=== PATIENT | male | born 1940 | race Caucasian/White ===

== ENCOUNTER 2018-03-25 12:50 | Emergency (ER) | payer MEDICARE, SELFPAY ==
[2018-03-25 12:59] VITALS: BP 106/63; PULSE 64; RESP 16; TEMP 36.6; O2SAT 96
--- NOTE | 2018-03-25 13:19 | ED.GENADUL_ITS ---
Discharge Plan Discharge Details Chief Complaint: HeadInjury Primary Care Provider: Josh Thakkar ED Provider: Marty Bishop Home Meds and New Rx's Prescriptions: No Action aspirin [Ecotrin Low Strength] 81 MG tablet,delayed release (DR/EC) 81 mg PO DAILY RF: 0 cholecalciferol (vitamin D3) 1,000 UNIT capsule 1,000 unit PO QAM RF: 0 omega-3 fatty acids-fish oil 1 EACH capsule 2 cap PO DAILY RF: 0 CPAP RF: 0 cyanocobalamin (vitamin B-12) [Vitamin B-12] 1,000 MCG tablet 1,000 mcg PO DAILY RF: 0 acetaminophen [Arthritis Pain Reliever] 650 MG tablet extended release 650 mg PO Q8H PRN RF: 0 nitroglycerin [Nitrostat] 0.4 MG tablet, sublingual 0.4 mg Sublingual PRN Qty: 25 RF: 0 hydrochlorothiazide 12.5 MG capsule 12.5 mg PO DAILY Qty: 90 RF: 3 omeprazole 20 MG capsule,delayed release(DR/EC) 20 mg PO DAILY Qty: 90 RF: 3 atenolol 50 MG tablet 75 mg PO DAILY Qty: 135 RF: 4 Medical Decision Making MDM Narrative Medical decision making narrative: This is a delightful 77-year-old male who had a mechanical ground-level fall, striking his left face on the ground. There is no loss of consciousness, no neck injury, no complaints of chest or abdominal discomfort. He has abrasion and swelling to the left periorbital region. Differential diagnosis includes underlying bony or intracranial injury. Patient was referred for CT scan of head. This did not reveal acute intracranial or bony findings, there is scalp hematoma present. Patient appropriate for outpatient management. Discussed increased dissipated course of resolution with him. He stable and appropriate for discharge to home HPI - General Adult General Mode of arrival: ambulatory . Date/Time Provider Initiated Documentation: 03/25/18 13:03 . Limitations to Documentation: no limitations . Information obtained by: patient . History of Present Illness 77 year old M presents to the emergency department with the chief complaint of Head injury, described as moderate, Quality is described as aching, and is localized to the head and left. Patient reports no radiation. Patient started experiencing this minute(s) and it has been constant. No relieving factors improve symptom(s), No exacerbating factors reported . Patient notes no other symptoms.. Patient did receive the following treatments prior to arrival, other (Ice) HPI Narrative: Head injury: 77-year-old male states he tripped and fell on a piece of pavement, falling forward and striking his left head on the ground. He did not have a loss of consciousness. He has aching the left head discomfort and swelling with abrasion. He does not have neck pain. He had no antecedent illness. He states that his tetanus status is up-to-date Related Data Home Medications Medication Instructions Recorded Confirmed aspirin [Ecotrin Low Strength] 81 mg PO DAILY tab-cap 12/01/12 03/25/18 cholecalciferol (vitamin D3) 1,000 unit PO QAM 12/01/12 03/25/18 omega-3 fatty acids-fish oil 2 cap PO DAILY 12/01/12 03/25/18 Cpap 12/06/12 01/23/14 cyanocobalamin (vitamin B-12) 1,000 mcg PO DAILY 07/14/16 03/25/18 [Vitamin B-12] acetaminophen [Arthritis Pain 650 mg PO Q8H PRN tab-cap 06/08/17 03/25/18 Reliever] Previous Rx's Medication Instructions Recorded nitroglycerin [Nitrostat] 0.4 mg SUBLINGUAL PRN #25 tab-cap 07/15/17 atenolol 75 mg PO DAILY #135 tab-cap 11/24/17 hydrochlorothiazide 12.5 mg PO DAILY #90 tab-cap 11/24/17 omeprazole 20 mg PO DAILY #90 tab-cap 11/24/17 Allergies Allergy/AdvReac Type Severity Reaction Status Date / Time azithromycin Allergy Severe LIP Unverified 03/25/18 13:04 SWELLING ibuprofen Allergy Intermediate angioedema Unverified 03/25/18 13:04 Penicillins Allergy Intermediate LIP Unverified 03/25/18 13:04 SWELLING Calcium Channel Blocking Allergy Unknown HIVES Unverified 03/25/18 13:04 Agent Dilt diltiazem Allergy Unknown HIVES Unverified 03/25/18 13:04 Sulfa (Sulfonamide Allergy Unknown SKIN RASH Unverified 03/25/18 13:04 Antibiotics) SODIUM NITRITE Allergy Severe Anaphylaxsi Uncoded 03/25/18 13:04 s General Stated Complaint: HeadInjury CAMERON: 3 Review of Systems Review of Systems 8 systems reviewed and otherwise neg PFSH Family History Mother Essential hypertension Hyperlipidemia Father Alzheimer disease Brother Hyperlipidemia Grandfather Heart disease Grandfather Heart disease Grandmother No problems noted. Grandmother Essential hypertension Brother Essential hypertension Son No problems noted. Son No problems noted. Son No problems noted. Daughter No problems noted. Social History Smoking/Tobacco Use Status: Former Tobacco Use Surgical History Arthroscopy, Shoulder (~2009) Extraction of cataract (~2010) Rotator Cuff Repair (~2005) Total replacement of hip (~2004) Transurethral prostatectomy (~2006) ankle repair (~1980) Exam Narrative Exam Narrative: GEN: awake, alert, oriented 3. Pleasant, well groomed, interactive. HEAD: Normocephalic, left periorbital swelling and abrasion superior and lateral to the orbit. ENT: Mucous membranes moist, oropharynx unremarkable, External ear exam unremarkable, no midface instability or bony tenderness EYES: PERRL, EOMI NECK: Full ROM, no DEBBIE, no menigismus CHEST/RESP: Nontender, clear to auscultation bilateral, no wheeze/rhonchi/rales CARDIOVASCULAR: RRR, no murmur, rub chani. 2+ Rad pulse bilateral ABDOMEN: Soft, nontender, no mass. +Bowel sounds EXT: Full ROM, no edema, no rash Neuro: Grossly normal neurologic exam, conversant, interactive. Psych: Speech fluent, thoughts congruent, affect normal Course Vital Signs Temperature 36.6 C 03/25/18 12:59 Pulse 64 03/25/18 12:59 Respiratory Rate 16 03/25/18 12:59 Blood Pressure 106/63 03/25/18 12:59 Pulse Oximetry 96 03/25/18 12:59 Temperature 36.6 C 03/25/18 12:59 Pulse 64 03/25/18 12:59 Respiratory Rate 16 03/25/18 12:59 Blood Pressure 106/63 03/25/18 12:59 Pulse Oximetry 96 03/25/18 12:59
--- NOTE | 2018-03-25 13:54 | DI.CT_ITS ---
SYMPTOMS/DIAGNOSIS: FALL, LT FRONTAL TRAUMA, PAIN NONCONTRAST HEAD CT: There are no prior comparison exams. There is a scalp hematoma seen above the left orbit. There is no evidence of fracture or intracranial hemorrhage. No orbital fracture is seen. The ventricles are normal in size. The sinuses and mastoid air cells appear clear. There is mild atrophy consistent with the patient's age. IMPRESSION: Left frontal scalp hematoma. No acute intracranial abnormality or skull fracture.
== END 2018-03-25 14:44 | disposition home or self-care (01) ==
LOC: ER 14:48
PROVIDERS: Emergency Provider Emergency Medicine; PCP Family Medicine
DX: S00.03XA Contusion of scalp, initial encounter (principal); W01.198A Fall on same level from slipping, tripping and stumbling with subsequent striking against other object, initial encounter
CPT/HCPCS: 99284; 70450

== ENCOUNTER 2018-07-13 10:12 | Outpatient (CLI) | payer MEDICARE, SELFPAY ==
[2018-07-13 11:42] LABS: CREATININE 1.37 mg/dL (0.70-1.30); Estimated GFR 50.25 (mL/min/1.73m2); Potassium 4.3 mmol/L (3.5-5.1)
== END 2018-07-13 10:32 ==
PROVIDERS: PCP Family Medicine; Visit Provider Family Medicine
DX: I10 Essential (primary) hypertension (principal)
CPT/HCPCS: 36415; 82565; 84132

== ENCOUNTER 2019-08-23 11:39 | Outpatient (CLI) | payer MEDICARE, SELFPAY ==
[2019-08-23 13:04] LABS: CREATININE 1.33 mg/dL (0.70-1.30); Estimated GFR 51.87 (mL/min/1.73m2); Potassium 4.2 mmol/L (3.5-5.1)
[2019-08-23 13:18] LABS: COMMENT (LAB VIEW ONLY) 131.79 mg/dL; Microalb ug/mg Crea 20.4 ug/mg Cr
== END 2019-08-23 11:59 ==
PROVIDERS: PCP Family Medicine; Visit Provider Family Medicine
DX: I10 Essential (primary) hypertension (principal)
CPT/HCPCS: 36415; 82043; 82565; 82570; 84132

== ENCOUNTER 2020-03-05 11:12 | Outpatient (REF) | payer MEDICARE, SELFPAY ==
--- NOTE | 2020-03-05 10:40 | SKI_PTH ---
PATIENT: Quentin Shay LOC: [facility] U#:[id number] AGE/SX: 79/M ROOM: RE03/05/[address]: Josh Thakkar MD : [id number] BED: DIS: 03/05/2020 SPEC #: [id number] RECD: 03/05/20 12:46 STATUS: MAYELIN REQ #: [id number] NIRU: 03/05/20 10:[address]: Josh Thakkar DEPT: Surgical Specimen RECD BY: Monique Balbuena Tissues: 1 - SKIN BIOPSY(SHAVE/PUNCH) Procedures: SKIN LEVEL 4 Comments: [id number]
== END 2020-03-05 11:32 ==
LOC: LBN 11:12
PROVIDERS: PCP Family Medicine; Visit Provider Family Medicine
DX: L30.8 Other specified dermatitis (principal)
CPT/HCPCS: 88305

== ENCOUNTER 2020-05-29 13:48 | Emergency (ER) | payer MEDICARE, SELFPAY ==
[2020-05-29 13:51] VITALS: BP 152/72; PULSE 97; RESP 18; TEMP 36.2; O2SAT 97
--- NOTE | 2020-05-29 14:00 | DI.US_ITS ---
EXAM: US LOWER EXTREMITY VENOUS LT CLINICAL HISTORY: Popliteal swelling, pain, r/o DVT TECHNIQUE: Left lower extremity venous ultrasound performed using grayscale, color-flow, and spectra l Doppler analysis. COMPARISON: No exams were available for comparison FINDINGS: The left common femoral and femoral l veins demonstrate normal compressibility, augmentation, and col or Doppler. There is hypoechoic thrombus seen in the posterior tibialis and popliteal veins. The sap henofemoral junction is unremarkable. There is no evidence of a West cyst. The soft tissues are un remarkable. 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 IMPRESSION: 1. DVT in the posterior tibialis and popliteal veins. 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 3. Findings were discussed with the emergency department on the date of the examination. DATA REPOSITORY:
--- NOTE | 2020-05-29 14:01 | W.ED.GENAD ---
Discharge Plan Disposition Patient Disposition: HOME Condition: Stable Discharge Details Clinical Impression: DVT (deep venous thrombosis) Primary Care Provider: Josh Thakkar ED Provider: Rachel Bonilla Home Meds and New Rx's Prescriptions: New apixaban 5 mg (74 tabs) tablets,dose pack See Rx Instructions .ROUTE .COMPLEX Qty: 1 RF: 0 No Action nitroglycerin [Nitrostat] 0.4 mg tablet, sublingual 0.4 mg Sublingual PRN Qty: 25 RF: 0 omeprazole 20 mg capsule,delayed release(DR/EC) 20 mg PO DAILY Qty: 90 RF: 3 aspirin [Ecotrin Low Strength] 81 MG tablet,delayed release (DR/EC) 81 mg PO DAILY RF: 0 cholecalciferol (vitamin D3) 1,000 UNIT capsule 1,000 unit PO QAM RF: 0 omega-3 fatty acids-fish oil 1 EACH capsule 2 cap PO DAILY RF: 0 CPAP RF: 0 cyanocobalamin (vitamin B-12) [Vitamin B-12] 1,000 MCG tablet 1,000 mcg PO DAILY RF: 0 acetaminophen [Arthritis Pain Reliever] 650 MG tablet extended release 650 mg PO Q8H PRN RF: 0 atenolol 50 mg tablet 75 mg PO DAILY Qty: 135 RF: 4 hydrochlorothiazide 12.5 mg capsule 12.5 mg PO DAILY Qty: 90 RF: 3 Discharge Instructions Instructions: Deep Vein Thrombosis (ED) Additional Instructions: Take your apixaban as directed: 10 mg twice daily for 7 days followed by 5 mg twice daily. 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 He reports this been ongoing for last week. Denies any trauma, no fever, denies any long trips in a car or plane. She does have swelling noted to his popliteal fossa, tenderness he is able to extend fully. Pain extends down into his left calf. Denies any chest pain or shortness of breath. He does have a past medical history of hypertension, anemia, Johnson's esophagus, renal insufficiency, left hip pain, osteoarthritis. He denies having any past surgical history with the knee, no blood thinners. EXAM: US LOWER EXTREMITY VENOUS LT CLINICAL HISTORY: Popliteal swelling, pain, r/o DVT TECHNIQUE: Left lower extremity venous ultrasound performed using grayscale, color-flow, and spectral Doppler analysis. COMPARISON: No exams were available for comparison FINDINGS: The left common femoral and femoral l veins demonstrate normal compressibility, augmentation, and color Doppler. There is hypoechoic thrombus seen in the posterior tibialis and popliteal veins. The saphenofemoral junction is unremarkable. There is no evidence of a West cyst. The soft tissues are unremarkable. 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 IMPRESSION: 1. DVT in the posterior tibialis and popliteal veins. 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 3. Findings were discussed with the emergency department on the date of the examination. 1605: Discussed results of ultrasound with Dr. Chavez radiologist. He reports the the popliteal artery which has a 6.7 cm long aneurysm is approximately 80% thrombosed and there is flow noted to the popliteal artery. Discussed results with patient who verbalized understanding. Labs added on and will consult vascular at [facility]. Care is to be handed off to oncoming provider Rachel Bonilla NP pending labs and consult with [facility] vascular surgery team. 1637: [facility] states they are at capacity and would not be able to accept patient for transfer however consult still requested with vascular surgery at this time. They will call back. <Rachel Bonilla NP - Last Filed: 05/29/20 17:12> case is discussed with Dr Salmon from vascular surgery who recommends anticoagulation for DVT and outpatient follow up for aneurysm in setting of no significant vascular compromise. patient reports his symptoms have slowly developed over some time and that the lump that his noticed is what prompted his visit. he has no pain in his foot, has full sensation to light touch and has palpable pulses. discharge plan was discussed with patient who is in agreement with this plan. he will be started on apixaban and discharged for outpatient vascular follow up. Medical Records Medical records reviewed: Yes I reviewed the patient's medical records. HPI <Renate Suh - Last Filed: 05/30/20 08:07> General Mode of arrival: ambulatory. Date/Time Provider Initiated Documentation: 05/29/20 13:52. Limitations to Documentation: no limitations. Information obtained by: patient. HPI Narrative: 79-year-old male presents to the ER with chief complaint of left leg pain and swelling. He reports this been ongoing for last week. Denies any trauma, no fever, denies any long trips in a car or plane. She does have swelling noted to his popliteal fossa, tenderness he is able to extend fully. Pain extends down into his left calf. Denies any chest pain or shortness of breath. He does have a past medical history of hypertension, anemia, Johnson's esophagus, renal insufficiency, left hip pain, osteoarthritis. He denies having any past surgical history with the knee, no blood thinners. Related Data Home Medications Medication Instructions Recorded Confirmed aspirin [Ecotrin Low Strength] 81 mg PO DAILY tab-cap 12/01/12 05/29/20 cholecalciferol (vitamin D3) 1,000 unit PO QAM 12/01/12 05/29/20 omega-3 fatty acids-fish oil 2 cap PO DAILY 12/01/12 05/29/20 Cpap 12/06/12 03/05/20 cyanocobalamin (vitamin B-12) 1,000 mcg PO DAILY 07/14/16 05/29/20 [Vitamin B-12] acetaminophen [Arthritis Pain 650 mg PO Q8H PRN tab-cap 06/08/17 05/29/20 Reliever] nitroglycerin 0.4 mg sublingual 0.4 mg SUBLINGUAL PRN #25 tab-cap 07/13/18 05/29/20 tablet atenolol 50 mg tablet 75 mg PO DAILY #135 tab-cap 06/02/19 05/29/20 hydrochlorothiazide 12.5 mg capsule 12.5 mg PO DAILY #90 tab-cap 06/02/19 05/29/20 omeprazole 20 mg capsule,delayed 20 mg PO DAILY #90 tab-cap 03/05/20 05/29/20 release apixaban See Rx Instructions .ROUTE 05/29/20 .COMPLEX #1 dose pk Previous Rx's Medication Instructions Recorded nitroglycerin 0.4 mg sublingual 0.4 mg SUBLINGUAL PRN #25 tab-cap 07/13/18 tablet atenolol 50 mg tablet 75 mg PO DAILY #135 tab-cap 06/02/19 hydrochlorothiazide 12.5 mg capsule 12.5 mg PO DAILY #90 tab-cap 06/02/19 omeprazole 20 mg capsule,delayed 20 mg PO DAILY #90 tab-cap 03/05/20 release apixaban See Rx Instructions .ROUTE 05/29/20 .COMPLEX #1 dose pk Allergies Allergy/AdvReac Type Severity Reaction Status Date / Time azithromycin Allergy Severe LIP Unverified 05/29/20 13:57 SWELLING ibuprofen Allergy Intermediate angioedema Unverified 05/29/20 13:57 Penicillins Allergy Intermediate LIP Unverified 05/29/20 13:57 SWELLING Calcium Channel Blocking Allergy Unknown HIVES Unverified 05/29/20 13:57 Agent Dilt diltiazem Allergy Unknown HIVES Unverified 05/29/20 13:57 Sulfa (Sulfonamide Allergy Unknown SKIN RASH Unverified 05/29/20 13:57 Antibiotics) SODIUM NITRITE Allergy Severe Anaphylaxsi Uncoded 05/29/20 13:57 s General Stated Complaint: Orthopedic CAMERON: 3 Review of Systems <Renate Suh - Last Filed: 05/30/20 08:07> Narrative: Constitutional: Negative for weight loss, alert and oriented, well groomed, normal body habitus, appears comfortable. HEENT: Denies trauma, headaches, blurry vision, nasal discharge, sore throat, trouble swallowing. Chest: Denies chest pain, palpitations, irregular rhythm, hypertension. Respiratory: Denies Shortness of breath, cough, hemoptysis. GI: Denies abdominal pain, nausea, vomiting, diarrhea, constipation. : Denies dysuria, hematuria, flank pain, rectal bleeding. Neuro: Denies dizziness, blurry vision, weakness, syncope, headache or facial numbness. Hematologic: Denies easy bruising, intolerance to heat or cold, hair loss. PFSH <Renate Suh - Last Filed: 05/30/20 08:07> Medical History (Updated 05/29/20 @ 17:06 by Rachel Bonilla NP) Skin lesion of right lower extremity Surgical History ankle repair (~1980) Arthroscopy, Shoulder (~2009) Extraction of cataract (~2010) Rotator Cuff Repair (~2005) Total replacement of hip (~2004) Transurethral prostatectomy (~2006) Family History Mother Essential hypertension Hyperlipidemia Father Alzheimer disease Brother Hyperlipidemia Grandfather Heart disease Grandfather Heart disease Grandmother No problems noted. Grandmother Essential hypertension Brother Essential hypertension Son No problems noted. Son No problems noted. Son No problems noted. Daughter No problems noted. Social History Smoking/Tobacco Use Status: Former Tobacco Use Smoking risk assessment performed?: Yes Alcohol Intake: current Alcohol Intake frequency: 0-2 drinks per day Drug use: Never Substance use type: does not use Do you feel safe at home: Yes Do you feel safe in your relationship?: Yes Exam <Ernate Angeli - Last Filed: 05/30/20 08:07> Narrative Exam Narrative: Constitutional: Alert and oriented x3. Appears stated age. Normal body habitus. Head: Normocephalic, no trauma. Eyes: Pupils PERRLA, Red reflex noted, EOM's intact. Eyelids symmetrical without lesions, discharge, or swelling. ENT: Bilateral TM's WNL, External ear normal to inspection, no mastoid TTP, swelling, or erythema, Nasal turbinates WNL, no nasal discharge. Normal dentition, Posterior pharynx WNL, no exudate. Chest: RRR, Normal S1, S2, distal pulses intact. Resp: Lungs clear to auscultation bilaterally, no wheezes, rales, or rhonchi. Musculoskeletal: Left popliteal tenderness, swelling, left calf pain. Increased tenderness with weightbearing. Skin: No suspicious rashes or lesions. Capillary refill less than 2 sec. Neurologic: Cranial nerves II-XII intact. Alert and oriented x 3. DTR's intact. Hematologic/Lymphatic: No ecchymosis, no lymphadenopathy. Course <Renate Angeli - Last Filed: 05/30/20 08:07> Vital Signs Vital signs: Vital Signs Temperature 36.2 C L 05/29/20 13:51 Pulse 97 H 05/29/20 13:51 Respiratory Rate 18 05/29/20 13:51 Blood Pressure 152/72 H 05/29/20 13:51 Pulse Oximetry 97 05/29/20 13:51 Temperature 36.2 C L 05/29/20 13:51 Temperature Source Temporal Artery Scan 05/29/20 13:51 Pulse 97 H 05/29/20 13:51 Respiratory Rate 18 05/29/20 13:51 Respiratory Effort Non-Labored 05/29/20 13:56 Blood Pressure 152/72 H 05/29/20 13:51 Blood Pressure Position Sitting 05/29/20 13:51 Pulse Oximetry 97 05/29/20 13:51 Oxygen Delivery Method Room Air 05/29/20 13:51 Oxygen Flow Rate 0 05/29/20 13:51 Pain Level 5 05/29/20 13:58 Sign Out <Renate Suh - Last Filed: 05/30/20 08:07> Sign Out Data: Sign Out Comment: Pending labs, Consult with [facility] and possible transfer to vascular surgery for left DVT and popliteal artery aneurysm. Last updated by Renate Suh at 05/29/20 16:31
[2020-05-29 14:08] VITALS: RESP 16
[2020-05-29 16:35] LABS: Abs Immature Grans 0.01 10^3/uL (0.0-0.06); Absolute Basophil Count 0.04 10^3/uL (0.0-0.2); Absolute Eosinophil Count 0.33 10^3/uL (0.0-0.7); Absolute Lymphocyte Count 1.14 10^3/uL (1.2-3.4); Absolute Monocyte Count 0.59 10^3/uL (0.1-0.8); Absolute Neutrophil Count 4.84 10^3/uL (1.2-6.7); Basophils % 0.6; Eosinophils % 4.7; HCT 45.8 % (40.0-50.0); HGB 15.1 g/dL (13.5-17.5); Immature Grans % 0.1; Lymphocytes % 16.4; MCH 31.9 pg (27.0-33.0); MCV 96.8 fL (80-95); MPV 9.4 fL (8.0-11.0); Monocytes % 8.5; Neutrophils % 69.7; Nucleated RBC 0 %; Platelet Count 131 10^3/uL (130-400); RBC 4.73 10^6/uL (4.36-5.78); RDW 13.1 % (11.8-14.1); RDW-SD 46.9 fL; WBC 6.95 10^3/uL (4.4-10.8)
[2020-05-29 16:44] LABS: Prothrombin Time 10.3 sec (9.3-11.0)
[2020-05-29 16:47] LABS: ALT 20 U/L (16-63); AST 15 U/L (15-37); Albumin 3.5 g/dL (3.4-5.0); Alkaline Phosphatase 86 U/L (46-116); Anion Gap 4.3 mmol/L (3-11); BUN 23 mg/dL (7-18); Bilirubin, Total 0.6 mg/dL (0.2-1.0); CO2 31.7 mmol/L (21.0-32.0); CREATININE 1.33 mg/dL (0.70-1.30); Calcium 10.4 mg/dL (8.5-10.1); Chloride 105 mmol/L (98-107); Estimated GFR 51.73 (mL/min/1.73m2); Glucose 110 mg/dL (74-106); Potassium 4.1 mmol/L (3.5-5.1); Sodium 141 mmol/L (136-145); Total Protein 6.8 g/dL (6.4-8.2)
[2020-05-29] MEDS: Apixaban 5 MG TAB 10 MG PO (17:20)
[2020-05-29 17:30] VITALS: BP 148/96; PULSE 71; RESP 18; TEMP 36.7; O2SAT 97
== END 2020-05-29 17:31 | disposition home or self-care (01) ==
PROVIDERS: Registered Nurse Emergency; Emergency Provider Nurse Practitioner Acute Care; PCP Family Medicine
DX: I72.4 Aneurysm of artery of lower extremity (principal); I82.442 Acute embolism and thrombosis of left tibial vein; I82.432 Acute embolism and thrombosis of left popliteal vein; I12.9 Hypertensive chronic kidney disease with stage 1 through stage 4 chronic kidney disease, or unspecified chronic kidney disease; N18.9 Chronic kidney disease, unspecified
CPT/HCPCS: 36415; 80053; 99284; 85025; 85610; 93971

== ENCOUNTER 2020-06-14 15:02 | Outpatient (CLI) | payer MEDICARE, SELFPAY ==
--- NOTE | 2020-06-14 15:15 | RT.EKG_ITS ---
APPROVED REPORT Exam: Resting ECG Patient Location: O HR:65 bpm ECG Measurements Heart Rate 65 AXIS HI 176 P 55 QRSd 107 QRS 4 QT 395 T 39 QTc 411 Conclusion Sinus rhythm...normal P axis, V-rate 60- 99
== END 2020-06-14 15:22 ==
PROVIDERS: PCP Family Medicine; Visit Provider Surgery
DX: I72.4 Aneurysm of artery of lower extremity (principal); Z01.810 Encounter for preprocedural cardiovascular examination
CPT/HCPCS: 93005; 93010

== ENCOUNTER 2020-06-19 03:42 | Outpatient (CLI) | payer MEDICARE, SELFPAY ==
[2020-06-19 12:40] LABS: HGB 15.2 g/dL (13.5-17.5); MCV 96.8 fL (80-95); MPV 9.1 fL (8.0-11.0); Platelet Count 148 10^3/uL (130-400); RBC 4.75 10^6/uL (4.36-5.78); RDW-SD 46.2 fL; WBC 5.54 10^3/uL (4.4-10.8)
[2020-06-19 13:08] LABS: Anion Gap 7.9 mmol/L (3-11); BUN 24 mg/dL (7-18); CO2 31.1 mmol/L (21.0-32.0); CREATININE 1.43 mg/dL (0.70-1.30); Calcium 10.6 mg/dL (8.5-10.1); Chloride 102 mmol/L (98-107); Estimated GFR 47.58 (mL/min/1.73m2); Glucose 107 mg/dL (74-106); Potassium 4.2 mmol/L (3.5-5.1); Sodium 141 mmol/L (136-145)
[2020-06-20 10:43] LABS: Prealbumin 21 mg/dL (20-40)
== END 2020-06-19 04:02 ==
PROVIDERS: PCP Family Medicine; Visit Provider Surgery
DX: I72.4 Aneurysm of artery of lower extremity (principal)
CPT/HCPCS: 36415; 80048; 85027; 84134

== ENCOUNTER 2020-09-25 11:39 | Observation (INO) | payer MEDICARE, SELFPAY ==
[2020-09-25] VITALS (20 sets, daily range): BP systolic 115–165; BP diastolic 84–113; PULSE 75–113; RESP 16–23; TEMP 36.1–37; O2SAT 94–97
--- NOTE | 2020-09-25 12:02 | W.ED.GENAD ---
Discharge Plan Disposition Patient Disposition: [facility] INPATIENT Condition: Stable Discharge Details Clinical Impression: Amnesia memory loss, Hypercalcemia Admit Date/Time: 09/25/20 14:53 Admit Provider: Abhilash Burgos Attending Provider: Abhilash Burgos Primary Care Provider: Josh Thakkar ED Provider: Tita Bashir Discharge Data Discharge Date/Time-TO BE ENTERED AT DEPARTURE: 09/25/20 16:45 Medical Decision Making 79-year-old male with a history of GERD, hypertension, hyperlipidemia, sleep apnea presents from home for memory loss since yesterday. He is able to state his name, the month, the year and that he is in the hospital but does not recall the date or the name of the hospital which he states he feels he would normally know. He states he did not recall what he did yesterday. Blood pressure hypertensive at 151/102. Heart rate elevated at 112. He is afebrile and appears comfortable and nontoxic. He has no focal deficits. Differential diagnosis includes acute CVA, dehydration, electrolyte abnormality, arrhythmia, transient global amnesia,, etc. Will place an IV, bolus IV fluids, screening labs, urinalysis, CT head and neck. Will attempt to obtain an MRI brain. Will likely plan for admission for continued monitoring and neurology consult. Labs reviewed. Normal white blood cell count. Calcium mildly elevated to 11. Troponin negative. CTA head and neck and chest x-ray negative for acute findings. Case discussed with hospitalist who accepts patient for admission. MRI brain ordered. Blood pressure improved to 115/94. Unable to obtain a urine sample at this time. Patient given additional IV fluids and will attempt to cath if unable to urinate. Nurse performed bladder scan at bedside with 125 mL in bladder. Medical Records Medical records reviewed: Yes I reviewed the patient's medical records. Imaging Data Radiologic Study: Radiologist's impression: CT BRAIN NECK CTA CLINICAL HISTORY: memory issues, r/o acute cva. TECHNIQUE: Imaging Protocol: Axial CT angiography was performed with multi-slice acquisition and multi-planar and/or 3D reconstructions. CONTRAST MATERIAL: Intravenous: Omnipaque 350 Contrast volume:100 mL COMPARISON: CT CT HEAD WO from 03/25/2018 FINDINGS: CTA Neck W: Aortic arch anatomy: Conventional. There is no significant stenosis at the origin of the great vessels off of the aortic arch. Anterior circulation: Both common carotid arteries are patent without significant stenosis. Also no evidence of significant stenosis of the carotid bifurcations or proximal internal carotid arteries. Posterior circulation: Both vertebral arteries originated conventional fashion off the subclavian arteries. No significant stenosis evident in subclavian arteries proximal to the vertebral artery takeoff points. Also no significant stenosis at the origin of the vertebral arteries. Both vertebral arteries ascend with approximately equal and normal luminal diameters within the foramen transversarium. Distally both vertebral arteries contribute to the formation of the basilar artery at the skull base. Left vertebral artery is dominant at this level. Mild calcified plaque seen on the lateral wall of the left vertebral artery at the skull base but without prominent stenosis at this level in this vessel evident. CTA Brain W: Anterior circulation: Both internal carotid arteries patent in the skull base as well as within the cavernous sinuses. Supraclinoid aspect of these vessels are calcified but otherwise patent. Both middle cerebral arteries are patent out to the sylvian fissure branches. No aneurysms. Both A1 segments are thin patent. Both anterior cerebral arteries are thin but patent. There is no evidence of aneurysm at the level of the anterior communicating artery.. Posterior circulation: Basilar artery is formed by contribution from both vertebral arteries. Left vertebral artery is dominant. Basilar artery is sends with mild dolichoectasia but no intraluminal thrombus nor dissection. Distally gives off superior cerebellar arteries and the right posterior cerebral artery. The left posterior cerebral artery is supplied by posterior communicating artery on the left side of the [id number]. CT BRAIN: There is no evidence of intracranial hemorrhage, mass effect, or shift of midline structures. No extra-axial fluid collections. Ventricles are not enlarged or shifted. There is no blood within the ventricular system nor within the basal cisterns. There are no ring enhancing lesions in the brain. No abnormal meningeal enhancement, focal or diffuse. IMPRESSION: 1. No acute intracranial findings. No ring enhancing lesions in the brain. 2. Patent arteries in the neck. 3. Intracranially the A1 segments are somewhat thin bilaterally but otherwise patent. No evidence of intraluminal thrombus. No dissection. 4. The left posterior cerebral artery is supplied by a posterior communicating artery on the left side of the [id number]. XR CHEST 2V PA LATERAL CLINICAL HISTORY: possible cva, r/o acute disease. TECHNIQUE: 2D digital imaging was performed. COMPARISON: CR CHEST 2 VIEWS PA,LAT from 09/02/2011 FINDINGS: Heart size upper normal. Large retrocardiac hiatal hernia is again noted. Superior mediastinum is not included in the field of view No infiltrates or pleural effusions. No pulmonary edema. No pneumothorax. Left shoulder prosthesis noted. Right shoulder surgery probably rotator cuff none. IMPRESSION: No acute pulmonary findings.However, the lung apices are not included in the field of view here. Large retrocardiac hiatal hernia, as was also evident in 2011. Lab Data Lab results reviewed: Yes I reviewed the patient's lab results. Labs: Laboratory Tests Range/Units 09/25/20 09/25/20 09/25/20 12:10 12:10 12:10 WBC (4.4-10.8) 10^3/uL 5.68 RBC (4.36-5.78) 10^6/uL 5.01 Hgb (13.5-17.5) g/dL 14.5 Hct (40.0-50.0) % 45.2 MCV (80-95) fL 90.2 MCH (27.0-33.0) pg 28.9 MCHC (32.0-36.0) % 32.1 RDW (11.8-14.1) % 14.0 Plt Count (130-400) 10^3/uL 155 MPV (8.0-11.0) fL 9.0 Immature Gran % 0.4 Neutrophils % 66.9 Lymphocytes % 18.0 Monocytes % 9.7 Eosinophils % 3.9 Basophils % 1.1 Nucleated RBC % % 0 Absolute Neutrophils (1.2-6.7) 10^3/uL 3.81 Absolute Lymphocytes (1.2-3.4) 10^3/uL 1.02 L Absolute Monocytes (0.1-0.8) 10^3/uL 0.55 Absolute Eosinophils (0.0-0.7) 10^3/uL 0.22 Absolute Basophils (0.0-0.2) 10^3/uL 0.06 PT (9.3-11.0) sec 10.4 INR (0.9-1.1) 1.0 APTT (21.0-27.5) sec 25.7 Sodium (136-145) mmol/L 137 Potassium (3.5-5.1) mmol/L 4.3 Chloride (98-107) mmol/L 102 Carbon Dioxide (21.0-32.0) mmol/L 28.5 Anion Gap (3-11) mmol/L 6.5 BUN (7-18) mg/dL 17 Creatinine (0.70-1.30) mg/dL 1.3 Estimated GFR/1.73 m2 (mL/min/1.73m2) 53.12 Glucose (74-106) mg/dL 123 H Calcium (8.5-10.1) mg/dL 11.0 H Magnesium (1.8-2.4) mg/dL 2.4 Total Bilirubin (0.2-1.0) mg/dL 0.8 AST (15-37) U/L 22 ALT (16-63) U/L 27 Alkaline Phosphatase (46-116) U/L 83 Troponin I (<0.06) ng/mL < 0.05 Total Protein (6.4-8.2) g/dL 7.4 Albumin (3.4-5.0) g/dL 3.5 ECG Data Attestation: I personally reviewed and interpreted this ECG (s) as follows: Interpretation: rate of 88, sinus, no acute ST elevation or depression. NH 181. QRS 97. QTc 421. HPI General Mode of arrival: ambulatory. Date/Time Provider Initiated Documentation: 09/25/20 11:52. Limitations to Documentation: no limitations. Information obtained by: patient. HPI Narrative: Patient is an 79-year-old male with a history of hypertension, GERD, hyperlipidemia, obstructive sleep apnea, popliteal artery aneurysm with repair presents to the ED with memory issues since yesterday. Patient states a home health nurse who checks on his regularly checked on him today and he told her that he felt that he has had difficulty with his memory and she brought him to the ED for evaluation. Patient is able to state that her name is Octavia but does not recall her last name. This nurse spoke to our nursing staff stating that she last saw patient on Wednesday and he seemed vague at that time. She did not remember me did not have any additional information for her. Patient states he does not recall what he did yesterday. He earlier stated to the nurse that he did not know the day or where he was or the year. Patient is able to state to me that it is Wednesday in September 2020 but he is unable to state the date. Patient denies any recent illnesses or new medications. He states he has been eating and drinking less than usual because his is currently in the hospital and has not been feeling like he wanted to cook. He denies any recent fever, chest pain, shortness of breath, abdominal pain, urinary symptoms, vomiting, diarrhea. Related Data Home Medications Medication Instructions Recorded Confirmed aspirin [Ecotrin Low Strength] 81 mg PO DAILY tab-cap 12/01/12 09/25/20 cholecalciferol (vitamin D3) 1,000 unit PO QAM 12/01/12 09/25/20 omega-3 fatty acids-fish oil 2 cap PO DAILY 12/01/12 09/25/20 Cpap 12/06/12 03/05/20 cyanocobalamin (vitamin B-12) 1,000 mcg PO DAILY 07/14/16 09/25/20 [Vitamin B-12] acetaminophen [Arthritis Pain 650 mg PO Q8H PRN tab-cap 06/08/17 09/25/20 Reliever] nitroglycerin 0.4 mg sublingual 0.4 mg SUBLINGUAL PRN #25 tab-cap 07/13/18 09/25/20 tablet atenolol 50 mg tablet 75 mg PO DAILY #135 tab-cap 06/02/19 09/25/20 hydrochlorothiazide 12.5 mg capsule 12.5 mg PO DAILY #90 tab-cap 06/02/19 09/25/20 omeprazole 20 mg capsule,delayed 20 mg PO DAILY #90 tab-cap 03/05/20 09/25/20 release Previous Rx's Medication Instructions Recorded nitroglycerin 0.4 mg sublingual 0.4 mg SUBLINGUAL PRN #25 tab-cap 07/13/18 tablet atenolol 50 mg tablet 75 mg PO DAILY #135 tab-cap 06/02/19 hydrochlorothiazide 12.5 mg capsule 12.5 mg PO DAILY #90 tab-cap 06/02/19 omeprazole 20 mg capsule,delayed 20 mg PO DAILY #90 tab-cap 03/05/20 release Allergies Allergy/AdvReac Type Severity Reaction Status Date / Time azithromycin Allergy Severe LIP Unverified 05/29/20 13:57 SWELLING ibuprofen Allergy Intermediate angioedema Unverified 05/29/20 13:57 Penicillins Allergy Intermediate LIP Unverified 05/29/20 13:57 SWELLING Calcium Channel Blocking Allergy Unknown HIVES Unverified 05/29/20 13:57 Agent Dilt diltiazem Allergy Unknown HIVES Unverified 05/29/20 13:57 Sulfa (Sulfonamide Allergy Unknown SKIN RASH Unverified 05/29/20 13:57 Antibiotics) SODIUM NITRITE Allergy Severe Anaphylaxsi Uncoded 05/29/20 13:57 s General Stated Complaint: GenMedical CAMERON: 2 Review of Systems All systems reviewed & are unremarkable except as noted in HPI and below Constitutional Constitutional: Reports as per HPI, Denies chills and Denies fever(s) Eyes Eyes: Denies blurry vision ENT Ears, Nose, Mouth, and Throat: Denies dizziness, Denies sore throat and Denies throat swelling Cardiovascular Cardiovascular: Denies chest pain and Denies dyspnea Respiratory Respiratory: Denies cough and Denies dyspnea Gastrointestinal Gastrointestinal: Denies abdominal pain, Denies diarrhea and Denies vomiting Genitourinary Genitourinary: Denies hematuria and Denies dysuria Musculoskeletal Musculoskeletal: Denies back pain and Denies numbness Integumentary/Breasts Skin/Breast: Denies lesions and Denies rash Neurologic Neurologic: Denies dizziness, Denies localized weakness, Reports memory loss and Denies numbness Psychiatric Psychiatric: Reports memory loss Allergic/Immunologic Allergic/Immunologic: Denies throat swelling [facility] Medical History Barretts esophagus 01/23/14 DR. 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 Grandmother Essential hypertension Brother Essential hypertension Son No problems noted. Son No problems noted. Son No problems noted. Daughter No problems noted. Social History Smoking/Tobacco Use Status: Former Tobacco Use Smoking risk assessment performed?: Yes Alcohol Intake: current Alcohol Intake frequency: 0-2 drinks per day Alcohol type: hard liquor Drug use: Never Substance use type: does not use Do you feel safe at home: Yes Do you feel safe in your relationship?: Yes Exam Const General: cooperative and no acute distress Orientation: alert, awake, oriented x3, oriented to person, oriented to place (knows at the hospital, not the specific name) and oriented to time (know Wednesday in September 2020, not date ) [facility] Head: normal to inspection Ears: hearing grossly normal bilaterally, external ears normal and TM's normal bilaterally General nose exam: external nose normal Face and sinus: normal facial exam Mouth: oral mucosae normal Teeth and gingiva: dentition normal Throat: posterior oropharynx normal Eyes General: appearance normal, both eyes and all related structures Eyelids: eyelids normal Pupils: PERRL EOM: EOM intact bilaterally Neck Neck: normal visual inspection Lymphatic: no lymphadenopathy noted Chest Chest: normal inspection of the chest Resp Effort & Inspection: normal respiratory effort and able to speak in complete sentences Auscultation: clear to auscultation bilaterally Cardio Rate: regular rate Rhythm: regular rhythm GI Inspection: normal to inspection Palpation: soft, not firm, no guarding, no hepatosplenomegaly, no masses and nontender Auscultation: normal bowel sounds Back/Spine/Pelvis Back: no CVA tenderness Skin General skin exam: no rashes or lesions noted Neuro General: patient alert, patient awake and moves all extremities Cranial Nerves: CN's II-XI intact bilaterally Cognition: normal cognition Speech: speech normal Gait: normal gait Motor: muscle tone normal throughout and strength 5/5 throughout Sensory Exam: no sensory deficits noted Extrem General: normal to inspection, full ROM and capillary refill normal Psych Appearance: grossly normal Mental Status: mental status grossly normal Speech and Movement: speech and movement normal Affect: normal affect Thought Process: normal Course Vital Signs Vital signs: Vital Signs Temperature 98.6 F 09/25/20 11:45 Pulse 112 H 09/25/20 11:45 Respiratory Rate 16 09/25/20 11:45 Blood Pressure 161/102 H 09/25/20 11:45 Pulse Oximetry 97 09/25/20 11:45 Temperature 98.6 F 09/25/20 11:45 Temperature Source Skin 09/25/20 11:45 Pulse 112 H 09/25/20 11:45 Respiratory Rate 16 09/25/20 11:45 Blood Pressure 161/102 H 09/25/20 11:45 Blood Pressure Position Sitting 09/25/20 11:45 Pulse Oximetry 97 09/25/20 11:45 Oxygen Delivery Method Room Air 09/25/20 11:45 Oxygen Flow Rate 0 09/25/20 11:45 Pain Level 0 09/25/20 11:45
--- NOTE | 2020-09-25 12:15 | DI.CT_ITS ---
EXAM: CT BRAIN NECK CTA CLINICAL HISTORY: memory issues, r/o acute cva. TECHNIQUE: Imaging Protocol: Axial CT angiography was performed with multi-slice acquisition and mu lti-planar and/or 3D reconstructions. CONTRAST MATERIAL: Intravenous: Omnipaque 350 Contrast volume:100 mL COMPARISON: CT CT HEAD WO from 03/25/2018 FINDINGS: CTA Neck W: Aortic arch anatomy: Conventional. There is no significant stenosis at the origin of the great vessel s off of the aortic arch. Anterior circulation: Both common carotid arteries are patent without significant stenosis. Also no evidence of significant stenosis of the carotid bifurcations or proximal internal carotid arteries. Posterior circulation: Both vertebral arteries originated conventional fashion off the subclavian arteries. No significant s tenosis evident in subclavian arteries proximal to the vertebral artery takeoff points. Also no signi ficant stenosis at the origin of the vertebral arteries. Both vertebral arteries ascend with approxim ately equal and normal luminal diameters within the foramen transversarium. Distally both vertebral a rteries contribute to the formation of the basilar artery at the skull base. Left vertebral artery is dominant at this level. Mild calcified plaque seen on the lateral wall of the left vertebral artery at the skull base but without prominent stenosis at this level in this vessel evident. CTA Brain W: Anterior circulation: Both internal carotid arteries patent in the skull base as well as within the cavernous sinuses. Supr aclinoid aspect of these vessels are calcified but otherwise patent. Both middle cerebral arteries ar e patent out to the sylvian fissure branches. No aneurysms. Both A1 segments are thin patent. Both an terior cerebral arteries are thin but patent. There is no evidence of aneurysm at the level of the an terior communicating artery.. Posterior circulation: Basilar artery is formed by contribution from both vertebral arteries. Left vertebral artery is domin ant. Basilar artery is sends with mild dolichoectasia but no intraluminal thrombus nor dissection. Di leeanne gives off superior cerebellar arteries and the right posterior cerebral artery. The left poste rior cerebral artery is supplied by posterior communicating artery on the left side of the [place]. CT BRAIN: There is no evidence of intracranial hemorrhage, mass effect, or shift of midline structures. No extr a-axial fluid collections. Ventricles are not enlarged or shifted. There is no blood within the ventr icular system nor within the basal cisterns. There are no ring enhancing lesions in the brain. No abn ormal meningeal enhancement, focal or diffuse. IMPRESSION: 1. No acute intracranial findings. No ring enhancing lesions in the brain. 2. Patent arteries in the neck. 3. Intracranially the A1 segments are somewhat thin bilaterally but otherwise patent. No evidence of intraluminal thrombus. No dissection. 4. The left posterior cerebral artery is supplied by a posterior communicating artery on the left s genny of the [id number]. RADIATION DOSE DELIVERED: 2,023.05mGy.cm Total DLP DATA REPOSITORY: All CT scans at this facility are submitted to the National Radiology Data Registry (NRDR) Dose Index Registry (DIR) with the [employer] (A[employer]). RADIATION OPTIMIZATION: All CT scans at this facility use at least one of these dose optimization te chniques: automated exposure control; mA and/or kV adjustment per patient size (includes targeted exa ms where dose is matched to clinical indication); or iterative reconstruction.
[2020-09-25 12:26] LABS: Abs Immature Grans 0.02 10^3/uL (0.0-0.06); Absolute Basophil Count 0.06 10^3/uL (0.0-0.2); Absolute Eosinophil Count 0.22 10^3/uL (0.0-0.7); Absolute Lymphocyte Count 1.02 10^3/uL (1.2-3.4); Absolute Monocyte Count 0.55 10^3/uL (0.1-0.8); Absolute Neutrophil Count 3.81 10^3/uL (1.2-6.7); Basophils % 1.1; Eosinophils % 3.9; HCT 45.2 % (40.0-50.0); HGB 14.5 g/dL (13.5-17.5); Immature Grans % 0.4; MCH 28.9 pg (27.0-33.0); MCHC 32.1 % (32.0-36.0); MCV 90.2 fL (80-95); Monocytes % 9.7; Neutrophils % 66.9; Nucleated RBC 0 %; Platelet Count 155 10^3/uL (130-400); RBC 5.01 10^6/uL (4.36-5.78); RDW-SD 46.4 fL; WBC 5.68 10^3/uL (4.4-10.8)
[2020-09-25] MEDS: Normal Saline 500 ML IV ×2 (12:30→14:06)
--- NOTE | 2020-09-25 12:39 | NUR.NOTE ---
pt irasema admitted to room 218, [id number]. Per pt ok to speak to his . Called room, no answer.
[2020-09-25 12:44] LABS: PTT Activated 25.7 sec (21.0-27.5); Prothrombin Time 10.4 sec (9.3-11.0)
[2020-09-25 12:49] LABS: ALT 27 U/L (16-63); AST 22 U/L (15-37); Albumin 3.5 g/dL (3.4-5.0); Alkaline Phosphatase 83 U/L (46-116); Anion Gap 6.5 mmol/L (3-11); BUN 17 mg/dL (7-18); Bilirubin, Total 0.8 mg/dL (0.2-1.0); CO2 28.5 mmol/L (21.0-32.0); CREATININE 1.3 mg/dL (0.70-1.30); Chloride 102 mmol/L (98-107); Estimated GFR 53.12 (mL/min/1.73m2); Glucose 123 mg/dL (74-106); Magnesium 2.4 mg/dL (1.8-2.4); Potassium 4.3 mmol/L (3.5-5.1); Sodium 137 mmol/L (136-145); Total Protein 7.4 g/dL (6.4-8.2)
--- NOTE | 2020-09-25 12:52 | NUR.NOTE ---
pt arrives with [facility] nurse. States she went to check on him today and brought him in because he is confused. States she has not seen him for several weeks. Last seen by a nurse on wednesday 09/20, Pt was noted to be vague. Pt arrives speaking in full, clear sentences. Alert to person. Confused to date and place initially. Able to state he is in hospital and that it is 2020 later. Pt admitted to hospital last night, pt unsure why. States he called his daughter Yina this am when he realized he felt confused. [facility] nurse drove him. States he felt well yesterday and it happened just like that, i couldn't remember anything. Denies CAMPA, visual disturbances, CP, SOB. States he ate half a peanut butter sandwich this am. BGL 110.
[2020-09-25 12:57] LABS: Troponin I < 0.05 ng/mL (<0.06)
--- NOTE | 2020-09-25 14:11 | DI.RAD_ITS ---
EXAM: XR CHEST 2V PA LATERAL CLINICAL HISTORY: possible cva, r/o acute disease. TECHNIQUE: 2D digital imaging was performed. COMPARISON: CR CHEST 2 VIEWS PA,LAT from 09/02/2011 FINDINGS: Heart size upper normal. Large retrocardiac hiatal hernia is again noted. Superior mediastinum is not included in the field of view No infiltrates or pleural effusions. No pulmonary edema. No pneumothorax. Left shoulder prosthesis noted. Right shoulder surgery probably rotator cuff none. IMPRESSION: No acute pulmonary findings.However, the lung apices are not included in the field of view here. Large retrocardiac hiatal hernia, as was also evident in 2012. DATA REPOSITORY: RADIATION DOSE DELIVERED:
[2020-09-25] MEDS: Omnipaque 350 MG/ML 100 ML BTL IJ (14:19)
[2020-09-25] MEDS: Normal Saline - Diluent 50 ML VIAL IV (14:22)
--- NOTE | 2020-09-25 14:45 | RT.EKG_ITS ---
APPROVED REPORT Exam: Resting ECG Patient Location: E HR:88 bpm ECG Measurements Heart Rate 88 AXIS MI 181 P 64 QRSd 97 QRS 5 QT 347 T 43 QTc 421 Conclusion Sinus rhythm...normal P axis, V-rate 60- 99 Atrial premature complex...SV complex w/ short R-R interval. No STEMI. I have reviewed and interpreted ECG and agree with software generated interpretation.
--- NOTE | 2020-09-25 14:45 | DI.MRI_ITS ---
EXAM: MR BRAIN WO CLINICAL HISTORY: memory issues, r/o acute cva TECHNIQUE: Multiplanar multisequence MRI of the brain was performed. COMPARISON: No exams were available for comparison FINDINGS: CEREBRAL PARENCHYMA: No evidence of intracranial hemorrhage, mass effect nor shift of midline structu re. No extraaxial fluid collections. Ventricles are not enlarged nor shifted. There is no significant focal signal abnormality in the cerebellar hemispheres nor within the tahmina, m idbrain, and thalami. There is no abnormal signal abnormality in the periventricular white matter. There is involutional change consistent with this patient's age. PITUITARY GLAND: No mass nor parasellar abnormality. No obvious abnormality in the cavernous sinuses. FLOW VOIDS: The expected flow void are noted. No evidence of obvious aneurysm nor obvious vascular ma lformation. PARANASAL SINUSES: The visualized paranasal sinuses appear unremarkable. ORBITS: No obvious abnormal findings. IMPRESSION: 1. No significant acute intracranial findings on this noninfused MRI scan of the brain. 2. There is symmetrical involutional change consistent with this patient's advanced age. DATA REPOSITORY:
[2020-09-25 15:29] LABS: TSH 0.39 uIU/mL (0.36-3.74)
[2020-09-25 16:03] LABS: Bilirubin Negative (Negative); Blood Negative (Negative); Clarity Clear (Clear); Glucose Negative (Negative); Ketones Negative (Negative); Leukocyte Esterase Negative (Negative); Nitrite Negative (Negative); Specific Gravity 1.015 (1.005-1.025); Urobilinogen 0.2 EU/dL (Up TO 0.2); pH 6.5 (5-8)
--- NOTE | 2020-09-25 16:51 | DI.VRAD_ITS ---
PROCEDURE INFORMATION: Exam: MR Head Without Contrast Exam date and time: 09/25/2020 4:27 PM Age: 79 years old Clinical indication: Altered mental status/memory loss TECHNIQUE: Imaging protocol: MR of the head without contrast. 3D rendering (Not supervised by radiologist): MIP and/or 3D reconstructed images were created by the technologist. COMPARISON: CT BRAIN NECK CTA 09/25/2020 1:17 PM FINDINGS: Brain: Mild nonspecific T2/FLAIR hyperintensities of the periventricular and deep subcortical white matter, most likely secondary to chronic small vessel ischemic change. No intracranial hemorrhage or extra-axial fluid collection. No evidence of mass effect or midline shift. No restricted diffusion to suggest acute infarct. Cerebral ventricles: Mild prominence of the ventricles and sulci, likely attributed to parenchymal volume loss. Bones/joints: Unremarkable. Paranasal sinuses: Normal as visualized. No acute sinusitis. Mastoid air cells: No mastoid effusion. Orbital cavity: Unremarkable. Soft tissues: Unremarkable. Oropharynx: Asymmetric right pharyngeal soft tissue thickening at the base of the tongue seen on thin axial space sequence. IMPRESSION: 1. No acute intracranial pathology. 2. Asymmetric right pharyngeal soft tissue thickening at the base of the tongue seen on thin axial space sequence. Recommend further evaluation with CT soft tissue neck with IV contrast. 3. Chronic intracranial findings, as above. Dictated and Authenticated by: Florentin Brooks MD. Ordering:ABHAY Rivers MD
[2020-09-25 18:35] LABS: COVID-19 PCR Negative (Negative)
--- NOTE | 2020-09-25 20:34 | HPE_ITS ---
Date of service: 09/25/20 Time of Service: 17:26 Assessment and Plan Assessment and plan (1) Amnesia memory loss: Status: Acute Assessment and plan: Appears to have underlying dementia that hasn't been recognized when in his usual home environment. The disruption of his being hospitalized the night before his admission may have disrupted his ability to cover for his memory issues. Neurology consult appreciated. MRI head w/o acute findings. (2) Hypercalcemia: Status: Acute Assessment and plan: Mild. Will have f/u lab with PCP as outpt. (3) Hypertension: Status: Chronic Assessment and plan: Currently poorly controlled. SBPs in the 140's - 150's. On Atenolol, HCTZ Will suggest close outpt following. History of Present Illness History of Present Illness Chief Complaint: amnesia Narrative: Patient is an 79-year-old male with a history of hypertension, GERD, hyperlipidemia, obstructive sleep apnea, popliteal artery aneurysm with repair presents to the ED with memory issues since yesterday. Patient states a home health nurse who checks on his regularly checked on him today and he told her that he felt that he has had difficulty with his memory and she brought him to the ED for evaluation. Patient is able to state that her name is Octavia but does not recall her last name. This nurse spoke to our nursing staff stating that she last saw patient on Wednesday and he seemed vague at that time. She did not remember me did not have any additional information for her. Patient states he does not recall what he did yesterday. He earlier stated to the nurse that he did not know the day or where he was or the year. Patient is able to state to me that it is Wednesday in September 2020 but he is unable to state the date. Patient denies any recent illnesses or new medications. He states he has been eating and drinking less than usual because his is currently in the hospital and has not been feeling like he wanted to cook. He denies any recent fever, chest pain, shortness of breath, abdominal pain, urinary symptoms, vo miting, diarrhea Review of Systems All systems reviewed & are unremarkable except as noted in HPI and below PFSH Medical History Barretts esophagus 01/23/14 DR. CRISTI XIONG; EGD Essential hypertension (10/19/13) get your pcv GERD (gastroesophageal reflux disease) Hyperlipidemia (12/06/12) Obstructive sleep apnea syndrome [facility]; C-PAP Popliteal artery aneurysm repaired 06/2020 [facility] [place] Skin lesion of right lower extremity Surgical History ankle repair (~1980) Arthroscopy, Shoulder (~2009) Extraction of cataract (~2010) Rotator Cuff Repair (~2005) Total replacement of hip (~2004) Transurethral prostatectomy (~2006) Family History Mother Essential hypertension Hyperlipidemia Father Alzheimer disease Brother Hyperlipidemia Grandfather Heart disease Grandfather Heart disease Grandmother No problems noted. Grandmother Essential hypertension Brother Essential hypertension Son No problems noted. Son No problems noted. Son No problems noted. Daughter No problems noted. Social History Smoking/Tobacco Use Status: Former Tobacco Use Smoking risk assessment performed?: Yes Alcohol Intake: current Alcohol Intake frequency: 0-2 drinks per day Alcohol type: hard liquor Drug use: Never Substance use type: does not use Do you feel safe at home: Yes Do you feel safe in your relationship?: Yes Meds Home Medications and Allergies Allergies Allergy/AdvReac Type Severity Reaction Status Date / Time azithromycin Allergy Severe LIP Unverified 05/29/20 13:57 SWELLING ibuprofen Allergy Intermediate angioedema Unverified 05/29/20 13:57 Penicillins Allergy Intermediate LIP Unverified 05/29/20 13:57 SWELLING Calcium Channel Blocking Allergy Unknown HIVES Unverified 05/29/20 13:57 Agent Dilt diltiazem Allergy Unknown HIVES Unverified 05/29/20 13:57 Sulfa (Sulfonamide Allergy Unknown SKIN RASH Unverified 05/29/20 13:57 Antibiotics) SODIUM NITRITE Allergy Severe Anaphylaxsi Uncoded 05/29/20 13:57 s Home Medications Medication Instructions Recorded Confirmed Type aspirin [Ecotrin Low Strength] 81 mg PO DAILY tab-cap 12/01/12 09/25/20 History cholecalciferol (vitamin D3) 1,000 unit PO QAM 12/01/12 09/25/20 History omega-3 fatty acids-fish oil 2 cap PO DAILY 12/01/12 09/25/20 History Cpap 12/06/12 03/05/20 History cyanocobalamin (vitamin B-12) 1,000 mcg PO DAILY 07/14/16 09/25/20 History [Vitamin B-12] acetaminophen [Arthritis Pain 650 mg PO Q8H PRN tab-cap 06/08/17 09/25/20 History Reliever] nitroglycerin 0.4 mg sublingual 0.4 mg SUBLINGUAL PRN #25 tab-cap 07/13/18 09/25/20 Rx tablet atenolol 50 mg tablet 75 mg PO DAILY #135 tab-cap 06/02/19 09/25/20 Rx hydrochlorothiazide 12.5 mg capsule 12.5 mg PO DAILY #90 tab-cap 06/02/19 09/25/20 Rx omeprazole 20 mg capsule,delayed 20 mg PO DAILY #90 tab-cap 03/05/20 09/25/20 Rx release Exam Const General: cooperative and no acute distress Nutritional Appearance: obese Orientation: alert, oriented to person, oriented to place and other [facility] Head: normocephalic and atraumatic Eyes Sclera: sclerae normal Pupils: PERRL Resp Effort & Inspection: normal respiratory effort Auscultation: clear to auscultation bilaterally Cardio Rate: regular rate Rhythm: regular rhythm Heart Sounds: S1 normal and S2 normal GI Palpation: soft and nontender Auscultation: normal bowel sounds Neuro General: oriented (Did not correctly name day of week. Delayed answer but knew month) and no focal motor deficits Cranial Nerves: facial strength normal Speech: speech normal Extrem General: no pedal edema and no calf tenderness Psych Appearance: grossly normal Affect: normal affect Results Labs Result diagrams: 09/25/20 12:10 09/25/20 12:10 Labs: Laboratory Results - last 24 hr 09/25/20 09/25/20 09/25/20 12:10 12:10 12:10 WBC 5.68 RBC 5.01 Hgb 14.5 Hct 45.2 MCV 90.2 MCH 28.9 MCHC 32.1 RDW 14.0 Plt Count 155 MPV 9.0 Immature Gran % 0.4 Neutrophils % 66.9 Lymphocytes % 18.0 Monocytes % 9.7 Eosinophils % 3.9 Basophils % 1.1 Nucleated RBC % 0 Absolute Neutrophils 3.81 Absolute Lymphocytes 1.02 L Absolute Monocytes 0.55 Absolute Eosinophils 0.22 Absolute Basophils 0.06 PT 10.4 INR 1.0 APTT 25.7 Sodium 137 Potassium 4.3 Chloride 102 Carbon Dioxide 28.5 Anion Gap 6.5 BUN 17 Creatinine 1.3 Estimated GFR/1.73 m2 53.12 Glucose 123 H Calcium 11.0 H Magnesium 2.4 Total Bilirubin 0.8 AST 22 ALT 27 Alkaline Phosphatase 83 Troponin I < 0.05 Total Protein 7.4 Albumin 3.5 TSH 0.39 Urine Color Urine Clarity Urine pH Ur Specific [place] Urine Protein Urine Ketones Urine Blood Urine Nitrite Urine Bilirubin Urine Urobilinogen Ur Leukocyte Esterase Urine Glucose COVID-19 Source SARS-CoV-2 (PCR) 09/25/20 09/25/20 09/25/20 15:47 15:49 17:15 WBC RBC Hgb Hct MCV MCH MCHC RDW Plt Count MPV Immature Gran % Neutrophils % Lymphocytes % Monocytes % Eosinophils % Basophils % Nucleated RBC % Absolute Neutrophils Absolute Lymphocytes Absolute Monocytes Absolute Eosinophils Absolute Basophils PT INR APTT Sodium Potassium Chloride Carbon Dioxide Anion Gap BUN Creatinine Estimated GFR/1.73 m2 Glucose Calcium Magnesium Total Bilirubin AST ALT Alkaline Phosphatase Troponin I Total Protein Albumin TSH Urine Color Yellow Urine Clarity Clear Urine pH 6.5 Ur Specific [place] 1.015 Urine Protein Negative Urine Ketones Negative Urine Blood Negative Urine Nitrite Negative Urine Bilirubin Negative Urine Urobilinogen 0.2 Ur Leukocyte Esterase Negative Urine Glucose Negative COVID-19 Source Cancelled Nasopharyx SARS-CoV-2 (PCR) Cancelled Negative Last Vital Signs Temp 36.1 C L 09/25/20 17:26 Pulse 98 H 09/25/20 17:26 Resp 18 09/25/20 17:26 BP 165/100 H 09/25/20 17:26 Pulse Ox 94 09/25/20 17:26 COVID-19 Screening Have you, or household traveled for leisure in last 14 days?: No Had IN PERSON contact w/suspected or confirmed C-19 person: No
[2020-09-26 07:26] VITALS: BP 163/105; PULSE 80; RESP 17; TEMP 36.5; O2SAT 95
[2020-09-26 07:50] VITALS: O2SAT 95
[2020-09-26] MEDS: Aspirin E.C. 81 MG TABEC PO (07:54)
[2020-09-26] MEDS: Cholecalciferol (Vitamin D3) 1,000 UNIT TAB 1000 UNITS PO (07:54)
[2020-09-26] MEDS: Atenolol 50 MG TAB 75 MG PO (07:54)
[2020-09-26] MEDS: Omeprazole 20 MG CAPCR PO (07:54)
[2020-09-26] MEDS: Cyanocobalamin 500 MCG TAB 1000 MCG PO (07:54)
--- NOTE | 2020-09-26 08:27 | NCONE_ITS ---
Date of service: 09/26/20 Time of Service: 08:27 Assessment and Plan Assessment and plan (1) Amnesia memory loss: Status: Acute Assessment and plan: Mr. Shay is an 79-year-old, right-handed man who was admitted with several weeks decline in cognitive status, however, I was unable to speak to any family members to get specifics on this cognitive decline. I wass able to perform cognitive testing today. It was quite interesting. Please see the exam portion for my comments on the testing. He scored a 17 out of 30 on Mini-Mental exam. He was very preoccupied by his perceived memory losses during the evaluation which is somewhat unusual for a neurodegenerative disorder. He seemed somewhat anxious but denied any feelings of depression or anxiety. He displayed a lack of effort at times. It is certainly possible that he may have an underlying neurodegenerative/dementing process, however, there may be a psychiatric component as well. I recommend an MRI brain without contrast as well as a vitamin B12 level as further work-up. He should follow-up in the neurology clinic for further work-up. Please call with any further questions or concerns. History of Present Illness History of Present Illness Chief Complaint: memory issues Narrative: Handedness: right. HPI: Mr. Shay is an 79-year-old man with hypertension, hyperlipidemia, peripheral arterial disease, congenital right eye blindness, obstructive sleep apnea and GERD. He was brought to the [facility] emergency room yesterday 09/25/2020, when his 's home health nurse visited him and felt that he was having cognitive issues. His had been admitted to the hospital the day previous (?09/24/20) and thus he was living alone. When I asked him why he was here, he told me that he was here to get a procedure performed. He expanded that his had recently been brought to the hospital for procedure as well and he felt like it was time for him to get his as well. When asked him more details about this procedure, he then change the story to say that it was not really a procedure but a series of injections. When asked what the injections were or what they were for, he changed the story to focus on his declining memory. He frequently during our conversation would not answer questions and instead note that his brain is failing him and has been over the last several weeks. He is quite distraught over the fact that he feels his brain is failing. When asked him what was failing, he notes that he just does not have any memory any longer. Per nursing, he has had waxing and waning orientation to place and time. Last evening, he seemed to be cognitively worse consistent with sundowning. I did not have an opportunity to talk to his who is also in the hospital prior to her discharge, or to any of his other family. However, per nursing and primary team, the daughter may have noticed some cognitive changes over the last several weeks as well. However, I do not have the details of this. Mr. Shay is a high school graduate. 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 He could not tell me the name of the company that he works for. He has been to his Audrey for over 50 years. They have 4 children. He notes no difficulty driving. He states that he manages the checkbook and bills at home and has not had any difficulty doing so. On admission, his blood pressure was 151/102 and he had a pulse of 112. He has had further work-up as below. Work-up: -CTH: Moderate generalized atrophy. I reviewed these images personally and this is my personal interpretation. -CTA head/neck: Large carotid bulb plaques bilaterally without any significant stenosis. Of origin left [employer]. I reviewed these images personally and this is my personal interpretation. -Labs: Normal CBC, CMP remarkable for elevated calcium, normal TSH (0.39), normal troponin Consults Requesting physician: Abhilash Burgos Review of Systems All systems reviewed & are unremarkable except as noted in HPI and below [facility] Medical History Barretts esophagus 01/23/14 DR. CRISTI XIONG; EGD Essential hypertension (10/19/13) get your pcv GERD (gastroesophageal reflux disease) Hyperlipidemia (12/06/12) Obstructive sleep apnea syndrome [facility]; C-PAP Popliteal artery aneurysm repaired 06/2020 [facility] [place] Skin lesion of right lower extremity Surgical History ankle repair (~1980) Arthroscopy, Shoulder (~2009) Extraction of cataract (~2010) Rotator Cuff Repair (~2005) Total replacement of hip (~2004) Transurethral prostatectomy (~2006) Family History Mother Essential hypertension Hyperlipidemia Father Alzheimer disease Brother Hyperlipidemia Grandfather Heart disease Grandfather Heart disease Grandmother No problems noted. Grandmother Essential hypertension Brother Essential hypertension Son No problems noted. Son No problems noted. Son No problems noted. Daughter No problems noted. Social History Smoking/Tobacco Use Status: Former Tobacco Use Smoking risk assessment performed?: Yes Alcohol Intake: current Alcohol Intake frequency: 0-2 drinks per day Alcohol type: hard liquor Drug use: Never Substance use type: does not use Do you feel safe at home: Yes Do you feel safe in your relationship?: Yes Visit Medication and Allergies Active Medications Generic Name Dose Route Start Last Admin Trade Name Freq PRN Reason Stop Dose Admin Acetaminophen 650 mg 09/25/20 14:53 Acetaminophen 325 Mg Tab PO Q4H PRN PRN Aspirin 81 mg 09/26/20 08:30 09/26/20 07:54 Aspirin E.C. 81 Mg Tabec PO 81 mg DAILY MAYA Administration Atenolol 75 mg 09/26/20 08:30 09/26/20 07:54 Atenolol 50 Mg Tab PO 75 mg DAILY MAYA Administration Cholecalciferol 1,000 units 09/26/20 08:30 09/26/20 07:54 Cholecalciferol (Vitamin D3) 1,000 Unit Tab PO 1,000 units QAM MAYA Administration Cyanocobalamin 1,000 mcg 09/26/20 08:30 09/26/20 07:54 Cyanocobalamin 500 Mcg Tab PO 1,000 mcg DAILY MAYA Administration Dimethicone/Zinc Oxide 0 gm 09/25/20 14:53 Dixie Protect Cream 142 Gm Tube TP PRN PRN IV Miscellaneous Supplies 1 each 09/25/20 12:00 Iv Access IV DIRECTED MAYA Magnesium Hydroxide 30 ml 09/25/20 14:53 Milk Of Magnesia 30 Ml Cup PO DAILY PRN PRN Omeprazole 20 mg 09/26/20 07:30 09/26/20 07:54 Omeprazole 20 Mg Capcr PO 20 mg DAILY@0730 MAYA Administration Polyethylene Glycol 17 gm 09/25/20 14:53 Polyethylene Glycol 3350 17 Gm Packet PO DAILY PRN PRN Constipation Sodium Chloride 10 ml 09/25/20 18:20 Normal Saline Flush 10 Ml Syr IVP PRN PRN Allergies azithromycin Allergy (Severe, Unverified 05/29/20 13:57) LIP SWELLING ibuprofen Allergy (Intermediate, Unverified 05/29/20 13:57) angioedema Penicillins Allergy (Intermediate, Unverified 05/29/20 13:57) LIP SWELLING Calcium Channel Blocking Agent Dilt Allergy (Unknown, Unverified 05/29/20 13:57) HIVES diltiazem Allergy (Unknown, Unverified 05/29/20 13:57) HIVES Sulfa (Sulfonamide Antibiotics) Allergy (Unknown, Unverified 05/29/20 13:57) SKIN RASH SODIUM NITRITE Allergy (Severe, Uncoded 05/29/20 13:57) Anaphylaxsis Exam Narrative Exam Narrative: Physical Exam: Gen: Patient of apparent stated age, NAD Head and face: no facial or cranial abnormalities Neck: Supple, no meningismus, no occipital tenderness CV: + S1, S2, RRR, no murmur Resp: CTA B/L Abd: soft, nontender, nondistended Ext: No edema. No clubbing or cyanosis. No bony deformity. Neuro Exam: Language: fluency, naming, repetition, and comprehension intact; Mental Status: AAOx2, current events and fund of knowledge generally intact though had difficulty with remote events as well; see MMSE below Speech: no dysarthria Cranial nerves: Funduscopy: not performed CN II: visual greer intact in L eye; congenital blindness R eye CN III, IV, : extraocular movements intact, no nystagmus, pupils symmetric and reactive to light CN V: face sensation intact to LT and PP CN VII: no facial asymmetry noted CN VIII: hearing intact bilaterally CN IX, X: palate rises symmetrically CN XI: trapezius/SCM 5/5 bilaterally CN XII: protrudes tongue symmetrically Sensory: intact to LT, PP, and joint position in all extremities; reduced vibration in the toes bilaterally Motor: bulk and tone intact. Fine motor movements intact bilaterally. No pronator drift. Strength 5/5 throughout including the deltoids, biceps, triceps, wrist extensors, hip flexors, knee flexors, knee extensors, ankle flexors, and ankle extensors. Noted reduced ROM left shoulder. Mild bilateral UE fine, fast postural tremor. Worse with activity, L>R. Reflexes: 2+/brisk at the biceps, triceps, brachioradialis, and patella; reduced at the achilles tendons bilaterally; toes down going bilaterally; Coordination: HTS intact bilaterally; mild L>R UE dysmetria Gait: not performed MMSE 1.Orientation a.Place (Country, State, City, Building, Floor) 10/14 b.Time (Year, Season, Month, Date, day of the week) 09/13 2.Immediate Recall (3 objects) 09/11 3.Attention (Serial 7s or spell world backwards) 0 ([id number]) 4.Delayed Recall (3 objects) 0 (07/14 with category clues) 5.Language a.Naming (watch and pencil) 08/13 b.Repetition 07/12 c.Comprehension (3-step command) 08/14 d.Reading (Close your eyes) 07/12 e.Writing (sentence) 07/12 6.Visuospatial/Executive (copy drawing) 0 TOTAL: Cognitive testing was quite interesting. He initially could not tell me what city we were in even though he lives in [place] and was able to give me the full name of the [facility] (not just the abbreviation of [facility]). In regards to time, he initially told me he could not tell me the date or the day of the week because he had been in the hospital for so long that he could no longer keep track of it. He then admitted that he had only been in the hospital for 1 night. I asked him if he could remember what day yesterday was and he could not. He would not give me an answer and kept repeating that he did not know the date or the day. Of interest, he notes that he manages the bills at home but was unable to perform serial sevens as above. He was able to spell world backwards fairly well and would have scored 4 out of 5 points if I had scored that. On delayed recall, he could not recall any of the 3 words given. I gave him first category clues which were not helpful for him. Even with multiple choice clues, he was only able to recall 1 out of 3 objects. Finally, his writing sentence was very interesting. He wrote my mind is folling apart (typo is how he wrote it). Results Last Vital Signs Temp 36.5 C 09/26/20 07:26 Pulse 80 09/26/20 07:26 Resp 17 09/26/20 07:26 BP 163/105 H 09/26/20 07:26 Pulse Ox 95 09/26/20 07:50 Labs Result diagrams: 09/25/20 12:10 09/25/20 12:10 Labs: Laboratory Results - last 24 hr 09/25/20 09/25/20 09/25/20 12:10 12:10 12:10 WBC 5.68 RBC 5.01 Hgb 14.5 Hct 45.2 MCV 90.2 MCH 28.9 MCHC 32.1 RDW 14.0 Plt Count 155 MPV 9.0 Immature Gran % 0.4 Neutrophils % 66.9 Lymphocytes % 18.0 Monocytes % 9.7 Eosinophils % 3.9 Basophils % 1.1 Nucleated RBC % 0 Absolute Neutrophils 3.81 Absolute Lymphocytes 1.02 L Absolute Monocytes 0.55 Absolute Eosinophils 0.22 Absolute Basophils 0.06 PT 10.4 INR 1.0 APTT 25.7 Sodium 137 Potassium 4.3 Chloride 102 Carbon Dioxide 28.5 Anion Gap 6.5 BUN 17 Creatinine 1.3 Estimated GFR/1.73 m2 53.12 Glucose 123 H Calcium 11.0 H Magnesium 2.4 Total Bilirubin 0.8 AST 22 ALT 27 Alkaline Phosphatase 83 Troponin I < 0.05 Total Protein 7.4 Albumin 3.5 Vitamin B12 TSH 0.39 Urine Color Urine Clarity Urine pH Ur Specific [place] Urine Protein Urine Ketones Urine Blood Urine Nitrite Urine Bilirubin Urine Urobilinogen Ur Leukocyte Esterase Urine Glucose COVID-19 Source SARS-CoV-2 (PCR) 09/25/20 09/25/20 09/25/20 15:47 15:49 17:15 WBC RBC Hgb Hct MCV MCH MCHC RDW Plt Count MPV Immature Gran % Neutrophils % Lymphocytes % Monocytes % Eosinophils % Basophils % Nucleated RBC % Absolute Neutrophils Absolute Lymphocytes Absolute Monocytes Absolute Eosinophils Absolute Basophils PT INR APTT Sodium Potassium Chloride Carbon Dioxide Anion Gap BUN Creatinine Estimated GFR/1.73 m2 Glucose Calcium Magnesium Total Bilirubin AST ALT Alkaline Phosphatase Troponin I Total Protein Albumin Vitamin B12 TSH Urine Color Yellow Urine Clarity Clear Urine pH 6.5 Ur Specific [place] 1.015 Urine Protein Negative Urine Ketones Negative Urine Blood Negative Urine Nitrite Negative Urine Bilirubin Negative Urine Urobilinogen 0.2 Ur Leukocyte Esterase Negative Urine Glucose Negative COVID-19 Source Cancelled Nasopharyx SARS-CoV-2 (PCR) Cancelled Negative 09/26/20 08:24 WBC RBC Hgb Hct MCV MCH MCHC RDW Plt Count MPV Immature Gran % Neutrophils % Lymphocytes % Monocytes % Eosinophils % Basophils % Nucleated RBC % Absolute Neutrophils Absolute Lymphocytes Absolute Monocytes Absolute Eosinophils Absolute Basophils PT INR APTT Sodium Potassium Chloride Carbon Dioxide Anion Gap BUN Creatinine Estimated GFR/1.73 m2 Glucose Calcium Magnesium Total Bilirubin AST ALT Alkaline Phosphatase Troponin I Total Protein Albumin Vitamin B12 Cancelled TSH Urine Color Urine Clarity Urine pH Ur Specific [place] Urine Protein Urine Ketones Urine Blood Urine Nitrite Urine Bilirubin Urine Urobilinogen Ur Leukocyte Esterase Urine Glucose COVID-19 Source SARS-CoV-2 (PCR)
[2020-09-26 10:14] LABS: Vitamin B12 380 pg/mL (193-986)
--- NOTE | 2020-09-26 10:15 | RESPIRATORY ---
RT spoke with patient' concerning her husbands history of LONNIE and the use of a machine. His stated he does use a machine sometimes at home but has a tendency to forget at night. stated that if someone encouraged him to do so while in the hospital, he might wear it. RT spoke to Dr. Burgos who stated the patient might be D/C home today. Pt has a machine at home but there's no one to bring it in currently. RT will wait to see if patient is going to D/C or not today. RT called [facility] to find out patients home CPAP settings. Currently, as of 2013, settings are as follow: CPAP 12cm H2O, Ramp of 4.0 for 20mins with a Nasal Mask size Medium.
--- NOTE | 2020-09-26 10:24 | W.PM.DS.N ---
Date of service: 09/26/20 Time of Service: 10:25 DS: Diagnosis Discharge Diagnosis (1) Amnesia memory loss: Status: Acute (2) Hypercalcemia: Status: Acute (3) Hypertension: Status: Chronic Discharge Plan Disposition Patient Disposition: HOME Condition: Stable Discharge Details Reason For Visit: AMNESIA Admit Date/Time: 09/25/20 14:53 Admit Provider: Abhilash Burgos Attending Provider: Abhilash Burgos Primary Care Provider: Josh Thakkar Hospital Course Hospital Course: Patient is an 79-year-old male with a history of hypertension, GERD, hyperlipidemia, obstructive sleep apnea, popliteal artery aneurysm with repair presents to the ED with memory issues since yesterday. Patient states a home health nurse who checks on his regularly checked on him today and he told her that he felt that he has had difficulty with his memory and she brought him to the ED for evaluation. Patient is able to state that her name is Octavia but does not recall her last name. This nurse spoke to our nursing staff stating that she last saw patient on Wednesday and he seemed vague at that time. She did not remember me did not have any additional information for her. Patient states he does not recall what he did yesterday. He earlier stated to the nurse that he did not know the day or where he was or the year. Patient is able to state to me that it is Wednesday in September 2020 but he is unable to state the date. Patient denies any recent illnesses or new medications. He states he has been eating and drinking less than usual because his is currently in the hospital and has not been feeling like he wanted to cook. He denies any recent fever, chest pain, shortness of breath, abdominal pain, urinary symptoms, vomiting, diarrhea. After admission and further evaluation and consultation with neurology, his condition was thought to be likely secondary to dementia. His MMSE score was 17/30. See neurology findings in their note. MRI of the head was negative for any acute findings. He had a disruption in his routine ( admitted to the hospital in the night and he wasn't woken and told this had occurred) that has likely made it difficult for him to not exhibit dementia signs. Lab was unremarkable. His blood pressure readings were elevated in the 140's to 160's fairly consistently. Atenolol, beta blockers in general, show some evidence of increased mortality in the elderly and since he doesn't have a h/o CAD or heart failure (at least not documented in [facility] chart) another class of antihypertensives could be considered. F/U with PCP in 1-2 weeks. Home Meds and New Rx's Prescriptions: Continued nitroglycerin [Nitrostat] 0.4 mg tablet, sublingual 0.4 mg Sublingual PRN Qty: 25 RF: 0 omeprazole 20 mg capsule,delayed release(DR/EC) 20 mg PO DAILY Qty: 90 RF: 3 aspirin [Ecotrin Low Strength] 81 MG tablet,delayed release (DR/EC) 81 mg PO DAILY RF: 0 cholecalciferol (vitamin D3) 1,000 UNIT capsule 1,000 unit PO QAM RF: 0 omega-3 fatty acids-fish oil 1 EACH capsule 2 cap PO DAILY RF: 0 CPAP RF: 0 cyanocobalamin (vitamin B-12) [Vitamin B-12] 1,000 MCG tablet 1,000 mcg PO DAILY RF: 0 acetaminophen [Arthritis Pain Reliever] 650 MG tablet extended release 650 mg PO Q8H PRN RF: 0 atenolol 50 mg tablet 75 mg PO DAILY Qty: 135 RF: 4 hydrochlorothiazide 12.5 mg capsule 12.5 mg PO DAILY Qty: 90 RF: 3 Discharge Instructions Instructions: Chronic Hypertension (DC) Stand Alone Forms: Nursing Discharge Form Referrals: Josh Thakkar [Primary Care Provider] - 10/01/20 2:40 pm Activity:: Activity as Tolerated Equipment/Supplies:: No Equipment Needed Diet:: Low Sodium Discharge Orders Discharge Orders: Discharge Order (Routine); Ordered 09/26/20 Ordered By: Abhilash Burgos DS: Summary Time Spent with Patient providing and/or coordinating discharge services: Greater than 30 minutes Status at Discharge Functional status at discharge: independent ambulation Overall status at discharge: patient is progressing back to baseline Mental Status: other Speech and Movement: speech and movement normal Mood: congruent mood and other Affect: normal affect Exam Psych Mental Status: other Speech and Movement: speech and movement normal Mood: congruent mood and other Affect: normal affect DS: Data Vitals/I&O Vitals and I&O: Vital Signs Temperature 36.5 C 09/26/20 07:26 Temperature Source Temporal Artery Scan 09/26/20 07:26 Pulse 80 09/26/20 07:26 Pulse Rhythm Regular 09/26/20 07:50 Pulse 89 09/25/20 15:50 Respiratory Rate 17 09/26/20 07:26 Respiratory Effort Non-Labored 09/26/20 07:50 Respiratory Depth Normal 09/26/20 07:50 Respiratory Pattern Normal 09/26/20 07:50 Blood Pressure 163/105 H 09/26/20 07:26 Blood Pressure Mean 108 09/25/20 15:30 Blood Pressure Position Sitting 09/25/20 11:45 Pulse Oximetry 95 09/26/20 07:50 Oxygen Delivery Method Room Air 09/26/20 07:50 Oxygen Flow Rate 0 09/26/20 07:50 Pain Level 0 09/26/20 07:26 Intake & Output 09/25/20 09/25/20 09/26/20 11:59 23:59 11:59 Intake Total 1250 / 1250 180 / 180 Output Total 325 / 325 Balance 1250 / 1250 -145 / -145 Weight 79.7 kg 79.7 kg Intake: IV 1010 / 1010 Oral 240 / 240 180 / 180 Output: Urine 325 / 325 Other: Urine Color Yellow Yellow Urine Appearance Clear Clear Urine Odor Normal Voiding Methods Toilet Urinal Data Completed and Pending Labs on day of discharge: Labs from last 24 hours 09/26/20 09/25/20 09/25/20 08:24 17:15 15:49 WBC RBC Hgb Hct MCV MCH MCHC RDW Plt Count MPV Immature Gran % Neutrophils % Lymphocytes % Monocytes % Eosinophils % Basophils % Nucleated RBC % Absolute Neutrophils Absolute Lymphocytes Absolute Monocytes Absolute Eosinophils Absolute Basophils PT INR APTT Sodium Potassium Chloride Carbon Dioxide Anion Gap BUN Creatinine Estimated GFR/1.73 m2 Glucose Calcium Magnesium Total Bilirubin AST ALT Alkaline Phosphatase Troponin I Total Protein Albumin Vitamin B12 Cancelled TSH Urine Color Urine Clarity Urine pH Ur Specific [place] Urine Protein Urine Ketones Urine Blood Urine Nitrite Urine Bilirubin Urine Urobilinogen Ur Leukocyte Esterase Urine Glucose COVID-19 Source Nasopharyx Cancelled SARS-CoV-2 (PCR) Negative Cancelled 09/25/20 09/25/20 09/25/20 15:47 12:10 12:10 WBC 5.68 RBC 5.01 Hgb 14.5 Hct 45.2 MCV 90.2 MCH 28.9 MCHC 32.1 RDW 14.0 Plt Count 155 MPV 9.0 Immature Gran % 0.4 Neutrophils % 66.9 Lymphocytes % 18.0 Monocytes % 9.7 Eosinophils % 3.9 Basophils % 1.1 Nucleated RBC % 0 Absolute Neutrophils 3.81 Absolute Lymphocytes 1.02 L Absolute Monocytes 0.55 Absolute Eosinophils 0.22 Absolute Basophils 0.06 PT INR APTT Sodium 137 Potassium 4.3 Chloride 102 Carbon Dioxide 28.5 Anion Gap 6.5 BUN 17 Creatinine 1.3 Estimated GFR/1.73 m2 53.12 Glucose 123 H Calcium 11.0 H Magnesium 2.4 Total Bilirubin 0.8 AST 22 ALT 27 Alkaline Phosphatase 83 Troponin I < 0.05 Total Protein 7.4 Albumin 3.5 Vitamin B12 380 TSH 0.39 Urine Color Yellow Urine Clarity Clear Urine pH 6.5 Ur Specific [place] 1.015 Urine Protein Negative Urine Ketones Negative Urine Blood Negative Urine Nitrite Negative Urine Bilirubin Negative Urine Urobilinogen 0.2 Ur Leukocyte Esterase Negative Urine Glucose Negative COVID-19 Source SARS-CoV-2 (PCR) 09/25/20 12:10 WBC RBC Hgb Hct MCV MCH MCHC RDW Plt Count MPV Immature Gran % Neutrophils % Lymphocytes % Monocytes % Eosinophils % Basophils % Nucleated RBC % Absolute Neutrophils Absolute Lymphocytes Absolute Monocytes Absolute Eosinophils Absolute Basophils PT 10.4 INR 1.0 APTT 25.7 Sodium Potassium Chloride Carbon Dioxide Anion Gap BUN Creatinine Estimated GFR/1.73 m2 Glucose Calcium Magnesium Total Bilirubin AST ALT Alkaline Phosphatase Troponin I Total Protein Albumin Vitamin B12 TSH Urine Color Urine Clarity Urine pH Ur Specific [place] Urine Protein Urine Ketones Urine Blood Urine Nitrite Urine Bilirubin Urine Urobilinogen Ur Leukocyte Esterase Urine Glucose COVID-19 Source SARS-CoV-2 (PCR) [facility] Medical History Barretts esophagus 01/23/14 DR. CRISTI XIONG; EGD Essential hypertension (10/19/13) get your pcv GERD (gastroesophageal reflux disease) Hyperlipidemia (12/06/12) Obstructive sleep apnea syndrome [facility]; C-PAP Popliteal artery aneurysm repaired 06/2020 [facility] [place] Skin lesion of right lower extremity Surgical History ankle repair (~1980) Arthroscopy, Shoulder (~2009) Extraction of cataract (~2010) Rotator Cuff Repair (~2005) Total replacement of hip (~2004) Transurethral prostatectomy (~2006) Family History Mother Essential hypertension Hyperlipidemia Father Alzheimer disease Brother Hyperlipidemia Grandfather Heart disease Grandfather Heart disease Grandmother No problems noted. Grandmother Essential hypertension Brother Essential hypertension Son No problems noted. Son No problems noted. Son No problems noted. Daughter No problems noted. Social History Smoking/Tobacco Use Status: Former Tobacco Use Smoking risk assessment performed?: Yes Alcohol Intake: current Alcohol Intake frequency: 0-2 drinks per day Alcohol type: hard liquor Drug use: Never Substance use type: does not use Do you feel safe at home: Yes Do you feel safe in your relationship?: Yes
--- NOTE | 2020-09-26 11:16 | PDOC.CMIN ---
- If Service Date Differs Date of service: 09/26/20 Time of Service: 11:17 Care Management Initial Assess REASON FOR HOSPITALIZATION:: Amnesia PAST MEDICAL HISTORY/PAST SURGICAL HISTORY:: Barretts esophagus. 01/23/14 DR. CRISTI XIONG; EGD. Essential hypertension (10/19/13). get your pcv. GERD (gastroesophageal reflux disease). Hyperlipidemia (12/06/12). Obstructive sleep apnea syndrome. [facility]; C-PAP. Popliteal artery aneurysm. repaired 06[place] [facility] [place] Skin lesion of right lower extremity. ankle repair (~1980). Arthroscopy, Shoulder (~2009). Extraction of cataract (~2010). Rotator Cuff Repair (~2005). Total replacement of hip (~2004). Transurethral prostatectomy (~2006) PREVIOUS FUNCTIONAL STATUS/SOCIAL/FAMILY SUPPORTS:: Quentin resides in [place], [place] with his of 61 years, Audrey. He is independent at baseline, but does struggle with memory issues. The couple has four children; three sons and a daughter; Yina as well as grandchildren. They struggle financially to make ends meet and experience food insecurity. The couple previously attended sp[facility] services [facility]. Karina requires some support with ambulation, but otherwise, the couple is independent at baseline in the community. CURRENT FUNCTIONAL STATUS:: Quentin is preparing for discharge; shares no concerns at this time. ADVANCE DIRECTIVES:: None on file at [facility]. Has patient been provided with info about the portal/API?: Yes Did the patient sign up for the portal?: No CODE STATUS:: Full Code INSURANCE COVERAGE / FINANCIAL ISSUES:: Medicare CURRENT HOME/COMMUNITY SERVICES/EQUIPMENT:: [employer], [facility], [facility] PH[facility]IAN:: oJsh Thakkar POTENTIAL DISCHARGE NEEDS:: Follow up appointments. PATIENT/FAMILY EDUCATION NEEDS:: Review discharge instructions, discuss Ask Me [employer]. ANTICIPATED BARRIERS TO DISCHARGE:: None identified at this time. TRANSPORTATION:: Via private vehicle with family. PLAN:: Quentin will follow up with his PCP and plan of care as prescribed. He will transport via private vehicle with family.
== END 2020-09-26 14:02 | disposition home or self-care (01) ==
LOC: ER 14:58 → MS 16:49
PROVIDERS: Admitting Provider Family Medicine; Emergency Provider Physician Assistant; PCP Family Medicine; Visit Provider Family Medicine
DX: R41.3 Other amnesia (principal); E83.52 Hypercalcemia; I10 Essential (primary) hypertension; K21.9 Gastro-esophageal reflux disease without esophagitis; G47.33 Obstructive sleep apnea (adult) (pediatric); E78.5 Hyperlipidemia, unspecified
CPT/HCPCS: 36415; 36416; 70496; 70498; 80053; 82962; 87635; 93005; 96360; 96361; 99214; 99217; 99222; 99223; 99285; 70551; 71046; 81003; 82607; 83735; 84443; 84484; 85025; 85610; 85730; 93010; G0378; J3490

== ENCOUNTER 2020-11-29 17:44 | Emergency (ER) | payer MEDICARE, SELFPAY ==
[2020-11-29 17:51] VITALS: BP 124/76; PULSE 69; RESP 16; TEMP 36.6; O2SAT 95
--- NOTE | 2020-11-29 19:04 | W.ED.GENAD ---
Discharge Plan Disposition Patient Disposition: HOME Condition: Stable Discharge Details Clinical Impression: Penile rash Primary Care Provider: Josh Thakkar ED Provider: Efrain Norris Home Meds and New Rx's Prescriptions: Continued nitroglycerin [Nitrostat] 0.4 mg tablet, sublingual 0.4 mg Sublingual PRN Qty: 25 RF: 0 omeprazole 20 mg capsule,delayed release(DR/EC) 20 mg PO DAILY Qty: 90 RF: 3 cholecalciferol (vitamin D3) 1,000 UNIT capsule 1,000 unit PO QAM RF: 0 omega-3 fatty acids-fish oil 1 EACH capsule 2 cap PO DAILY RF: 0 CPAP RF: 0 cyanocobalamin (vitamin B-12) [Vitamin B-12] 1,000 MCG tablet 1,000 mcg PO DAILY RF: 0 acetaminophen [Arthritis Pain Reliever] 650 MG tablet extended release 650 mg PO Q8H PRN RF: 0 atenolol 50 mg tablet 75 mg PO DAILY Qty: 135 RF: 4 hydrochlorothiazide 12.5 mg capsule 12.5 mg PO DAILY Qty: 90 RF: 3 No Action donepezil 10 mg tablet 10 mg PO QHS Qty: 30 RF: 6 Discharge Instructions Instructions: Acute Rash (ED) Additional Instructions: Please monitor your rash closely. Check it twice a day. f rash persists more than a few more days, please follow-up with deramtology. Call for an appointment. Return the ER immediately for worsening or new concerning symptoms. Referrals: Arie Rubin MD [ CONSULTING PHYSICIAN] - Josh Thakkar [Primary Care Provider] - Discharge Data Discharge Date/Time-TO BE ENTERED AT DEPARTURE: 11/29/20 19:26 Medical Decision Making 80yo m here with small skin leasion glans penis. No bleeding. No signs infection. Lesion appears to be healing abrasion - no known trauma. Consider neoplasia - will refer to dermatology. Usual and customary discharge instructions were reviewed with the patient. HPI General Mode of arrival: ambulatory. Date/Time Provider Initiated Documentation: 11/29/20 18:39. Limitations to Documentation: no limitations. Information obtained by: patient. HPI Narrative: 80yo m here with cheif complaint of rash. Rash is located on penis. Rash has been present for a few days. No modifiers. Was oozing blood, now stopped. No other rash. Not painful. No associated dysuria. Related Data Home Medications Medication Instructions Recorded Confirmed cholecalciferol (vitamin D3) 1,000 unit PO QAM 12/01/12 11/29/20 omega-3 fatty acids-fish oil 2 cap PO DAILY 12/01/12 11/29/20 Cpap 12/06/12 03/05/20 cyanocobalamin (vitamin B-12) 1,000 mcg PO DAILY 07/14/16 11/29/20 [Vitamin B-12] acetaminophen [Arthritis Pain 650 mg PO Q8H PRN tab-cap 06/08/17 11/29/20 Reliever] nitroglycerin 0.4 mg sublingual 0.4 mg SUBLINGUAL PRN #25 tab-cap 07/13/18 11/29/20 tablet atenolol 50 mg tablet 75 mg PO DAILY #135 tab-cap 06/02/19 11/29/20 hydrochlorothiazide 12.5 mg capsule 12.5 mg PO DAILY #90 tab-cap 06/02/19 11/29/20 omeprazole 20 mg capsule,delayed 20 mg PO DAILY #90 tab-cap 03/05/20 11/29/20 release donepezil 10 mg tablet 10 mg PO QHS #30 tab 12/02/20 12/02/20 Previous Rx's Medication Instructions Recorded nitroglycerin 0.4 mg sublingual 0.4 mg SUBLINGUAL PRN #25 tab-cap 07/13/18 tablet atenolol 50 mg tablet 75 mg PO DAILY #135 tab-cap 06/02/19 hydrochlorothiazide 12.5 mg capsule 12.5 mg PO DAILY #90 tab-cap 06/02/19 omeprazole 20 mg capsule,delayed 20 mg PO DAILY #90 tab-cap 03/05/20 release donepezil 10 mg tablet 10 mg PO QHS #30 tab 12/02/20 Allergies Allergy/AdvReac Type Severity Reaction Status Date / Time azithromycin Allergy Severe LIP Verified 12/02/20 09:35 SWELLING ibuprofen Allergy Intermediate angioedema Verified 12/02/20 09:35 Penicillins Allergy Intermediate LIP Verified 12/02/20 09:35 SWELLING Calcium Channel Blocking Allergy Unknown HIVES Verified 12/02/20 09:35 Agent Dilt diltiazem Allergy Unknown HIVES Verified 12/02/20 09:35 Sulfa (Sulfonamide Allergy Unknown SKIN RASH Verified 12/02/20 09:35 Antibiotics) SODIUM NITRITE Allergy Severe Anaphylaxsi Uncoded 12/02/20 09:35 s General Stated Complaint: [employer]Medical [place]ERON: 3 Review of Systems Genitourinary Genitourinary: Reports as per HPI Integumentary/Breasts Skin/Breast: Reports as per HPI [facility], [facility] Medical History Barretts esophagus 01/23/14 DR. CRISTI XIONG; EGD Essential hypertension (10/19/13) get your pcv GERD (gastroesophageal reflux disease) Hyperlipidemia (12/06/12) Obstructive sleep apnea syndrome [place]; C-PAP [place]opliteal [place] [facility] [place] lesion of right lower extremity Surgical History ankle repair (~1980) Arthroscopy, Shoulder (~2009) Extraction of cataract (~2010) Rotator Cuff Repair (~2005) Total replacement of hip (~2004) Transurethral prostatectomy (~2006) Family History Mother Essential hypertension Hyperlipidemia Father Alzheimer disease Brother Hyperlipidemia Grandfather Heart disease Grandfather Heart disease Grandmother No problems noted. Grandmother Essential hypertension Brother Essential hypertension Son No problems noted. Son No problems noted. Son No problems noted. Daughter No problems noted. Social History Smoking/Tobacco Use Status: Current-Occasional Tobacco Type: pipe Smoking risk assessment performed?: Yes Alcohol Intake: current Alcohol Intake frequency: a few times a month Alcohol type: hard liquor Drug use: Never Substance use type: does not use Household members: spouse Housing: apartment Number of Children: 4 number of grandchildren: 7 Pets and animals: Yes Pets and animals: cat(s) What is your relationship status?: Panel score (0-1 are the most socially isolated patients): 1 What type of physical activity do you participate in: walking Seatbelt use: always Do you feel safe at home: Yes Do you feel safe in your relationship?: Yes Exam Const General: cooperative and healthy appearing Orientation: alert and awake GI Palpation: soft and nontender Penis: normal penis Meatus: meatus normal Scrotum: scrotum normal Testes: normal Skin General skin exam: no erythema and no induration Lesions: lesion noted (0.5cm superficial abrasion healing with no bleeding glans penis) Course Vital Signs Vital signs: Vital Signs Temperature 36.6 C 11/29/20 17:51 Pulse 69 11/29/20 17:51 Respiratory Rate 16 11/29/20 17:51 Blood Pressure 124/76 11/29/20 17:51 Pulse Oximetry 95 11/29/20 17:51 Temperature 36.6 C 11/29/20 17:51 Temperature Source Temporal Artery Scan 11/29/20 17:51 Pulse 69 11/29/20 17:51 Respiratory Rate 16 11/29/20 17:51 Respiratory Effort 11/29/20 18:41 Respiratory Pattern Normal 11/29/20 18:41 Blood Pressure 124/76 11/29/20 17:51 Pulse Oximetry 95 11/29/20 17:51 Oxygen Delivery Method Room Air 11/29/20 17:51 Oxygen Flow Rate 0 11/29/20 17:51 Pain Level 0 11/29/20 18:43
== END 2020-11-29 19:26 | disposition home or self-care (01) ==
PROVIDERS: Emergency Provider Student in an Organized Health Care Education/Training Program; PCP Family Medicine
DX: L98.8 Other specified disorders of the skin and subcutaneous tissue (principal)
CPT/HCPCS: 99281; 99282

== ENCOUNTER → 2020-12-02 09:30 | Outpatient (BNVA) | payer MEDICARE, SELFPAY | PROVIDERS: PCP Family Medicine; Referring Provider Family Medicine; Visit Provider Nurse Practitioner Adult Health | DX: F03.90 Unspecified dementia, unspecified severity, without behavioral disturbance, psychotic disturbance, mood disturbance, and anxiety (principal); I10 Essential (primary) hypertension; K21.9 Gastro-esophageal reflux disease without esophagitis; R41.3 Other amnesia; G47.33 Obstructive sleep apnea (adult) (pediatric); Z99.89 Dependence on other enabling machines and devices | CPT/HCPCS: 99215 ==

== ENCOUNTER → 2021-04-15 10:32 | Outpatient (BNVA) | payer MEDICARE, SELFPAY | PROVIDERS: PCP Family Medicine; Referring Provider Family Medicine; Visit Provider Nurse Practitioner Adult Health | DX: H35.30 Unspecified macular degeneration (principal); G30.9 Alzheimer's disease, unspecified; F02.80 Dementia in other diseases classified elsewhere, unspecified severity, without behavioral disturbance, psychotic disturbance, mood disturbance, and anxiety | CPT/HCPCS: 99213 ==

== ENCOUNTER 2021-05-14 14:10 | Outpatient (CLI) | payer MEDICARE, SELFPAY ==
--- NOTE | 2021-05-14 14:00 | RT.EKG_ITS ---
APPROVED REPORT Exam: Resting ECG Reason for Exam: chest pain Patient Location: O HR:53 bpm ECG Measurements Heart Rate 53 AXIS MA 185 P 49 QRSd 110 QRS 22 QT 425 T 37 QTc 389 Conclusion Sinus bradycardia...rate< 60 Atrial premature complex...SV complex w/ short R-R interval
== END 2021-05-14 14:11 | disposition home or self-care (01) ==
LOC: DI.CM 14:10
PROVIDERS: PCP Family Medicine; Visit Provider Family Medicine
DX: R07.9 Chest pain, unspecified (principal)
CPT/HCPCS: 93010

== ENCOUNTER 2021-06-02 00:05 | Outpatient (CLI) | payer MEDICARE, SELFPAY ==
--- NOTE | 2021-06-02 09:15 | DI.NM_ITS ---
APPROVED REPORT Exam: Exercise Treadmill Patient Location: Out-Patient Room/Bed: Stress Nurse: Rosalind Flores RN Ordering Provider:ROSY CHACON, Contact Number: [phone] BMI: 26.62 Baseline Rhythm: Sinus Rhythm, frequent PACs Indications: Chest pain Medical History Medical History: Barretts esophagus, HTN, GERD, HLD, Macular degeneration, LONNIE, Popliteal artery aneu rysm. Cardiac Medications: Omeprazole, Nitroglycerin SL, Hydrochlorothiazide, Atenolol Allergies: Calcium Channel Blocking Agents, Diltiazem, Sulfa antibiotics, Sodium nitrate, Azithromyci n, Ibuprofen, Penicillins Cardiac Risk Factors: HTN, Hyperlipidemia, FHX of CAD Previous Cardiac Procedures: None Pretest Chest Pain Characteristics: None Exercise History: Physically active Physical Disabilities: None Lung Sounds: Clear to auscultation Heart Sounds: Regular Stress Test Details Test: Exercise stress testing was performed using a Ferny protocol. Nuclear Acquisition: Rest Tc-99m/Stress Tc-99m 1 day Rest Isotope: Tc-99m Sestamibi. Dose: 10.5 Date: 06/02/2021 Injection Time: 0900 Stress Isotope: Tc-99m Sestamibi. Dose: 35.6 Date: 06/02/2021 Injection Time: 1022 HR Resting HR Supine: 54 bpm Max Heart Rate (APMHR): 139.106072 bpm Resting HR Standin bpm Target HR (85% APMHR): 118.640854 bpm Max HR Achieved: 148 bpm % of APMHR: 106.47 Recovery HR: 84 bpm HR response to stress: Accelerated HR response to stress Comment: Atenolol held for 48 hrs prior to test. BP Resting BP Supine: 134/90 mmHg Resting BP Standin/80 mmHg Max BP: 158/84 mmHg Recovery BP: 136/86 mmHg BP response to stress: Normal blood pressure response to stress. ECG Resting ECG: Sinus Bradycardia Ectopy: frequent PACs Stress ECG: Sinus Tachycardia ST Change: No significant ST segment changes noted Arrhythmia: frequent PACs Recovery ECG: Sinus Rhythm Recovery ST Change: No significant ST segment changes noted Recovery Arrhythmia: frequent PACs, 3 beat runs Clinical Reason for Termination: determined by RN d/t concern for safety Stress Symptoms: None Exercise duration: 2 min59 sec Highest Stage Reached: Stage 1: 1.7 mph at 10% grade. Exercise capacity: 4.65 METs Rate Pressure Product: [id number] Stress ECG Conclusion 1. Resting electrocardiogram was within normal limits 2. Patient exercised on the Ferny protocol and completed stage I, of a workload of 4.65 METS 3. Rapid increase in heart rate with activity suggests deconditioning. It was noted that the patient 's beta-amy was held for 48 hours prior to the test. Normal blood pressure response to exercise. The patient achieved greater than 100% of predicted heart rate for age 4. Electrocardiographically there was no evidence of myocardial ischemia 5. Frequent atrial premature beats were noted Stress Test Summary STAGE Time (mins) Speed (mph) Grade (%) HR BP SYMPTOMS METS Supine 54 134/90 Standing 87 142/82 1 3 1.7 10 143 146/86 4.6 1 min recovery 125 152/84 3 min recovery 97 158/84 6 min recovery 84 136/86 MPI Conclusion Normal myocardial perfusion. No evidence of ischemia or prior infarction. EF 84%. Radiologist Interpretation Radiologist agrees with Loss Prevention Coordinator's Interpretation. Radiologist Interpretation by: Leticia Adam MD Interpretation Date/Time: 06/02/2021 16:31:02
== END 2021-06-02 00:25 ==
LOC: DI 00:06
PROVIDERS: PCP Family Medicine; Visit Provider Family Medicine
DX: R07.9 Chest pain, unspecified (principal); I10 Essential (primary) hypertension; E78.5 Hyperlipidemia, unspecified; Z82.49 Family history of ischemic heart disease and other diseases of the circulatory system; I49.1 Atrial premature depolarization
CPT/HCPCS: 78452; 93016; 93018; 93017

== ENCOUNTER → 2021-07-24 14:19 | Outpatient (BNVA) | payer MEDICARE, SELFPAY | PROVIDERS: PCP Family Medicine; Visit Provider Nurse Practitioner Adult Health | DX: G30.1 Alzheimer's disease with late onset (principal); F02.80 Dementia in other diseases classified elsewhere, unspecified severity, without behavioral disturbance, psychotic disturbance, mood disturbance, and anxiety; Z73.3 Stress, not elsewhere classified | CPT/HCPCS: 99213; 99214 ==

== ENCOUNTER 2021-10-01 02:46 | Outpatient (CLI) | payer MEDICARE, SELFPAY ==
[2021-10-01 10:30] LABS: HCT 47.3 % (40.0-50.0); HGB 15.3 g/dL (13.5-17.5); MCH 30.8 pg (27.0-33.0); MCHC 32.3 % (32.0-36.0); MCV 95.2 fL (80-95); MPV 9.2 fL (8.0-11.0); Platelet Count 147 10^3/uL (130-400); RBC 4.97 10^6/uL (4.36-5.78); RDW 13.7 % (11.8-14.1); RDW-SD 47.8 fL; WBC 5.55 10^3/uL (4.4-10.8)
[2021-10-01 11:32] LABS: Anion Gap 7.6 mmol/L (3-11); BUN 22 mg/dL (7-18); CO2 29.4 mmol/L (21.0-32.0); CREATININE 1.3 mg/dL (0.70-1.30); Calcium 10.3 mg/dL (8.5-10.1); Chloride 102 mmol/L (98-107); Estimated GFR 52.98 (mL/min/1.73m2); Glucose 104 mg/dL (74-106); Potassium 4.7 mmol/L (3.5-5.1); Sodium 139 mmol/L (136-145)
== END 2021-10-01 02:47 | disposition home or self-care (01) ==
LOC: LBO 02:46
PROVIDERS: PCP Family Medicine; Visit Provider Family Medicine
DX: R53.83 Other fatigue (principal); E87.1 Hypo-osmolality and hyponatremia
CPT/HCPCS: 36415; 80048; 85027

== ENCOUNTER → 2021-10-23 13:45 | Outpatient (BNVA) | payer MEDICARE, MEDICAID, SELFPAY | PROVIDERS: PCP Family Medicine; Referring Provider Family Medicine; Visit Provider Nurse Practitioner Adult Health | DX: G30.1 Alzheimer's disease with late onset (principal); F02.81 Dementia in other diseases classified elsewhere, unspecified severity, with behavioral disturbance | CPT/HCPCS: 99213; 99214 ==

== ENCOUNTER → 2022-04-23 13:59 | Outpatient (BNVA) | payer MEDICARE, MEDICAID, SELFPAY | PROVIDERS: PCP Family Medicine; Referring Provider Family Medicine; Visit Provider Nurse Practitioner Adult Health | DX: G30.9 Alzheimer's disease, unspecified (principal); F02.80 Dementia in other diseases classified elsewhere, unspecified severity, without behavioral disturbance, psychotic disturbance, mood disturbance, and anxiety | CPT/HCPCS: 99213; 99214 ==

== ENCOUNTER 2022-05-01 16:16 | Emergency (ER) | payer MEDICARE, MEDICAID, SELFPAY ==
[2022-05-01 16:28] VITALS: BP 134/78; PULSE 68; RESP 18; O2SAT 98
--- NOTE | 2022-05-01 17:45 | DI.CT_ITS ---
Exam(s) CT ABD AORTA CTA W RUNOFF EXAM: CT ABD AORTA CTA W RUNOFF CLINICAL HISTORY: right foot cyanosis. TECHNIQUE: Imaging Protocol: Axial computed tomography images with coronal and sagittal reformatted images were created and reviewed CONTRAST MATERIAL: Intravenous: Omnipaque 350 Contrast volume:140 Oral: None COMPARISON: CT,NM,TMT NM MPI REST STRESS GRP from 06/02/2021 FINDINGS: AORTA: There is a fusiform infrarenal abdominal aortic aneurysm which exhibits maximum diameter 2.7 c m. there is some mural thrombus above the aortic bifurcation level but no significant stenosis at th e aortic bifurcation. 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 The diameter of this vessel proximal to the aneur ysm is 1.4 cm. There is mild fusiform aneurysmal dilatation of the distal half of the left common il iac artery which exhibits a diameter of 1.8 cm. There is no significant stenosis at the junction of the common and external iliac arteries. The external iliac arteries exhibit upper normal diameters. Internal iliac arteries are patent. Both common femoral arteries are patent and exhibit upper luis l luminal diameters. No significant stenosis. Both SFA arteries are patent with no significant stenosis nor aneurysms. 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 The tibioperoneal trunk is patent. There tutu ears to be compromise three-vessel runoff in the right calf which may be related to thromboembolic di sease from the large popliteal artery aneurysm. On the LEFT side there is also a popliteal artery aneurysm but with smaller diameter of approximately 2.8 cm. The left tibioperoneal trunk is patent. There is good three-vessel runoff in the left calf . The anterior tibial artery continues into the foot as the dorsalis pedis vessel. The left posteri or tibial artery continues into the foot around the medial malleolus as the plantar vessels. The lef t peroneal artery reaches the lower aspect of the left calf. ABDOMEN: With respect of the abdominal aorta, is somewhat atherosclerotic and with mild fusiform aneurysm as d escribed above. There is some plaque at the origin of the celiac and superior mesenteric and renal a rteries but without critical stenosis. The inferior mesenteric artery is patent. There no ischemic appearing bowel loops. No ascites. There is a large hiatal hernia. Large part of the stomach is in the chest. LIVER: No obvious focal hepatic findings on this arterial phase study. GALLBLADDER/BILIARY: No obvious gallbladder pathology. CBD is not dilated. PANCREAS: No evidence of pancreatic mass nor dilatation of the pancreatic duct. SPLEEN: Spleen is not enlarged. There are no intrasplenic lesions. ADRENALS: There are no significant adrenal masses. KIDNEYS: Small 1 cm cyst in the lateral cortex of the right kidney noted. No solid renal masses. No calculi nor hydronephrosis.. ABDOMINAL AORTA: As above. LYMPH NODES: There is no retroperitoneal nor para-aortic adenopathy. No obvious mesenteric masses. ABDOMINAL WALL: No evidence of significant anterior abdominal wall hernia. GI: No ischemic appearing bowel. No bowel obstruction. No free air. No abscess. PELVIS: LYMPH NODES: There is no intrapelvic nor inguinal adenopathy. GI: No evidence of appendicitis.No evidence of sigmoid diverticulitis. URINARY BLADDER: Partially obscured from view by beam hardening artifact from the bilateral hip prost heses. REPRODUCTIVE: Pancreas not able to be adequately visualized due to beam hardening artifact from bilat eral hip prostheses. OSSEOUS: No significant osseous lesions. No acute fractures evident. IMPRESSION: 1. 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 No evidence of ruptur e at this time. There does appear to be compromise of flow in the ipsilateral right calf vessels and this may be related to thromboembolic sequelae from the popliteal artery aneurysm. 2. 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 No flow limiting stenosis at this level. 3. There is also left popliteal artery aneurysm which is smaller than the right and exhibits maximum diameter of approximately 2.8 cm, without evidence of rupture and there is patent 3 vessel runoff in the left calf. 4. There is a mild fusiform aneurysm of the distal half of the left common iliac artery which exhibit s diameter 1.8 cm. No significant stenosis at this level nor in either common iliac artery, the exte rnal iliac arteries, nor at the level the carotid bifurcation. 5. Moderate atherosclerotic changes in the infrarenal abdominal aortic with mild aneurysmal dilatati on and maximum external diameter 2.7 cm.. No tight stenosis at the origin of the celiac, SMA, arteri es and the inferior mesenteric artery is patent. There are no ischemic appearing bowel loops. No ti ght ostial stenosis in the renal arteries although there is mild fibromuscular dysplasia noted in the mid right renal artery. Kidneys exhibit normal size. 6. Large hiatal hernia noted. A large part of the stomach is in the chest. RADIATION DOSE DELIVERED: 1,150.07mGy.cm Total DLP DATA REPOSITORY: All CT scans at this facility are submitted to the National Radiology Data Registry (NRDR) Dose Index Registry (DIR) with the [employer] (A[employer]). RADIATION OPTIMIZATION: All CT scans at this facility use at least one of these dose optimization te chniques: automated exposure control; mA and/or kV adjustment per patient size (includes targeted exa ms where dose is matched to clinical indication); or iterative reconstruction.
[2022-05-01 18:16] LABS: Abs Immature Grans 0.02 10^3/uL (0.0-0.06); Absolute Basophil Count 0.05 10^3/uL (0.0-0.2); Absolute Eosinophil Count 0.26 10^3/uL (0.0-0.7); Absolute Lymphocyte Count 1.76 10^3/uL (1.2-3.4); Absolute Monocyte Count 0.48 10^3/uL (0.1-0.8); Absolute Neutrophil Count 4.33 10^3/uL (1.2-6.7); Basophils % 0.7; Eosinophils % 3.8; HCT 46.3 % (40.0-50.0); HGB 15.6 g/dL (13.5-17.5); Immature Grans % 0.3; Lymphocytes % 25.5; MCH 31.1 pg (27.0-33.0); MCHC 33.7 % (32.0-36.0); MCV 92 fL (80-95); Neutrophils % 62.7; Platelet Count 143 10^3/uL (130-400); RBC 5.02 10^6/uL (4.36-5.78); RDW 13.4 % (11.8-14.1); RDW-SD 45.4 fL
[2022-05-01 18:26] LABS: Anion Gap 5.5 mmol/L (3-11); BUN 23 mg/dL (7-18); CO2 31.5 mmol/L (21.0-32.0); CREATININE 1.3 mg/dL (0.70-1.30); Calcium 10.4 mg/dL (8.5-10.1); Chloride 103 mmol/L (98-107); Estimated GFR 54.85 (mL/min/1.73m2); Glucose 95 mg/dL (74-106); Potassium 4.1 mmol/L (3.5-5.1); Sodium 140 mmol/L (136-145)
[2022-05-01] MEDS: Omnipaque 350 MG/ML 100 ML BTL IJ (19:29)
--- NOTE | 2022-05-01 20:20 | DI.VRAD_ITS ---
PROCEDURE INFORMATION: Exam: CTA Abdominal Aorta and Bilateral Lower Extremities (Run-off) With Contrast Exam date and time: 05/01/2022 6:29 PM Age: 81 years old Clinical indication: Other: Right foot cyanosis TECHNIQUE: Imaging protocol: Computed tomographic angiography of the of the abdominal aorta, pelvis and bilateral lower extremities with contrast. 3D rendering (Not supervised by radiologist): MIP and/or 3D reconstructed images were created by the technologist. Radiation optimization: All CT scans at this facility use at least one of these dose optimization techniques: automated exposure control; mA and/or kV adjustment per patient size (includes targeted exams where dose is matched to clinical indication); or iterative reconstruction. Contrast material: 3501; Contrast volume: 140 ml; Contrast route: INTRAVENOUS (IV); COMPARISON: CR XR CHEST 2V PA LATERAL 09/25/2020 2:04 PM FINDINGS: Aorta: Mild atherosclerosis of the infrarenal abdominal aorta. Small amount of mural thrombus present consistent with a small amount of soft plaque in the aorta. The abdominal aorta is otherwise widely patent without evidence of significant occlusive or aneurysmal disease. Celiac trunk and mesenteric arteries: The celiac artery is widely patent without evidence of occlusive or aneurysmal disease. Superior mesenteric artery is widely patent without evidence of occlusive or aneurysmal disease.The inferior mesenteric artery is widely patent without evidence of occlusive or aneurysmal disease. Renal arteries: Single renal artery supplies the right kidney, is widely patent, without evidence of significant occlusive or aneurysmal disease. Single renal artery supplies the left kidney, is widely patent, without evidence of significant occlusive or aneurysmal disease. Single renal artery supplies left kidney appears normal. 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 Right iliac arteries: There is aneurysmal dilatation of the right common iliac artery measuring 2.4 cm with a moderate amount of mural thrombus and small amount of atherosclerotic calcific plaquing. No evidence of flow-limiting stenosis. The right external iliac and internal iliac arteries are widely patent. Right femoral/popliteal arteries: . The right common femoral artery is widely patent. The proximal right deep and superficial femoral arteries are widely patent without evidence of significant occlusive or aneurysmal disease. There is a large right popliteal artery aneurysm measuring 5.5 cm in diameter no evidence of leakage or rupture. There does appear to be compromise of the runoff vasculature with marked attenuation contrast within the runoff vessels. Right infrapopliteal arteries: The right proximal anterior tibial, common tibioperoneal, peroneal, posterior tibial artery are widely patent. Left iliac arteries: Mild aneurysmal dilatation of the left common iliac artery measuring 2 cm. The left external iliac and internal iliac arteries are widely patent. The Left femoral/popliteal arteries: Left common femoral artery is widely patent. The proximal left deep and superficial femoral arteries are widely patent without evidence of significant occlusive or aneurysmal disease. There is a left popliteal aneurysm measuring approximately 2 cm. There is no evidence leakage / extravasation of contrast. There is a moderate amount of mural thrombus. Left infrapopliteal arteries: The left anterior tibial, common tibioperoneal, peroneal, posterior tibial artery are widely patent. The left anterior tibial, common tibioperoneal, peroneal, posterior tibial artery is widely patent. Liver: There are no focal liver lesions present. There is no evidence of intrahepatic or extrahepatic biliary ductal dilation. Gallbladder and bile ducts: The gallbladder is normal. There is no cholelitiasis, wall thickening or pericholecystic fluid to suggest cholecystitis. Pancreas: The pancreas is normal. Spleen: The spleen is normal. Adrenal glands: The adrenal glands are normal. Kidneys and ureters: Mild bilateral renal cortical atrophy. No evidence of hydronephrosis renal calculi or perinephric fluid collections. Stomach and bowel: There is a large hiatal hernia containing fundus of the stomach. There is moderate increased colonic fecal content. The colon is mildly distended. These findings suggest a moderate degree of constipation. Clinical correlation recommended. There is fecalization of the small bowel. Consider chronic constipation.There is no free intraperitoneal air. Appendix: No evidence of appendicitis. Urinary bladder: The bladder is normal. Reproductive: The prostate gland demonstrates calcification and moderate nonspecific enlargement. The seminal vesicles are normal. Intraperitoneal space: There is no free intraperitoneal air. There is no evidence of free intraperitoneal or pelvic fluid. There is no evidence of free intraperitoneal or pelvic fluid. Lymph nodes: There is no evidence of lymphadenopathy. There is no evidence of lymphadenopathy. Bones/joints: There is a levoconvex scoliosis of the lumbar spine with moderate to severe degenerative changes. The skeletal structures and soft tissues show no evidence of fracture or other acute processes. Soft tissues: Total hip replacement seen bilaterally resulting and a large amount artifact obscuring the pelvic vasculature and soft tissues. The extra-abdominal soft tissues are normal. IMPRESSION: 1. There is a large right popliteal artery aneurysm measuring 5.5 cm in diameter no evidence of leakage or rupture. There does appear to be compromise of the runoff vasculature with marked attenuation contrast within the runoff vessels. There is attenuation of contrast and the peroneal artery appears occluded and no distal flow is seen within the right posterior tibial or dorsalis pedis or anterior tibial arteries. This likely represents the thromboembolism to the right runoff vessels. 2. There is aneurysmal dilatation of the right common iliac artery measuring 2.4 cm with a moderate amount of mural thrombus and small amount of atherosclerotic calcific plaquing. No evidence of flow-limiting stenosis. 3. There is a left popliteal aneurysm measuring approximately 2 cm. There is no evidence leakage extravasation of contrast. There is a moderate amount of mural thrombus. 4. There does appear to be compromise of the right lower extremity runoff vasculature with marked attenuation contrast within the runoff vessels. 5. There is attenuation of contrast and the right peroneal artery appears occluded and no distal flow is seen within the posterior tibial or dorsalis pedis or anterior tibial arteries. This likely represents the thromboembolism to the right runoff vessels. 6. Total hip replacement seen bilaterally resulting and a large amount artifact obscuring the pelvic vasculature and soft tissues. Dictated and Authenticated by: Juan Alberto Suh MD. Ordering:LUIS Amaya MD
[2022-05-01 20:32] VITALS: BP 132/72; PULSE 61; RESP 16; TEMP 36.6; O2SAT 98
--- NOTE | 2022-05-01 20:57 | ED.GENADUL_ITS ---
Discharge Plan Disposition Patient Disposition: [facility] Condition: Serious Discharge Details Clinical Impression: Ischemic leg, Aneurysm artery, popliteal Primary Care Provider: Josh Thakkar ED Provider: Monique Thacker Home Meds and New Rx's Prescriptions: No Action nitroglycerin [Nitrostat] 0.4 mg tablet, sublingual 0.4 mg Sublingual PRN Qty: 25 0RF Rx Instructions: 1 TAB PRN cholecalciferol (vitamin D3) 1,000 UNIT capsule 1,000 unit PO QAM omega-3 fatty acids-fish oil 1 EACH capsule 2 cap PO DAILY Label Comments: 11/24/17 on hold. si CPAP Label Comments: I haven't used that for 3 or 4 months. I really don't need it cyanocobalamin (vitamin B-12) [Vitamin B-12] 1,000 MCG tablet 1,000 mcg PO DAILY acetaminophen [Arthritis Pain Reliever] 650 MG tablet extended release 650 mg PO Q8H PRN memantine 10 mg tablet 10 mg PO BID Qty: 180 3RF omeprazole 20 mg capsule,delayed release(DR/EC) 20 mg PO DAILY Qty: 90 3RF hydrochlorothiazide 12.5 mg capsule 12.5 mg PO DAILY Qty: 90 3RF Rx Instructions: 1 CAP DAILY atenolol 50 mg tablet 50 mg PO DAILY Qty: 90 4RF melatonin 5 mg capsule 5 mg PO QPM Qty: 90 3RF quetiapine 25 mg tablet 12.5 mg PO .COMPLEX Qty: 90 3RF Rx Instructions: 12.5 mg orally 4pm daily; Medical Decision Making Patient has evidence of occlusion. Her runoff from popliteal artery on CTA with initial presentation for triage of pulseless and pale foot On reassessment, patient has a dorsalis pedis pulse and does have return of coloration at rest with the leg elevated Case discussed with Dr. Lowry at [facility] and recommendation to transfer to [facility] for vascular surgery consultation, however secondary to diversion status, they are unable to accept the patient to their ER Therefore [facility] was consulted and Dr. Nagy, emergency room physician recommended [facility] consultation with vascular surgery, spoke with , vascular surgeon at [facility] and she agreed to evaluate the patient in the emergency department after reviewing the CTA films, patient agreeable to transfer at this time His alignment remains warm with pulses intact, recommendation to initiate heparin bolus and infusion PTCA and PCI urine cleaned prior to transport No recent bleeding or history of hemorrhagic stroke, there are allergies to heparin, this was confirmed with patient In stable condition at time of transport HPI General Date/Time Provider Initiated Documentation: 05/01/22 16:43 . HPI Narrative: This 81-year-old gentleman with history of hypertension, Alzheimer's dementia, coronary artery disease presents with report of slight pain in the right popliteal region with mild swelling and intermittent reported blue discoloration to his right lower extremity. He states it was more pronounced this morning which is why he presents to the emergency department. He does have a prior history of a left popliteal artery aneurysm many years ago per patient. He denies any sensation changes left lower extremity or pain to the affected foot on the right. Denies chest pain, shortness of breath, dizziness, weakness, recent flights, surgeries, long drives, or known history of Related Data Home Medications Medication Instructions Recorded Confirmed cholecalciferol (vitamin D3) 25 1,000 unit PO QAM 12/01/12 05/01/22 mcg (1,000 unit) capsule omega-3 fatty acids-fish oil 300 2 cap PO DAILY 12/01/12 05/01/22 mg-1,000 mg capsule Cpap 12/06/12 10/23/21 cyanocobalamin (vitamin B-12) 1,000 mcg PO DAILY 07/14/16 05/01/22 1,000 mcg tablet (Vitamin B-12) acetaminophen 650 mg 650 mg PO Q8H PRN 06/08/17 05/01/22 tablet,extended release (Arthritis Pain Reliever) nitroglycerin 0.4 mg sublingual 0.4 mg sublingual PRN #25 tab-caps 05/14/21 05/01/22 tablet (Nitrostat) memantine 10 mg tablet 10 mg PO BID #180 tabs 09/24/21 05/01/22 omeprazole 20 mg capsule,delayed 20 mg PO DAILY #90 tab-caps 11/18/21 05/01/22 release hydrochlorothiazide 12.5 mg capsule 12.5 mg PO DAILY #90 tab-caps 12/12/21 05/01/22 atenolol 50 mg tablet 50 mg PO DAILY #90 tab-caps 07/09/22 10/21/22 melatonin 5 mg capsule 5 mg PO QPM #90 caps 03/30/22 05/01/22 quetiapine 25 mg tablet 12.5 mg PO .COMPLEX #90 tabs 04/30/22 05/01/22 Previous Rx's Medication Instructions Recorded nitroglycerin 0.4 mg sublingual 0.4 mg sublingual PRN #25 tab-caps 05/14/21 tablet (Nitrostat) memantine 10 mg tablet 10 mg PO BID #180 tabs 09/24/21 omeprazole 20 mg capsule,delayed 20 mg PO DAILY #90 tab-caps 11/18/21 release hydrochlorothiazide 12.5 mg capsule 12.5 mg PO DAILY #90 tab-caps 12/12/21 atenolol 50 mg tablet 50 mg PO DAILY #90 tab-caps 01/17/22 melatonin 5 mg capsule 5 mg PO QPM #90 caps 03/30/22 quetiapine 25 mg tablet 12.5 mg PO .COMPLEX #90 tabs 04/30/22 Allergies Allergy/AdvReac Type Severity Reaction Status Date / Time azithromycin Allergy Severe LIP Verified 05/01/22 15:49 SWELLING ibuprofen Allergy Intermediate angioedema Verified 05/01/22 15:49 Penicillins Allergy Intermediate LIP Verified 05/01/22 15:49 SWELLING Calcium Channel Blocking Allergy Unknown HIVES Verified 05/01/22 15:49 Agent Dilt diltiazem Allergy Unknown HIVES Verified 05/01/22 15:49 Sulfa (Sulfonamide Allergy Unknown SKIN RASH Verified 05/01/22 15:49 Antibiotics) SODIUM NITRITE Allergy Severe Anaphylaxsi Uncoded 05/01/22 15:49 s General Stated Complaint: Orthopedic CAMERON: 4 Review of Systems All systems reviewed & are unremarkable except as noted in HPI and below PFSH All Active Problems (Updated 05/01/22 @ 23:03 by KULDIP Jama) Ischemic leg (Acute) Aneurysm artery, popliteal (Acute) Chest pain (Acute) Alzheimer's dementia without behavioral disturbance (Acute) Macular degeneration (Acute) Penile rash (Acute) Dementia (Chronic) Amnesia memory loss (Acute) Hypercalcemia (Acute) Domestic problems (Acute) Falls (Acute) Skin lesion of right lower extremity (Acute) Encounter for annual physical exam (Acute) Hypertension (Chronic) same meds Anemia (Acute 10/09/08) History of cataract removal with insertion of prosthetic lens (Acute) Idiopathic scoliosis (Acute) Impaired fasting glucose (Acute) Status post arthroscopy of shoulder (Acute) Status post hip replacement (Acute) Status post rotator cuff repair (Acute) Status post transurethral resection of prostate (Acute) Angioedema (Acute) idiopathic Benign prostatic hyperplasia (Acute) prostate nodule; 2006- elevated PSA; 2006 renal insuff. secondary to [id number] () Chest pain (Acute) 1997-angina; neg. stress test; 12/17 neg. 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 [place] Surgical History ankle repair (~1980) Arthroscopy, Shoulder (~2009) Extraction of cataract (~2010) Rotator Cuff Repair (~2005) Total replacement of hip (~2004) Transurethral prostatectomy (~2006) Family History Mother Essential hypertension Hyperlipidemia Father Alzheimer disease Brother Hyperlipidemia Grandfather Heart disease Grandfather Heart disease Grandmother No problems noted. Grandmother Essential hypertension Brother Essential hypertension Son No problems noted. Son No problems noted. Son No problems noted. Daughter No problems noted. Social History Smoking/Tobacco Use Status: Current-Occasional Tobacco Type: pipe Smoking risk assessment performed?: Yes Alcohol Intake: current Alcohol Intake frequency: a few times a month Alcohol type: hard liquor Drug use: Never Substance use type: does not use Household members: spouse Housing: apartment Number of Children: 4 number of grandchildren: 7 Pets and animals: Yes Pets and animals: cat(s) What is your relationship status?: Panel score (0-1 are the most socially isolated patients): 1 What type of physical activity do you participate in: walking Seatbelt use: always Do you feel safe at home: Yes Do you feel safe in your relationship?: Yes Exam Const General: cooperative, comfortable and no acute distress Resp Effort & Inspection: normal respiratory effort Auscultation: clear to auscultation bilaterally Cardio Rate: regular rate Rhythm: regular rhythm Neuro General: patient alert and patient oriented x3 Sensory Exam: no sensory deficits noted Extrem Other: Right lower extremity with palpable dorsalis pedis and posterior tibial pulse, faint PT pulse on right Cap refill slightly delayed bilateral lower extremities Sensation intact bilateral lower extremities, mild right calf swelling, mild right popliteal tenderness Sensation intact distally, flexion and extension intact of right lower extremity Course Vital Signs Vital signs: Vital Signs Pulse 68 05/01/22 16:28 Respiratory Rate 18 05/01/22 16:28 Blood Pressure 134/78 05/01/22 16:28 Pulse Oximetry 98 05/01/22 16:28 Temperature 36.6 C 05/01/22 20:32 Temperature Source Temporal Artery Scan 05/01/22 20:32 Pulse 61 05/01/22 20:32 Respiratory Rate 16 05/01/22 20:32 Respiratory Effort 05/01/22 17:38 Blood Pressure 132/72 05/01/22 20:32 Blood Pressure Position Sitting 05/01/22 16:28 Pulse Oximetry 98 05/01/22 20:32 Oxygen Delivery Method Room Air 05/01/22 20:32 Oxygen Flow Rate 0 05/01/22 20:32 Pain Level 0 05/01/22 17:36 Lab/Test Results Lab/Test Results: Laboratory Tests Range/Units 05/01/22 05/01/22 18:09 18:09 WBC (4.4-10.8) 10^3/uL 6.90 RBC (4.36-5.78) 10^6/uL 5.02 Hgb (13.5-17.5) g/dL 15.6 Hct (40.0-50.0) % 46.3 MCV (80-95) fL 92 MCH (27.0-33.0) pg 31.1 MCHC (32.0-36.0) % 33.7 RDW (11.8-14.1) % 13.4 Plt Count (130-400) 10^3/uL 143 MPV (8.0-11.0) fL 9.0 Immature Gran % 0.3 Neutrophils % 62.7 Lymphocytes % 25.5 Monocytes % 7.0 Eosinophils % 3.8 Basophils % 0.7 Nucleated RBC % (0.0-0.3) % 0.0 Absolute Neutrophils (1.2-6.7) 10^3/uL 4.33 Absolute Lymphocytes (1.2-3.4) 10^3/uL 1.76 Absolute Monocytes (0.1-0.8) 10^3/uL 0.48 Absolute Eosinophils (0.0-0.7) 10^3/uL 0.26 Absolute Basophils (0.0-0.2) 10^3/uL 0.05 Sodium (136-145) mmol/L 140 Potassium (3.5-5.1) mmol/L 4.1 Chloride (98-107) mmol/L 103 Carbon Dioxide (21.0-32.0) mmol/L 31.5 Anion Gap (3-11) mmol/L 5.5 BUN (7-18) mg/dL 23 H Creatinine (0.70-1.30) mg/dL 1.3 Est GFR (CKD-EPI 2020) (mL/min/1.73m2) 54.85 Glucose (74-106) mg/dL 95 Calcium (8.5-10.1) mg/dL 10.4 H Critical Care Time Critical Care Time Critical Care Time: Yes Total Critical Care Time: 45 Attestation: Presented after critical care time performed secondary to popliteal artery aneurysm with occlusion ischemic limb, vascular surgery consult x2, ER consult with transfer, CTA diagnostic imaging and interpretation, heparin drip and bolus, telemetry monitoring
[2022-05-01 23:18] LABS: INR 1.1 (0.9-1.1); PTT Activated 25.7 sec (21.0-27.5); Prothrombin Time 10.7 sec (9.3-11.0)
== END 2022-05-01 23:10 ==
PROVIDERS: Emergency Provider Physician Assistant; PCP Family Medicine
DX: I72.4 Aneurysm of artery of lower extremity (principal); I99.8 Other disorder of circulatory system; I10 Essential (primary) hypertension; F17.290 Nicotine dependence, other tobacco product, uncomplicated
CPT/HCPCS: 36415; 75635; 80048; 96374; 99291; 85025; 85610; 85730; J3490

== ENCOUNTER 2022-05-09 12:10 | Emergency (ER) | payer MEDICARE, MEDICAID, SELFPAY ==
[2022-05-09] VITALS (20 sets, daily range): BP systolic 128–148; BP diastolic 68–105; PULSE 46–57; RESP 17; TEMP 36.5; O2SAT 92–100
--- NOTE | 2022-05-09 13:30 | DI.CT_ITS ---
Exam(s) CT LOWER EXTREMITY RT CTA EXAM: CT LOWER EXTREMITY RT CTA CLINICAL HISTORY: iliac and pop aneursyms, cold purple foot. TECHNIQUE: Imaging Protocol: Axial CT angiography was performed with multi-slice acquisition and mu lti-planar and/or 3D reconstructions. CONTRAST MATERIAL: Intravenous: Omnipaque 350 Contrast volume:structured data in ml mL Oral: yes / no COMPARISON: CT,NM,TMT NM MPI REST STRESS GRP from 06/02/[address] ABD AORTA CTA W RUNOFF from 05/01/2022 FINDINGS: Vascular Structures: Abdomen and pelvis: Celiac [place]/SMA: No evidence of occlusion or significant stenosis. Atherosclerosis at the origin of the SMA. Renal Arteries: No evidence of occlusion or significant stenosis. There is a single renal artery perf using each kidney. Aorta: No aneurysm, occlusion or significant stenosis. No dissection. Atherosclerosis. Iliac Arteries: No evidence of occlusion or significant stenosis. There is aneurysmal dilatation of the right common iliac artery measuring 2.5 cm. There is a mild aneurysmal dilatation of the left c ommon iliac artery measuring 2 cm. Atherosclerosis. Lower extremities: The infrapopliteal arteries cannot be adequately assessed due to bolus timing. An insufficient amount of contrast has reached the infrapopliteal arteries at the time of the examinati on. Right: Common Femoral: No evidence of occlusion or significant stenosis. Atherosclerosis. Femoral: No evidence of occlusion or significant stenosis. Deep Femoral Artery: No evidence of occlusion or significant stenosis. 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 Left: Common Femoral: No evidence of occlusion or significant stenosis. Femoral: No evidence of occlusion or significant stenosis. Deep femoral artery: No evidence of occlusion or significant stenosis. Popliteal: No evidence ofocclusion or significant stenosis. There is a 2 cm left popliteal artery a neurysm. Soft Tissues: There is limited visualization of the abdominal pelvic organs. Lung bases: There is a large hiatal hernia. Liver: Visualized liver is unremarkable. No measurable mass. Gallbladder and biliary tract: No radiodense calculus or dilation. Pancreas: Normal density, no abnormal calcifications or inflammatory process. Spleen: Visualized spleen unremarkable. Kidneys: The right kidney in the visualized portions of the left kidney are unremarkable. There is a tiny hypodensity in the cortex of the lower pole of the left kidney. It is too small for further ch aracterization but likely reflects a small cyst. No radiodense stones or obstructive uropathy. Adrenal glands: No masses seen. Aorta: Abdominal portion non-dilated. There is atherosclerosis. No evidence of dissection. Bladder: Grossly unremarkable. Portions of the urinary bladder obscured by artifact from the patient 's bilateral total hip replacements. Bowel: Visualized bowel is unremarkable. No evidence of appendicitis. Peritoneal cavity: No ascites, collection or mesenteric inflammatory response. No free air. Bones: Within normal limits for the patient's age. Bilateral total hip replacements. IMPRESSION: 1. 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 2. 2 cm left popliteal artery aneurysm. 3. The infrapopliteal arteries cannot be evaluated due to the fact that the contrast bolus is not jann quately opacified these vessels at the time of the examination. 4. 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 5. No evidence of dissection. RADIATION DOSE DELIVERED: 979.28mGy.cm Total DLP DATA REPOSITORY: All CT scans at this facility are submitted to the National Radiology Data Registry (NRDR) Dose Index Registry (DIR) with the [employer] (ACR). RADIATION OPTIMIZATION: All CT scans at this facility use at least one of these dose optimization te chniques: automated exposure control; mA and/or kV adjustment per patient size (includes targeted exa ms where dose is matched to clinical indication); or iterative reconstruction.
--- NOTE | 2022-05-09 13:43 | ED.GENADUL_ITS ---
Discharge Plan Disposition Patient Disposition: [facility] Condition: Serious Discharge Details Chief Complaint: Vascular Clinical Impression: Popliteal artery aneurysm, Claudication Primary Care Provider: Josh Thakkar ED Provider: Abhilash Velázquez Home Meds and New Rx's Prescriptions: No Action nitroglycerin [Nitrostat] 0.4 mg tablet, sublingual 0.4 mg Sublingual PRN Qty: 25 0RF Rx Instructions: 1 TAB PRN cholecalciferol (vitamin D3) 1,000 UNIT capsule 1,000 unit PO QAM omega-3 fatty acids-fish oil 1 EACH capsule 2 cap PO DAILY Label Comments: 11/24/17 on hold. si CPAP Label Comments: I haven't used that for 3 or 4 months. I really don't need it cyanocobalamin (vitamin B-12) [Vitamin B-12] 1,000 MCG tablet 1,000 mcg PO DAILY acetaminophen [Arthritis Pain Reliever] 650 MG tablet extended release 650 mg PO Q8H PRN memantine 10 mg tablet 10 mg PO BID Qty: 180 3RF omeprazole 20 mg capsule,delayed release(DR/EC) 20 mg PO DAILY Qty: 90 3RF hydrochlorothiazide 12.5 mg capsule 12.5 mg PO DAILY Qty: 90 3RF Rx Instructions: 1 CAP DAILY atenolol 50 mg tablet 50 mg PO DAILY Qty: 90 4RF melatonin 5 mg capsule 5 mg PO QPM Qty: 90 3RF quetiapine 25 mg tablet 12.5 mg PO .COMPLEX Qty: 90 3RF Rx Instructions: 12.5 mg orally 4pm daily; Medical Decision Making 81-year-old male known popliteal aneurysm recently evaluated at [facility] vascular surgery and scheduled for follow-up/intervention on 05/14, presents with worsening pain over the last 2 days involving right lower extremity into foot, purple discoloration from distal mid foot into toes, cool cold skin and foot, DP pulse intact, range of motion intact however uncomfortable at rest and with movement. Concerning for worsening claudication likely related to expanding aneurysm versus arterial occlusion. Repeat CTA of lower extremity limited by poor vascular runoff due to timing however compared to 05/02 aneurysm has grown from 5.5 cm to 6.2 cm. No evidence of extravasation or rupture. Was able to speak with Dr. Fletcher of vascular surgery at [facility] who would like patient transferred ED to ED for stat evaluation by vascular team. Patient family amenable to transfer. Hemodynamically stable resting comfortably now after pain medications. Will start on heparin drip. Currently trying to arrange stat transfer. Tisha transfer team unavailable at this time have called other EMS services awaiting callback. HPI General Date/Time Provider Initiated Documentation: 05/09/22 12:19 . 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 Worsening pain and discoloration of the leg over the course of today and yesterday. Related Data Home Medications Medication Instructions Recorded Confirmed cholecalciferol (vitamin D3) 25 1,000 unit PO QAM 12/01/12 05/09/22 mcg (1,000 unit) capsule omega-3 fatty acids-fish oil 300 2 cap PO DAILY 12/01/12 05/09/22 mg-1,000 mg capsule Cpap 12/06/12 10/23/21 cyanocobalamin (vitamin B-12) 1,000 mcg PO DAILY 07/14/16 05/09/22 1,000 mcg tablet (Vitamin B-12) acetaminophen 650 mg 650 mg PO Q8H PRN 06/08/17 05/09/22 tablet,extended release (Arthritis Pain Reliever) nitroglycerin 0.4 mg sublingual 0.4 mg sublingual PRN #25 tab-caps 05/14/21 05/09/22 tablet (Nitrostat) memantine 10 mg tablet 10 mg PO BID #180 tabs 09/24/21 05/09/22 omeprazole 20 mg capsule,delayed 20 mg PO DAILY #90 tab-caps 11/18/21 05/09/22 release hydrochlorothiazide 12.5 mg capsule 12.5 mg PO DAILY #90 tab-caps 12/12/21 05/09/22 atenolol 50 mg tablet 50 mg PO DAILY #90 tab-caps 01/17/22 05/09/22 melatonin 5 mg capsule 5 mg PO QPM #90 caps 03/30/22 05/09/22 quetiapine 25 mg tablet 12.5 mg PO .COMPLEX #90 tabs 04/30/22 05/09/22 Previous Rx's Medication Instructions Recorded nitroglycerin 0.4 mg sublingual 0.4 mg sublingual PRN #25 tab-caps 05/14/21 tablet (Nitrostat) memantine 10 mg tablet 10 mg PO BID #180 tabs 09/24/21 omeprazole 20 mg capsule,delayed 20 mg PO DAILY #90 tab-caps 11/18/21 release hydrochlorothiazide 12.5 mg capsule 12.5 mg PO DAILY #90 tab-caps 12/12/21 atenolol 50 mg tablet 50 mg PO DAILY #90 tab-caps 01/17/22 melatonin 5 mg capsule 5 mg PO QPM #90 caps 03/30/22 quetiapine 25 mg tablet 12.5 mg PO .COMPLEX #90 tabs 04/30/22 Allergies Allergy/AdvReac Type Severity Reaction Status Date / Time azithromycin Allergy Severe LIP Verified 05/09/22 12:19 SWELLING ibuprofen Allergy Intermediate angioedema Verified 05/09/22 12:19 Penicillins Allergy Intermediate LIP Verified 05/09/22 12:19 SWELLING Calcium Channel Blocking Allergy Unknown HIVES Verified 05/09/22 12:19 Agent Dilt diltiazem Allergy Unknown HIVES Verified 05/09/22 12:19 Sulfa (Sulfonamide Allergy Unknown SKIN RASH Verified 05/09/22 12:19 Antibiotics) SODIUM NITRITE Allergy Severe Anaphylaxsi Uncoded 05/09/22 12:19 s General Stated Complaint: Vascular CAMERON: 3 Review of Systems Narrative: Review of Systems Constitutional: negative Eyes: negative ENT: negative Cardiovascular: negative Respiratory: negative Gastrointestinal: negative : negative Musculoskeletal: Leg pain, foot discoloration Skin: Foot discoloration Neurologic: negative Psych: negative PFSH All Active Problems (Updated 05/09/22 @ 16:57 by Abhilash Velázquez MD) Ischemic leg (Acute) Aneurysm artery, popliteal (Acute) Popliteal artery aneurysm (Acute) Claudication (Acute) Chest pain (Acute) Alzheimer's dementia without behavioral disturbance (Acute) Macular degeneration (Acute) Penile rash (Acute) Dementia (Chronic) Amnesia memory loss (Acute) Hypercalcemia (Acute) Domestic problems (Acute) Falls (Acute) Skin lesion of right lower extremity (Acute) Encounter for annual physical exam (Acute) Hypertension (Chronic) same meds Anemia (Acute 10/09/08) History of cataract removal with insertion of prosthetic lens (Acute) Idiopathic scoliosis (Acute) Impaired fasting glucose (Acute) Status post arthroscopy of shoulder (Acute) Status post hip replacement (Acute) Status post rotator cuff repair (Acute) Status post transurethral resection of prostate (Acute) Angioedema (Acute) idiopathic Benign prostatic hyperplasia (Acute) prostate nodule; 2006- elevated PSA; 2006 renal insuff. secondary to [id number] () Chest pain (Acute) 1997-angina; neg. stress test; 12/17 neg. 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 CRISTI XIONG; EGD Essential hypertension (10/19/13) get your pcv GERD (gastroesophageal reflux disease) Hyperlipidemia (12/06/12) Obstructive sleep apnea syndrome [facility]; C-PAP Popliteal artery aneurysm [place] [facility] [place] History ankle repair (~1980) Arthroscopy, Shoulder (~2009) Extraction of cataract (~2010) Rotator Cuff Repair (~2005) Total replacement of hip (~2004) Transurethral prostatectomy (~2006) Family History Mother Essential hypertension Hyperlipidemia Father Alzheimer disease Brother Hyperlipidemia Grandfather Heart disease Grandfather Heart disease Grandmother No problems noted. Grandmother Essential hypertension Brother Essential hypertension Son No problems noted. Son No problems noted. Son No problems noted. Daughter No problems noted. Social History Smoking/Tobacco Use Status: Former Tobacco Use Smoking risk assessment performed?: Yes Alcohol Intake: current Alcohol Intake frequency: a few times a month Alcohol type: hard liquor Drug use: Never Substance use type: does not use Household members: spouse Housing: apartment Number of Children: 4 number of grandchildren: 7 Pets and animals: Yes Pets and animals: cat(s) What is your relationship status?: Panel score (0-1 are the most socially isolated patients): 1 What type of physical activity do you participate in: walking Seatbelt use: always Do you feel safe at home: Yes Do you feel safe in your relationship?: Yes Exam Narrative Exam Narrative: Physical Examination General: alert, awake, cooperative, acute pain HEENT: normocephalic, atraumatic; PERRL, EOM intact, conjunctiva normal; no nasal discharge; moist mucous membranes, oral and pharyngeal mucosa normal, tolerating secretions Neck: supple, trachea midline; full ROM Chest: normal to inspection Respiratory: normal respiratory effort, speaking in full sentences, clear to auscultation, no wheezing, rales or rhonchi Cardiac: regular rate, regular rhythm, S1S2 intact, no murmurs rubs or gallops GI: abdomen soft, non-tender, non-distended; no palpable mass or hepatosplenomegaly Skin: Cold purple discolored toes on the right foot Neuro: AAOx3, normal speech, moving all extremities Extremities: Palpable DP pulse right foot however cold purple discoloration starting distal mid foot into toes, ambulatory, range of motion intact tender to touch from calf region down into the foot Psych: Appropriate mood and affect Course Vital Signs Vital signs: Vital Signs Temperature 36.5 C 05/09/22 12:14 Pulse 53 L 05/09/22 12:14 Respiratory Rate 17 05/09/22 12:14 Blood Pressure 136/78 05/09/22 12:14 Pulse Oximetry 99 05/09/22 12:14 Temperature 36.5 C 05/09/22 12:14 Pulse 53 L 05/09/22 12:14 Respiratory Rate 17 05/09/22 12:14 Respiratory Effort Non-Labored 05/09/22 12:18 Blood Pressure 136/78 05/09/22 12:14 Blood Pressure Position Sitting 05/09/22 12:14 Pulse Oximetry 99 05/09/22 12:14 Oxygen Delivery Method Room Air 05/09/22 12:14 Oxygen Flow Rate 0 05/09/22 12:14 Pain Level 10 05/09/22 12:14
[2022-05-09 14:09] LABS: Abs Immature Grans 0.02 10^3/uL (0.0-0.06); Absolute Basophil Count 0.04 10^3/uL (0.0-0.2); Absolute Eosinophil Count 0.16 10^3/uL (0.0-0.7); Absolute Lymphocyte Count 0.74 10^3/uL (1.2-3.4); Absolute Monocyte Count 0.38 10^3/uL (0.1-0.8); Absolute Neutrophil Count 8.16 10^3/uL (1.2-6.7); Basophils % 0.4; Eosinophils % 1.7; HCT 48.8 % (40.0-50.0); HGB 16.1 g/dL (13.5-17.5); Immature Grans % 0.2; Lymphocytes % 7.8; MCH 30.8 pg (27.0-33.0); MCV 93 fL (80-95); MPV 8.9 fL (8.0-11.0); Neutrophils % 85.9; Platelet Count 168 10^3/uL (130-400); RBC 5.23 10^6/uL (4.36-5.78); RDW 13.3 % (11.8-14.1); RDW-SD 45.4 fL
[2022-05-09 14:23] LABS: INR 1.2 (0.9-1.1); Prothrombin Time 11.6 sec (9.3-11.0)
[2022-05-09 14:24] LABS: ALT 13 U/L (16-63); AST 15 U/L (15-37); Alkaline Phosphatase 85 U/L (46-116); Anion Gap 3.1 mmol/L (3-11); BUN 19 mg/dL (7-18); Bilirubin, Total 0.9 mg/dL (0.2-1.0); CO2 31.9 mmol/L (21.0-32.0); CREATININE 1.6 mg/dL (0.70-1.30); Calcium 10.2 mg/dL (8.5-10.1); Chloride 102 mmol/L (98-107); Estimated GFR 42.75 (mL/min/1.73m2); Glucose 107 mg/dL (74-106); Potassium 4.1 mmol/L (3.5-5.1); Sodium 137 mmol/L (136-145); Total Protein 7.7 g/dL (6.4-8.2)
[2022-05-09] MEDS: Normal Saline Flush 10 ML SYR IVP (15:16)
[2022-05-09] MEDS: Normal Saline 500 ML 1000 ML IV (15:24)
--- NOTE | 2022-05-09 16:18 | DI.VRAD_ITS ---
PROCEDURE INFORMATION: Exam: CTA Right Lower Extremity With Contrast Exam date and time: 05/09/2022 3:04 PM Age: 81 years old Clinical indication: Other: Iliac and pop aneursyms, cold purple foot TECHNIQUE: Imaging protocol: Computed tomographic angiography of the Right lower extremity with contrast. 3D rendering (Not supervised by radiologist): MIP and/or 3D reconstructed images were created by the technologist. Contrast material: OMNIPAQUE 350; Contrast volume: 150 ml; Contrast route: INTRAVENOUS (IV); COMPARISON: CT ABD AORTA CTA W RUNOFF 05/01/2022 6:29 PM FINDINGS: Aorta: Mild atherosclerosis of the infrarenal abdominal aorta. Small amount of mural thrombus present consistent with a small amount of soft plaque in the aorta. The abdominal aorta is otherwise widely patent without evidence of significant occlusive or aneurysmal disease. Celiac trunk and mesenteric arteries: The celiac artery is widely patent without evidence of occlusive or aneurysmal disease. Superior mesenteric artery is widely patent without evidence of occlusive or aneurysmal disease.The inferior mesenteric artery is widely patent without evidence of occlusive or aneurysmal disease. Renal arteries: Single renal artery supplies the right kidney, is widely patent, without evidence of significant occlusive or aneurysmal disease. Single renal artery supplies the left kidney, is widely patent, without evidence of significant occlusive or aneurysmal disease. Single renal artery supplies left kidney appears normal. 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 Right iliac arteries: There is aneurysmal dilatation of the right common iliac artery measuring 2.5 cm with a moderate amount of mural thrombus and small amount of atherosclerotic calcific plaquing. No evidence of flow-limiting stenosis or significant change from the prior exam. The right external iliac and internal iliac arteries are widely patent. Right femoral/popliteal arteries: . The right common femoral artery is widely patent. The proximal right deep and superficial femoral arteries are widely patent without evidence of significant occlusive or aneurysmal disease. There is a large right popliteal artery aneurysm measuring 6.2 cm in maximum transverse diameter which is unchanged from the prior exam. No evidence of leakage or rupture. There does appear to be compromise of the runoff vasculature with marked attenuation contrast within the runoff vessels. Right infrapopliteal arteries: These arteries cannot be assessed due to the bolus timing. A sufficient concentration of contrast has not reached the infrapopliteal arteries at the time of the scan. Left iliac arteries: Mild aneurysmal dilatation of the left common iliac artery measuring 2 cm. The left external iliac and internal iliac arteries are widely patent. The Left femoral/popliteal arteries: Left common femoral artery is widely patent. The proximal left deep and superficial femoral arteries are widely patent without evidence of significant occlusive or aneurysmal disease. There is a left popliteal aneurysm measuring approximately 2 cm. There is intraluminal filling defect within the popliteal artery with the contrast dissipating within the mid to distal popliteal artery. Left infrapopliteal arteries: These arteries cannot be assessed due to the bolus timing. A sufficient concentration of contrast has not reached the infrapopliteal arteries at the time of the scan. Liver: There are no focal liver lesions present. There is no evidence of intrahepatic or extrahepatic biliary ductal dilation. Gallbladder and bile ducts: The gallbladder is normal. There is no cholelitiasis, wall thickening or pericholecystic fluid to suggest cholecystitis. Pancreas: The pancreas is normal. Spleen: The spleen is normal. Adrenal glands: The adrenal glands are normal. Kidneys and ureters: Mild bilateral renal cortical atrophy. No evidence of hydronephrosis renal calculi or perinephric fluid collections. Stomach and bowel: There is a large hiatal hernia containing fundus of the stomach. No evidence of obstruction. Appendix: No evidence of appendicitis. Bladder: The bladder is normal. Reproductive: The prostate gland demonstrates calcification and moderate nonspecific enlargement. The seminal vesicles are normal. Intraperitoneal space: There is no free intraperitoneal air. There is no evidence of free intraperitoneal or pelvic fluid. There is no evidence of free intraperitoneal or pelvic fluid. Bones/joints: Chronic degenerative changes of the spine are present. The skeletal structures and soft tissues show no evidence of fracture or other acute processes. Lymph nodes: There is no evidence of lymphadenopathy. Soft tissues: Total hip replacement seen bilaterally resulting and a large amount artifact obscuring the pelvic vasculature and soft tissues. The extra-abdominal soft tissues are normal. IMPRESSION: 1. There is a large right popliteal artery aneurysm measuring 6.2 cm in diameter no evidence of leakage or rupture. Unfortunately, the contrast bolus has not reached the infrapopliteal arteries the time of the scan. Therefore the runoff vasculature cannot be assessed. 2. There is aneurysmal dilatation of the right common iliac artery measuring 2.4 cm with a moderate amount of mural thrombus and small amount of atherosclerotic calcific plaquing. No evidence of flow-limiting stenosis. 3. There is a left popliteal aneurysm measuring approximately 2 cm, with findings suspicious for nonocclusive thrombus within the popliteal artery. Unfortunately, the contrast bolus has not reached the infrapopliteal arteries the time of the scan. Therefore the runoff vasculature cannot be assessed. 4. Total hip replacement seen bilaterally resulting and a large amount artifact obscuring the pelvic vasculature and soft tissues. Dictated and Authenticated by: Osvaldo Lam MD. Ordering:CHADWICK Hung MD
[2022-05-09] MEDS: Ondansetron 4 MG/2 ML VIAL IVP (16:37)
[2022-05-09] MEDS: MORPHine 10 MG/ML VIAL 2 MG IVP ×2 (16:37→18:27)
[2022-05-09 16:54] LABS: Source Nasal/Nares
[2022-05-09 17:25] LABS: COVID-19 PCR Negative (Negative)
--- NOTE | 2022-05-09 17:32 | NUR.NOTE ---
Nursing Note: Nurse to nurse given to Michael at [facility].
[2022-05-09] MEDS: MORPHine 4 MG/ML SYR 2 MG IVP (19:16)
== END 2022-05-09 19:16 ==
PROVIDERS: Emergency Provider Emergency Medicine; PCP Family Medicine
DX: I74.2 Embolism and thrombosis of arteries of the upper extremities (principal); I73.89 Other specified peripheral vascular diseases
CPT/HCPCS: 36415; 73706; 80053; 87635; 96361; 96365; 96366; 96375; 96376; 99285; 85025; 85610; 85730; J2270; J2405

== ENCOUNTER 2022-05-18 20:29 | Emergency (ER) | payer MEDICARE, MEDICAID, SELFPAY ==
[2022-05-18 20:30] VITALS: BP 159/83; PULSE 69; RESP 18; TEMP 36.5; O2SAT 99
--- NOTE | 2022-05-18 20:30 | DI.CT_ITS ---
Exam(s) CT ABD AORTA CTA W RUNOFF EXAM: CT ABD AORTA CTA W RUNOFF CLINICAL HISTORY: known anyurism, right leg shows no pedal pulse. TECHNIQUE: Imaging Protocol: Axial CT angiography was performed with multi-slice acquisition and mu lti-planar and/or 3D reconstructions. CONTRAST MATERIAL: Intravenous: Omnipaque 350 Contrast volume:150 mL Oral: No COMPARISON: CT CT LOWER EXTREMITY RT CTA from 05/09/2022 FINDINGS: Vascular Structures: Abdomen and pelvis: Celiac [place]/SMA: No evidence of occlusion or significant stenosis. Mild atherosclerosis at the origi n of the SMA. Renal Arteries: No evidence of occlusion or significant stenosis. There is a single renal artery perf using each kidney. 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 Aorta: No aneurysm, occlusion or significant stenosis. No dissection. Atherosclerosis. Iliac Arteries: No evidence of occlusion or significant stenosis. Interval dilatation of the common right iliac artery measuring 2.5 cm. Mild aneurysmal dilatation of the left common iliac artery justo uring 2 cm. Atherosclerosis is present. Lower extremities: Right: Common Femoral: No evidence of occlusion or significant stenosis. Atherosclerosis is present. Superficial femoral: There is no visualized flow seen from the distal superficial femoral artery dist ally. There is no visualized flow seen within the popliteal artery, the right trifurcation or the ru noff to the right foot. There is a popliteal artery aneurysm sac measuring 6 cm. This is unchanged. There is a stent noted in the distal superficial femoral artery into the popliteal artery. Atheros clerosis is present. Left: Common Femoral: No evidence of occlusion or significant stenosis. Femoral: No evidence of occlusion or significant stenosis. Deep femoral artery: No evidence of occlusion or significant stenosis. Popliteal: No evidence of occlusion or significant stenosis. There is a 2 cm left popliteal artery aneurysm. Atherosclerosis is present. Knee Trifurcation: No evidence of occlusion or significant stenosis. Runoff: No evidence of occlusion or significant stenosis. Soft Tissues: Lung bases: There is a large hiatal hernia. Liver: Normal density. No measurable mass. Gallbladder and biliary tract: No radiodense calculus or dilation. Pancreas: Normal density, no abnormal calcifications or inflammatory process. Spleen: Normal. Kidneys: Normal size, contour and axis. No radiodense stones or obstructive uropathy. There is a stab le small right renal cyst. Adrenal glands: No masses seen. Aorta: Abdominal portion non-dilated. No aneurysm or dissection. Bladder: Symmetric distention, no gross wall thickening. Bowel: No obstruction or bowel wall thickening. No evidence of appendicitis. There is diverticulosis seen in the sigmoid colon but no evidence of acute diverticulitis. Peritoneal cavity: No ascites, collection or mesenteric inflammatory response. No free air. Bones: Within normal limits for the patient's age. Bilateral total hip replacements. Soft tissues: Fat containing umbilical hernia. IMPRESSION: 1. No identifiable flow seen in the right distal superficial femoral artery, popliteal artery or runo ff to the foot. 2. 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 RADIATION DOSE DELIVERED: 1,181.16mGy.cm Total DLP 1,181.16mGy.cm Total DLP DATA REPOSITORY: All CT scans at this facility are submitted to the National Radiology Data Registry (NRDR) Dose Index Registry (DIR) with the [employer] (ACR). RADIATION OPTIMIZATION: All CT scans at this facility use at least one of these dose optimization te chniques: automated exposure control; mA and/or kV adjustment per patient size (includes targeted exa ms where dose is matched to clinical indication); or iterative reconstruction.
[2022-05-18 20:38] LABS: Abs Immature Grans 0.02 10^3/uL (0.0-0.06); Absolute Basophil Count 0.04 10^3/uL (0.0-0.2); Absolute Eosinophil Count 0.22 10^3/uL (0.0-0.7); Absolute Lymphocyte Count 1.44 10^3/uL (1.2-3.4); Absolute Monocyte Count 0.74 10^3/uL (0.1-0.8); Basophils % 0.5; HCT 38.7 % (40.0-50.0); Immature Grans % 0.3; Lymphocytes % 19.6; MCH 31.5 pg (27.0-33.0); MCHC 33.6 % (32.0-36.0); MCV 94 fL (80-95); MPV 9.2 fL (8.0-11.0); Monocytes % 10.1; Neutrophils % 66.5; Platelet Count 152 10^3/uL (130-400); RBC 4.13 10^6/uL (4.36-5.78); RDW 13.5 % (11.8-14.1); RDW-SD 46.2 fL; WBC 7.36 10^3/uL (4.4-10.8)
[2022-05-18 20:40] LABS: Lactate 1.6 mmol/L (0.6-1.4)
[2022-05-18 20:53] LABS: INR 1.1 (0.9-1.1); PTT Activated 24.5 sec (21.0-27.5); Prothrombin Time 10.7 sec (9.3-11.0)
[2022-05-18] MEDS: MORPHine 4 MG/ML SYR IVP ×2 (20:57→22:15)
[2022-05-18 20:58] LABS: ALT 19 U/L (16-63); AST 13 U/L (15-37); Albumin 3.6 g/dL (3.4-5.0); Alkaline Phosphatase 83 U/L (46-116); Anion Gap 6.8 mmol/L (3-11); BUN 21 mg/dL (7-18); Bilirubin, Total 0.8 mg/dL (0.2-1.0); CO2 29.2 mmol/L (21.0-32.0); CREATININE 1.5 mg/dL (0.70-1.30); Chloride 105 mmol/L (98-107); Estimated GFR 46.19 (mL/min/1.73m2); Glucose 119 mg/dL (74-106); Potassium 3.9 mmol/L (3.5-5.1); Sodium 141 mmol/L (136-145)
[2022-05-18] MEDS: Omnipaque 350 MG/ML 100 ML BTL IJ (20:59)
--- NOTE | 2022-05-18 21:11 | W.ED.GENAD ---
Discharge Plan Disposition Patient Disposition: [facility] Condition: Critical Discharge Details Clinical Impression: Critical limb ischemia of right lower extremity Primary Care Provider: Josh Thakkar ED Provider: Mark Wahl Home Meds and New Rx's Prescriptions: No Action nitroglycerin [Nitrostat] 0.4 mg tablet, sublingual 0.4 mg Sublingual PRN Qty: 25 0RF Rx Instructions: 1 TAB PRN cholecalciferol (vitamin D3) 1,000 UNIT capsule 1,000 unit PO QAM omega-3 fatty acids-fish oil 1 EACH capsule 2 cap PO DAILY Label Comments: 11/24/17 on hold. si CPAP Label Comments: I haven't used that for 3 or 4 months. I really don't need it cyanocobalamin (vitamin B-12) [Vitamin B-12] 1,000 MCG tablet 1,000 mcg PO DAILY acetaminophen [Arthritis Pain Reliever] 650 MG tablet extended release 650 mg PO Q8H PRN memantine 10 mg tablet 10 mg PO BID Qty: 180 3RF omeprazole 20 mg capsule,delayed release(DR/EC) 20 mg PO DAILY Qty: 90 3RF hydrochlorothiazide 12.5 mg capsule 12.5 mg PO DAILY Qty: 90 3RF Rx Instructions: 1 CAP DAILY atenolol 50 mg tablet 50 mg PO DAILY Qty: 90 4RF melatonin 5 mg capsule 5 mg PO QPM Qty: 90 3RF quetiapine 25 mg tablet 12.5 mg PO .COMPLEX Qty: 90 3RF Rx Instructions: 12.5 mg orally 4pm daily; Discharge Instructions Additional Instructions: Your PCR test is returned negative for COVID/flu/RSV. The laboratory work-up is stable. Your potassium is slightly low, it would be reasonable to eat foods high in potassium like bananas, legumes prunes. Please continue to monitor your symptoms closely. If you do develop any symptoms do not hesitate to return to be reassessed. If you notice any worsening of your symptoms, or any new symptoms such as vomiting, diarrhea, fever, chills, shortness of breath, chest pain, numbness, weakness, or fainting , please return immediately to the emergency department for reevaluation. Please follow up with your primary care provider as soon as possible for reassessment and reevaluation. As always, it was a pleasure participating in your medical care today. 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 Patient has been taking his Eliquis as directed. He is doing very well at home, and went for a walk today with no complications or difficulties. However about 30 minutes prior to arrival he had sudden pain in his right foot and noticed that it became cold, and painful. He immediately called EMS and came to the ER. Currently he continues to have pain in the foot, and notable difficulty moving it. He denies any pain in his legs or his hip. No trauma. No other complaints at this time. Exam demonstrates a cold pale dusky right foot, no pulses are noted under ultrasound for dorsalis pedis or posterior tibial. Cap refill is 10 seconds. There is minimal peripheral flow noted in the posterior popliteal space. No evidence of large clot noted in the femoral vein. Differential is highest for repeat claudication, potential clot or alteration of the aneurysm causing problem with flow. We did contact [facility] vascular surgery and spoke with Dr. Encarnacion, she does recommend heparinization and CT scan. We are still pending the results and images for the CT scan/CTA. We will treat the patient's pain monitor closely and reassess. 10:[address] scan results have returned, and confirms that there is no definable flow within the stent of the right superficial femoral artery distribution, popliteal artery, or runoff in the infrapopliteal region. We did contact [facility], and they state that they have no beds currently. We are still waiting to hear back from the vascular surgeon. We did contact [facility] and they have no beds or capacity for the patient right now. We will continue to contact various hospitals for potential vascular intervention. 10:42 [facility] [place] [facility]. We contacted vascular surgery at [place] and discussed the case with and he is very concerned that the patient was not being managed by the [facility] vascular surgery team. He stated he was going to call the hospital and make sure they managed this patient has a postoperative patient. Shortly thereafter I did get a call back from the [facility] requesting the images to be transferred. We already transferred the images at 10:06 PM. I did state that I was willing to read the report to the vascular surgeon as well in the meantime to help expedite care for this patient with his ischemic foot. 11:08 PM We have gotten a call back from [facility] vascular surgery,Dr Encarnacion agrees with the plan, and the transfer center states that they will be able to accept this patient at this time. Patient will be transferred ER to ER. I have extensively reviewed the treatment plan with the patient. I have addressed all patient concerns at this time. I have also discussed the plan with the admitting physician and they agree with the current assessment and plan and have agreed to assume responsibility for the patient. All parties demonstrate verbal understanding and agreement with our assessment and plan at this time. The documentation in this chart was dictated using [employer] dictation software. Please excuse any dictation errors. At time of transfer the patient was reassessed and continued to demonstrate No signs of acute respiratory distress requiring intubation, hemodynamic instability requiring pressor support, or rapidly declining mental status. The patient is stable for transport. FINDINGS: Aorta: Infrarenal abdominal aortic ectasia. Abdominal aortic atherosclerotic plaque. Celiac trunk and mesenteric arteries: No occlusion or significant stenosis. 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 Renal arteries are otherwise patent. 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 Right femoral/popliteal arteries: A stent is noted within the superficial femoral artery on the right, which is occluded. There is an aneurysm sac of the popliteal artery on the right measuring 6.0 x 5.8 cm. There is no visualized flow within the popliteal artery. There is no flow within the right trifurcation. No definable flow within the runoff to the foot. Right infrapopliteal arteries: No visualized flow. 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 Left femoral/popliteal arteries: There is an aneurysm of the left popliteal artery measuring 2.2 x 2.1 cm. Left infrapopliteal arteries: No occlusion or significant stenosis. Liver: No mass. Diaphragm: There is a large hiatal hernia. Gallbladder and bile ducts: Unremarkable. No calcified stones. No ductal dilation. Pancreas: Unremarkable. No mass. No ductal dilation. Spleen: Normal. No splenomegaly. Adrenal glands: Normal. No mass. Kidneys and ureters: Normal. No mass. Stomach and bowel: Colonic diverticulosis. No evidence of acute diverticulitis. Appendix: No evidence of appendicitis. Urinary bladder: Unremarkable. No mass. Reproductive: Unremarkable as visualized. Intraperitoneal space: Unremarkable. No free air. No significant fluid collection. Lymph nodes: No lymphadenopathy. Bones/joints: Changes of bilateral hip arthroplasty. Soft tissues: Fat containing umbilical hernia. IMPRESSION: 1. There is no definable flow within the stent in the right SFA distribution, popliteal artery, or runoff in the infrapopliteal region. 2. 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 3. Additional abdominal and pelvic findings as above. THIS REPORT CONTAINS FINDINGS THAT MAY BE CRITICAL TO PATIENT CARE. The findings were verbally communicated via telephone conference with MARK WAHL at 9:39 PM EST on 05/18/2022. The findings were acknowledged and understood. Thank you for allowing us to participate in the care of your patient. Dictated and Authenticated by: Jeevan Kay MD 05/18/2022 9:41 PM Eastern Time ([place] & [place]) HPI General Date/Time Provider Initiated Documentation: 05/18/22 20:33. 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 Patient has been taking his Eliquis as directed. He is doing very well at home, and went for a walk today with no complications or difficulties. However about 30 minutes prior to arrival he had sudden pain in his right foot and noticed that it became cold, and painful. He immediately called EMS and came to the ER. Currently he continues to have pain in the foot, and notable difficulty moving it. He denies any pain in his legs or his hip. No trauma. No other complaints at this time. Related Data Home Medications Medication Instructions Recorded Confirmed cholecalciferol (vitamin D3) 25 1,000 unit PO QAM 12/01/12 05/18/22 mcg (1,000 unit) capsule omega-3 fatty acids-fish oil 300 2 cap PO DAILY 12/01/12 05/18/22 mg-1,000 mg capsule Cpap 12/06/12 10/23/21 cyanocobalamin (vitamin B-12) 1,000 mcg PO DAILY 07/14/16 05/18/22 1,000 mcg tablet (Vitamin B-12) acetaminophen 650 mg 650 mg PO Q8H PRN 06/08/17 05/18/22 tablet,extended release (Arthritis Pain Reliever) nitroglycerin 0.4 mg sublingual 0.4 mg sublingual PRN #25 tab-caps 05/14/21 05/18/22 tablet (Nitrostat) memantine 10 mg tablet 10 mg PO BID #180 tabs 09/24/21 05/18/22 omeprazole 20 mg capsule,delayed 20 mg PO DAILY #90 tab-caps 11/18/21 05/18/22 release hydrochlorothiazide 12.5 mg capsule 12.5 mg PO DAILY #90 tab-caps 12/12/21 05/18/22 atenolol 50 mg tablet 50 mg PO DAILY #90 tab-caps 01/17/22 05/18/22 melatonin 5 mg capsule 5 mg PO QPM #90 caps 03/30/22 05/18/22 quetiapine 25 mg tablet 12.5 mg PO .COMPLEX #90 tabs 04/30/22 05/18/22 Previous Rx's Medication Instructions Recorded nitroglycerin 0.4 mg sublingual 0.4 mg sublingual PRN #25 tab-caps 05/14/21 tablet (Nitrostat) memantine 10 mg tablet 10 mg PO BID #180 tabs 09/24/21 omeprazole 20 mg capsule,delayed 20 mg PO DAILY #90 tab-caps 11/18/21 release hydrochlorothiazide 12.5 mg capsule 12.5 mg PO DAILY #90 tab-caps 12/12/21 atenolol 50 mg tablet 50 mg PO DAILY #90 tab-caps 01/17/22 melatonin 5 mg capsule 5 mg PO QPM #90 caps 03/30/22 quetiapine 25 mg tablet 12.5 mg PO .COMPLEX #90 tabs 04/30/22 Allergies Allergy/AdvReac Type Severity Reaction Status Date / Time azithromycin Allergy Severe LIP Verified 05/09/22 12:19 SWELLING ibuprofen Allergy Intermediate angioedema Verified 05/09/22 12:19 Penicillins Allergy Intermediate LIP Verified 05/09/22 12:19 SWELLING Calcium Channel Blocking Allergy Unknown HIVES Verified 05/09/22 12:19 Agent Dilt diltiazem Allergy Unknown HIVES Verified 05/09/22 12:19 Sulfa (Sulfonamide Allergy Unknown SKIN RASH Verified 05/09/22 12:19 Antibiotics) SODIUM NITRITE Allergy Severe Anaphylaxsi Uncoded 05/09/22 12:19 s General Stated Complaint: Vascular CAMERON: 2 Review of Systems All systems reviewed & are unremarkable except as noted in HPI and below PFSH All Active Problems (Updated 05/18/22 @ 23:12 by Mark Wahl DO) Ischemic leg (Acute) Aneurysm artery, popliteal (Acute) Popliteal artery aneurysm (Acute) Claudication (Acute) Critical limb ischemia of right lower extremity (Acute) Chest pain (Acute) Alzheimer's dementia without behavioral disturbance (Acute) Macular degeneration (Acute) Penile rash (Acute) Dementia (Chronic) Amnesia memory loss (Acute) Hypercalcemia (Acute) Domestic problems (Acute) Falls (Acute) Skin lesion of right lower extremity (Acute) Encounter for annual physical exam (Acute) Hypertension (Chronic) same meds Anemia (Acute 10/09/08) History of cataract removal with insertion of prosthetic lens (Acute) Idiopathic scoliosis (Acute) Impaired fasting glucose (Acute) Status post arthroscopy of shoulder (Acute) Status post hip replacement (Acute) Status post rotator cuff repair (Acute) Status post transurethral resection of prostate (Acute) Angioedema (Acute) idiopathic Benign prostatic hyperplasia (Acute) prostate nodule; 2006- elevated PSA; 2006 renal insuff. secondary to [id number] ([place]ana) Chest pain (Acute) 1997-angina; neg. stress test; 12/17 neg. 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 CRISTI XIONG; EGD Essential hypertension (10/19/13) get your pcv GERD (gastroesophageal reflux disease) Hyperlipidemia (12/06/12) Obstructive sleep apnea syndrome [facility]; C-PAP Popliteal artery aneurysm repaired 06/2020 [facility] [place] Surgical History ankle repair (~1980) Arthroscopy, Shoulder (~2009) Extraction of cataract (~2010) Rotator Cuff Repair (~2005) Total replacement of hip (~2004) Transurethral prostatectomy (~2006) Family History Mother Essential hypertension Hyperlipidemia Father Alzheimer disease Brother Hyperlipidemia Grandfather Heart disease Grandfather Heart disease Grandmother No problems noted. Grandmother Essential hypertension Brother Essential hypertension Son No problems noted. Son No problems noted. Son No problems noted. Daughter No problems noted. Social History Smoking/Tobacco Use Status: Former Tobacco Use Smoking risk assessment performed?: Yes Alcohol Intake: current Alcohol Intake frequency: a few times a month Alcohol type: hard liquor Drug use: Never Substance use type: does not use Household members: spouse Housing: apartment Number of Children: 4 number of grandchildren: 7 Pets and animals: Yes Pets and animals: cat(s) What is your relationship status?: Panel score (0-1 are the most socially isolated patients): 1 What type of physical activity do you participate in: walking Seatbelt use: always Do you feel safe at home: Yes Do you feel safe in your relationship?: Yes Exam Narrative Exam Narrative: 1.Const: Well-nourished, Well-developed, appearing stated age 2.Eyes: PERRL, no conjunctival injection, and symmetrical lids. 3.ENT: Atraumatic external nose and ears. Moist MM. Neck: Symmetric, trachea midline, No thyromegaly. 4.CVS: +S1/S2, No murmurs or gallops. Peripheral pulses 2+ and equal in all extremities. Brisk capillary refill in all extremities. 5.RESP: Unlabored respiratory effort. Clear to auscultation bilaterally. No wheezes rales or rhonchi 6.GI: Soft, Nontender/Nondistended, No hepatosplenomegaly. No guarding or rebound. 7.MSK: Patient's right lower extremity demonstrates a cool dusky pale right foot. Capillary refill is about 10 seconds. Pain with any movement, and notable difficulty with movement secondary to pain. He can slightly wiggle his toes though. Bedside ultrasound shows no flow at the dorsalis pedis and posterior tibial pulse. Left foot is notably unremarkable and demonstrates excellent flow. Evaluation of the patient's right posterior popliteal space demonstrates superficial minimal flow, and the proximal femoral artery demonstrates good flow as well. No evidence of significant clot at the femoral vein. 8.Skin: Warm, Dry. No rashes or lesions. 9.Neuro: abseiling instructor II-XII grossly intact. Sensation grossly intact, no focal neurologic deficits. 10.Psych: (AAO) x3. Appropriate mood and affect Course Vital Signs Vital signs: Vital Signs Temperature 36.5 C 05/18/22 20:30 Pulse 69 05/18/22 20:30 Respiratory Rate 18 05/18/22 20:30 Blood Pressure 159/83 H 05/18/22 20:30 Pulse Oximetry 99 05/18/22 20:30 Temperature 36.5 C 05/18/22 20:30 Temperature Source Oral 05/18/22 20:30 Pulse 69 05/18/22 20:30 Respiratory Rate 18 05/18/22 20:30 Blood Pressure 159/83 H 05/18/22 20:30 Blood Pressure Position Supine 05/18/22 20:30 Pulse Oximetry 99 05/18/22 20:30 Oxygen Delivery Method Room Air 05/18/22 20:30 Oxygen Flow Rate 0 05/18/22 20:30 Pain Level 10 05/18/22 20:57 Lab/Test Results Lab/Test Results: Laboratory Tests Range/Units 05/18/22 05/18/22 05/18/22 20:30 20:30 20:30 WBC (4.4-10.8) 10^3/uL 7.36 RBC (4.36-5.78) 10^6/uL 4.13 L Hgb (13.5-17.5) g/dL 13.0 L Hct (40.0-50.0) % 38.7 L MCV (80-95) fL 94 MCH (27.0-33.0) pg 31.5 MCHC (32.0-36.0) % 33.6 RDW (11.8-14.1) % 13.5 Plt Count (130-400) 10^3/uL 152 MPV (8.0-11.0) fL 9.2 Immature Gran % 0.3 Neutrophils % 66.5 Lymphocytes % 19.6 Monocytes % 10.1 Eosinophils % 3.0 Basophils % 0.5 Nucleated RBC % (0.0-0.3) % 0.0 Absolute Neutrophils (1.2-6.7) 10^3/uL 4.90 Absolute Lymphocytes (1.2-3.4) 10^3/uL 1.44 Absolute Monocytes (0.1-0.8) 10^3/uL 0.74 Absolute Eosinophils (0.0-0.7) 10^3/uL 0.22 Absolute Basophils (0.0-0.2) 10^3/uL 0.04 PT (9.3-11.0) sec INR (0.9-1.1) APTT (21.0-27.5) sec VBG Lactate (0.6-1.4) mmol/L 1.6 H Sodium (136-145) mmol/L 141 Potassium (3.5-5.1) mmol/L 3.9 Chloride (98-107) mmol/L 105 Carbon Dioxide (21.0-32.0) mmol/L 29.2 Anion Gap (3-11) mmol/L 6.8 BUN (7-18) mg/dL 21 H Creatinine (0.70-1.30) mg/dL 1.5 H Est GFR (CKD-EPI 2020) (mL/min/1.73m2) 46.19 Glucose (74-106) mg/dL 119 H Calcium (8.5-10.1) mg/dL 10.0 Total Bilirubin (0.2-1.0) mg/dL 0.8 AST (15-37) U/L 13 L ALT (16-63) U/L 19 Alkaline Phosphatase (46-116) U/L 83 Total Protein (6.4-8.2) g/dL 7.0 Albumin (3.4-5.0) g/dL 3.6 Range/Units 05/18/22 20:30 WBC (4.4-10.8) 10^3/uL RBC (4.36-5.78) 10^6/uL Hgb (13.5-17.5) g/dL Hct (40.0-50.0) % MCV (80-95) fL MCH (27.0-33.0) pg MCHC (32.0-36.0) % RDW (11.8-14.1) % Plt Count (130-400) 10^3/uL MPV (8.0-11.0) fL Immature Gran % Neutrophils % Lymphocytes % Monocytes % Eosinophils % Basophils % Nucleated RBC % (0.0-0.3) % Absolute Neutrophils (1.2-6.7) 10^3/uL Absolute Lymphocytes (1.2-3.4) 10^3/uL Absolute Monocytes (0.1-0.8) 10^3/uL Absolute Eosinophils (0.0-0.7) 10^3/uL Absolute Basophils (0.0-0.2) 10^3/uL PT (9.3-11.0) sec 10.7 INR (0.9-1.1) 1.1 APTT (21.0-27.5) sec 24.5 VBG Lactate (0.6-1.4) mmol/L Sodium (136-145) mmol/L Potassium (3.5-5.1) mmol/L Chloride (98-107) mmol/L Carbon Dioxide (21.0-32.0) mmol/L Anion Gap (3-11) mmol/L BUN (7-18) mg/dL Creatinine (0.70-1.30) mg/dL Est GFR (CKD-EPI 2020) (mL/min/1.73m2) Glucose (74-106) mg/dL Calcium (8.5-10.1) mg/dL Total Bilirubin (0.2-1.0) mg/dL AST (15-37) U/L ALT (16-63) U/L Alkaline Phosphatase (46-116) U/L Total Protein (6.4-8.2) g/dL Albumin (3.4-5.0) g/dL Critical Care Time Critical Care Time Critical Care Time: Yes Total Critical Care Time: 45 Attestation: Upon my evaluation, this patient had a high probability of imminent or life-threatening deterioration, which required my direct attention, intervention, and personal management. I have personally provided 45 minutes of critical care time exclusive of time spent on separately billable procedures. Time includes review of laboratory data, radiology results, discussion with consultants, and monitoring for potential decompensation. Interventions were performed as documented.
[2022-05-18] MEDS: Normal Saline Flush 10 ML SYR IJ (21:18)
[2022-05-18] MEDS: Heparin 5,000 UNITS/ML VIAL 5000 UNITS (21:26)
--- NOTE | 2022-05-18 21:42 | DI.VRAD_ITS ---
PROCEDURE INFORMATION: Exam: CTA Abdominal Aorta and Bilateral Lower Extremities (Run-off) With Contrast Exam date and time: 05/18/2022 9:05 PM Age: 81 years old Clinical indication: Other: Right leg shows no pedal pulse; Prior surgery; Surgery date: Post-operative (0-2 days); Surgery type: Stent placed for aneurism today; Patient HX: Known aneurism, no pedal pulse R TECHNIQUE: Imaging protocol: Computed tomographic angiography of the of the abdominal aorta, pelvis and bilateral lower extremities with contrast. 3D rendering (Not supervised by radiologist): MIP and/or 3D reconstructed images were created by the technologist. Radiation optimization: All CT scans at this facility use at least one of these dose optimization techniques: automated exposure control; mA and/or kV adjustment per patient size (includes targeted exams where dose is matched to clinical indication); or iterative reconstruction. Contrast material: OMNIPAQUE 350; Contrast volume: 150 ml; Contrast route: INTRAVENOUS (IV); COMPARISON: CT LOWER EXTREMITY RT CTA 05/09/2022 3:04 PM FINDINGS: Aorta: Infrarenal abdominal aortic ectasia. Abdominal aortic atherosclerotic plaque. Celiac trunk and mesenteric arteries: No occlusion or significant stenosis. 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 Renal arteries are otherwise patent. 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 Right femoral/popliteal arteries: A stent is noted within the superficial femoral artery on the right, which is occluded. There is an aneurysm sac of the popliteal artery on the right measuring 6.0 x 5.8 cm. There is no visualized flow within the popliteal artery. There is no flow within the right trifurcation. No definable flow within the runoff to the foot. Right infrapopliteal arteries: No visualized flow. 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 Left femoral/popliteal arteries: There is an aneurysm of the left popliteal artery measuring 2.2 x 2.1 cm. Left infrapopliteal arteries: No occlusion or significant stenosis. Liver: No mass. Diaphragm: There is a large hiatal hernia. Gallbladder and bile ducts: Unremarkable. No calcified stones. No ductal dilation. Pancreas: Unremarkable. No mass. No ductal dilation. Spleen: Normal. No splenomegaly. Adrenal glands: Normal. No mass. Kidneys and ureters: Normal. No mass. Stomach and bowel: Colonic diverticulosis. No evidence of acute diverticulitis. Appendix: No evidence of appendicitis. Urinary bladder: Unremarkable. No mass. Reproductive: Unremarkable as visualized. Intraperitoneal space: Unremarkable. No free air. No significant fluid collection. Lymph nodes: No lymphadenopathy. Bones/joints: Changes of bilateral hip arthroplasty. Soft tissues: Fat containing umbilical hernia. IMPRESSION: 1. There is no definable flow within the stent in the right SFA distribution, popliteal artery, or runoff in the infrapopliteal region. 2. 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 3. Additional abdominal and pelvic findings as above. THIS REPORT CONTAINS FINDINGS THAT MAY BE CRITICAL TO PATIENT CARE. The findings were verbally communicated via telephone conference with REGINA WAHL at 9:39 PM EST on 05/18/2022. The findings were acknowledged and understood. Dictated and Authenticated by: Jeevan Kay MD. Ordering:CHRISTIANA Flores MD
[2022-05-18 22:03] VITALS: RESP 18
[2022-05-18 23:35] LABS: Source Nasal/Nares
[2022-05-18 23:43] VITALS: BP 167/78; PULSE 76; RESP 18; TEMP 36.7; O2SAT 97
[2022-05-19 00:10] LABS: COVID-19 PCR Negative (Negative)
== END 2022-05-18 23:40 ==
PROVIDERS: Emergency Provider Student in an Organized Health Care Education/Training Program; PCP Family Medicine
DX: I70.221 Atherosclerosis of native arteries of extremities with rest pain, right leg (principal); I10 Essential (primary) hypertension; Z20.822 Contact with and (suspected) exposure to COVID-19; E83.52 Hypercalcemia
CPT/HCPCS: 75635; 80053; 87635; 96374; 96375; 96376; 99291; 83605; 85025; 85610; 85730; J1644; J2270; J3490

== ENCOUNTER 2022-08-10 18:54 | Outpatient (REF) | payer MEDICARE, MEDICAID, SELFPAY ==
[2022-08-10 20:16] LABS: Abs Immature Grans 0.01 10^3/uL (0.0-0.06); Absolute Basophil Count 0.03 10^3/uL (0.0-0.2); Absolute Eosinophil Count 0.25 10^3/uL (0.0-0.7); Absolute Lymphocyte Count 1.32 10^3/uL (1.2-3.4); Absolute Monocyte Count 0.57 10^3/uL (0.1-0.8); Absolute Neutrophil Count 3.25 10^3/uL (1.2-6.7); Basophils % 0.6; Eosinophils % 4.6; HCT 40.9 % (40.0-50.0); HGB 12.7 g/dL (13.5-17.5); Immature Grans % 0.2; Lymphocytes % 24.3; MCH 27.9 pg (27.0-33.0); MCHC 31.1 % (32.0-36.0); MCV 90 fL (80-95); MPV 10.1 fL (8.0-11.0); Monocytes % 10.5; Neutrophils % 59.8; Platelet Count 166 10^3/uL (130-400); RBC 4.56 10^6/uL (4.36-5.78); RDW 14.3 % (11.8-14.1); WBC 5.43 10^3/uL (4.4-10.8)
[2022-08-10 20:25] LABS: Iron 37 ug/dL (65-175); Total Iron Binding Capacity 351 ug/dL (250-450); Transferrin Sat 11 % (20-55)
[2022-08-10 20:49] LABS: Vitamin D 25 Total 46.7 ng/mL (30-100)
[2022-08-10 20:55] LABS: ALT 16 U/L (16-63); AST 16 U/L (15-37); Albumin 3.8 g/dL (3.4-5.0); Alkaline Phosphatase 95 U/L (46-116); Anion Gap 4.3 mmol/L (3-11); BUN 26 mg/dL (7-18); Bilirubin, Total 0.3 mg/dL (0.2-1.0); CO2 30.7 mmol/L (21.0-32.0); CREATININE 1.2 mg/dL (0.70-1.30); Calcium 9.8 mg/dL (8.5-10.1); Chloride 103 mmol/L (98-107); Estimated GFR 60.38 (mL/min/1.73m2); Ferritin 31 ng/mL (26-388); Folate 5.9 ng/mL (8.6-20.0); Glucose 91 mg/dL (74-106); Magnesium 2.3 mg/dL (1.8-2.4); Potassium 4.6 mmol/L (3.5-5.1); Sodium 138 mmol/L (136-145); Total Protein 6.9 g/dL (6.4-8.2); Vitamin B12 396 pg/mL (193-986)
[2022-08-10 21:09] LABS: Hemoglobin A1C 5.3 % (<5.7)
[2022-08-10 21:23] LABS: NT-proBNP 161 pg/mL (<300)
== END 2022-08-10 18:55 | disposition home or self-care (01) ==
LOC: LBN 18:54
PROVIDERS: PCP Family Medicine; Visit Provider Nurse Practitioner Gerontology
DX: D64.9 Anemia, unspecified (principal); N18.2 Chronic kidney disease, stage 2 (mild); I11.9 Hypertensive heart disease without heart failure; E56.8 Deficiency of other vitamins; R68.89 Other general symptoms and signs; I10 Essential (primary) hypertension; R73.01 Impaired fasting glucose; R53.83 Other fatigue; R41.3 Other amnesia; R06.89 Other abnormalities of breathing; Z79.899 Other long term (current) drug therapy
CPT/HCPCS: 80053; 82306; 82607; 82728; 82746; 83036; 83540; 83550; 83735; 83880; 84443; 85025

== ENCOUNTER 2022-08-30 10:44 | Emergency (ER) | payer MEDICARE, MEDICAID, SELFPAY ==
[2022-08-30] VITALS (27 sets, daily range): BP systolic 110–133; BP diastolic 54–92; PULSE 48–73; RESP 20; TEMP 37.1; O2SAT 83–100
--- NOTE | 2022-08-30 10:39 | ED.GENADUL_ITS ---
Discharge Plan Discharge Details Chief Complaint: Urinary Primary Care Provider: Josh Thakkar ED Provider: Michael Porter [place] Meds and New Rx's Prescriptions: No Action nitroglycerin [Nitrostat] 0.4 mg tablet, sublingual 0.4 mg Sublingual PRN Qty: 25 0RF Rx Instructions: 1 TAB PRN cholecalciferol (vitamin D3) 1,000 UNIT capsule 1,000 unit PO QAM omega-3 fatty acids-fish oil 1 EACH capsule 2 cap PO DAILY Patient Comments: 11/24/17 on hold. si cyanocobalamin (vitamin B-12) [Vitamin B-12] 1,000 MCG tablet 1,000 mcg PO DAILY acetaminophen [Arthritis Pain Reliever] 650 MG tablet extended release 650 mg PO Q8H PRN memantine 10 mg tablet 10 mg PO BID Qty: 180 3RF omeprazole 20 mg capsule,delayed release(DR/EC) 20 mg PO DAILY Qty: 90 3RF hydrochlorothiazide 12.5 mg capsule 12.5 mg PO DAILY Qty: 90 3RF Rx Instructions: 1 CAP DAILY atenolol 50 mg tablet 50 mg PO DAILY Qty: 90 4RF melatonin 5 mg capsule 5 mg PO QPM Qty: 90 3RF quetiapine 25 mg tablet 12.5 mg PO .COMPLEX Qty: 90 3RF Rx Instructions: 12.5 mg orally 4pm daily; clopidogrel 75 mg tablet 75 mg PO 1XD warfarin 3 mg tablet 3 mg PO 1XD Medical Decision Making This is a quite well-appearing normothermic and not tachycardic 81-year-old male with Alzheimer's dementia and BPH with Holland catheter removal. Plan for INR check and repeat catheter insertion. Patient has no testicular tenderness to suggest Milagros's gangrene. No reported recent fevers to suggest infection. Vital signs are not consistent with SIRS criteria so we will defer broad- spectrum antibiotics and blood cultures at this point time. Will reassess following catheter insertion. 1:15 PM Unfortunately a catheter was not able to be placed by nursing. Nursing also tried a coud? tip which unfortunately failed. Patient had 405 cc bladder scan. Will complete CT urogram given hematuria to assess for any urethral and nephrological abnormalities. Anticipate attempt at spontaneous void and otherwise plan [place] [facility] [place] paged [place]rology and unfortunately they are not available locally. 1:41 PM Patient failed a spontaneous voiding trial. I spoke with Dr. Little from [place] [facility] [place] She said that she would be willing to evaluate the patient in the emergency department. Dr. Alfaro from the emergency department will be the accepting. CODE STATUS listed from [facility]p was full code. We will send patient via BLS crew. We will keep him n.p.o. pending transfer in the event that he requires urological intervention beyond bedside catheter placement. Updated the patient on his plan of care. His INR was therapeutic. His CBC was significant for a mild normocytic anemia. No thrombocytopenia. No leukocytosis. No ALFRED nor any acute electrolyte abnormalities. CT scan was read by virtual radiology with the following impressions: 1. Irregular thickened posterior bladder wall mass. 2. Bilateral iliac artery aneurysms. 3. Large retrocardiac gastric hernia. 4. Bibasilar reticular markings consistent with atelectasis or scar. We will push images [place] [facility] [place] rad complete report: Patient Name: SHARI PERALES Institution Name: [place] [address] Study Type: CT ABDOMEN/PELVIS WO &/OR W ONE OR BOTH RGNS Ordered As: CT ABD W /PELVIS WO/W Date of Dictation: 30 Aug 2022 EST Date of Exam: 30 Aug 2022 EST Account Number: Patient : 1940 Patient Location: er [employer] Dispatcher: Referring Physician: Michael PORTER This interpretation is based upon the receipt of [id number] images. Page 1 of 2 PROCEDURE INFORMATION: Exam: CT Abdomen And Pelvis Without And With Contrast Exam date and time: 08/30/2022 1:31 PM Age: 81 years old Clinical indication: Other: Bph with hematuria please complete urogram; Patient HX: Patient poor historian TECHNIQUE: Imaging protocol: Computed tomography of the abdomen and pelvis without and with contrast. Contrast material: OMNIPAQUE 350; Contrast volume: 100 ml; Contrast route: INT RAVENOUS (IV); COMPARISON: CT ABD AORTA CTA W RUNOFF 01/19/2022 21:05 FINDINGS: Limitations: Degraded image quality through the pelvis secondary to metallic artifact. Lungs: Bibasilar reticular markings consistent with scar versus atelectasis. Heart: Large retrocardiac gastric hernia. Prominent cardiac silhouette. Liver: Normal. No mass. Gallbladder and bile ducts: Normal. No calcified stones. No ductal dilation. Pancreas: Normal. No ductal dilation. Spleen: Normal. No splenomegaly. Adrenal glands: Normal. No mass. Kidneys and ureters: Subcentimeter renal cysts. Bilateral perirenal fat infiltration. No hydronephrosis or hydroureter. No renal calculi. Stomach and bowel: Unremarkable. No obstruction. No mucosal thickening. Appendix: No evidence of appendicitis. Intraperitoneal space: Unremarkable. No free air. No significant fluid collection. Vasculature: Atherosclerotic disease. Aneurysmal dilatation of the right iliac artery measuring 3.1 cm. The left iliac artery measures 2.0 cm. Tortuous thoracic aorta. Lymph nodes: Scattered inguinal lymph nodes. Urinary bladder: Distended urinary bladder. Irregular lobulated posterior bladder wall mass seen on the delayed images. Reproductive: Unremarkable as visualized. Bones/joints: Total bilateral hip arthroplasty. Multilevel degenerative changes of the spine. Decreased bone mineralization. Distended urinary bladder with the dome near L5- S1. Soft tissues: Umbilical hernia with omental fat. Dependent edema in the soft tissues of the back. IMPRESSION: 1. Irregular thickened posterior bladder wall mass. Limitations as discussed above. 2. Bilateral iliac artery aneurysms. 3. Large retrocardiac gastric hernia. 4. Bibasilar reticular markings consistent with atelectasis or scar. 5. Additional findings as discussed above. Thank you for allowing us to participate in the care of your patient. Dictated and Authenticated by: Catrina Munoz MD [facility] General Date/Time Provider Initiated Documentation: 08/30/22 12:29 . HPI Narrative: This is an 81-year-old male with a history of dementia and BPH and Holland catheter arriving via EMS after he reportedly removed his Holland catheter. He is on warfarin as he has a history of atherosclerosis carotic disease with bilateral iliac artery aneurysms. His INR last week was 1.7. Yesterday he was reportedly noted to have some bleeding into his catheter bag. Today he removed his Holland catheter. He has not any pain. He is reportedly at his mental baseline. He denies nausea vomiting chest pain shortness of breath. Related Data Home Medications Medication Instructions Recorded Confirmed cholecalciferol (vitamin D3) 25 1,000 unit PO QAM 12/01/12 08/30/22 mcg (1,000 unit) capsule omega-3 fatty acids-fish oil 300 2 cap PO DAILY 12/01/12 08/30/22 mg-1,000 mg capsule cyanocobalamin (vitamin B-12) 1,000 mcg PO DAILY 07/14/16 08/30/22 1,000 mcg tablet (Vitamin B-12) acetaminophen 650 mg 650 mg PO Q8H PRN 06/08/17 08/30/22 tablet,extended release (Arthritis Pain Reliever) nitroglycerin 0.4 mg sublingual 0.4 mg sublingual PRN #25 tab-caps 05/14/21 08/30/22 tablet (Nitrostat) memantine 10 mg tablet 10 mg PO BID #180 tabs 09/24/21 08/30/22 omeprazole 20 mg capsule,delayed 20 mg PO DAILY #90 tab-caps 11/18/21 08/30/22 release hydrochlorothiazide 12.5 mg capsule 12.5 mg PO DAILY #90 tab-caps 12/12/21 08/30/22 atenolol 50 mg tablet 50 mg PO DAILY #90 tab-caps 01/17/22 08/30/22 melatonin 5 mg capsule 5 mg PO QPM #90 caps 03/30/22 08/30/22 quetiapine 25 mg tablet 12.5 mg PO .COMPLEX #90 tabs 04/30/22 08/30/22 clopidogrel 75 mg tablet 75 mg PO 1XD 08/30/22 08/30/22 warfarin 3 mg tablet 3 mg PO 1XD 08/30/22 08/30/22 Previous Rx's Medication Instructions Recorded nitroglycerin 0.4 mg sublingual 0.4 mg sublingual PRN #25 tab-caps 05/14/21 tablet (Nitrostat) memantine 10 mg tablet 10 mg PO BID #180 tabs 09/24/21 omeprazole 20 mg capsule,delayed 20 mg PO DAILY #90 tab-caps 11/18/21 release hydrochlorothiazide 12.5 mg capsule 12.5 mg PO DAILY #90 tab-caps 12/12/21 atenolol 50 mg tablet 50 mg PO DAILY #90 tab-caps 01/17/22 melatonin 5 mg capsule 5 mg PO QPM #90 caps 03/30/22 quetiapine 25 mg tablet 12.5 mg PO .COMPLEX #90 tabs 04/30/22 Allergies Allergy/AdvReac Type Severity Reaction Status Date / Time azithromycin Allergy Severe LIP Verified 08/30/22 13:32 SWELLING ibuprofen Allergy Intermediate angioedema Verified 08/30/22 13:32 Penicillins Allergy Intermediate LIP Verified 08/30/22 13:32 SWELLING Calcium Channel Blocking Allergy Unknown HIVES Verified 08/30/22 13:32 Agent Dilt diltiazem Allergy Unknown HIVES Verified 08/30/22 13:32 Sulfa (Sulfonamide Allergy Unknown SKIN RASH Verified 08/30/22 13:32 Antibiotics) SODIUM NITRITE Allergy Severe Anaphylaxsi Uncoded 08/30/22 13:32 s General CAMERON: 2 PFSH All Active Problems (Updated 06/18/22 @ 00:05 by QUINTON REILLY) Chest pain (Acute) Alzheimer's dementia without behavioral disturbance (Acute) Macular degeneration (Acute) Penile rash (Acute) Dementia (Chronic) Amnesia memory loss (Acute) Hypercalcemia (Acute) Domestic problems (Acute) Falls (Acute) Skin lesion of right lower extremity (Acute) Encounter for annual physical exam (Acute) Hypertension (Chronic) same meds Anemia (Acute 10/09/08) History of cataract removal with insertion of prosthetic lens (Acute) Idiopathic scoliosis (Acute) Impaired fasting glucose (Acute) Status post arthroscopy of shoulder (Acute) Status post hip replacement (Acute) Status post rotator cuff repair (Acute) Status post transurethral resection of prostate (Acute) Angioedema (Acute) idiopathic Benign prostatic hyperplasia (Acute) prostate nodule; 2006- elevated PSA; 2006 renal insuff. secondary to [id number] ([place]) Chest pain (Acute) 1997-angina; neg. stress test; 12/17 neg. 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 CRISTI XIONG; EGD Essential hypertension (10/19/13) get your pcv GERD (gastroesophageal reflux disease) Hyperlipidemia (12/06/12) Obstructive sleep apnea syndrome [facility], 1928–1983; C-PAP Popliteal artery aneurysm repaired [place] [facility] [place] History ankle repair (~1980) Arthroscopy, Shoulder (~2009) Extraction of cataract (~2010) Rotator Cuff Repair (~2005) Total replacement of hip (~2004) Transurethral prostatectomy (~2006) Family History Mother Essential hypertension Hyperlipidemia Father Alzheimer disease Brother Hyperlipidemia Grandfather Heart disease Grandfather Heart disease Grandmother No problems noted. Grandmother Essential hypertension Brother Essential hypertension Son No problems noted. Son No problems noted. Son No problems noted. Daughter No problems noted. Social History Smoking/Tobacco Use Status: Former Tobacco Use Smoking risk assessment performed?: Yes Alcohol Intake: current Alcohol Intake frequency: a few times a month Alcohol type: hard liquor Drug use: Never Substance use type: does not use Household members: spouse Housing: apartment Number of Children: 4 number of grandchildren: 7 Pets and animals: Yes Pets and animals: cat(s) What is your relationship status?: Panel score (0-1 are the most socially isolated patients): 1 What type of physical activity do you participate in: walking Seatbelt use: always Do you feel safe at home: Yes Do you feel safe in your relationship?: Yes Exam Narrative Exam Narrative: General: Chronically ill-appearing in no acute distress speaking in complete sentences. Head: Normocephalic, atraumatic Ear, nose, mouth, throat: Grossly normal inspection. Normal voice, handling secretions normally. Neck: Trachea midline. Cardiovascular: Well-perfused distal extremities. Respiratory: Nonlabored respiration. Gastrointestinal: Nondistended abdomen. : Uncircumcised penis with blood at meatus. No crepitance. No erythema nor tenderness throughout testicles and perineum. Musculoskeletal: No edema. Moving all 4 extremities spontaneously. Skin: Normal for age and race, grossly normal temperature and turgor. No acute rash. Neurologic: Alert to person but not place or events, no apparent acute deficits. Psychiatric: Mood and manner are appropriate. Grooming and personal hygiene are appropriate.
[2022-08-30 11:30] LABS: HCT 35.7 % (40.0-50.0); HGB 11.2 g/dL (13.5-17.5); MCH 27.3 pg (27.0-33.0); MCHC 31.4 % (32.0-36.0); MCV 87 fL (80-95); Platelet Count 137 10^3/uL (130-400); RDW 14.8 % (11.8-14.1); RDW-SD 47.4 fL; WBC 5.36 10^3/uL (4.4-10.8)
[2022-08-30 11:41] LABS: INR 2.5 (0.9-1.1); Prothrombin Time 25.1 sec (9.3-11.0)
[2022-08-30 11:44] LABS: BUN 24 mg/dL (7-18); CREATININE 1.3 mg/dL (0.70-1.30); Calcium 9.8 mg/dL (8.5-10.1); Chloride 103 mmol/L (98-107); Estimated GFR 54.85 (mL/min/1.73m2); Glucose 90 mg/dL (74-106); Potassium 4.5 mmol/L (3.5-5.1); Sodium 138 mmol/L (136-145)
[2022-08-30] MEDS: Lidocaine 2% Jelly 6 ML SYR (11:45)
--- NOTE | 2022-08-30 12:30 | DI.CT_ITS ---
Exam(s) CT ABDOMEN PELVIS WO/W EXAM: CT ABDOMEN PELVIS WO/W TECHNIQUE: Imaging Protocol: Axial computed tomography images with coronal and sagittal reformatted images were created and reviewed. Images were performed from the lung bases through the ischial tuberosities before IV contrast and fol lowing IV contrast using a 70 second delay, followed by 7 minutes delayed images. CONTRAST MATERIAL: Intravenous: Omnipaque 350 Contrast volume:100 cc Oral: no COMPARISON: CT CT ABD AORTA CTA W RUNOFF from 05/18/2022 FINDINGS: ABDOMEN: Lung Bases: Large hiatal hernia containing stomach and fat.. Dependent changes at lung bases. Liver: Normal density. No measurable mass. Gallbladder and biliary tract: No radiodense calculus or dilation. Pancreas: Normal density, no abnormal calcifications or inflammatory process. Spleen: Normal. Kidneys: Normal size, contour and axis. No radiodense stones or obstructive uropathy. No suspicious m asses seen. No collecting system filling defects on delayed images. Adrenal glands: No masses seen. Lymph nodes: Within normal limits. Abdominal Aorta: Abdominal portion non-dilated. Atherosclerotic changes. No dissection. 3.[address] aneurysm the distal right common iliac artery. Dilatation of the left common iliac artery 2 cm. Soft tissues: Fatty containing umbilical hernia. PELVIS: Bladder: Visualization of inferior bladder obscured by metallic artifact from hip prostheses. The bl adder appears distended. There is an air bubble within the bladder. Clinical correlation recommende d. No gross wall thickening. Delayed images, there is irregular lobulated material seen at the poste rior inferior portion of the bladderno visible calculi. Bowel: Diverticulosis. No evidence of diverticulitis. No obstruction or bowel wall thickening. Appe ndix normal. Peritoneal cavity: No ascites, collection or mesenteric inflammatory response. Soft tissues: Bones: Bilateral hip prostheses create artifact in the pelvis, obscuring the region of the prostate, rectum and inferior portion of the bladder. Degenerative changes noted in the lumbar spine. Reproductive organs: Unremarkable for age.. IMPRESSION: Evaluation of the bladder limited due to metallic artifact from hip prostheses. Soft tissue density seen in posterior bladder visible on delayed images this is suspicious for bladder mass. This could also represent clot.. No evidence of hydronephrosis. No stones seen. RADIATION DOSE DELIVERED: 2,649.26mGy.cm Total DLP DATA REPOSITORY: All CT scans at this facility are submitted to the National Radiology Data Registry (NRDR) Dose Index Registry (DIR) with the [employer] (ACR). RADIATION OPTIMIZATION: All CT scans at this facility use at least one of these dose optimization te chniques: automated exposure control; mA and/or kV adjustment per patient size (includes targeted exa ms where dose is matched to clinical indication); or iterative reconstruction.
[2022-08-30] MEDS: Normal Saline Flush 10 ML SYR IVP (13:34)
[2022-08-30] MEDS: Normal Saline - Diluent 50 ML VIAL IJ (13:37)
[2022-08-30] MEDS: Omnipaque 350 MG/ML 100 ML BTL IJ (13:37)
--- NOTE | 2022-08-30 14:31 | DI.VRAD_ITS ---
PROCEDURE INFORMATION: Exam: CT Abdomen And Pelvis Without And With Contrast Exam date and time: 08/30/2022 1:31 PM Age: 81 years old Clinical indication: Other: Bph with hematuria please complete urogram; Patient HX: Patient poor historian TECHNIQUE: Imaging protocol: Computed tomography of the abdomen and pelvis without and with contrast. Contrast material: OMNIPAQUE 350; Contrast volume: 100 ml; Contrast route: INTRAVENOUS (IV); COMPARISON: CT ABD AORTA CTA W RUNOFF 01/19/2022 21:05 FINDINGS: Limitations: Degraded image quality through the pelvis secondary to metallic artifact. Lungs: Bibasilar reticular markings consistent with scar versus atelectasis. Heart: Large retrocardiac gastric hernia. Prominent cardiac silhouette. Liver: Normal. No mass. Gallbladder and bile ducts: Normal. No calcified stones. No ductal dilation. Pancreas: Normal. No ductal dilation. Spleen: Normal. No splenomegaly. Adrenal glands: Normal. No mass. Kidneys and ureters: Subcentimeter renal cysts. Bilateral perirenal fat infiltration. No hydronephrosis or hydroureter. No renal calculi. Stomach and bowel: Unremarkable. No obstruction. No mucosal thickening. Appendix: No evidence of appendicitis. Intraperitoneal space: Unremarkable. No free air. No significant fluid collection. Vasculature: Atherosclerotic disease. Aneurysmal dilatation of the right iliac artery measuring 3.1 cm. The left iliac artery measures 2.0 cm. Tortuous thoracic aorta. Lymph nodes: Scattered inguinal lymph nodes. Urinary bladder: Distended urinary bladder. Irregular lobulated posterior bladder wall mass seen on the delayed images. Reproductive: Unremarkable as visualized. Bones/joints: Total bilateral hip arthroplasty. Multilevel degenerative changes of the spine. Decreased bone mineralization. Distended urinary bladder with the dome near L5-S1. Soft tissues: Umbilical hernia with omental fat. Dependent edema in the soft tissues of the back. IMPRESSION: 1. Irregular thickened posterior bladder wall mass. Limitations as discussed above. 2. Bilateral iliac artery aneurysms. 3. Large retrocardiac gastric hernia. 4. Bibasilar reticular markings consistent with atelectasis or scar. 5. Additional findings as discussed above. Dictated and Authenticated by: Catrina Munoz MD. Ordering:SARAH Rodriguez MD
== END 2022-08-30 14:49 ==
LOC: ER 11:27
PROVIDERS: Emergency Provider Emergency Medicine; PCP Family Medicine
DX: R33.9 Retention of urine, unspecified (principal); G30.9 Alzheimer's disease, unspecified; F02.80 Dementia in other diseases classified elsewhere, unspecified severity, without behavioral disturbance, psychotic disturbance, mood disturbance, and anxiety; I10 Essential (primary) hypertension; Z87.438 Personal history of other diseases of male genital organs; Z86.79 Personal history of other diseases of the circulatory system; Z79.01 Long term (current) use of anticoagulants
CPT/HCPCS: 36415; 80048; 85027; 99285; 74178; 85610; 99283; J3490

== ENCOUNTER 2022-09-03 16:27 | Outpatient (REF) | payer MEDICARE, MEDICAID, SELFPAY ==
[2022-09-03 14:25] LABS: Abs Immature Grans 0.02 10^3/uL (0.0-0.06); Absolute Basophil Count 0.03 10^3/uL (0.0-0.2); Absolute Lymphocyte Count 0.93 10^3/uL (1.2-3.4); Absolute Monocyte Count 0.42 10^3/uL (0.1-0.8); Absolute Neutrophil Count 4.78 10^3/uL (1.2-6.7); Basophils % 0.5; Eosinophils % 3.1; HCT 32.5 % (40.0-50.0); HGB 10.4 g/dL (13.5-17.5); Immature Grans % 0.3; Lymphocytes % 14.6; MCH 27.4 pg (27.0-33.0); MCV 86 fL (80-95); MPV 10.3 fL (8.0-11.0); Monocytes % 6.6; Neutrophils % 74.9; Platelet Count 145 10^3/uL (130-400); RBC 3.79 10^6/uL (4.36-5.78); RDW-SD 47.8 fL; WBC 6.38 10^3/uL (4.4-10.8)
[2022-09-03 15:00] LABS: ALT 16 U/L (16-63); AST 10 U/L (15-37); Albumin 3.5 g/dL (3.4-5.0); Alkaline Phosphatase 78 U/L (46-116); Anion Gap 6.4 mmol/L (3-11); BUN 21 mg/dL (7-18); Bilirubin, Total 0.4 mg/dL (0.2-1.0); CO2 27.6 mmol/L (21.0-32.0); CREATININE 1.3 mg/dL (0.70-1.30); Calcium 9.6 mg/dL (8.5-10.1); Chloride 105 mmol/L (98-107); Estimated GFR 54.85 (mL/min/1.73m2); Glucose 105 mg/dL (74-106); Potassium 4.6 mmol/L (3.5-5.1); Sodium 139 mmol/L (136-145); Total Protein 6.1 g/dL (6.4-8.2)
== END 2022-09-03 16:28 | disposition home or self-care (01) ==
LOC: LBN 16:27
PROVIDERS: PCP Family Medicine; Visit Provider Nurse Practitioner Gerontology
DX: I13.10 Hypertensive heart and chronic kidney disease without heart failure, with stage 1 through stage 4 chronic kidney disease, or unspecified chronic kidney disease (principal); R31.9 Hematuria, unspecified
CPT/HCPCS: 80053; 85025

== ENCOUNTER 2022-09-07 17:05 | Outpatient (REF) | payer MEDICARE, MEDICAID, SELFPAY ==
[2022-09-07 17:39] LABS: Abs Immature Grans 0.03 10^3/uL (0.0-0.06); Absolute Basophil Count 0.02 10^3/uL (0.0-0.2); Absolute Eosinophil Count 0.18 10^3/uL (0.0-0.7); Absolute Lymphocyte Count 1.25 10^3/uL (1.2-3.4); Absolute Monocyte Count 0.43 10^3/uL (0.1-0.8); Absolute Neutrophil Count 4.05 10^3/uL (1.2-6.7); Basophils % 0.3; Immature Grans % 0.5; MCH 27.4 pg (27.0-33.0); MCHC 31.5 % (32.0-36.0); MCV 87 fL (80-95); MPV 9.8 fL (8.0-11.0); Monocytes % 7.2; Platelet Count 155 10^3/uL (130-400); RBC 3.17 10^6/uL (4.36-5.78); RDW-SD 49.4 fL; WBC 5.96 10^3/uL (4.4-10.8)
[2022-09-07 17:48] LABS: HCT 27.6 % (40.0-50.0); HGB 8.7 g/dL (13.5-17.5)
[2022-09-07 18:22] LABS: Diff Comment RBC Morph Reviewed; Polychromasia Present
== END 2022-09-07 17:06 | disposition home or self-care (01) ==
LOC: LBN 17:05
PROVIDERS: PCP Family Medicine; Visit Provider Nurse Practitioner Gerontology
DX: N18.2 Chronic kidney disease, stage 2 (mild) (principal); R68.89 Other general symptoms and signs; N40.0 Benign prostatic hyperplasia without lower urinary tract symptoms
CPT/HCPCS: 85025

== ENCOUNTER 2022-09-09 16:47 | Outpatient (REF) | payer MEDICARE, MEDICAID, SELFPAY ==
[2022-09-09 17:10] LABS: Abs Immature Grans 0.03 10^3/uL (0.0-0.06); Absolute Basophil Count 0.03 10^3/uL (0.0-0.2); Absolute Eosinophil Count 0.17 10^3/uL (0.0-0.7); Absolute Lymphocyte Count 1.24 10^3/uL (1.2-3.4); Absolute Monocyte Count 0.47 10^3/uL (0.1-0.8); Absolute Neutrophil Count 3.49 10^3/uL (1.2-6.7); Basophils % 0.6; Eosinophils % 3.1; HCT 27.5 % (40.0-50.0); HGB 8.6 g/dL (13.5-17.5); Immature Grans % 0.6; Lymphocytes % 22.8; MCH 27.3 pg (27.0-33.0); MCHC 31.3 % (32.0-36.0); MCV 87 fL (80-95); Monocytes % 8.7; Neutrophils % 64.2; Platelet Count 156 10^3/uL (130-400); RBC 3.15 10^6/uL (4.36-5.78); RDW 17.2 % (11.8-14.1); RDW-SD 51.5 fL; WBC 5.43 10^3/uL (4.4-10.8)
[2022-09-09 17:29] LABS: ALT 16 U/L (16-63); AST 11 U/L (15-37); Albumin 3.2 g/dL (3.4-5.0); Alkaline Phosphatase 73 U/L (46-116); Anion Gap 5.3 mmol/L (3-11); BUN 14 mg/dL (7-18); Bilirubin, Total 0.2 mg/dL (0.2-1.0); CO2 29.7 mmol/L (21.0-32.0); CREATININE 1.4 mg/dL (0.70-1.30); Calcium 9.4 mg/dL (8.5-10.1); Chloride 106 mmol/L (98-107); Estimated GFR 50.18 (mL/min/1.73m2); Glucose 110 mg/dL (74-106); NT-proBNP 420 pg/mL (<300); Potassium 4.3 mmol/L (3.5-5.1); Sodium 141 mmol/L (136-145); Total Protein 5.7 g/dL (6.4-8.2)
== END 2022-09-09 16:48 | disposition home or self-care (01) ==
LOC: LBN 16:47
PROVIDERS: PCP Family Medicine; Visit Provider Nurse Practitioner Gerontology
DX: N40.0 Benign prostatic hyperplasia without lower urinary tract symptoms (principal); R68.89 Other general symptoms and signs; N18.2 Chronic kidney disease, stage 2 (mild); I13.0 Hypertensive heart and chronic kidney disease with heart failure and stage 1 through stage 4 chronic kidney disease, or unspecified chronic kidney disease
CPT/HCPCS: 80053; 83880; 85025

== ENCOUNTER → 2022-09-10 13:51 | Outpatient (BNVA) | payer MEDICARE, MEDICAID, SELFPAY | PROVIDERS: PCP Family Medicine; Referring Provider Family Medicine; Visit Provider Urology | DX: R33.9 Retention of urine, unspecified (principal); N32.89 Other specified disorders of bladder; S37.30XA Unspecified injury of urethra, initial encounter; X58.XXXA Exposure to other specified factors, initial encounter | CPT/HCPCS: 99215 ==

== ENCOUNTER 2022-09-15 19:03 | Outpatient (REF) | payer MEDICARE, MEDICAID, SELFPAY ==
[2022-09-15 20:03] LABS: Abs Immature Grans 0.02 10^3/uL (0.0-0.06); Absolute Basophil Count 0.03 10^3/uL (0.0-0.2); Absolute Eosinophil Count 0.23 10^3/uL (0.0-0.7); Absolute Lymphocyte Count 1.15 10^3/uL (1.2-3.4); Absolute Monocyte Count 0.44 10^3/uL (0.1-0.8); Absolute Neutrophil Count 3.96 10^3/uL (1.2-6.7); Basophils % 0.5; Eosinophils % 3.9; HCT 32.4 % (40.0-50.0); HGB 10.2 g/dL (13.5-17.5); Immature Grans % 0.3; Lymphocytes % 19.7; MCH 29.6 pg (27.0-33.0); MCHC 31.5 % (32.0-36.0); MCV 94 fL (80-95); MPV 9.4 fL (8.0-11.0); Monocytes % 7.5; Neutrophils % 68.1; Platelet Count 130 10^3/uL (130-400); RBC 3.45 10^6/uL (4.36-5.78); RDW 21.7 % (11.8-14.1); RDW-SD 70.1 fL; WBC 5.83 10^3/uL (4.4-10.8)
[2022-09-15 22:02] LABS: Diff Comment RBC Morph Reviewed
[2022-09-15 22:03] LABS: Anisocytosis 3+
== END 2022-09-15 19:04 | disposition home or self-care (01) ==
LOC: LBN 19:03
PROVIDERS: PCP Family Medicine; Visit Provider Nurse Practitioner Gerontology
DX: D64.9 Anemia, unspecified (principal); R68.89 Other general symptoms and signs
CPT/HCPCS: 85025

== ENCOUNTER → 2022-09-28 13:43 | Outpatient (BNVA) | payer MEDICARE, MEDICAID, SELFPAY | PROVIDERS: PCP Family Medicine; Referring Provider Family Medicine; Visit Provider Urology | DX: R33.9 Retention of urine, unspecified (principal) | CPT/HCPCS: 52000 ==

== ENCOUNTER 2022-10-12 21:30 | Outpatient (REF) | payer MEDICARE, MEDICAID, SELFPAY ==
[2022-10-12 21:53] LABS: Abs Immature Grans 0.02 10^3/uL (0.0-0.06); Absolute Basophil Count 0.02 10^3/uL (0.0-0.2); Absolute Eosinophil Count 0.16 10^3/uL (0.0-0.7); Absolute Lymphocyte Count 0.82 10^3/uL (1.2-3.4); Absolute Monocyte Count 0.33 10^3/uL (0.1-0.8); Basophils % 0.3; Eosinophils % 2.5; HCT 43.5 % (40.0-50.0); HGB 13.6 g/dL (13.5-17.5); Immature Grans % 0.3; Lymphocytes % 12.7; MCH 29.4 pg (27.0-33.0); MCHC 31.3 % (32.0-36.0); MCV 94 fL (80-95); MPV 9.8 fL (8.0-11.0); Monocytes % 5.1; Neutrophils % 79.1; Platelet Count 154 10^3/uL (130-400); RBC 4.63 10^6/uL (4.36-5.78); RDW 18.1 % (11.8-14.1); RDW-SD 63.4 fL; WBC 6.45 10^3/uL (4.4-10.8)
[2022-10-12 22:28] LABS: ALT 25 U/L (16-63); AST 15 U/L (15-37); Albumin 3.9 g/dL (3.4-5.0); Alkaline Phosphatase 88 U/L (46-116); Anion Gap 6.4 mmol/L (3-11); BUN 20 mg/dL (7-18); Bilirubin, Total 0.5 mg/dL (0.2-1.0); CO2 30.6 mmol/L (21.0-32.0); CREATININE 1.2 mg/dL (0.70-1.30); Calcium 10.1 mg/dL (8.5-10.1); Chloride 105 mmol/L (98-107); Estimated GFR 60.38 (mL/min/1.73m2); Folate 14.8 ng/mL (8.6-20.0); Glucose 114 mg/dL (74-106); Potassium 4.2 mmol/L (3.5-5.1); Sodium 142 mmol/L (136-145); Vitamin B12 462 pg/mL (193-986)
[2022-10-12 22:49] LABS: NT-proBNP 351 pg/mL (<300)
== END 2022-10-12 21:31 | disposition home or self-care (01) ==
LOC: LBN 21:30
PROVIDERS: PCP Family Medicine; Visit Provider Nurse Practitioner Gerontology
DX: D64.9 Anemia, unspecified (principal); R06.89 Other abnormalities of breathing; R68.89 Other general symptoms and signs; Z79.899 Other long term (current) drug therapy
CPT/HCPCS: 80053; 82607; 82746; 83880; 85025

== ENCOUNTER → 2022-10-26 13:46 | Outpatient (BNVA) | payer MEDICARE, MEDICAID, SELFPAY | PROVIDERS: PCP Family Medicine; Referring Provider Family Medicine; Visit Provider Nurse Practitioner Gerontology | DX: Z46.6 Encounter for fitting and adjustment of urinary device (principal); R33.9 Retention of urine, unspecified | CPT/HCPCS: 99213 ==

== ENCOUNTER → 2022-11-26 13:40 | Outpatient (BNVA) | payer MEDICARE, MEDICAID, SELFPAY | PROVIDERS: PCP Nurse Practitioner Gerontology; Referring Provider Nurse Practitioner Gerontology; Visit Provider Nurse Practitioner Gerontology | DX: Z46.6 Encounter for fitting and adjustment of urinary device (principal); R33.9 Retention of urine, unspecified | CPT/HCPCS: 99211 ==

== ENCOUNTER 2023-01-07 07:52 | Emergency (ER) | payer MEDICARE, MEDICAID, SELFPAY ==
[2023-01-07 07:45] VITALS: BP 136/77; PULSE 65; RESP 20; TEMP 36.6; O2SAT 94
--- NOTE | 2023-01-07 08:00 | DI.CT_ITS ---
Exam(s) CT ABDOMEN PELVIS W EXAM: CT ABDOMEN PELVIS W CLINICAL HISTORY: LUQ pain rad to groin, blood in urine. TECHNIQUE: Imaging Protocol: Axial computed tomography images with coronal and sagittal reformatted images were created and reviewed CONTRAST MATERIAL: Intravenous: Omnipaque 350 Contrast volume:100 ml Oral: no COMPARISON: CT CT ABDOMEN PELVIS WO/W from 08/30/2022 FINDINGS: ABDOMEN: Lung Bases: Large hiatal hernia, nonobstructed.. Lung bases clear. Liver: Normal density. No measurable mass. Gallbladder and biliary tract: No radiodense calculus or dilation. Pancreas: Normal density, no abnormal calcifications or inflammatory process. Spleen: Normal. Kidneys: Normal size, contour and axis. No radiodense stones or obstructive uropathy. Tiny bilateral cysts. No follow-up recommended. No suspicious masses seen. Adrenal glands: No masses seen. Abdominal Aorta: Abdominal portion non-dilated. Atherosclerotic changes.Stable appearance a right brandyn ac artery aneurysm. Soft tissues: Small fatty containing umbilical hernia. PELVIS: Bladder: Holland catheter is present. Bladder wall is markedly thickened. No stone or focal mass is v isible but cannot be excluded due to artifact. Bowel: Diverticulosis lower descending colon. No div erticulitis. No obstruction. No bowel wall thickening. Appendix normal. Peritoneal cavity: No ascites, collection or mesenteric inflammatory response. Bones: Bilateral hip prostheses create significant artifact, partially obscuring the bladder. Scolio sis and degenerative changes noted in the spine. Reproductive organs: Prostate obscured by artifact Lymph nodes: Unremarkable. Impression: Markedly thick-walled bladder may represent cystitis. No urinary tract calculi are visible. No hydr onephrosis. Findings called to Dr. Velázquez of the emergency department. RADIATION DOSE DELIVERED: 886.56mGy.cm Total DLP DATA REPOSITORY: All CT scans at this facility are submitted to the National Radiology Data Registry (NRDR) Dose Index Registry (DIR) with the [employer] (ACR). RADIATION OPTIMIZATION: All CT scans at this facility use at least one of these dose optimization te chniques: automated exposure control; mA and/or kV adjustment per patient size (includes targeted exa ms where dose is matched to clinical indication); or iterative reconstruction.
--- NOTE | 2023-01-07 08:04 | ED.GENADUL_ITS ---
Discharge Plan Disposition Patient Disposition: Home Condition: Stable Discharge Details Clinical Impression: Acute UTI Primary Care Provider: Debra Shah ED Provider: Abhilash Velázquez Home Meds and New Rx's Prescriptions: New levofloxacin 750 mg tablet 750 mg PO DAILY 7 Days Qty: 7 0RF No Action nitroglycerin [Nitrostat] 0.4 mg tablet, sublingual 0.4 mg Sublingual PRN Qty: 25 0RF Rx Instructions: 1 TAB PRN atorvastatin 40 mg tablet 40 mg PO DAILY tamsulosin [Flomax] 0.4 mg capsule 0.4 mg PO DAILY cholecalciferol (vitamin D3) 1,000 UNIT capsule 1,000 unit PO QAM omega-3 fatty acids-fish oil 1 EACH capsule 2 cap PO DAILY Patient Comments: 11/24/17 on hold. si cyanocobalamin (vitamin B-12) [Vitamin B-12] 1,000 MCG tablet 1,000 mcg PO DAILY acetaminophen [Arthritis Pain Reliever] 650 MG tablet extended release 650 mg PO Q8H PRN memantine 10 mg tablet 10 mg PO BID Qty: 180 3RF omeprazole 20 mg capsule,delayed release(DR/EC) 20 mg PO DAILY Qty: 90 3RF hydrochlorothiazide 12.5 mg capsule 12.5 mg PO DAILY Qty: 90 3RF Rx Instructions: 1 CAP DAILY atenolol 50 mg tablet 50 mg PO DAILY Qty: 90 4RF melatonin 5 mg capsule 5 mg PO QPM Qty: 90 3RF quetiapine 25 mg tablet 12.5 mg PO .COMPLEX Qty: 90 3RF Rx Instructions: 12.5 mg orally 4pm daily; Xarelto 10 mg tablet 10 mg PO DAILY ferrous gluconate 324 mg (37.5 mg iron) Tablet 324 mg PO BID clopidogrel 75 mg tablet 75 mg PO 1XD warfarin 3 mg tablet 3 mg PO 1XD Discharge Instructions Instructions: Urinary Tract Infection in Men (ED) Additional Instructions: Please follow-up with your primary care physician. Please return to the emergency department for any worsening symptoms Medical Decision Making 82-year-old male history of dementia, chronic indwelling Holland presents with several days of left upper quadrant discomfort now radiating to left groin, Holland catheter in place, staff at care facility noted red urine this morning however urine in bag is dione and clear. Patient is hemodynamically stable afebrile nontoxic. Denies chest pain shortness of breath nausea vomiting or diarrhea. No current abdominal pain however slight discomfort in left groin. Consider kidney stone versus UTI low suspicion for pyelonephritis or splenic pathology versus less likely gastritis enteritis or colitis. Must also consider left lower lobe pneumonia given left upper quadrant discomfort. Screening labs CT abdomen pelvis, chest x-ray. Urinalysis. Close reassessment 10: 08 patient resting comfortably no acute distress. Evidence of UTI. Will change out Holland catheter. Will start on Levaquin. HPI General Date/Time Provider Initiated Documentation: 01/07/23 07:59 . HPI Narrative: 81-year-old male history of dementia referred in from care facility for evaluation of several days of left upper quadrant pain now radiating to groin, staff noted that patient's urine in Holland bag was red. Patient denies fevers chills nausea vomiting Related Data Home Medications Medication Instructions Recorded Confirmed cholecalciferol (vitamin D3) 25 1,000 unit PO QAM 12/01/12 01/07/23 mcg (1,000 unit) capsule omega-3 fatty acids-fish oil 300 2 cap PO DAILY 12/01/12 09/10/22 mg-1,000 mg capsule cyanocobalamin (vitamin B-12) 1,000 mcg PO DAILY 07/14/16 01/07/23 1,000 mcg tablet (Vitamin B-12) acetaminophen 650 mg 650 mg PO Q8H PRN 06/08/17 01/07/23 tablet,extended release (Arthritis Pain Reliever) nitroglycerin 0.4 mg sublingual 0.4 mg sublingual PRN #25 tab-caps 05/14/21 01/07/23 tablet (Nitrostat) memantine 10 mg tablet 10 mg PO BID #180 tabs 09/24/21 01/07/23 omeprazole 20 mg capsule,delayed 20 mg PO DAILY #90 tab-caps 11/18/21 01/07/23 release hydrochlorothiazide 12.5 mg capsule 12.5 mg PO DAILY #90 tab-caps 12/12/21 09/10/22 atenolol 50 mg tablet 50 mg PO DAILY #90 tab-caps 01/17/22 01/07/23 melatonin 5 mg capsule 5 mg PO QPM #90 caps 03/30/22 09/10/22 quetiapine 25 mg tablet 12.5 mg PO .COMPLEX #90 tabs 04/30/22 01/07/23 clopidogrel 75 mg tablet 75 mg PO 1XD 08/30/22 09/10/22 warfarin 3 mg tablet 3 mg PO 1XD 08/30/22 09/10/22 atorvastatin 40 mg tablet 40 mg PO DAILY 09/10/22 01/07/23 tamsulosin 0.4 mg capsule (Flomax) 0.4 mg PO DAILY 09/10/22 01/07/23 ferrous gluconate 324 mg (37.5 mg 324 mg PO BID 01/07/23 01/07/23 iron) tablet levofloxacin 750 mg tablet 750 mg PO DAILY 7 days #7 tabs 01/07/23 rivaroxaban 10 mg tablet (Xarelto) 10 mg PO DAILY 01/07/23 01/07/23 Previous Rx's Medication Instructions Recorded nitroglycerin 0.4 mg sublingual 0.4 mg sublingual PRN #25 tab-caps 05/14/21 tablet (Nitrostat) memantine 10 mg tablet 10 mg PO BID #180 tabs 09/24/21 omeprazole 20 mg capsule,delayed 20 mg PO DAILY #90 tab-caps 11/18/21 release hydrochlorothiazide 12.5 mg capsule 12.5 mg PO DAILY #90 tab-caps 12/12/21 atenolol 50 mg tablet 50 mg PO DAILY #90 tab-caps 01/17/22 melatonin 5 mg capsule 5 mg PO QPM #90 caps 03/30/22 quetiapine 25 mg tablet 12.5 mg PO .COMPLEX #90 tabs 04/30/22 levofloxacin 750 mg tablet 750 mg PO DAILY 7 days #7 tabs 01/07/23 Allergies Allergy/AdvReac Type Severity Reaction Status Date / Time azithromycin Allergy Severe LIP Verified 01/07/23 07:51 SWELLING ibuprofen Allergy Intermediate angioedema Verified 01/07/23 07:51 Penicillins Allergy Intermediate LIP Verified 01/07/23 07:51 SWELLING Calcium Channel Blocking Allergy Unknown HIVES Verified 01/07/23 07:51 Agent Dilt diltiazem Allergy Unknown HIVES Verified 01/07/23 07:51 Sulfa (Sulfonamide Allergy Unknown SKIN RASH Verified 01/07/23 07:51 Antibiotics) SODIUM NITRITE Allergy Severe Anaphylaxsi Uncoded 01/07/23 07:51 s General Stated Complaint: Abd Prob CAMERON: 3 Review of Systems Narrative: Review of Systems Constitutional: negative Eyes: negative ENT: negative Cardiovascular: negative Respiratory: negative Gastrointestinal: Left upper quadrant, groin discomfort : Red urine Musculoskeletal: negative Skin: negative Neurologic: negative Psych: negative PFSH All Active Problems (Updated 01/07/23 @ 10:08 by Abhilash Velázquez MD) Acute UTI (Acute) Retention of urine (Acute) Chest pain (Acute) Alzheimer's dementia without behavioral disturbance (Acute) Macular degeneration (Acute) Penile rash (Acute) Dementia (Chronic) Amnesia memory loss (Acute) Hypercalcemia (Acute) Domestic problems (Acute) Falls (Acute) Skin lesion of right lower extremity (Acute) Encounter for annual physical exam (Acute) Hypertension (Chronic) same meds Anemia (Acute 10/09/08) History of cataract removal with insertion of prosthetic lens (Acute) Idiopathic scoliosis (Acute) Impaired fasting glucose (Acute) Status post arthroscopy of shoulder (Acute) Status post hip replacement (Acute) Status post rotator cuff repair (Acute) Status post transurethral resection of prostate (Acute) Angioedema (Acute) idiopathic Benign prostatic hyperplasia (Acute) prostate nodule; 2006- elevated PSA; 2006 renal insuff. secondary to [id number] ([place]) Chest pain (Acute) 1997-angina; neg. stress test; 12/17 neg. 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 Grandmother Essential hypertension Brother Essential hypertension Son No problems noted. Son No problems noted. Son No problems noted. Daughter No problems noted. Social History Smoking/Tobacco Use Status: Former Tobacco Use Smoking risk assessment performed?: Yes Alcohol Intake: current Alcohol Intake frequency: a few times a month Alcohol type: hard liquor Drug use: Never Substance use type: does not use Household members: spouse Housing: apartment Number of Children: 4 number of grandchildren: 7 Pets and animals: Yes Pets and animals: cat(s) What is your relationship status?: Panel score (0-1 are the most socially isolated patients): 1 What type of physical activity do you participate in: walking Seatbelt use: always Do you feel safe at home: Yes Do you feel safe in your relationship?: Yes Exam Narrative Exam Narrative: Physical Examination General: alert, awake, cooperative, resting comfortably, no acute distress HEENT: normocephalic, atraumatic; PERRL, EOM intact, conjunctiva normal; no nasal discharge; moist mucous membranes, oral and pharyngeal mucosa normal, tolerating secretions Neck: supple, trachea midline; full ROM Chest: normal to inspection Respiratory: normal respiratory effort, speaking in full sentences, clear to auscultation, no wheezing, rales or rhonchi Cardiac: regular rate, regular rhythm, S1S2 intact, no murmurs rubs or gallops GI: abdomen soft, non-tender, non-distended; no palpable mass or hepatosplenomegaly : Holland catheter in place, clear dione urine in bag Skin: no lesions, rashes or trauma appreciated Neuro: Normal speech, interactive following commands Psych: Appropriate mood and affect Course Vital Signs Vital signs: Vital Signs Temperature 36.6 C 01/07/23 07:45 Pulse 65 01/07/23 07:45 Respiratory Rate 20 01/07/23 07:45 Blood Pressure 136/77 01/07/23 07:45 Pulse Oximetry 94 01/07/23 07:45 Temperature 36.6 C 01/07/23 07:45 Pulse 65 01/07/23 07:45 Respiratory Rate 20 01/07/23 07:45 Respiratory Effort Normal, Non-Labored 01/07/23 07:52 Blood Pressure 136/77 01/07/23 07:45 Blood Pressure Position Sitting 01/07/23 07:45 Pulse Oximetry 94 01/07/23 07:45 Oxygen Delivery Method Room Air 01/07/23 07:45 Oxygen Flow Rate 0 01/07/23 07:45 Pain Level 0 01/07/23 07:45
[2023-01-07 08:28] LABS: Abs Immature Grans 0.02 10^3/uL (0.0-0.06); Absolute Basophil Count 0.04 10^3/uL (0.0-0.2); Absolute Eosinophil Count 0.23 10^3/uL (0.0-0.7); Absolute Monocyte Count 0.57 10^3/uL (0.1-0.8); Absolute Neutrophil Count 5.32 10^3/uL (1.2-6.7); Basophils % 0.6; Eosinophils % 3.2; HCT 41.4 % (40.0-50.0); HGB 13.7 g/dL (13.5-17.5); Immature Grans % 0.3; Lymphocytes % 12.7; MCH 30.2 pg (27.0-33.0); MCHC 33.1 % (32.0-36.0); MCV 91 fL (80-95); MPV 8.8 fL (8.0-11.0); Monocytes % 8.1; Neutrophils % 75.1; Platelet Count 138 10^3/uL (130-400); RBC 4.53 10^6/uL (4.36-5.78); RDW 14.4 % (11.8-14.1); RDW-SD 48.1 fL; WBC 7.08 10^3/uL (4.4-10.8)
[2023-01-07 08:34] LABS: Bilirubin Negative (Negative); Blood Large (Negative); Clarity Sl Cloudy (Clear); Glucose Negative (Negative); Ketones Negative (Negative); Leukocyte Esterase Moderate (Negative); Nitrite Positive (Negative); Specific Gravity 1.025 (1.005-1.025); Urobilinogen 0.2 mg/dL (Up to 0.2)
[2023-01-07 08:43] LABS: ALT 19 U/L (16-63); AST 16 U/L (15-37); Albumin 3.3 g/dL (3.4-5.0); Alkaline Phosphatase 98 U/L (46-116); Anion Gap 6.5 mmol/L (3-11); BUN 17 mg/dL (7-18); Bilirubin, Total 0.8 mg/dL (0.2-1.0); CO2 30.5 mmol/L (21.0-32.0); CREATININE 1.3 mg/dL (0.70-1.30); Calcium 9.7 mg/dL (8.5-10.1); Chloride 101 mmol/L (98-107); Estimated GFR 54.51 (mL/min/1.73m2); Glucose 94 mg/dL (74-106); Potassium 4.4 mmol/L (3.5-5.1); Sodium 138 mmol/L (136-145); Total Protein 6.9 g/dL (6.4-8.2)
[2023-01-07 09:02] LABS: Bacteria Moderate HPF (Negative); C & S Indicated? Yes; Crystals Negative HPF (Negative); Epithelial Cells Negative HPF (Negative); Mucus Negative (Negative); Other Cells Negative (Negative); RBC >50 HPF (0-2); WBC >50 HPF (0-5)
[2023-01-07] MEDS: Omnipaque 350 MG/ML 100 ML BTL IJ (09:16)
[2023-01-07] MEDS: Normal Saline - Diluent 50 ML VIAL IJ (09:17)
--- NOTE | 2023-01-07 09:41 | DI.RAD_ITS ---
Exam(s) XR CHEST 2V PA LATERAL EXAM: XR CHEST 2V PA LATERAL CLINICAL HISTORY: LUQ pain, cough TECHNIQUE: 2D digital imaging was performed. COMPARISON: CR XR CHEST 2V PA LATERAL from 09/25/2020 FINDINGS: There is a large hiatal hernia. HEART: Normal size. Aorta: Not dilated. PULMONARY VASCULATURE: Normal. LUNGS: Clear. PLEURAL SPACE: No pleural effusion or pneumothorax. BONE:Left shoulder prosthesis. IMPRESSION: No acute abnormality. Large hiatal hernia. DATA REPOSITORY: RADIATION DOSE DELIVERED:
[2023-01-07] MEDS: Tamsulosin 0.4 MG CAPCR PO (10:34)
[2023-01-07] MEDS: levoFLOXacin 500 MG, levoFLOXacin 250 MG 750 MG PO (10:34)
[2023-01-07] MEDS: Lidocaine 2% Jelly 6 ML SYR ×2 (10:35→11:59)
[2023-01-07] MEDS: Lidocaine 2% Jelly 11 ML SYR (11:41)
[2023-01-07 12:02] VITALS: BP 144/80; PULSE 66; RESP 14; TEMP 36.6; O2SAT 93
--- NOTE | 2023-01-07 13:00 | W.UROLOGYCON ---
Date of service: 01/07/23 Time of Service: 11:30 Assessment and Plan Assessment and plan (1) Retention of urine: Status: Acute Assessment and plan: Quentin is an 82-year-old male with a history of acute urinary retention also with false passages. ER provider notes multiple times where none she replaced this individual's catheter. Thus, per the request of the emergency room provider they consulted urology for catheter replacement. 14 [place] coud? was placed without difficulty. Final disposition of this individual per recommendations of ER provider. Dictation was done by Dragon voice recognition. Errors may be present within the note. History of Present Illness Narrative: Mr. Shay is a 82-year-old male with chronic indwelling Holland. He is known to urology for having false passages. ER provider remove Holland and requested our assistance with replacing his catheter. He was brought to the emergency room from the [facility] due to having hematuria in the collecting bag as well as discomfort to the pelvic region. He is not reporting any fevers, chills, nausea or vomiting. Consults Consult date: 01/07/23 Requesting physician: Abhilash Velázquez Review of Systems Narrative: As noted in HPI PFSH All Active Problems (Updated 01/07/23 @ 10:08 by Abhilash Velázquez MD) Acute UTI (Acute) Retention of urine (Acute) Chest pain (Acute) Alzheimer's dementia without behavioral disturbance (Acute) Macular degeneration (Acute) Penile rash (Acute) Dementia (Chronic) Amnesia memory loss (Acute) Hypercalcemia (Acute) Domestic problems (Acute) Falls (Acute) Skin lesion of right lower extremity (Acute) Encounter for annual physical exam (Acute) Hypertension (Chronic) same meds Anemia (Acute 10/09/08) History of cataract removal with insertion of prosthetic lens (Acute) Idiopathic scoliosis (Acute) Impaired fasting glucose (Acute) Status post arthroscopy of shoulder (Acute) Status post hip replacement (Acute) Status post rotator cuff repair (Acute) Status post transurethral resection of prostate (Acute) Angioedema (Acute) idiopathic Benign prostatic hyperplasia (Acute) prostate nodule; 2006- elevated PSA; 2006 renal insuff. secondary to [id number]-[id number]-TURP ([place]) Chest pain (Acute) 1997-angina; neg. stress test; 12/17 neg. 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 CRISTI XIONG; EGD Essential hypertension (10/19/13) get your pcv GERD (gastroesophageal reflux disease) Hyperlipidemia (12/06/12) Obstructive sleep apnea syndrome [facility]; C-PAP Popliteal artery aneurysm [place] [facility] [facility] [place] History ankle repair (~1980) Arthroscopy, Shoulder (~2009) Extraction of cataract (~2010) Rotator Cuff Repair (~2005) Total replacement of hip (~2004) Transurethral prostatectomy (~2006) Family History Mother Essential hypertension Hyperlipidemia Father Alzheimer disease Brother Hyperlipidemia Grandfather Heart disease Grandfather Heart disease Grandmother No problems noted. Grandmother Essential hypertension Brother Essential hypertension Son No problems noted. Son No problems noted. Son No problems noted. Daughter No problems noted. Social History Smoking/Tobacco Use Status: Former Tobacco Use Smoking risk assessment performed?: Yes Alcohol Intake: current Alcohol Intake frequency: a few times a month Alcohol type: hard liquor Drug use: Never Substance use type: does not use Household members: spouse Housing: apartment Number of Children: 4 number of grandchildren: 7 Pets and animals: Yes Pets and animals: cat(s) What is your relationship status?: Panel score (0-1 are the most socially isolated patients): 1 What type of physical activity do you participate in: walking Seatbelt use: always Do you feel safe at home: Yes Do you feel safe in your relationship?: Yes Exam Narrative Exam Narrative: Alert and oriented 82-year-old white male No respiratory distress No suprapubic discomfort Circumcised Resting comfortably in bed. Results Last Vital Signs Temp 97.9 F 01/07/23 12:02 Pulse 66 01/07/23 12:02 Resp 14 01/07/23 12:02 BP 144/80 H 01/07/23 12:02 Pulse Ox 93 01/07/23 12:02 Labs 01/07/23 08:15 01/07/23 08:15 Labs: Laboratory Results - last 24 hr 01/07/23 01/07/23 01/07/23 08:15 08:15 08:20 WBC 7.08 RBC 4.53 Hgb 13.7 Hct 41.4 MCV 91 MCH 30.2 MCHC 33.1 RDW 14.4 H Plt Count 138 MPV 8.8 Immature Gran % 0.3 Neutrophils % 75.1 Lymphocytes % 12.7 Monocytes % 8.1 Eosinophils % 3.2 Basophils % 0.6 Nucleated RBC % 0.0 Absolute Neutrophils 5.32 Absolute Lymphocytes 0.90 L Absolute Monocytes 0.57 Absolute Eosinophils 0.23 Absolute Basophils 0.04 Sodium 138 Potassium 4.4 Chloride 101 Carbon Dioxide 30.5 Anion Gap 6.5 BUN 17 Creatinine 1.3 Est GFR (CKD-EPI 2020) 54.51 Glucose 94 Calcium 9.7 Total Bilirubin 0.8 AST 16 ALT 19 Alkaline Phosphatase 98 Total Protein 6.9 Albumin 3.3 L Urine Color Yellow Urine Clarity Sl Cloudy Urine pH 7.0 Ur Specific Brush 1.025 Urine Protein 100 H Urine Ketones Negative Urine Blood Large H Urine Nitrite Positive H Urine Bilirubin Negative Urine Urobilinogen 0.2 Ur Leukocyte Esterase Moderate H Urine RBC >50 H Urine WBC >50 H Ur Epithelial Cells Negative Urine Crystals Negative Urine Bacteria Moderate Urine Mucus Negative Urine Other Negative Ur Culture Indicated? Yes Urine Glucose Negative Insert Bladder Catheter Procedure performed by: Qi العلي Indication for procedure: Yes Informed consent given: Yes Position of patient: supine Sterilizing agent: Yes Type of anesthesia: topical gel Catheter size (Fr): 14 Catheter type: coude tip Lubrication: Yes Catheter inserted: without difficulty Volume instilled into catheter balloon: 10cc Urine color: yellow Urine clarity: clear Clots present: No Irrigation: No Catheter attached to: bedside drainage bag Patient tolerated procedures: well Complications: No
== END 2023-01-07 12:39 | disposition home or self-care (01) ==
PROVIDERS: Emergency Provider Emergency Medicine; PCP Nurse Practitioner Gerontology
DX: N39.0 Urinary tract infection, site not specified (principal); R33.9 Retention of urine, unspecified; N36.5 Urethral false passage; Z46.6 Encounter for fitting and adjustment of urinary device
CPT/HCPCS: 36415; 51702; 80053; 87077; 99283; 99285; 71046; 74177; 81003; 81015; 85025; 87086; 87186; 99284; J3490

== ENCOUNTER 2023-04-02 16:05 | Emergency (ER) | payer MEDICARE, MEDICAID, SELFPAY ==
[2023-04-02 16:12] VITALS: BP 114/78; PULSE 70; RESP 22; TEMP 36.8; O2SAT 98
--- NOTE | 2023-04-02 17:45 | DI.CT_ITS ---
Exam(s) CT ABDOMEN PELVIS W EXAM: CT ABDOMEN PELVIS W CLINICAL HISTORY: left groin pain, scrotal swelling TECHNIQUE: Imaging Protocol: Axial computed tomography images with coronal and sagittal reformatted images were created and reviewed CONTRAST MATERIAL: Intravenous: Omnipaque 350 Contrast volume:100 mL Oral: No COMPARISON: CT CT ABDOMEN PELVIS W from 01/07/2023 FINDINGS: ABDOMEN: Lung Bases: There is a large hiatal hernia. Atelectasis and/or scarring in the lung bases. Liver: Normal density. No measurable mass. Portal, Superior Mesenteric, and Splenic Veins: Unremarkable. Gallbladder and Biliary Tract: No radiodense calculus or dilation. Pancreas: Normal density, no abnormal calcifications or inflammatory process. Spleen: Normal. Adrenals: No masses seen. Kidneys: Normal size, contour and axis. No radiodense stones or obstructive uropathy. There is a 1 cm simple cyst in the right kidney. No follow-up is recommended. Abdominal Aorta: Abdominal portion non-dilated. Atherosclerosis. 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 Bowel: There are few scattered colonic diverticula but no evidence of acute diverticulitis. There is no evidence of bowel obstruction. No bowel wall thickening. No evidence of appendicitis. Peritoneal Cavity: No ascites, collection or mesenteric inflammatory response. No free air. Lymph Nodes: Within normal limits. Bones: Within normal limits for the patient's age. There are bilateral total hip replacements which cause artifact in the pelvis limiting evaluation of the urinary bladder and reproductive organs. Soft Tissues: There is a fat containing umbilical hernia. There is a 1.5 x 2.3 cm enhancing walled f luid collection in the soft tissues on the inferior surface of the scrotum which may represent an abs cess. PELVIS: Bladder: There does appear to be diffuse the walled urinary bladder similar to prior examination. A Holland catheter in place. Reproductive Organs: 4.4 transverse by 5.4 AP by 6.4 craniocaudad left hydrocele. Lymph Nodes: Within normal limits. Bones: Within normal limits for the patient's age. IMPRESSION: 1. Thick-walled urinary bladder which is decompressed by Holland catheter. This may represent chronic bladder outlet obstructive changes and/or cystitis. Please correlate clinically. 2. 1.5 x 2.3 cm fluid collection in the soft tissues of the inferior scrotal sac which may represent an abscess. 3. Left hydrocele. Ultrasound may be of value for further evaluation. RADIATION DOSE DELIVERED: 1,061.93mGy.cm Total DLP DATA REPOSITORY: All CT scans at this facility are submitted to the National Radiology Data Registry (NRDR) Dose Index Registry (DIR) with the [employer] (ACR). RADIATION OPTIMIZATION: All CT scans at this facility use at least one of these dose optimization te chniques: automated exposure control; mA and/or kV adjustment per patient size (includes targeted exa ms where dose is matched to clinical indication); or iterative reconstruction.
[2023-04-02] MEDS: Normal Saline 1,000 ML 1000 ML IV (18:12)
[2023-04-02 18:13] LABS: Abs Immature Grans 0.03 10^3/uL (0.0-0.06); Absolute Basophil Count 0.04 10^3/uL (0.0-0.2); Absolute Eosinophil Count 0.23 10^3/uL (0.0-0.7); Absolute Lymphocyte Count 1.29 10^3/uL (1.2-3.4); Absolute Monocyte Count 0.67 10^3/uL (0.1-0.8); Absolute Neutrophil Count 3.83 10^3/uL (1.2-6.7); Basophils % 0.7; Eosinophils % 3.8; HCT 45.2 % (40.0-50.0); HGB 14.8 g/dL (13.5-17.5); Immature Grans % 0.5; Lymphocytes % 21.2; MCH 30.6 pg (27.0-33.0); MCHC 32.7 % (32.0-36.0); MCV 93 fL (80-95); MPV 8.8 fL (8.0-11.0); Neutrophils % 62.8; Platelet Count 164 10^3/uL (130-400); RBC 4.84 10^6/uL (4.36-5.78); RDW 13.4 % (11.8-14.1); RDW-SD 45.8 fL; WBC 6.09 10^3/uL (4.4-10.8)
[2023-04-02 18:17] LABS: ESR 10 mm/hr (0-20)
[2023-04-02 18:34] LABS: ALT 15 U/L (16-63); AST 10 U/L (15-37); Albumin 3.3 g/dL (3.4-5.0); Alkaline Phosphatase 114 U/L (46-116); Anion Gap 5.3 mmol/L (3-11); BUN 17 mg/dL (7-18); Bilirubin, Total 0.3 mg/dL (0.2-1.0); CO2 30.7 mmol/L (21.0-32.0); CREATININE 1.2 mg/dL (0.70-1.30); Calcium 10.4 mg/dL (8.5-10.1); Chloride 102 mmol/L (98-107); Glucose 110 mg/dL (74-106); Potassium 4.4 mmol/L (3.5-5.1); Sodium 138 mmol/L (136-145); Total Protein 7.5 g/dL (6.4-8.2)
[2023-04-02] MEDS: Omnipaque 350 MG/ML 100 ML BTL IJ (19:05)
[2023-04-02] MEDS: Normal Saline - Diluent 50 ML VIAL IJ (19:05)
[2023-04-02] MEDS: Normal Saline Flush 10 ML SYR IVP (19:06)
--- NOTE | 2023-04-02 19:23 | DI.VRAD_ITS ---
PROCEDURE INFORMATION: Exam: CT Abdomen And Pelvis With Contrast Exam date and time: 04/02/2023 18:45 Age: 82 years old Clinical indication: Pain; Other: Lt groin; Patient HX: Scrotal swelling TECHNIQUE: Imaging protocol: Computed tomography of the abdomen and pelvis with contrast. Radiation optimization: All CT scans at this facility use at least one of these dose optimization techniques: automated exposure control; mA and/or kV adjustment per patient size (includes targeted exams where dose is matched to clinical indication); or iterative reconstruction. Contrast material: OMNIPAQUE 350; Contrast volume: 100 ml; Contrast route: INTRAVENOUS (IV); COMPARISON: CT ABDOMEN PELVIS W 01/07/2023 09:21 FINDINGS: Lungs: Microatelectasis and or chronic pulmonary fibrotic changes. Liver: No mass. Gallbladder and bile ducts: No calcified stones. No ductal dilation. Pancreas: No ductal dilation. No masses. Spleen: No splenomegaly or focal lesions. Adrenal glands: No mass. Kidneys and ureters: Subcentimeter inferior left renal cortical structure too small to characterize on CT but stable since prior. Follow-up as per institutional protocol. No right hydronephrosis. No left hydronephrosis. Stomach and bowel: Large hiatal hernia containing the majority of the stomach. Colonic diverticulosis without diverticulitis. No focal pathology in the small bowel. Appendix: No evidence of appendicitis. Intraperitoneal space: No free air. No significant fluid collection. Vasculature: Chronic mild dilation of the infrarenal aorta is similar. Chronic multifocal fusiform dilation of iliac arteries also similar. Tortuous aorta. Lymph nodes: No significantly enlarged lymph nodes. Urinary bladder: Holland catheter decompresses a severely thick-walled urinary bladder, pattern of thickening similar to prior. Mucosal hyperemia suspected. Reproductive: 6 x 5 cm cystic left scrotal structure causes mass effect on adjacent testis. Peripherally enhancing 18 x 10 x 5 mm collection, inferior left or midline scrotal wall. Generalized scrotal wall edema. Bones/joints: Right and left total hip arthroplasty, intact as visualized. Additional chronic bony findings with no acute fracture. Soft tissues: Gynecomastia. Moderate fat-containing umbilical hernia. Other findings: Streak artifact in the pelvis from the hip hardware. IMPRESSION: 1. Holland catheter decompresses a chronically thick-walled urinary bladder. Consider chronic outlet obstructive changes and or cystitis. 2. 6 x 5 cm left hydrocele with mass effect on the adjacent testis. Could be better characterized with scrotal ultrasound. 3. 18 x 10 x 5 mm collection, inferior left or midline scrotal wall, suspicious for abscess. 4. Additional findings as described. Dictated and Authenticated by: Niurka Kingsley MD. Ordering:AMBERLY Fontanez MD
[2023-04-02 20:11] LABS: Bilirubin Negative (Negative); Blood Large (Negative); Clarity Cloudy (Clear); Glucose Negative (Negative); Ketones Negative (Negative); Leukocyte Esterase Moderate (Negative); Nitrite Positive (Negative); Urobilinogen 0.2 mg/dL (Up to 0.2)
[2023-04-02 20:16] LABS: C & S Indicated? Yes; WBC >50 HPF (0-5)
[2023-04-02] MEDS: cefTRIAXone 1 GM VIAL IV (21:09)
--- NOTE | 2023-04-02 21:15 | ED.GENADUL_ITS ---
Discharge Plan Disposition Patient Disposition: Transfer-Acute Inpatient Care Specific Acute Inpt Facility: [facility] Condition: Serious Discharge Details Clinical Impression: Abscess of scrotum Primary Care Provider: Debra Shah ED Provider: Estee Ham Home Meds and New Rx's Prescriptions: No Action nitroglycerin [Nitrostat] 0.4 mg tablet, sublingual 0.4 mg Sublingual PRN Qty: 25 0RF Rx Instructions: 1 TAB PRN atorvastatin 40 mg tablet 40 mg PO DAILY tamsulosin [Flomax] 0.4 mg capsule 0.4 mg PO DAILY cholecalciferol (vitamin D3) 1,000 UNIT capsule 1,000 unit PO QAM omega-3 fatty acids-fish oil 1 EACH capsule 2 cap PO DAILY Patient Comments: 11/24/17 on hold. si cyanocobalamin (vitamin B-12) [Vitamin B-12] 1,000 MCG tablet 1,000 mcg PO DAILY acetaminophen [Arthritis Pain Reliever] 650 MG tablet extended release 650 mg PO Q8H PRN memantine 10 mg tablet 10 mg PO BID Qty: 180 3RF omeprazole 20 mg capsule,delayed release(DR/EC) 20 mg PO DAILY Qty: 90 3RF hydrochlorothiazide 12.5 mg capsule 12.5 mg PO DAILY Qty: 90 3RF Rx Instructions: 1 CAP DAILY atenolol 50 mg tablet 50 mg PO DAILY Qty: 90 4RF melatonin 5 mg capsule 5 mg PO QPM Qty: 90 3RF quetiapine 25 mg tablet 12.5 mg PO .COMPLEX Qty: 90 3RF Rx Instructions: 12.5 mg orally 4pm daily; Xarelto 10 mg tablet 10 mg PO DAILY ferrous gluconate 324 mg (37.5 mg iron) Tablet 324 mg PO BID clopidogrel 75 mg tablet 75 mg PO 1XD warfarin 3 mg tablet 3 mg PO 1XD polyethylene glycol 3350 [Miralax] 17 gram Powder In Packet 17 g PO DAILY docusate sodium [Colace] 100 mg Capsule 100 mg PO BID Refresh Optive 0.5-0.9 % Drops 1 drp OPHTHALMIC (EYE) BID Medical Decision Making 82yo M with dementia, chronic indwelling ellis, presenting via EMS from nursing facility for concern for scrotal swelling and pain. Unclear time of onset of swelling, pain started this evening. No fevers. Vital signs reassuring on arrival. On exam he has a mildly tender, erythematous, indurated left hemiscrotum. Lack of pain when not being palpated reassuring for torsion. Would prefer to evaluate for scrotal pathology/hernia with ultrasound however not available overnight; will get CT. CT reviewed, agree [facility] radiolgoy read below, possible scrotal abscess. Labs reviewed as below, reassuring, no luekocytosis, normal lactate, mildly elevated inflammtory markers. UA indicative of infection. Discussed with Urology at [facility]; will start ceftriaxone and transfer ED to ED, accepted by Dr. Perez. Imaging Data Radiologic Study: Imaging: CT Scan Radiologist's impression: IMPRESSION: 1. ? Ellis catheter decompresses a chronically thick-walled urinary bladder.? Consider chronic outlet obstructive changes and or cystitis. 2. ? 6 x 5 cm left hydrocele with mass effect on the adjacent testis.? Could be better characterized with scrotal ultrasound. 3. ? 18 x 10 x 5 mm collection, inferior left or midline scrotal wall, suspicious for abscess. 4. ? Additional findings as described. Lab Data Lab results reviewed: Yes I reviewed the patient's lab results. Labs: 04/02/23 20:00 Urine - Reflex from Ua Urine Culture - Pending Laboratory Tests Range/Units 04/02/23 04/02/23 04/02/23 18:00 18:00 18:00 WBC (4.4-10.8) 10^3/uL RBC (4.36-5.78) 10^6/uL Hgb (13.5-17.5) g/dL Hct (40.0-50.0) % MCV (80-95) fL MCH (27.0-33.0) pg MCHC (32.0-36.0) % RDW (11.8-14.1) % Plt Count (130-400) 10^3/uL MPV (8.0-11.0) fL Immature Gran % Neutrophils % Lymphocytes % Monocytes % Eosinophils % Basophils % Nucleated RBC % (0.0-0.3) % Absolute Neutrophils (1.2-6.7) 10^3/uL Absolute Lymphocytes (1.2-3.4) 10^3/uL Absolute Monocytes (0.1-0.8) 10^3/uL Absolute Eosinophils (0.0-0.7) 10^3/uL Absolute Basophils (0.0-0.2) 10^3/uL ESR (0-20) mm/hr 10 VBG Lactate (0.6-1.4) mmol/L 1.0 Sodium (136-145) mmol/L 138 Potassium (3.5-5.1) mmol/L 4.4 Chloride (98-107) mmol/L 102 Carbon Dioxide (21.0-32.0) mmol/L 30.7 Anion Gap (3-11) mmol/L 5.3 BUN (7-18) mg/dL 17 Creatinine (0.70-1.30) mg/dL 1.2 Est GFR (CKD-EPI 2020) (mL/min/1.73m2) 60.00 Glucose (74-106) mg/dL 110 H Calcium (8.5-10.1) mg/dL 10.4 H Total Bilirubin (0.2-1.0) mg/dL 0.3 AST (15-37) U/L 10 L ALT (16-63) U/L 15 L Alkaline Phosphatase (46-116) U/L 114 C-Reactive Protein (0.0-0.3) mg/dL 1.70 H Total Protein (6.4-8.2) g/dL 7.5 Albumin (3.4-5.0) g/dL 3.3 L Urine Color (Yellow) Urine Clarity (Clear) Urine pH (5-8) Ur Specific Skippers (1.005-1.025) Urine Protein (Negative) mg/dL Urine Ketones (Negative) mg/dL Urine Blood (Negative) Urine Nitrite (Negative) Urine Bilirubin (Negative) Urine Urobilinogen (Up to 0.2) mg/dL Ur Leukocyte Esterase (Negative) Urine RBC Urine WBC (0-5) HPF Ur Epithelial Cells Urine Crystals Urine Bacteria Urine Mucus Ur Culture Indicated? Urine Glucose (Negative) mg/dL Range/Units 04/02/23 04/02/23 18:00 20:00 WBC (4.4-10.8) 10^3/uL 6.09 RBC (4.36-5.78) 10^6/uL 4.84 Hgb (13.5-17.5) g/dL 14.8 Hct (40.0-50.0) % 45.2 MCV (80-95) fL 93 MCH (27.0-33.0) pg 30.6 MCHC (32.0-36.0) % 32.7 RDW (11.8-14.1) % 13.4 Plt Count (130-400) 10^3/uL 164 MPV (8.0-11.0) fL 8.8 Immature Gran % 0.5 Neutrophils % 62.8 Lymphocytes % 21.2 Monocytes % 11.0 Eosinophils % 3.8 Basophils % 0.7 Nucleated RBC % (0.0-0.3) % 0.0 Absolute Neutrophils (1.2-6.7) 10^3/uL 3.83 Absolute Lymphocytes (1.2-3.4) 10^3/uL 1.29 Absolute Monocytes (0.1-0.8) 10^3/uL 0.67 Absolute Eosinophils (0.0-0.7) 10^3/uL 0.23 Absolute Basophils (0.0-0.2) 10^3/uL 0.04 ESR (0-20) mm/hr VBG Lactate (0.6-1.4) mmol/L Sodium (136-145) mmol/L Potassium (3.5-5.1) mmol/L Chloride (98-107) mmol/L Carbon Dioxide (21.0-32.0) mmol/L Anion Gap (3-11) mmol/L BUN (7-18) mg/dL Creatinine (0.70-1.30) mg/dL Est GFR (CKD-EPI 2020) (mL/min/1.73m2) Glucose (74-106) mg/dL Calcium (8.5-10.1) mg/dL Total Bilirubin (0.2-1.0) mg/dL AST (15-37) U/L ALT (16-63) U/L Alkaline Phosphatase (46-116) U/L C-Reactive Protein (0.0-0.3) mg/dL Total Protein (6.4-8.2) g/dL Albumin (3.4-5.0) g/dL Urine Color (Yellow) Yellow Urine Clarity (Clear) Cloudy Urine pH (5-8) 7.0 Ur Specific Skippers (1.005-1.025) 1.020 Urine Protein (Negative) mg/dL 100 H Urine Ketones (Negative) mg/dL Negative Urine Blood (Negative) Large H Urine Nitrite (Negative) Positive H Urine Bilirubin (Negative) Negative Urine Urobilinogen (Up to 0.2) mg/dL 0.2 Ur Leukocyte Esterase (Negative) Moderate H Urine RBC Not Applicable Urine WBC (0-5) HPF >50 H Ur Epithelial Cells Not Applicable Urine Crystals Not Applicable Urine Bacteria Not Applicable Urine Mucus Not Applicable Ur Culture Indicated? Yes Urine Glucose (Negative) mg/dL Negative HPI General Mode of arrival: EMS . Date/Time Provider Initiated Documentation: 04/02/23 16:24 . Limitations to Documentation: altered mental status . Information obtained by: patient and EMS . HPI Narrative: 82yo M with dementia, chronic indwelling ellis, presenting via EMS from nursing facility for concern for scrotal swelling and pain. Unclear time of onset of swelling, pain started this evening. Otherwise in his usual state of health and acting normaly, at his baseline. Patient denies pain on arrival, not sure why he was sent here. No chest pain, shortness of breath, abdominal pain, suprapubic pain, testicular pain, penile pain, or other concerns. Related Data Home Medications Medication Instructions Recorded Confirmed cholecalciferol (vitamin D3) 25 1,000 unit PO QAM 12/01/12 04/02/23 mcg (1,000 unit) capsule omega-3 fatty acids-fish oil 300 2 cap PO DAILY 12/01/12 09/10/22 mg-1,000 mg capsule cyanocobalamin (vitamin B-12) 1,000 mcg PO DAILY 07/14/16 04/02/23 1,000 mcg tablet (Vitamin B-12) acetaminophen 650 mg 650 mg PO Q8H PRN 06/08/17 04/02/23 tablet,extended release (Arthritis Pain Reliever) nitroglycerin 0.4 mg sublingual 0.4 mg sublingual PRN #25 tab-caps 05/14/21 04/02/23 tablet (Nitrostat) memantine 10 mg tablet 10 mg PO BID #180 tabs 09/24/21 04/02/23 omeprazole 20 mg capsule,delayed 20 mg PO DAILY #90 tab-caps 11/18/21 04/02/23 release hydrochlorothiazide 12.5 mg capsule 12.5 mg PO DAILY #90 tab-caps 12/12/21 09/10/22 atenolol 50 mg tablet 50 mg PO DAILY #90 tab-caps 01/17/22 04/02/23 melatonin 5 mg capsule 5 mg PO QPM #90 caps 03/30/22 09/10/22 quetiapine 25 mg tablet 12.5 mg PO .COMPLEX #90 tabs 04/30/22 04/02/23 clopidogrel 75 mg tablet 75 mg PO 1XD 08/30/22 09/10/22 warfarin 3 mg tablet 3 mg PO 1XD 08/30/22 09/10/22 atorvastatin 40 mg tablet 40 mg PO DAILY 09/10/22 04/02/23 tamsulosin 0.4 mg capsule (Flomax) 0.4 mg PO DAILY 09/10/22 04/02/23 ferrous gluconate 324 mg (37.5 mg 324 mg PO BID 01/07/23 04/02/23 iron) tablet rivaroxaban 10 mg tablet (Xarelto) 10 mg PO DAILY 01/07/23 04/02/23 carboxymethylcellulose 0.5 1 drp ophthalmic (eye) BID 04/02/23 04/02/23 %-glycerin 0.9 % eye drops (Refresh Optive) docusate sodium 100 mg capsule 100 mg PO BID 04/02/23 04/02/23 (Colace) polyethylene glycol 3350 17 gram 17 g PO DAILY 04/02/23 04/02/23 oral powder packet (Miralax) Previous Rx's Medication Instructions Recorded nitroglycerin 0.4 mg sublingual 0.4 mg sublingual PRN #25 tab-caps 05/14/21 tablet (Nitrostat) memantine 10 mg tablet 10 mg PO BID #180 tabs 09/24/21 omeprazole 20 mg capsule,delayed 20 mg PO DAILY #90 tab-caps 11/18/21 release hydrochlorothiazide 12.5 mg capsule 12.5 mg PO DAILY #90 tab-caps 12/12/21 atenolol 50 mg tablet 50 mg PO DAILY #90 tab-caps 01/17/22 melatonin 5 mg capsule 5 mg PO QPM #90 caps 03/30/22 quetiapine 25 mg tablet 12.5 mg PO .COMPLEX #90 tabs 04/30/22 Allergies Allergy/AdvReac Type Severity Reaction Status Date / Time azithromycin Allergy Severe LIP Verified 04/02/23 21:16 SWELLING ibuprofen Allergy Intermediate angioedema Verified 04/02/23 21:16 Penicillins Allergy Intermediate LIP Verified 04/02/23 21:16 SWELLING Calcium Channel Blocking Allergy Unknown HIVES Verified 04/02/23 21:16 Agent Dilt diltiazem Allergy Unknown HIVES Verified 04/02/23 21:16 Sulfa (Sulfonamide Allergy Unknown SKIN RASH Verified 04/02/23 21:16 Antibiotics) SODIUM NITRITE Allergy Severe Anaphylaxsi Uncoded 04/02/23 21:16 s General Stated Complaint: Male Reproductive Problem CAMERON: 3 Review of Systems Narrative: see HPI PFSH All Active Problems (Updated 04/02/23 @ 21:29 by Estee Ham MD) Abscess of scrotum (Acute) Retention of urine (Acute) Chest pain (Acute) Alzheimer's dementia without behavioral disturbance (Acute) Macular degeneration (Acute) Penile rash (Acute) Dementia (Chronic) Amnesia memory loss (Acute) Hypercalcemia (Acute) Domestic problems (Acute) Falls (Acute) Skin lesion of right lower extremity (Acute) Encounter for annual physical exam (Acute) Hypertension (Chronic) same meds Anemia (Acute 10/09/08) History of cataract removal with insertion of prosthetic lens (Acute) Idiopathic scoliosis (Acute) Impaired fasting glucose (Acute) Status post arthroscopy of shoulder (Acute) Status post hip replacement (Acute) Status post rotator cuff repair (Acute) Status post transurethral resection of prostate (Acute) Angioedema (Acute) idiopathic Benign prostatic hyperplasia (Acute) prostate nodule; 2006- elevated PSA; 2006 renal insuff. secondary to [id number] (Ioana) Chest pain (Acute) 1997-angina; neg. stress test; 12/17 neg. 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 Grandmother Essential hypertension Brother Essential hypertension Son No problems noted. Son No problems noted. Son No problems noted. Daughter No problems noted. Social History Smoking/Tobacco Use Status: Former Tobacco Use Smoking risk assessment performed?: Yes Alcohol Intake: current Alcohol Intake frequency: a few times a month Alcohol type: hard liquor Drug use: Never Substance use type: does not use Household members: spouse Housing: apartment Number of Children: 4 number of grandchildren: 7 Pets and animals: Yes Pets and animals: cat(s) What is your relationship status?: Panel score (0-1 are the most socially isolated patients): 1 What type of physical activity do you participate in: walking Seatbelt use: always Do you feel safe at home: Yes Do you feel safe in your relationship?: Yes Exam Narrative Exam Narrative: General: Alert, well appearing, well nourished, in no acute distress. Head: Normocephalic, atraumatic Neck: Trachea midline, Neck supple. ENT: MMM. No oropharygeal lesions or exudate. Cardiac: RRR, no murmurs appreciated Resp: No respiratory distress. CTAB. Abd: Soft, non-distended, nontender : No suprapubic tenderness. No CVA tenderness. Ellis in place and draining well. Left hemiscrotum slightly erythematous, swollen, mildly tender to palpation, firm/indurated. No penile discharge. Extremities: No deformities. No peripheral edema. Neurologic: GCS 15. Moves all extremities freely against gravity Course Vital Signs Vital signs: Vital Signs Temperature 36.8 C 04/02/23 16:12 Pulse 70 04/02/23 16:12 Respiratory Rate 22 04/02/23 16:12 Blood Pressure 114/78 04/02/23 16:12 Pulse Oximetry 98 04/02/23 16:12 Temperature 36.8 C 04/02/23 16:12 Temperature Source Oral 04/02/23 16:12 Pulse 70 04/02/23 16:12 Respiratory Rate 22 04/02/23 16:12 Respiratory Effort Normal 04/02/23 18:11 Blood Pressure 114/78 04/02/23 16:12 Blood Pressure Position Supine 04/02/23 16:12 Pulse Oximetry 98 04/02/23 16:12 Oxygen Delivery Method Room Air 04/02/23 16:12 Oxygen Flow Rate 0 04/02/23 16:12 Pain Level 0 04/02/23 16:12 Lab/Test Results Lab/Test Results: 04/02/23 20:00 Urine - Reflex from Ua Urine Culture - Pending Laboratory Tests Range/Units 04/02/23 04/02/23 04/02/23 18:00 18:00 18:00 WBC (4.4-10.8) 10^3/uL RBC (4.36-5.78) 10^6/uL Hgb (13.5-17.5) g/dL Hct (40.0-50.0) % MCV (80-95) fL MCH (27.0-33.0) pg MCHC (32.0-36.0) % RDW (11.8-14.1) % Plt Count (130-400) 10^3/uL MPV (8.0-11.0) fL Immature Gran % Neutrophils % Lymphocytes % Monocytes % Eosinophils % Basophils % Nucleated RBC % (0.0-0.3) % Absolute Neutrophils (1.2-6.7) 10^3/uL Absolute Lymphocytes (1.2-3.4) 10^3/uL Absolute Monocytes (0.1-0.8) 10^3/uL Absolute Eosinophils (0.0-0.7) 10^3/uL Absolute Basophils (0.0-0.2) 10^3/uL ESR (0-20) mm/hr 10 VBG Lactate (0.6-1.4) mmol/L 1.0 Sodium (136-145) mmol/L 138 Potassium (3.5-5.1) mmol/L 4.4 Chloride (98-107) mmol/L 102 Carbon Dioxide (21.0-32.0) mmol/L 30.7 Anion Gap (3-11) mmol/L 5.3 BUN (7-18) mg/dL 17 Creatinine (0.70-1.30) mg/dL 1.2 Est GFR (CKD-EPI 2020) (mL/min/1.73m2) 60.00 Glucose (74-106) mg/dL 110 H Calcium (8.5-10.1) mg/dL 10.4 H Total Bilirubin (0.2-1.0) mg/dL 0.3 AST (15-37) U/L 10 L ALT (16-63) U/L 15 L Alkaline Phosphatase (46-116) U/L 114 C-Reactive Protein (0.0-0.3) mg/dL 1.70 H Total Protein (6.4-8.2) g/dL 7.5 Albumin (3.4-5.0) g/dL 3.3 L Urine Color (Yellow) Urine Clarity (Clear) Urine pH (5-8) Ur Specific Skippers (1.005-1.025) Urine Protein (Negative) mg/dL Urine Ketones (Negative) mg/dL Urine Blood (Negative) Urine Nitrite (Negative) Urine Bilirubin (Negative) Urine Urobilinogen (Up to 0.2) mg/dL Ur Leukocyte Esterase (Negative) Urine RBC Urine WBC (0-5) HPF Ur Epithelial Cells Urine Crystals Urine Bacteria Urine Mucus Ur Culture Indicated? Urine Glucose (Negative) mg/dL Range/Units 04/02/23 04/02/23 18:00 20:00 WBC (4.4-10.8) 10^3/uL 6.09 RBC (4.36-5.78) 10^6/uL 4.84 Hgb (13.5-17.5) g/dL 14.8 Hct (40.0-50.0) % 45.2 MCV (80-95) fL 93 MCH (27.0-33.0) pg 30.6 MCHC (32.0-36.0) % 32.7 RDW (11.8-14.1) % 13.4 Plt Count (130-400) 10^3/uL 164 MPV (8.0-11.0) fL 8.8 Immature Gran % 0.5 Neutrophils % 62.8 Lymphocytes % 21.2 Monocytes % 11.0 Eosinophils % 3.8 Basophils % 0.7 Nucleated RBC % (0.0-0.3) % 0.0 Absolute Neutrophils (1.2-6.7) 10^3/uL 3.83 Absolute Lymphocytes (1.2-3.4) 10^3/uL 1.29 Absolute Monocytes (0.1-0.8) 10^3/uL 0.67 Absolute Eosinophils (0.0-0.7) 10^3/uL 0.23 Absolute Basophils (0.0-0.2) 10^3/uL 0.04 ESR (0-20) mm/hr VBG Lactate (0.6-1.4) mmol/L Sodium (136-145) mmol/L Potassium (3.5-5.1) mmol/L Chloride (98-107) mmol/L Carbon Dioxide (21.0-32.0) mmol/L Anion Gap (3-11) mmol/L BUN (7-18) mg/dL Creatinine (0.70-1.30) mg/dL Est GFR (CKD-EPI 2020) (mL/min/1.73m2) Glucose (74-106) mg/dL Calcium (8.5-10.1) mg/dL Total Bilirubin (0.2-1.0) mg/dL AST (15-37) U/L ALT (16-63) U/L Alkaline Phosphatase (46-116) U/L C-Reactive Protein (0.0-0.3) mg/dL Total Protein (6.4-8.2) g/dL Albumin (3.4-5.0) g/dL Urine Color (Yellow) Yellow Urine Clarity (Clear) Cloudy Urine pH (5-8) 7.0 Ur Specific Skippers (1.005-1.025) 1.020 Urine Protein (Negative) mg/dL 100 H Urine Ketones (Negative) mg/dL Negative Urine Blood (Negative) Large H Urine Nitrite (Negative) Positive H Urine Bilirubin (Negative) Negative Urine Urobilinogen (Up to 0.2) mg/dL 0.2 Ur Leukocyte Esterase (Negative) Moderate H Urine RBC Not Applicable Urine WBC (0-5) HPF >50 H Ur Epithelial Cells Not Applicable Urine Crystals Not Applicable Urine Bacteria Not Applicable Urine Mucus Not Applicable Ur Culture Indicated? Yes Urine Glucose (Negative) mg/dL Negative
[2023-04-02 22:39] VITALS: BP 146/77; PULSE 63; TEMP 36.2; O2SAT 95
[2023-04-03 01:13] VITALS: BP 146/77; PULSE 63; RESP 22; TEMP 36.2; O2SAT 95
== END 2023-04-02 22:40 | disposition short-term general hospital (02) ==
PROVIDERS: Emergency Provider Student in an Organized Health Care Education/Training Program; PCP Nurse Practitioner Gerontology
DX: N50.812 Left testicular pain (principal); N43.3 Hydrocele, unspecified; N49.2 Inflammatory disorders of scrotum; F03.90 Unspecified dementia, unspecified severity, without behavioral disturbance, psychotic disturbance, mood disturbance, and anxiety; Z96.0 Presence of urogenital implants; Z79.01 Long term (current) use of anticoagulants; Z79.02 Long term (current) use of antithrombotics/antiplatelets
CPT/HCPCS: 80053; 85652; 87077; 96361; 96374; 99285; 74177; 81003; 81015; 83605; 85025; 86140; 87086; 87186; 99284; J0696; J3490

== ENCOUNTER → 2023-04-26 10:38 | Outpatient (BNVA) | payer MEDICARE, MEDICAID, SELFPAY | PROVIDERS: PCP Nurse Practitioner Gerontology; Referring Provider Nurse Practitioner Gerontology; Visit Provider Nurse Practitioner Gerontology | DX: R33.8 Other retention of urine (principal); Z96.0 Presence of urogenital implants | CPT/HCPCS: 99442 ==

== ENCOUNTER → 2023-05-11 10:23 | Outpatient (BNVA) | payer MEDICARE, MEDICAID, SELFPAY | PROVIDERS: PCP Nurse Practitioner Gerontology; Referring Provider Nurse Practitioner Gerontology; Visit Provider Nurse Practitioner Gerontology | DX: R33.8 Other retention of urine (principal) | CPT/HCPCS: 99213 ==

== ENCOUNTER 2024-01-06 10:04 | Emergency (ER) | payer MEDICARE, MEDICAID, SELFPAY ==
[2024-01-06 10:06] VITALS: BP 139/81; PULSE 72; RESP 18; TEMP 36.8; O2SAT 96
--- NOTE | 2024-01-06 10:12 | W.ED.GENAD ---
Discharge Plan Disposition Patient Disposition: Home Condition: Stable Discharge Details Clinical Impression: Hematuria Primary Care Provider: Debra Shah ED Provider: Mark Berrios Home Meds and New Rx's Prescriptions: Continued nitroglycerin [Nitrostat] 0.4 mg tablet, sublingual 0.4 mg Sublingual PRN Qty: 25 0RF Rx Instructions: 1 TAB PRN atorvastatin 40 mg tablet 40 mg PO DAILY tamsulosin [Flomax] 0.4 mg capsule 0.4 mg PO DAILY cholecalciferol (vitamin D3) 1,000 UNIT capsule 1,000 unit PO QAM omega-3 fatty acids-fish oil 1 EACH capsule 2 cap PO DAILY Patient Comments: 11/24/17 on hold. si cyanocobalamin (vitamin B-12) [Vitamin B-12] 1,000 MCG tablet 1,000 mcg PO DAILY acetaminophen [Arthritis Pain Reliever] 650 MG tablet extended release 650 mg PO Q8H PRN memantine 10 mg tablet 10 mg PO BID Qty: 180 3RF omeprazole 20 mg capsule,delayed release(DR/EC) 20 mg PO DAILY Qty: 90 3RF hydrochlorothiazide 12.5 mg capsule 12.5 mg PO DAILY Qty: 90 3RF Rx Instructions: 1 CAP DAILY atenolol 50 mg tablet 50 mg PO DAILY Qty: 90 4RF melatonin 5 mg capsule 5 mg PO QPM Qty: 90 3RF quetiapine 25 mg tablet 12.5 mg PO .COMPLEX Qty: 90 3RF Rx Instructions: 12.5 mg orally 4pm daily; Xarelto 10 mg tablet 10 mg PO DAILY ferrous gluconate 324 mg (37.5 mg iron) Tablet 324 mg PO BID clopidogrel 75 mg tablet 75 mg PO 1XD warfarin 3 mg tablet 3 mg PO 1XD polyethylene glycol 3350 [Miralax] 17 gram Powder In Packet 17 g PO DAILY docusate sodium [Colace] 100 mg Capsule 100 mg PO BID Refresh Optive 0.5-0.9 % Drops 1 drp OPHTHALMIC (EYE) BID Discharge Instructions Instructions: Blood in Urine (Hematuria), Adult ED Additional Instructions: You were seen in the emergency department for your hematuria. He had no significant tenderness on exam, your Ellis catheter is operating as normally, we did flush it and empty and there is a significant less amount of dark blood in it currently. Laboratory workup was benign for any UTI, there is no suspicion for systemic infection with normal blood counts, his hemoglobin is completely stable at 14.0 indicating not a severe bleed. Ultrasound shows no hydronephrosis. I spoke with the urology practice who will follow-up with the patient for an outpatient cystoscopy in the coming week. Please return for any significant signs of blood loss, increasing miguel angel hematuria, weakness, dizziness, fever, lack of urinary output in patient's Ellis catheter bag. Referrals: [facility] [Provider Group] Debra Shah NP [Primary Care Provider] - HPI General Date/Time Provider Initiated Documentation: 01/06/24 10:11. HPI Narrative: 83 year-old male presents to ED today by EMS from the [facility], with a chief complaint of reports of hematuria and lower back pain per staff- patient is unreliable due to Alzheimer's with onset unknown. Quality described as no pain anywhere, no radiation to fever, tachycardia, abdominal pain, flank pain. Severity is described as unable to quantify- states 0/10. Palliating factors include nothing specific attempted. Provoking factors include nothing specific. Events leading up to the incident/Associated Symptoms: patient has chronic ellis catheter. Patient not anticoagulated. Related Data Home Medications Medication Instructions Recorded Confirmed cholecalciferol (vitamin D3) 25 1,000 unit PO QAM 12/01/12 04/26/23 mcg (1,000 unit) capsule omega-3 fatty acids-fish oil 300 2 cap PO DAILY 12/01/12 04/26/23 mg-1,000 mg capsule cyanocobalamin (vitamin B-12) 1,000 mcg PO DAILY 07/14/16 04/26/23 1,000 mcg tablet (Vitamin B-12) acetaminophen 650 mg 650 mg PO Q8H PRN 06/08/17 04/26/23 tablet,extended release (Arthritis Pain Reliever) nitroglycerin 0.4 mg sublingual 0.4 mg sublingual PRN #25 tab-caps 05/14/21 04/26/23 tablet (Nitrostat) memantine 10 mg tablet 10 mg PO BID #180 tabs 09/24/21 04/26/23 omeprazole 20 mg capsule,delayed 20 mg PO DAILY #90 tab-caps 11/18/21 04/26/23 release hydrochlorothiazide 12.5 mg capsule 12.5 mg PO DAILY #90 tab-caps 12/12/21 04/26/23 atenolol 50 mg tablet 50 mg PO DAILY #90 tab-caps 01/17/22 04/26/23 melatonin 5 mg capsule 5 mg PO QPM #90 caps 03/30/22 04/26/23 quetiapine 25 mg tablet 12.5 mg (1/2 x 25 mg) PO .COMPLEX 04/30/22 04/26/23 #90 tabs clopidogrel 75 mg tablet 75 mg PO 1XD 08/30/22 04/26/23 warfarin 3 mg tablet 3 mg PO 1XD 08/30/22 04/26/23 atorvastatin 40 mg tablet 40 mg PO DAILY 09/10/22 04/26/23 tamsulosin 0.4 mg capsule (Flomax) 0.4 mg PO DAILY 09/10/22 04/26/23 ferrous gluconate 324 mg (37.5 mg 324 mg PO BID 01/07/23 04/26/23 iron) tablet rivaroxaban 10 mg tablet (Xarelto) 10 mg PO DAILY 01/07/23 04/26/23 carboxymethylcellulose 0.5 1 drp ophthalmic (eye) BID 04/02/23 04/26/23 %-glycerin 0.9 % eye drops (Refresh Optive) docusate sodium 100 mg capsule 100 mg PO BID 04/02/23 04/26/23 (Colace) polyethylene glycol 3350 17 gram 17 g PO DAILY 04/02/23 04/26/23 oral powder packet (Miralax) Previous Rx's Medication Instructions Recorded nitroglycerin 0.4 mg sublingual 0.4 mg sublingual PRN #25 tab-caps 05/14/21 tablet (Nitrostat) memantine 10 mg tablet 10 mg PO BID #180 tabs 09/24/21 omeprazole 20 mg capsule,delayed 20 mg PO DAILY #90 tab-caps 11/18/21 release hydrochlorothiazide 12.5 mg capsule 12.5 mg PO DAILY #90 tab-caps 12/12/21 atenolol 50 mg tablet 50 mg PO DAILY #90 tab-caps 01/17/22 melatonin 5 mg capsule 5 mg PO QPM #90 caps 03/30/22 quetiapine 25 mg tablet 12.5 mg (1/2 x 25 mg) PO .COMPLEX 04/30/22 #90 tabs Allergies Allergy/AdvReac Type Severity Reaction Status Date / Time azithromycin Allergy Severe LIP Verified 04/02/23 21:16 SWELLING ibuprofen Allergy Intermediate angioedema Verified 04/02/23 21:16 Penicillins Allergy Intermediate LIP Verified 04/02/23 21:16 SWELLING Calcium Channel Blocking Allergy Unknown HIVES Verified 04/02/23 21:16 Agent Dilt diltiazem Allergy Unknown HIVES Verified 04/02/23 21:16 Sulfa (Sulfonamide Allergy Unknown SKIN RASH Verified 04/02/23 21:16 Antibiotics) SODIUM NITRITE Allergy Severe Anaphylaxsi Uncoded 04/02/23 21:16 s General Stated Complaint: Urinary CAMERON: 4 Review of Systems All systems reviewed & are unremarkable except as noted in HPI and below Exam Narrative Exam Narrative: GENERAL APPEARANCE: Well-nourished, non-toxic, awake and alert, atraumatic, no acute distress. SKIN: Warm, pink, dry, intact, without rashes/lesions/ulcerations. HEAD: Normocephalic, atraumatic, normal hair distribution for gender/age. EYES: Pupils PERRLA, EOMs intact without nystagmus, normal conjunctiva, no exudates on lids/lashes. ENT: Nares patent, no circumoral cyanosis, no facial swelling NECK: Supple, trachea midline, painless cervical ROM. LUNGS/CHEST: Lungs CTA- no rhonchi/rales/wheezes diffusely, non-labored respirations, normal A/P diameter, symmetrical expansion, no chest wall deformity HEART (CV/PV): Regular rate and rhythm without murmur, no peripheral edema, no JVD. ABDOMEN: Soft, non-distended, no guarding, no focal abdominal tenderness, no pain response to palpation, no pain with CVA palpation or percussion bilaterally, Ellis catheter in place, no scrotal swelling or erythema. MSK: Normal ROM, no swelling/deformity to bilateral UEs or LEs, moving all extremities without weakness, no cyanosis, spine midline without tenderness, normal curvature. NEURO: Mental Status AAOx4 - alert to person, place, time, events No facial droop, no forehead involvement. Motor: No focal weakness - strength 5/5 in bilateral UEs and LEs, proximal and distal, symmetric. Sensory: sensation intact to light touch globally. Gait normal: patient ambulated without ataxia into ED room. PSYCH: euthymic, cooperative, pleasant, appropriate speech Course Vital Signs Vital signs: Vital Signs Temperature 36.8 C 01/06/24 10:06 Pulse 72 01/06/24 10:06 Respiratory Rate 18 01/06/24 10:06 Blood Pressure 139/81 01/06/24 10:06 Pulse Oximetry 96 01/06/24 10:06 Temperature 36.8 C 01/06/24 10:06 Temperature Source Skin 01/06/24 10:06 Pulse 72 01/06/24 10:06 Respiratory Rate 18 01/06/24 10:06 Blood Pressure 139/81 01/06/24 10:06 Blood Pressure Position Sitting 01/06/24 10:06 Pulse Oximetry 96 01/06/24 10:06 Oxygen Delivery Method Room Air 01/06/24 10:06 Oxygen Flow Rate 0 01/06/24 10:06 Pain Level 0 01/06/24 10:06 Medical Decision Making This dictation utilizes [id number] dictation software and may contain unedited grammatical errors. 83 year-old male presents to ED today by EMS from the [facility], with a chief complaint of reports of hematuria and lower back pain per staff- patient is unreliable due to Alzheimer's with onset unknown. Quality described as no pain anywhere, no radiation to fever, tachycardia, abdominal pain, flank pain. Severity is described as unable to quantify- states 0/10. Palliating factors include nothing specific attempted. Provoking factors include nothing specific. Events leading up to the incident/Associated Symptoms: patient has chronic ellis catheter. Patients' medical history: GERD, Johnson's esophagus, hypertension, hyperlipidemia, Alzheimer's, urinary retention with chronic Ellis catheter followed by our urology practice, anemia, hypertension, renal insufficiency. Family and social history: lives at the [facility]. Pertinent exam findings / vital signs include no CVA tenderness to percussion bilaterally, no pain response with significant abdominal palpation, no peritoneal signs, Ellis catheter bag does have some hematuria but is draining adequately. Differential / pathologies of concern include hematuria, renal stones, hydronephrosis, UTI, bladder malignancy. Diagnostic studies of: -CBC, BMP, UA, Lipase, U/S Renal. -CBC shows no leukocytosis, no anemia, HgB 14.0 -BMP shows no ALFRED, no renal failure -Lipase wnl -UA shows hematuria, 10-20 WBCs, await Cx -U/S Renal shows no hydronephrosis Interventions of: -Consulted with Dr. Dumont on mostly benign workup with hematuria present, Ellis catheter is flushing normally. We have no availability for CT today for this patient and Dr. Dumont states that CT is not a definitive rule out for bladder malignancy regardless and that he will see the patient in follow-up within the week for likely cystoscopy. ED Course/Assessment/Plan: 83-year-old male presents by EMS for reports of hematuria by staff at the [facility], [facility] the patient has been reporting intermittent flank pains, he has no flank pain and benign abdomen on exam today, he is not hydronephrotic on ultrasound, has no elevation of leukocytosis or no anemia, no signs of ALFRED, he has improved proteinuria from prior visits, negative for nitrates and UTI. I discussed his case with urologist Dr. Dumont who will see the patient follow-up for cystoscopy. Strict return criteria for profound hematuria continuing, dizziness- signs of anemia, fever, increasing flank pain. Findings not consistent with sepsis, uti, urinary obstruction, hydronephrosis. Disposition of Hematuria. Patient verbalized understanding of the plan and return to ED criteria and engaged in shared decision making. Medical Records Medical records reviewed: Yes I reviewed the patient's medical records. Imaging Data Radiologic Study: Attestation: I personally reviewed and interpreted this imaging study as follows: Imaging: Ultrasound Radiologist's impression: EXAM: US RENAL CLINICAL HISTORY: hematuria per care team, elif. TECHNIQUE: Dumont scale, color and spectral Doppler were used. COMPARISON: CT CT ABDOMEN PELVIS W from 04/02/2023 FINDINGS: Renal size in cm: Right: 9.9. Left: 12.1. Echogenicity: Normal. Hydronephrosis: No. Cyst or mass: There are stable bilateral simple renal cysts. No follow-up is recommended. Nephrolithiasis: No. Other findings: None. Bladder:The urinary bladder is incompletely distended limiting evaluation. There is a Ellis catheter in place. There does appear to be thickening of the wall of the urinary bladder. Ureteral jets: Right: Visualized and unremarkable. Left: Visualized and unremarkable. Prevoid vol:140 cc Postvoid vol:0 cc Renal color flow: Symmetric and within normal limits. IMPRESSION: 1. No evidence of hydronephrosis. 2. Ellis catheter is seen in the urinary bladder. 3. Stable bilateral simple renal cysts. No follow-up is recommended. Lab Data Lab results reviewed: Yes I reviewed the patient's lab results. Labs: 01/06/24 10:35 Urine - Reflex from Ua Urine Culture - Pending Laboratory Tests Range/Units 01/06/24 10:35 WBC (4.4-10.8) 10^3/uL 5.63 RBC (4.36-5.78) 10^6/uL 4.35 L Hgb (13.5-17.5) g/dL 14.0 Hct (40.0-50.0) % 42.8 MCV (80-95) fL 98 H MCH (27.0-33.0) pg 32.2 MCHC (32.0-36.0) % 32.7 RDW (11.8-14.1) % 13.3 Plt Count (130-400) 10^3/uL 109 L MPV (8.0-11.0) fL 8.8 Immature Gran % % 0.4 Neutrophils % % 72.6 Lymphocytes % % 16.3 Monocytes % % 7.5 Eosinophils % % 2.5 Basophils % % 0.7 Nucleated RBC % (0.0-0.3) % 0.0 Absolute Neutrophils (1.2-6.7) 10^3/uL 4.09 Absolute Lymphocytes (1.2-3.4) 10^3/uL 0.92 L Absolute Monocytes (0.1-0.8) 10^3/uL 0.42 Absolute Eosinophils (0.0-0.7) 10^3/uL 0.14 Absolute Basophils (0.0-0.2) 10^3/uL 0.04 Sodium (136-145) mmol/L 141 Potassium (3.5-5.1) mmol/L 4.3 Chloride (98-107) mmol/L 106 Carbon Dioxide (21.0-32.0) mmol/L 29.5 Anion Gap (3-11) mmol/L 5.5 BUN (7-18) mg/dL 16 Creatinine (0.70-1.30) mg/dL 1.2 Est GFR (CKD-EPI 2020) (mL/min/1.73m2) 59.63 Glucose (74-106) mg/dL 86 Calcium (8.5-10.1) mg/dL 9.1 Lipase (16-77) U/L 29 Urine Color (Yellow) [place] Urine Clarity (Clear) Cloudy Urine pH (5-8) 6.5 Ur Specific [place] (1.005-1.025) 1.025 Urine Protein (Neg-Trace) mg/dL 30 H Urine Ketones (Negative) mg/dL Negative Urine Blood (Negative) Large H Urine Nitrite (Negative) Negative Urine Bilirubin (Negative) Negative Urine Urobilinogen (Up to 0.2) mg/dL 0.2 Ur Leukocyte Esterase (Negative) Small H Urine RBC (0-2) HPF >50 H Urine WBC (0-5) HPF 10-20 H Ur Epithelial Cells (Negative) HPF Rare Urine Crystals (Negative) HPF Negative Urine Bacteria (Negative) HPF Moderate Urine Casts (Negative) LPF Negative Urine Mucus (Negative) Moderate Ur Culture Indicated? Yes Urine Glucose (Negative) mg/dL Negative Quality:SDOH Health Related Social Needs: No Data to Display PFSH All Active Problems (Updated 01/06/24 @ 13:42 by KULDIP Duarte) Hematuria (Acute) Retention of urine (Acute) Chest pain (Acute) Alzheimer's dementia without behavioral disturbance (Acute) Macular degeneration (Acute) Penile rash (Acute) Dementia (Chronic) Amnesia memory loss (Acute) Hypercalcemia (Acute) Domestic problems (Acute) Falls (Acute) Skin lesion of right lower extremity (Acute) Encounter for annual physical exam (Acute) Hypertension (Chronic) same meds Anemia (Acute 10/09/08) History of cataract removal with insertion of prosthetic lens (Acute) Idiopathic scoliosis (Acute) Impaired fasting glucose (Acute) Status post arthroscopy of shoulder (Acute) Status post hip replacement (Acute) Status post rotator cuff repair (Acute) Status post transurethral resection of prostate (Acute) Angioedema (Acute) idiopathic Benign prostatic hyperplasia (Acute) prostate nodule; 2006- elevated PSA; 2006 renal insuff. secondary to [id number] ([place]) Chest pain (Acute) 1997-angina; neg. stress test; 12/17 neg. 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 Grandmother Essential hypertension Brother Essential hypertension Son No problems noted. Son No problems noted. Son No problems noted. Daughter No problems noted. Social History Smoking/Tobacco Use Status: Former Tobacco Use Smoking risk assessment performed?: Yes Alcohol Intake: current Alcohol Intake frequency: a few times a month Alcohol type: hard liquor Drug use: Never Substance use type: does not use Household members: spouse Housing: apartment Number of Children: 4 number of grandchildren: 7 Pets and animals: Yes Pets and animals: cat(s) What is your relationship status?: Panel score (0-1 are the most socially isolated patients): 1 What type of physical activity do you participate in: walking Seatbelt use: always Do you feel safe at home: Yes Do you feel safe in your relationship?: Yes
--- NOTE | 2024-01-06 10:15 | DI.US_ITS ---
Exam(s) US RENAL EXAM: US RENAL CLINICAL HISTORY: hematuria per care team, alzheimerfarida. TECHNIQUE: Dumont scale, color and spectral Doppler were used. COMPARISON: CT CT ABDOMEN PELVIS W from 04/02/2023 FINDINGS: Renal size in cm: Right: 9.9. Left: 12.1. Echogenicity: Normal. Hydronephrosis: No. Cyst or mass: There are stable bilateral simple renal cysts. No follow-up is recommended. Nephrolithiasis: No. Other findings: None. Bladder:The urinary bladder is incompletely distended limiting evaluation. There is a Holland catheter in place. There does appear to be thickening of the wall of the urinary bladder. Ureteral jets: Right: Visualized and unremarkable. Left: Visualized and unremarkable. Prevoid vol:140 cc Postvoid vol:0 cc Renal color flow: Symmetric and within normal limits. IMPRESSION: 1. No evidence of hydronephrosis. 2. Holland catheter is seen in the urinary bladder. 3. Stable bilateral simple renal cysts. No follow-up is recommended. DATA REPOSITORY:
[2024-01-06 10:41] LABS: Bilirubin Negative (Negative); Blood Large (Negative); Clarity Cloudy (Clear); Glucose Negative (Negative); Ketones Negative (Negative); Leukocyte Esterase Small (Negative); Nitrite Negative (Negative); Specific Gravity 1.025 (1.005-1.025); Urobilinogen 0.2 mg/dL (Up to 0.2); pH 6.5 (5-8)
[2024-01-06 10:49] LABS: Abs Immature Grans 0.02 10^3/uL (0.0-0.06); Absolute Basophil Count 0.04 10^3/uL (0.0-0.2); Absolute Eosinophil Count 0.14 10^3/uL (0.0-0.7); Absolute Lymphocyte Count 0.92 10^3/uL (1.2-3.4); Absolute Monocyte Count 0.42 10^3/uL (0.1-0.8); Absolute Neutrophil Count 4.09 10^3/uL (1.2-6.7); Basophils % 0.7 %; Eosinophils % 2.5 %; HCT 42.8 % (40.0-50.0); Immature Grans % 0.4 %; Lymphocytes % 16.3 %; MCH 32.2 pg (27.0-33.0); MCHC 32.7 % (32.0-36.0); MCV 98 fL (80-95); MPV 8.8 fL (8.0-11.0); Monocytes % 7.5 %; Neutrophils % 72.6 %; Platelet Count 109 10^3/uL (130-400); RBC 4.35 10^6/uL (4.36-5.78); RDW 13.3 % (11.8-14.1); RDW-SD 48.5 fL; WBC 5.63 10^3/uL (4.4-10.8)
[2024-01-06 10:52] LABS: Bacteria Moderate HPF (Negative); C & S Indicated? Yes; Casts Negative LPF (Negative); Crystals Negative HPF (Negative); Epithelial Cells Rare HPF (Negative); Mucus Moderate (Negative); RBC >50 HPF (0-2)
[2024-01-06 10:58] LABS: Anion Gap 5.5 mmol/L (3-11); BUN 16 mg/dL (7-18); CO2 29.5 mmol/L (21.0-32.0); CREATININE 1.2 mg/dL (0.70-1.30); Calcium 9.1 mg/dL (8.5-10.1); Chloride 106 mmol/L (98-107); Estimated GFR 59.63 (mL/min/1.73m2); Glucose 86 mg/dL (74-106); Potassium 4.3 mmol/L (3.5-5.1); Sodium 141 mmol/L (136-145)
[2024-01-06 10:59] LABS: Lipase 29 U/L (16-77)
[2024-01-06 13:04] VITALS: BP 111/80; PULSE 72; O2SAT 93
--- NOTE | 2024-01-06 15:03 | NUR.NOTE ---
Referral faxed to [facility] for follow up cystoscopy in 1 week. Nursing Note:
--- NOTE | 2024-01-11 08:27 | NUR.NOTE ---
Accessed chart to determine antibiotic on discharge for urine culture. Result given to Dr Ortega. Nursing Note:
--- NOTE | 2024-01-11 08:48 | W.ED.FU ---
Date of service: 12/27/23 Follow Up Plan: Culture results received on this patient. I reviewed the emergency department record and noted that he had hematuria, and was not discharged on medication. 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 He does also have 50-100 K E. coli. Discussed with urology, given his lack of systemic symptoms, they recommend treating only if hematuria persists. I called the [facility] and spoke with the patient's nurse. She reports that the hematuria has greatly improved, but they have already started the patient on Cipro. At this time no additional intervention is needed.
== END 2024-01-06 14:55 | disposition home or self-care (01) ==
PROVIDERS: Emergency Provider Physician Assistant; PCP Nurse Practitioner Gerontology
DX: M54.50 Low back pain, unspecified (principal); R31.9 Hematuria, unspecified; G30.1 Alzheimer's disease with late onset
CPT/HCPCS: 76770; 80048; 83690; 87077; 99284; 81003; 81015; 85025; 87086; 87186; 99283

== ENCOUNTER 2024-03-20 19:11 | Outpatient (REF) | payer MEDICARE, MEDICAID, SELFPAY ==
[2024-03-20 20:11] LABS: Abs Immature Grans 0.02 10^3/uL (0.0-0.06); Absolute Basophil Count 0.04 10^3/uL (0.0-0.2); Absolute Lymphocyte Count 1.33 10^3/uL (1.2-3.4); Absolute Monocyte Count 0.54 10^3/uL (0.1-0.8); Basophils % 0.7 %; Eosinophils % 5.3 %; HCT 43.5 % (40.0-50.0); HGB 13.8 g/dL (13.5-17.5); Immature Grans % 0.4 %; Lymphocytes % 23.6 %; MCH 31.4 pg (27.0-33.0); MCHC 31.7 % (32.0-36.0); MCV 99 fL (80-95); MPV 9.7 fL (8.0-11.0); Monocytes % 9.6 %; Neutrophils % 60.4 %; Platelet Count 136 10^3/uL (130-400); RDW 13.5 % (11.8-14.1); RDW-SD 49.1 fL; WBC 5.63 10^3/uL (4.4-10.8)
[2024-03-20 20:33] LABS: ALT 19 U/L (16-63); AST 17 U/L (15-37); Albumin 3.4 g/dL (3.4-5.0); Alkaline Phosphatase 69 U/L (46-116); BUN 15 mg/dL (7-18); Bilirubin, Total 0.36 mg/dL (0.2-1.0); CREATININE 1.3 mg/dL (0.70-1.30); Calcium 9.6 mg/dL (8.5-10.1); Chloride 104 mmol/L (98-107); Estimated GFR 54.17 (mL/min/1.73m2); Ferritin 103 ng/mL (26-388); Glucose 95 mg/dL (74-106); Potassium 4.2 mmol/L (3.5-5.1); Sodium 138 mmol/L (136-145); Total Protein 6.1 g/dL (6.4-8.2)
== END 2024-03-20 19:12 | disposition home or self-care (01) ==
LOC: LBN 19:11
PROVIDERS: PCP Nurse Practitioner Gerontology; Visit Provider Nurse Practitioner Gerontology
DX: D64.9 Anemia, unspecified (principal); R31.9 Hematuria, unspecified; R79.89 Other specified abnormal findings of blood chemistry
CPT/HCPCS: 80053; 82728; 85025

== ENCOUNTER → 2024-04-12 09:13 | Outpatient (BNVA) | payer MEDICARE, MEDICAID, SELFPAY | PROVIDERS: PCP Nurse Practitioner Gerontology; Visit Provider Nurse Practitioner Gerontology | DX: R33.8 Other retention of urine (principal) | CPT/HCPCS: 99213 ==

== ENCOUNTER 2024-07-07 11:04 | Emergency (ER) | payer MEDICARE, MEDICAID, SELFPAY ==
[2024-07-07 11:05] VITALS: BP 159/77; PULSE 91; RESP 18; TEMP 36; O2SAT 92
[2024-07-07 11:21] LABS: Abs Immature Grans 0.06 10^3/uL (0.0-0.06); Absolute Basophil Count 0.03 10^3/uL (0.0-0.2); Absolute Eosinophil Count 0.01 10^3/uL (0.0-0.7); Absolute Lymphocyte Count 0.59 10^3/uL (1.2-3.4); Absolute Monocyte Count 0.92 10^3/uL (0.1-0.8); Basophils % 0.3 %; Eosinophils % 0.1 %; HCT 38.5 % (40.0-50.0); HGB 12.5 g/dL (13.5-17.5); Immature Grans % 0.5 %; Lymphocytes % 5.3 %; MCH 31.6 pg (27.0-33.0); MCHC 32.5 % (32.0-36.0); MCV 97 fL (80-95); MPV 8.8 fL (8.0-11.0); Monocytes % 8.3 %; Neutrophils % 85.5 %; Platelet Count 127 10^3/uL (130-400); RBC 3.96 10^6/uL (4.36-5.78); RDW 13.4 % (11.8-14.1); RDW-SD 48.2 fL; WBC 11.05 10^3/uL (4.4-10.8)
[2024-07-07 11:24] LABS: Bilirubin Negative (Negative); Blood Moderate (Negative); Clarity Cloudy (Clear); Glucose Negative (Negative); Ketones Negative (Negative); Leukocyte Esterase Moderate (Negative); Nitrite Positive (Negative); Specific Gravity 1.025 (1.005-1.025); Urobilinogen 0.2 mg/dL (Up to 0.2); pH 5.5 (5-8)
[2024-07-07 11:24] LABS: Absolute Neutrophil Count 9.45 10^3/uL (1.2-6.7)
--- NOTE | 2024-07-07 11:26 | ED.GENADUL_ITS ---
Discharge Plan Disposition Patient Disposition: Home Condition: Stable Discharge Details Clinical Impression: Urinary tract infection Primary Care Provider: Debra Shah ED Provider: Mark Berrios Home Meds and New Rx's Prescriptions: New ciprofloxacin HCl 500 mg tablet 500 mg PO BID 10 Days Qty: 20 0RF Continued nitroglycerin [Nitrostat] 0.4 mg tablet, sublingual 0.4 mg Sublingual PRN Qty: 25 0RF Rx Instructions: 1 TAB PRN tamsulosin [Flomax] 0.4 mg capsule 0.4 mg PO DAILY atorvastatin 40 mg tablet 20 mg PO DAILY cholecalciferol (vitamin D3) 1,000 UNIT capsule 1,000 unit PO QAM cyanocobalamin (vitamin B-12) [Vitamin B-12] 1,000 MCG tablet 1,000 mcg PO DAILY acetaminophen [Arthritis Pain Reliever] 650 MG tablet extended release 650 mg PO Q8H PRN memantine 10 mg tablet 10 mg PO BID Qty: 180 3RF omeprazole 20 mg capsule,delayed release(DR/EC) 20 mg PO DAILY Qty: 90 3RF melatonin 5 mg capsule 5 mg PO QPM Qty: 90 3RF quetiapine 25 mg tablet 12.5 mg PO .COMPLEX Qty: 90 3RF Rx Instructions: 12.5 mg orally 4pm daily; Xarelto 10 mg tablet 2.5 mg PO DAILY lidocaine [Aspercreme (lidocaine)] 4 % adhesive patch,medicated 1 patch topical QDAY polyethylene glycol 3350 [Miralax] 17 gram Powder In Packet 17 g PO DAILY docusate sodium [Colace] 100 mg Capsule 100 mg PO BID Refresh Optive 0.5-0.9 % Drops 1 drp OPHTHALMIC (EYE) BID Discharge Instructions Instructions: Ciprofloxacin (Systemic), Urinary Tract Infection, Adult ED Additional Instructions: You were seen in the emergency department for your patient's reported blood in catheter bag, may only see yellow urine but he does have a UTI with greater than 50 white blood cells on the microscopic exam. Starting him on ciprofloxacin, please dose this well away from his sertraline and follow specific fluoroquinolone dosing regimens you need to be careful with what food he intakes around administration of this medicine. Consult with your provider at your facility. Please return for any emergent concerns Referrals: Debra Shah, SARA [Primary Care Provider] - Discharge Data Discharge Date/Time-TO BE ENTERED AT DEPARTURE: 07/07/24 12:33 HPI General Date/Time Provider Initiated Documentation: 07/07/24 11:11 . HPI Narrative: 83 year-old MALE presents to ED today by EMS with a chief complaint of reported blood in chronic ellis bag by SNF staff at the [facility], currently only has yellow urine in bag with onset today. Quality described as no physical complaints per patient, no radiation to fever, hip pain, abdominal pain, nausea. Severity is described as 0/10. Palliating factors include nothing specific attempted. Provoking factors include nothing specific. Events leading up to the incident/Associated Symptoms: Patient has dementia at baseline. Patient not anticoagulated. Related Data Home Medications ?Medication ?Instructions ?Recorded ?Confirmed cholecalciferol (vitamin D3) 25 1,000 unit PO QAM 12/01/12 07/07/24 mcg (1,000 unit) capsule cyanocobalamin (vitamin B-12) 1,000 mcg PO DAILY 07/14/16 07/07/24 1,000 mcg tablet (Vitamin B-12) acetaminophen 650 mg 650 mg PO Q8H PRN 06/08/17 07/07/24 tablet,extended release (Arthritis Pain Reliever) nitroglycerin 0.4 mg sublingual 0.4 mg sublingual PRN #25 tab-caps 05/14/21 07/07/24 tablet (Nitrostat) memantine 10 mg tablet 10 mg PO BID #180 tabs 09/24/21 07/07/24 omeprazole 20 mg capsule,delayed 20 mg PO DAILY #90 tab-caps 11/18/21 07/07/24 release melatonin 5 mg capsule 5 mg PO QPM #90 caps 03/30/22 07/07/24 quetiapine 25 mg tablet 12.5 mg (1/2 x 25 mg) PO .COMPLEX 04/30/22 07/07/24 #90 tabs tamsulosin 0.4 mg capsule (Flomax) 0.4 mg PO DAILY 09/10/22 07/07/24 rivaroxaban 10 mg tablet (Xarelto) 2.5 mg PO DAILY 01/07/23 07/07/24 carboxymethylcellulose 0.5 1 drp ophthalmic (eye) BID 04/02/23 07/07/24 %-glycerin 0.9 % eye drops (Refresh Optive) docusate sodium 100 mg capsule 100 mg PO BID 04/02/23 07/07/24 (Colace) polyethylene glycol 3350 17 gram 17 g PO DAILY 04/02/23 07/07/24 oral powder packet (Miralax) atorvastatin 40 mg tablet 20 mg PO DAILY 04/12/24 07/07/24 ciprofloxacin HCl 500 mg tablet 500 mg PO BID UTI 10 days #20 tabs 07/07/24 lidocaine 4 % topical patch 1 patch topical QDAY 07/07/24 07/07/24 (Aspercreme (lidocaine)) Previous Rx's ?Medication ?Instructions ?Recorded nitroglycerin 0.4 mg sublingual 0.4 mg sublingual PRN #25 tab-caps 05/14/21 tablet (Nitrostat) memantine 10 mg tablet 10 mg PO BID #180 tabs 09/24/21 omeprazole 20 mg capsule,delayed 20 mg PO DAILY #90 tab-caps 11/18/21 release melatonin 5 mg capsule 5 mg PO QPM #90 caps 03/30/22 quetiapine 25 mg tablet 12.5 mg (1/2 x 25 mg) PO .COMPLEX 04/30/22 #90 tabs ciprofloxacin HCl 500 mg tablet 500 mg PO BID UTI 10 days #20 tabs 07/07/24 Allergies Allergy/AdvReac Type Severity Reaction Status Date / Time azithromycin Allergy Severe LIP Verified 07/07/24 11:25 SWELLING ibuprofen Allergy Intermediate angioedema Verified 07/07/24 11:25 Penicillins Allergy Intermediate LIP Verified 07/07/24 11:25 SWELLING Calcium Channel Blocking Allergy Unknown HIVES Verified 07/07/24 11:25 Agent Dilt diltiazem Allergy Unknown HIVES Verified 07/07/24 11:25 Sulfa (Sulfonamide Allergy Unknown SKIN RASH Verified 07/07/24 11:25 Antibiotics) SODIUM NITRITE Allergy Severe Anaphylaxsi Uncoded 07/07/24 11:25 s General Stated Complaint: GenMedical CAMERON: 3 Review of Systems All systems reviewed & are unremarkable except as noted in HPI and below Exam Narrative Exam Narrative: GENERAL APPEARANCE: Well-nourished, non-toxic, awake and alert, atraumatic, no acute distress. SKIN: Warm, pink, dry, intact, without rashes/lesions/ulcerations. HEAD: Normocephalic, atraumatic, normal hair distribution for gender/age. EYES: Normal conjunctiva, no exudates on lids/lashes. ENT: Nares patent, no circumoral cyanosis, no facial swelling NECK: Supple, trachea midline, painless cervical ROM. LUNGS/CHEST: Lungs CTA bilaterally, non-labored respirations, normal A/P diameter, symmetrical expansion, no chest wall deformity HEART (CV/PV): Regular rate and rhythm without murmur, no peripheral edema, no JVD. ABDOMEN: Soft, non-distended, no guarding, no CVA tenderness to percussion bilaterally, no suprapubic tenderness. MSK: Normal ROM, no swelling/deformity to bilateral UEs or LEs, moving all extremities without weakness, no cyanosis, spine midline without tenderness, normal curvature. NEURO: Mental Status AAOx4 - alert to person, place, time, events No facial droop, no forehead involvement. Motor: No focal weakness - strength 5/5 in bilateral UEs and LEs, proximal and distal, symmetric. Sensory: sensation intact to light touch globally. Gait normal: patient ambulated without ataxia into ED room. PSYCH: euthymic, cooperative, pleasant, appropriate speech Course Vital Signs Vital signs: Vital Signs Temperature 36.0 C L 07/07/24 11:05 Pulse 91 H 07/07/24 11:05 Respiratory Rate 18 07/07/24 11:05 Blood Pressure 159/77 H 07/07/24 11:05 Pulse Oximetry 92 07/07/24 11:05 Temperature 36.0 C L 07/07/24 11:05 Temperature Source Temporal Artery Scan 07/07/24 11:05 Pulse 91 H 07/07/24 11:05 Respiratory Rate 18 07/07/24 11:05 Blood Pressure 159/77 H 07/07/24 11:05 Pulse Oximetry 92 07/07/24 11:05 Oxygen Delivery Method Room Air 07/07/24 11:05 Oxygen Flow Rate 0 07/07/24 11:05 Lab/Test Results Lab/Test Results: Laboratory Tests Range/Units 07/07/24 07/07/24 11:13 11:16 WBC (4.4-10.8) 10^3/uL 11.05 H RBC (4.36-5.78) 10^6/uL 3.96 L Hgb (13.5-17.5) g/dL 12.5 L Hct (40.0-50.0) % 38.5 L MCV (80-95) fL 97 H MCH (27.0-33.0) pg 31.6 MCHC (32.0-36.0) % 32.5 RDW (11.8-14.1) % 13.4 Plt Count (130-400) 10^3/uL 127 L MPV (8.0-11.0) fL 8.8 Immature Gran % % 0.5 Neutrophils % % 85.5 Lymphocytes % % 5.3 Monocytes % % 8.3 Eosinophils % % 0.1 Basophils % % 0.3 Nucleated RBC % (0.0-0.3) % 0.0 Absolute Neutrophils (1.2-6.7) 10^3/uL 9.45 H Absolute Lymphocytes (1.2-3.4) 10^3/uL 0.59 L Absolute Monocytes (0.1-0.8) 10^3/uL 0.92 H Absolute Eosinophils (0.0-0.7) 10^3/uL 0.01 Absolute Basophils (0.0-0.2) 10^3/uL 0.03 Urine Color (Yellow) Yellow Urine Clarity (Clear) Cloudy Urine pH (5-8) 5.5 Ur Specific [place] (1.005-1.025) 1.025 Urine Protein (Neg-Trace) mg/dL 100 H Urine Ketones (Negative) mg/dL Negative Urine Blood (Negative) Moderate H Urine Nitrite (Negative) Positive H Urine Bilirubin (Negative) Negative Urine Urobilinogen (Up to 0.2) mg/dL 0.2 Ur Leukocyte Esterase (Negative) Moderate H Urine Glucose (Negative) mg/dL Negative Medical Decision Making This dictation utilizes [id number] dictation software and may contain unedited grammatical errors. 83 year-old MALE presents to ED today by EMS with a chief complaint of reported blood in chronic ellis bag by SNF staff at the [facility], currently only has yellow urine in bag with onset today. Quality described as no physical complaints per patient, no radiation to fever, hip pain, abdominal pain, nausea. Severity is described as 0/10. Palliating factors include nothing specific attempted. Provoking factors include nothing specific. Events leading up to the incident/Associated Symptoms: Patient has dementia at baseline. Patients' medical history: [ ]. Family and social history: [ ]. Pertinent exam findings / vital signs include no signs of trauma, benign abdomen, no CVA tenderness to percussion bilaterally, lungs CTA. Differential / pathologies of concern include UTI, PNA, renal colic less likely. Diagnostic studies of: -XR Chest for mild hypoxia, question baseline- UA CBC, CMP. -CBC benign -CMP no actionable abnormality -UA shows UTI Interventions of: -Started on ciprofloxacin for UTI. ED Course/Assessment/Plan: 83-year-old male sent in by SNF for reported blood in catheter bag when change, his current catheter bag has no blood whatsoever, yellow urine, has UTI, otherwise nontoxic vitals, no acute distress, no complaints, sent back on ciprofloxacin for UTI. Findings not consistent with sepsis, leukocytosis, pneumonia, respiratory distress, trauma, pyelonephritis. Disposition of Urinary Tract Infection. Patient verbalized understanding of the plan and return to ED criteria and engaged in shared decision making. Medical Records Medical records reviewed: Yes I reviewed the patient's medical records. Imaging Data Radiologic Study: Attestation: I personally reviewed and interpreted this imaging study as follows: Imaging: X-Ray Radiologist's impression: EXAM: XR CHEST 2V PA LATERAL CLINICAL HISTORY: SpO2 91-93%, dementia TECHNIQUE: 2D digital imaging was performed. Two views. COMPARISON: CR XR CHEST 2V PA LATERAL from 01/07/2023 FINDINGS: HEART: Normal size. Aorta: Tortuous. Calcification. PULMONARY VASCULATURE: Normal. MEDIASTINUM: Moderate size hiatal hernia. LUNGS: Clear. PLEURAL SPACE: No pleural effusion or pneumothorax. BONE:Left shoulder prosthesis. Metallic anchors in the right humeral head. SOFT TISSUES: Unremarkable. IMPRESSION: No acute abnormality. Lab Data Lab results reviewed: Yes I reviewed the patient's lab results. Labs: 07/07/24 11:16 Urine - Reflex from Ua Urine Culture - Pending Laboratory Tests Range/Units 07/07/24 07/07/24 11:13 11:16 WBC (4.4-10.8) 10^3/uL 11.05 H RBC (4.36-5.78) 10^6/uL 3.96 L Hgb (13.5-17.5) g/dL 12.5 L Hct (40.0-50.0) % 38.5 L MCV (80-95) fL 97 H MCH (27.0-33.0) pg 31.6 MCHC (32.0-36.0) % 32.5 RDW (11.8-14.1) % 13.4 Plt Count (130-400) 10^3/uL 127 L MPV (8.0-11.0) fL 8.8 Immature Gran % % 0.5 Neutrophils % % 85.5 Lymphocytes % % 5.3 Monocytes % % 8.3 Eosinophils % % 0.1 Basophils % % 0.3 Nucleated RBC % (0.0-0.3) % 0.0 Absolute Neutrophils (1.2-6.7) 10^3/uL 9.45 H Absolute Lymphocytes (1.2-3.4) 10^3/uL 0.59 L Absolute Monocytes (0.1-0.8) 10^3/uL 0.92 H Absolute Eosinophils (0.0-0.7) 10^3/uL 0.01 Absolute Basophils (0.0-0.2) 10^3/uL 0.03 Sodium (136-145) mmol/L 137 Potassium (3.5-5.1) mmol/L 4.4 Chloride (98-107) mmol/L 104 Carbon Dioxide (21.0-32.0) mmol/L 28.1 Anion Gap (3-11) mmol/L 4.9 BUN (7-18) mg/dL 20 H Creatinine (0.70-1.30) mg/dL 1.2 Est GFR (CKD-EPI 2020) (mL/min/1.73m2) 59.63 Glucose (74-106) mg/dL 108 H Calcium (8.5-10.1) mg/dL 10.6 H Total Bilirubin (0.2-1.0) mg/dL 0.60 AST (15-37) U/L 10 L ALT (16-63) U/L 9 L Alkaline Phosphatase (46-116) U/L 79 Total Protein (6.4-8.2) g/dL 6.7 Albumin (3.4-5.0) g/dL 2.9 L Urine Color (Yellow) Yellow Urine Clarity (Clear) Cloudy Urine pH (5-8) 5.5 Ur Specific [place] (1.005-1.025) 1.025 Urine Protein (Neg-Trace) mg/dL 100 H Urine Ketones (Negative) mg/dL Negative Urine Blood (Negative) Moderate H Urine Nitrite (Negative) Positive H Urine Bilirubin (Negative) Negative Urine Urobilinogen (Up to 0.2) mg/dL 0.2 Ur Leukocyte Esterase (Negative) Moderate H Urine RBC (0-2) HPF 10-20 H Urine WBC (0-5) HPF >50 H Ur Epithelial Cells (Negative) HPF Negative Urine Crystals (Negative) HPF Negative Urine Bacteria (Negative) HPF Many Urine Casts (Negative) LPF Negative Urine Mucus (Negative) Negative Ur Culture Indicated? Yes Urine Glucose (Negative) mg/dL Negative Quality:SDOH Health Related Social Needs: No Data to Display PFSH All Active Problems (Updated 07/07/24 @ 11:39 by KULDIP Duarte) Urinary tract infection (Acute) Retention of urine (Acute) Chest pain (Acute) Alzheimer's dementia without behavioral disturbance (Acute) Macular degeneration (Acute) Penile rash (Acute) Dementia (Chronic) Amnesia memory loss (Acute) Hypercalcemia (Acute) Domestic problems (Acute) Falls (Acute) Skin lesion of right lower extremity (Acute) Encounter for annual physical exam (Acute) Hypertension (Chronic) same meds Anemia (Acute 10/09/08) History of cataract removal with insertion of prosthetic lens (Acute) Idiopathic scoliosis (Acute) Impaired fasting glucose (Acute) Status post arthroscopy of shoulder (Acute) Status post hip replacement (Acute) Status post rotator cuff repair (Acute) Status post transurethral resection of prostate (Acute) Angioedema (Acute) idiopathic Benign prostatic hyperplasia (Acute) prostate nodule; 2006- elevated PSA; 2006 renal insuff. secondary to [id number] ([place]) Chest pain (Acute) 1997-angina; neg. stress test; 12/17 neg. 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 Grandmother Essential hypertension Brother Essential hypertension Son No problems noted. Son No problems noted. Son No problems noted. Daughter No problems noted. Social History Smoking/Tobacco Use Status: Former Tobacco Use Smoking risk assessment performed?: Yes Alcohol Intake: current Alcohol Intake frequency: a few times a month Alcohol type: hard liquor Drug use: Never Substance use type: does not use Household members: spouse Housing: apartment Number of Children: 4 number of grandchildren: 7 Pets and animals: Yes Pets and animals: cat(s) What is your relationship status?: Panel score (0-1 are the most socially isolated patients): 1 What type of physical activity do you participate in: walking Seatbelt use: always Do you feel safe at home: Yes Do you feel safe in your relationship?: Yes
[2024-07-07 11:31] LABS: Bacteria Many HPF (Negative); C & S Indicated? Yes; Casts Negative LPF (Negative); Crystals Negative HPF (Negative); Epithelial Cells Negative HPF (Negative); Mucus Negative (Negative); WBC >50 HPF (0-5)
[2024-07-07 11:35] VITALS: RESP 18
--- NOTE | 2024-07-07 11:38 | DI.RAD_ITS ---
Exam(s) XR CHEST 2V PA LATERAL EXAM: XR CHEST 2V PA LATERAL CLINICAL HISTORY: SpO2 91-93%, dementia TECHNIQUE: 2D digital imaging was performed. Two views. COMPARISON: CR XR CHEST 2V PA LATERAL from 01/07/2023 FINDINGS: HEART: Normal size. Aorta: Tortuous. Calcification. PULMONARY VASCULATURE: Normal. MEDIASTINUM: Moderate size hiatal hernia. LUNGS: Clear. PLEURAL SPACE: No pleural effusion or pneumothorax. BONE:Left shoulder prosthesis. Metallic anchors in the right humeral head. SOFT TISSUES: Unremarkable. IMPRESSION: No acute abnormality. DATA REPOSITORY: RADIATION DOSE DELIVERED:
[2024-07-07 11:42] LABS: ALT 9 U/L (16-63); AST 10 U/L (15-37); Albumin 2.9 g/dL (3.4-5.0); Alkaline Phosphatase 79 U/L (46-116); Anion Gap 4.9 mmol/L (3-11); BUN 20 mg/dL (7-18); CO2 28.1 mmol/L (21.0-32.0); CREATININE 1.2 mg/dL (0.70-1.30); Calcium 10.6 mg/dL (8.5-10.1); Chloride 104 mmol/L (98-107); Estimated GFR 59.63 (mL/min/1.73m2); Glucose 108 mg/dL (74-106); Potassium 4.4 mmol/L (3.5-5.1); Sodium 137 mmol/L (136-145); Total Protein 6.7 g/dL (6.4-8.2)
[2024-07-07] MEDS: Ciprofloxacin 500 MG TAB PO (11:45)
[2024-07-07 11:53] VITALS: BP 135/82; PULSE 93; RESP 19; TEMP 36.6; O2SAT 95
== END 2024-07-07 12:33 | disposition home or self-care (01) ==
PROVIDERS: Emergency Provider Physician Assistant; PCP Nurse Practitioner Gerontology
DX: N39.0 Urinary tract infection, site not specified (principal); I10 Essential (primary) hypertension; E78.5 Hyperlipidemia, unspecified; K21.9 Gastro-esophageal reflux disease without esophagitis; G30.9 Alzheimer's disease, unspecified; F02.80 Dementia in other diseases classified elsewhere, unspecified severity, without behavioral disturbance, psychotic disturbance, mood disturbance, and anxiety; Z79.01 Long term (current) use of anticoagulants; Z96.0 Presence of urogenital implants; Z87.891 Personal history of nicotine dependence
CPT/HCPCS: 80053; 87077; 71046; 81003; 81015; 85025; 87086; 87186

== ENCOUNTER 2024-07-16 23:46 | Observation (INO) | payer MEDICARE, MEDICAID, SELFPAY ==
[2024-07-16 23:54] VITALS: BP 122/79; PULSE 85; RESP 16; TEMP 36; O2SAT 95
--- NOTE | 2024-07-16 23:59 | W.ED.GENAD ---
Discharge Plan Discharge Details Chief Complaint: Cellulitis Clinical Impression: Scrotal bleeding, UTI (urinary tract infection), Chronic indwelling Holland catheter Primary Care Provider: Debra Shah ED Provider: Clarnece Butcher Selmer Meds and New Rx's Prescriptions: No Action nitroglycerin [Nitrostat] 0.4 mg tablet, sublingual 0.4 mg Sublingual PRN Qty: 25 0RF Rx Instructions: 1 TAB PRN tamsulosin [Flomax] 0.4 mg capsule 0.4 mg PO DAILY atorvastatin 40 mg tablet 20 mg PO DAILY cholecalciferol (vitamin D3) 1,000 UNIT capsule 1,000 unit PO QAM cyanocobalamin (vitamin B-12) [Vitamin B-12] 1,000 MCG tablet 1,000 mcg PO DAILY acetaminophen [Arthritis Pain Reliever] 650 MG tablet extended release 650 mg PO Q8H PRN memantine 10 mg tablet 10 mg PO BID Qty: 180 3RF omeprazole 20 mg capsule,delayed release(DR/EC) 20 mg PO DAILY Qty: 90 3RF melatonin 5 mg capsule 5 mg PO QPM Qty: 90 3RF quetiapine 25 mg tablet 12.5 mg PO .COMPLEX Qty: 90 3RF Rx Instructions: 12.5 mg orally 4pm daily; Xarelto 10 mg tablet 2.5 mg PO DAILY lidocaine [Aspercreme (lidocaine)] 4 % adhesive patch,medicated 1 patch topical QDAY polyethylene glycol 3350 [Miralax] 17 gram Powder In Packet 17 g PO DAILY docusate sodium [Colace] 100 mg Capsule 100 mg PO BID Refresh Optive 0.5-0.9 % Drops 1 drp OPHTHALMIC (EYE) BID ciprofloxacin HCl 250 mg tablet 250 mg PO BID HPI General Mode of arrival: EMS. Date/Time Provider Initiated Documentation: 07/16/24 23:59. Limitations to Documentation: other (Dementia). Information obtained by: patient, EMS, RN notes reviewed and old records reviewed. HPI Narrative: Patient presenting to ED from [facility] with drainage from presumed scrotal abscess. Patient is poor historian due to dementia. Currently denies any type of pain. Denies any vomiting and no fevers have been documented. By [facility] was placed on ciprofloxacin a couple of days ago for presumed abscess. Appears to have spontaneously opened and drained tonight. He has a chronic indwelling Holland in place. He himself has no complaints. Related Data Home Medications ?Medication ?Instructions ?Recorded ?Confirmed cholecalciferol (vitamin D3) 25 1,000 unit PO QAM 12/01/12 07/17/24 mcg (1,000 unit) capsule cyanocobalamin (vitamin B-12) 1,000 mcg PO DAILY 07/14/16 07/17/24 1,000 mcg tablet (Vitamin B-12) acetaminophen 650 mg 650 mg PO Q8H PRN 06/08/17 07/17/24 tablet,extended release (Arthritis Pain Reliever) nitroglycerin 0.4 mg sublingual 0.4 mg sublingual PRN #25 tab-caps 05/14/21 07/17/24 tablet (Nitrostat) memantine 10 mg tablet 10 mg PO BID #180 tabs 09/24/21 07/17/24 omeprazole 20 mg capsule,delayed 20 mg PO DAILY #90 tab-caps 11/18/21 07/17/24 release melatonin 5 mg capsule 5 mg PO QPM #90 caps 03/30/22 07/17/24 quetiapine 25 mg tablet 12.5 mg (1/2 x 25 mg) PO .COMPLEX 04/30/22 07/17/24 #90 tabs tamsulosin 0.4 mg capsule (Flomax) 0.4 mg PO DAILY 09/10/22 07/17/24 rivaroxaban 10 mg tablet (Xarelto) 2.5 mg PO DAILY 01/07/23 07/17/24 carboxymethylcellulose 0.5 1 drp ophthalmic (eye) BID 04/02/23 07/17/24 %-glycerin 0.9 % eye drops (Refresh Optive) docusate sodium 100 mg capsule 100 mg PO BID 04/02/23 07/17/24 (Colace) polyethylene glycol 3350 17 gram 17 g PO DAILY 04/02/23 07/17/24 oral powder packet (Miralax) atorvastatin 40 mg tablet 20 mg PO DAILY 04/12/24 07/17/24 lidocaine 4 % topical patch 1 patch topical QDAY 07/07/24 07/17/24 (Aspercreme (lidocaine)) ciprofloxacin HCl 250 mg tablet 250 mg PO BID 07/17/24 07/17/24 Previous Rx's ?Medication ?Instructions ?Recorded nitroglycerin 0.4 mg sublingual 0.4 mg sublingual PRN #25 tab-caps 05/14/21 tablet (Nitrostat) memantine 10 mg tablet 10 mg PO BID #180 tabs 09/24/21 omeprazole 20 mg capsule,delayed 20 mg PO DAILY #90 tab-caps 11/18/21 release melatonin 5 mg capsule 5 mg PO QPM #90 caps 03/30/22 quetiapine 25 mg tablet 12.5 mg (1/2 x 25 mg) PO .COMPLEX 04/30/22 #90 tabs Allergies Allergy/AdvReac Type Severity Reaction Status Date / Time azithromycin Allergy Severe LIP Verified 07/17/24 01:58 SWELLING ibuprofen Allergy Intermediate angioedema Verified 07/17/24 01:58 Penicillins Allergy Intermediate LIP Verified 07/17/24 01:58 SWELLING Calcium Channel Blocking Allergy Unknown HIVES Verified 07/17/24 01:58 Agent Dilt diltiazem Allergy Unknown HIVES Verified 07/17/24 01:58 Sulfa (Sulfonamide Allergy Unknown SKIN RASH Verified 07/17/24 01:58 Antibiotics) SODIUM NITRITE Allergy Severe Anaphylaxsi Uncoded 07/17/24 01:58 s General CAMERON: 3 Review of Systems Unobtainable due to (Unable to obtain due to dementia) Exam Narrative Exam Narrative: Const: WDWN elderly male in NAD. VS per triage. HEENT: NC/AT. Normal facial exam. Neck: Supple. Trachea midline. Lungs: Normal respiratory effort. Lungs are clear. Cor: RRR without murmur. Good radial pulses. GI: Soft/ND/NT. : Holland in place. Fullness to the left luis-scrotum without tenderness. Firm indurated mass without fluctuance inferior left scrotum with small amount of blood draining. Neuro: Awake,alert. Normal speech, mentation. Cranial nerves II - XII grossly intact. No gross motor or sensory deficit. Ext: No C/C/E. Medical Decision Making Patient presenting to ED for evaluation of possible scrotal abscess. He does have history of left scrotal abscess and was transferred to [facility] from here back in 2022. Denies any pain. Does have very firm indurated mass in the inferior left scrotum that appears to be draining small amount of blood. Per EMS, [facility] reports that it spontaneously ruptured tonight and was draining blood. Has some fullness to the left hemiscrotum. No significant erythema or warmth appreciated. Abdomen benign. He is on anticoagulation. He has chronic indwelling Holland. He is on oral Cipro at this time. Differential includes possible recurrent scrotal abscess versus hematoma versus hernia sac. Unable to obtain ultrasound tonight, will obtain CT abdomen pelvis. Laboratory studies sent. Patient's laboratory studies significant for white count of 11.3, hemoglobin 12.8. Kidney function with a creatinine 1.4, right around his baseline of 1.2-1.4. CT scan suggesting Holland balloon is in the prostatic urethra. Nursing to deflate and advance catheter. Does have large fluid collection in the left hemiscrotum of unclear etiology, thought possibly to be complex hydrocele but cannot completely rule out infection. Urinalysis is positive for nitrites and greater than 50 white cells with bacteria present. For now we will cover with ceftriaxone and vancomycin. Will plan scrotal ultrasound in the morning as well as urology consult. He remains stable without complaint at this time. Medical Records Medical records reviewed: Yes I reviewed the patient's medical records. Medical records narrative: presented in 2022 with scrotal abscess, followed by urology here now Imaging Data Radiologic Study: Imaging: CT Scan Radiologist's impression: Preliminary Report: IMPRESSION: 1. Large complex fluid collection in the left hemiscrotum suspicious for a large hydrocele. Clinical correlation is recommended to exclude superimposed infection given the provided clinical history of scrotal drainage. 2. Centrally located 10 mm x 10 mm x 16 mm left-sided fluid collection on images 106 of series 10 and 31 of series 6, uncertain etiology; however, an epididymal cyst or small abscess could have this appearance. Clinical correlation is recommended. 3. Holland catheter in-situ. Catheter balloon largely obscured by streak artifact from the hip prostheses but located in the expected vicinity of the prostate gland. Clinical correlation is recommended to exclude inflation of the catheter within the prostatic urethra. Balloon deflation with confident catheter advancement into the bladder lumen recommended. 4. 7.5 cm x 10.5 cm hiatal hernia with greater than half of the stomach located above the diaphragm. Lab Data Lab results reviewed: Yes I reviewed the patient's lab results. Lab results narrative: see [facility] All Active Problems (Updated 07/17/24 @ 03:19 by Clarence Butcher MD) Chronic indwelling Holland catheter (Acute) UTI (urinary tract infection) (Acute) Scrotal bleeding (Acute) Urinary tract infection (Acute) Retention of urine (Acute) Macular degeneration (Acute) Penile rash (Acute) Amnesia memory loss (Acute) Hypercalcemia (Acute) Domestic problems (Acute) Falls (Acute) Skin lesion of right lower extremity (Acute) Encounter for annual physical exam (Acute) Anemia (Acute 10/09/08) History of cataract removal with insertion of prosthetic lens (Acute) Idiopathic scoliosis (Acute) Impaired fasting glucose (Acute) Angioedema (Acute) 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 CRISTI XIONG; EGD Hyperlipidemia (12/06/12) Obstructive sleep apnea syndrome [facility]; C-PAP Surgical History ankle repair (~1980) Total replacement of hip (~2004) Transurethral prostatectomy (~2006) Rotator Cuff Repair (~2005) Extraction of cataract (~2010) Arthroscopy, Shoulder (~2009) Family History Mother Essential hypertension Hyperlipidemia Father Alzheimer disease Brother Hyperlipidemia Grandfather Heart disease Grandfather Heart disease Grandmother No problems noted. Grandmother Essential hypertension Brother Essential hypertension Son No problems noted. Son No problems noted. Son No problems noted. Daughter No problems noted. Social History Smoking/Tobacco Use Status: Former Tobacco Use Smoking risk assessment performed?: Yes Alcohol Intake: current Alcohol Intake frequency: a few times a month Alcohol type: hard liquor Drug use: Never Substance use type: does not use Household members: spouse Housing: apartment Number of Children: 4 number of grandchildren: 7 Pets and animals: Yes Pets and animals: cat(s) What is your relationship status?: Panel score (0-1 are the most socially isolated patients): 1 What type of physical activity do you participate in: walking Seatbelt use: always Do you feel safe at home: Yes Do you feel safe in your relationship?: Yes
[2024-07-17] VITALS (92 sets, daily range): BP systolic 110–161; BP diastolic 61–113; PULSE 63–144; RESP 13–40; TEMP 36–36.8; O2SAT 91–99; BMI 26.6
--- NOTE | 2024-07-17 | DI.CT_ITS ---
Exam(s) CT ABDOMEN PELVIS W EXAM: CT ABDOMEN PELVIS W CLINICAL HISTORY: left scrotal swelling/drainage TECHNIQUE: Imaging Protocol: Axial computed tomography images with coronal and sagittal reformatted images were created and reviewed. CONTRAST MATERIAL: Intravenous: Omnipaque 350 Contrast volume:75 mL Oral: No COMPARISON: CT CT ABDOMEN PELVIS W from 01/07/[address] ABDOMEN PELVIS W from 04/02/2023 FINDINGS: The examination is limited due to patient motion artifact. ABDOMEN: Lung Bases: Coronary artery calcifications are present. There is a large herniation with a significa nt portion of the stomach above the diaphragm. Calcified granuloma seen in the right lower lobe. Liver: Normal density. No measurable mass. Portal, Superior Mesenteric, and Splenic Veins: Unremarkable. Gallbladder and Biliary Tract: No radiodense calculus or dilation. Pancreas: Normal density, no abnormal calcifications or inflammatory process. Spleen: Normal. Adrenals: No masses seen. Kidneys: Normal size, contour and axis. No radiodense stones or obstructive uropathy. Stable bilatera l renal cysts. No follow-up is recommended. Abdominal Aorta: There is ectasia of the abdominal aorta measuring 2.8 cm. 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 There is ectasia of the left co mmon iliac artery measuring 2 cm. Atherosclerotic calcification is present. Bowel: No obstruction or bowel wall thickening. There are diverticula seen in the colon without evide nce of acute diverticulitis. There is no evidence of appendicitis. The stomach is incompletely dist ended limiting evaluation. Peritoneal Cavity: No ascites, collection or mesenteric inflammatory response. No free air. Lymph Nodes: Within normal limits. Bones: Within normal limits for the patient's age. The patient has bilateral total hip arthroplastie s. There is artifact in the pelvis secondary to the orthopedic hardware. Soft Tissues: There is a small fat containing umbilical hernia. At the posterior aspect of the scrot al sac on the right there is a heterogeneous soft tissue present. There are associated areas of decr eased attenuation. The largest measuring 1 cm. It appears to be extratesticular. It appears to lie in the soft tissues of the scrotal sac. PELVIS: Bladder: The patient has a Holland catheter in place. The urinary bladder is incompletely distended li miting evaluation. No gross abnormality is identified. Reproductive Organs: There is a large left hydrocele. Lymph Nodes: Within normal limits. Bones: Within normal limits for the patient's age. IMPRESSION: 1. Heterogeneous partially cystic area in the scrotal soft tissues posteriorly on the left. An infec tious process including abscess should be considered. Soft tissue neoplastic process cannot be entir rich excluded. Findings were discussed with Dr. Dumont on 07/17/2024. 2. Incidental findings in the abdomen and pelvis as described above. RADIATION DOSE DELIVERED: 480.54mGy.cm Total DLP DATA REPOSITORY: All CT scans at this facility are submitted to the National Radiology Data Registry (NRDR) Dose Index Registry (DIR) with the [employer] ([employer]). RADIATION OPTIMIZATION: All CT scans at this facility use at least one of these dose optimization te chniques: automated exposure control; mA and/or kV adjustment per patient size (includes targeted exa ms where dose is matched to clinical indication); or iterative reconstruction.
[2024-07-17 00:27] LABS: Abs Immature Grans 0.05 10^3/uL (0.0-0.06); Absolute Basophil Count 0.05 10^3/uL (0.0-0.2); Absolute Eosinophil Count 0.24 10^3/uL (0.0-0.7); Absolute Lymphocyte Count 1.12 10^3/uL (1.2-3.4); Basophils % 0.4 %; Eosinophils % 2.1 %; HCT 39.9 % (40.0-50.0); HGB 12.8 g/dL (13.5-17.5); Immature Grans % 0.4 %; Lymphocytes % 9.9 %; MCH 31.5 pg (27.0-33.0); MCHC 32.1 % (32.0-36.0); MCV 98 fL (80-95); MPV 8.6 fL (8.0-11.0); Monocytes % 7.1 %; Neutrophils % 80.1 %; Platelet Count 200 10^3/uL (130-400); RBC 4.06 10^6/uL (4.36-5.78); RDW 13.5 % (11.8-14.1); RDW-SD 49.1 fL; WBC 11.29 10^3/uL (4.4-10.8)
[2024-07-17 00:41] LABS: ALT 10 U/L (16-63); AST 13 U/L (15-37); Albumin 2.9 g/dL (3.4-5.0); Alkaline Phosphatase 107 U/L (46-116); Anion Gap 2.1 mmol/L (3-11); BUN 18 mg/dL (7-18); Bilirubin, Total 0.39 mg/dL (0.2-1.0); CO2 31.9 mmol/L (21.0-32.0); CREATININE 1.4 mg/dL (0.70-1.30); Calcium 10.4 mg/dL (8.5-10.1); Chloride 105 mmol/L (98-107); Estimated GFR 49.56 (mL/min/1.73m2); Glucose 89 mg/dL (74-106); Potassium 4.5 mmol/L (3.5-5.1); Sodium 139 mmol/L (136-145)
[2024-07-17 00:42] LABS: Absolute Neutrophil Count 9.04 10^3/uL (1.2-6.7)
[2024-07-17] MEDS: Omnipaque 350 MG/ML 100 ML BTL IJ (01:00)
[2024-07-17] MEDS: Normal Saline - Diluent 50 ML VIAL IJ (01:01)
[2024-07-17] MEDS: Normal Saline Flush 10 ML SYR IVP ×3 (01:01→20:14)
[2024-07-17 01:55] LABS: Bilirubin Negative (Negative); Blood Moderate (Negative); Clarity Sl Cloudy (Clear); Glucose Negative (Negative); Ketones Negative (Negative); Leukocyte Esterase Small (Negative); Nitrite Positive (Negative); Specific Gravity >= 1.030 (1.005-1.025); Urobilinogen 0.2 mg/dL (Up to 0.2); pH 5.5 (5-8)
[2024-07-17 02:02] LABS: WBC >50 HPF (0-5)
[2024-07-17 02:03] LABS: Bacteria Many HPF (Negative); C & S Indicated? Yes; Casts Negative LPF (Negative); Crystals Negative HPF (Negative); Epithelial Cells Few HPF (Negative); Mucus Trace (Negative)
--- NOTE | 2024-07-17 02:11 | DI.VRAD_ITS ---
PROCEDURE INFORMATION: Exam: CT Abdomen And Pelvis With Contrast Exam date and time: 07/17/2024 1:01 AM Age: 83 years old Clinical indication: Pain; Other: Left scrotal swelling, drainage; Prior surgery; Surgery date: 6+ months; Surgery type: Bilat hips, transurethral prostatectomy TECHNIQUE: Imaging protocol: Computed tomography of the abdomen and pelvis with contrast. Radiation optimization: All CT scans at this facility use at least one of these dose optimization techniques: automated exposure control; mA and/or kV adjustment per patient size (includes targeted exams where dose is matched to clinical indication); or iterative reconstruction. Contrast material: OMNIPAQUE 350; Contrast volume: 75 ml; Contrast route: INTRAVENOUS (IV); COMPARISON: CT ABDOMEN PELVIS W 04/02/2023 6:45 PM FINDINGS: Tubes, catheters and devices: Holland catheter in-situ with its retention balloon almost completely obscured by streak artifact but inflated in the expected location of the prostate gland, image 81 of series 10. Lungs: Streaky and dependent atelectasis at the lung bases. Liver: Normal appearing liver. Gallbladder and biliary ducts: Normal appearing gallbladder. No calcified gallstones. No biliary dilatation. Pancreas: Normal appearing pancreas. Spleen: Normal appearing spleen. Adrenal glands: Normal appearing adrenal glands. Kidneys and ureters: Small indeterminate hypoattenuating renal lesions, not well characterized but statistically most likely renal cysts. No hydronephrosis. No obstructing ureteral stones. Stomach and bowel: 7.5 cm x 10.5 cm hiatal hernia with greater than half of the stomach located above the diaphragm. No oral contrast. No small bowel dilatation to suggest obstruction. Normal-appearing fecal material in the colon. No evidence of diverticulitis or colitis. Appendix: Appendix partially obscured but normal in caliber and appearance through its visualized portion. Intraperitoneal space: No gross ascites or free air. Vasculature: Tortuous abdominal aorta but no abdominal aortic aneurysm. 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 Aneurysmal dilatation of the left common iliac artery measuring 1.9 cm transverse dimension. Extensive atherosclerotic calcification and plaque throughout the abdominal aorta and extending into the pelvic arteries. Lymph nodes: No pathologically enlarged mesenteric, retroperitoneal, or pelvic sidewall lymph nodes. Urinary bladder: Urinary bladder collapsed and almost completely obscured by streak artifact. Reproductive: Prostate gland and seminal vesicles almost completely obscured by streak artifact and poorly evaluated. Scrotal contents included in the field of view. Large complex heterogeneous fluid collection on the left suspicious for a large hydrocele. Clinical correlation is recommended to exclude superimposed infection given scrotal drainage. Centrally located well-defined 10 mm x 10 mm x 16 mm left-sided fluid collection on images 106 of series 10 and 31 of series 6, uncertain etiology, possibly an epididymal cyst or small abscess but not well evaluated by today's exam. Clinical correlation recommended. Testicles poorly evaluated. Bones/joints: Prior bilateral hip arthroplasty with extensive streak artifact created by the metallic prostheses largely obscuring the lower pelvis. No acute fracture seen among the bones of the abdomen or pelvis. Spinal degenerative change with discogenic degeneration and facet arthrosis at multiple levels. Soft tissues: 2.2 cm x 3.2 cm fat containing ventral hernia at the umbilicus. IMPRESSION: 1. Large complex fluid collection in the left hemiscrotum suspicious for a large hydrocele. Clinical correlation is recommended to exclude superimposed infection given the provided clinical history of scrotal drainage. 2. Centrally located 10 mm x 10 mm x 16 mm left-sided fluid collection on images 106 of series 10 and 31 of series 6, uncertain etiology; however, an epididymal cyst or small abscess could have this appearance. Clinical correlation is recommended. 3. Holland catheter in-situ. Catheter balloon largely obscured by streak artifact from the hip prostheses but located in the expected vicinity of the prostate gland. Clinical correlation is recommended to exclude inflation of the catheter within the prostatic urethra. Balloon deflation with confident catheter advancement into the bladder lumen recommended. 4. 7.5 cm x 10.5 cm hiatal hernia with greater than half of the stomach located above the diaphragm. Dictated and Authenticated by: Christiano Ojeda MD. Ordering:ANGEL Lima MD
[2024-07-17] MEDS: cefTRIAXone 1 GM/50 ML BAG IVPB (02:25)
--- NOTE | 2024-07-17 02:30 | DI.US_ITS ---
Exam(s) US SCROTUM EXAM: US SCROTUM CLINICAL HISTORY: left fluid collection, draining blood, abnormal CT. TECHNIQUE: Scrotal ultrasound performed using grayscale, color-flow and spectral Doppler analysis. COMPARISON: CT CT ABDOMEN PELVIS W from 07/17/2024 FINDINGS: Right testicle: 3.8 x 2.0 x 2.5 cm Echogenicity: Normal. Contour: Smooth. Mass: There is a 0.7 x 0.4 x 0.6 cm simple cyst which appears to lie within the scrotal wall. It tutu ears to be extratesticular. No intra testicular mass is seen. Microlithiasis: None. Hydrocele: None. Variocele: None. Hernia: No peristalsing bowel loop identified. Epididymis: Normal. Left testicle: 3.2 x 2.2 x 2.3 cm Echogenicity: Normal. Contour: Smooth. Mass: None seen. Microlithiasis: None. Hydrocele: There is a 4.9 x 2.2 x 4.1 cm hydrocele. Variocele: None. Hernia: No peristalsing bowel loop identified. Epididymis: Normal. DOPPLER: Color: Symmetric and uniform, no hyperemia. Other: There are calcifications seen posterior and superior in the left scrotal soft tissues. This c orresponds to the finding seen on the CT scan from earlier in the day. No intra testicular extension is seen sonographically. IMPRESSION: 1. Normal appearing bilateral testicles. 2. 4.9 x 2.2 x 4.1 cm hydrocele on the left. 3. Calcifications seen in the soft tissues of the left scrotal sac which correspond to the finding se en on the CT scan. The heterogeneity seen on the CT scan raises a question of an abscess in the scro lea soft tissues. 4. Findings were discussed with Dr. Dumont on 07/17/2024. DATA REPOSITORY:
[2024-07-17] MEDS: VANCOMYCIN 1,500 MG in Normal Saline 500 ML 333.3333 MG IVPB (02:44)
--- NOTE | 2024-07-17 04:41 | NUR.NOTE ---
Nursing Note: Pt OOB in room, walking about the room naked and holding his Holland bag, the pt stated he did not know where he was and that he was knocking on the door. The pt had self removed the IV while getting OOB, all IV abx had infused. Pt assisted back to his bed. Pt resting, no complaints at this time. To have US in am by urology
--- NOTE | 2024-07-17 10:47 | ANES.PREOP_ITS ---
General Info Date of Service Date Performed: 07/17/24 Height: 5 ft 6 in Weight: 74.843 kg Body Mass Index (BMI): 26.6 Meds Allergies and Home Medications Allergies Allergy/AdvReac Type Severity Reaction Status Date / Time azithromycin Allergy Severe LIP Verified 07/17/24 01:58 SWELLING ibuprofen Allergy Intermediate angioedema Verified 07/17/24 01:58 Penicillins Allergy Intermediate LIP Verified 07/17/24 01:58 SWELLING Calcium Channel Blocking Allergy Unknown HIVES Verified 07/17/24 01:58 Agent Dilt diltiazem Allergy Unknown HIVES Verified 07/17/24 01:58 Sulfa (Sulfonamide Allergy Unknown SKIN RASH Verified 07/17/24 01:58 Antibiotics) SODIUM NITRITE Allergy Severe Anaphylaxsi Uncoded 07/17/24 01:58 s Home Medication ?Medication ?Instructions ?Recorded cholecalciferol (vitamin D3) 25 1,000 unit PO QAM 12/01/12 mcg (1,000 unit) capsule cyanocobalamin (vitamin B-12) 1,000 mcg PO DAILY 07/14/16 1,000 mcg tablet (Vitamin B-12) acetaminophen 650 mg 650 mg PO Q8H PRN 06/08/17 tablet,extended release (Arthritis Pain Reliever) nitroglycerin 0.4 mg sublingual 0.4 mg sublingual PRN #25 tab-caps 05/14/21 tablet (Nitrostat) memantine 10 mg tablet 10 mg PO BID #180 tabs 09/24/21 omeprazole 20 mg capsule,delayed 20 mg PO DAILY #90 tab-caps 11/18/21 release melatonin 5 mg capsule 5 mg PO QPM #90 caps 03/30/22 quetiapine 25 mg tablet 12.5 mg (1/2 x 25 mg) PO .COMPLEX 04/30/22 #90 tabs tamsulosin 0.4 mg capsule (Flomax) 0.4 mg PO DAILY 09/10/22 rivaroxaban 10 mg tablet (Xarelto) 2.5 mg PO DAILY 01/07/23 carboxymethylcellulose 0.5 1 drp ophthalmic (eye) BID 04/02/23 %-glycerin 0.9 % eye drops (Refresh Optive) docusate sodium 100 mg capsule 100 mg PO BID 04/02/23 (Colace) polyethylene glycol 3350 17 gram 17 g PO DAILY 04/02/23 oral powder packet (Miralax) atorvastatin 40 mg tablet 20 mg PO DAILY 04/12/24 lidocaine 4 % topical patch 1 patch topical QDAY 07/07/24 (Aspercreme (lidocaine)) ciprofloxacin HCl 250 mg tablet 250 mg PO BID 07/17/24 Current Visit Medications: Current Medications Generic Name Dose Route Start Last Admin Trade Name Piterq PRN Reason Stop Dose Admin IV Miscellaneous Supplies 1 each 07/17/24 00:15 Iv Access IV DIRECTED MAYA Iohexol 100 ml 07/17/24 01:00 07/17/24 01:00 Omnipaque 350 Mg/Ml 100 Ml Btl IJ 08/16/24 23:59 75 ml DIRECTED MAYA Administration Sodium Chloride 0 ml 07/17/24 00:12 07/17/24 01:01 Normal Saline Flush 10 Ml Syr IVP 10 ml PRN PRN Administration Sodium Chloride 0 ml 07/17/24 08:30 Normal Saline Flush 10 Ml Syr IVP BID MAYA Sodium Chloride 0 ml 07/17/24 00:12 Normal Saline 10 Ml Vial IJ DIRECTED PRN Sodium Chloride 50 ml 07/17/24 01:15 07/17/24 01:01 Normal Saline - Diluent 50 Ml Vial IJ 50 ml .FOR DI USE MAYA Administration PFSH Active Problems Active Problems: Problem Status Onset Code Chronic indwelling Holland catheter Acute Z97.8 UTI (urinary tract infection) Acute N39.0 Scrotal bleeding Acute N50.1 Urinary tract infection Acute N39.0 Retention of urine Acute R33.9 Macular degeneration Acute H35.30 Penile rash Acute R21 Amnesia memory loss Acute R41.3 Hypercalcemia Acute E83.52 Domestic problems Acute Z65.8 Falls Acute W19.XXXA Skin lesion of right lower extremity Acute L98.9 Encounter for annual physical exam Acute Z00.00 Anemia Acute 10/09/08 D64.9 History of cataract removal with insertion of prosthetic lens Acute Z98.49, Z96.1 Idiopathic scoliosis Acute M41.20 Impaired fasting glucose Acute R73.01 Angioedema Acute T78.3XXA Generalized osteoarthrosis Acute M15.9 Renal insufficiency Acute 01/01/16 N28.9 Medical History Medical History Benign prostatic hyperplasia prostate nodule; 2006- elevated PSA; 2006 renal insuff. 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 CRISTI XIONG; EGD Hyperlipidemia (12/06/12) Obstructive sleep apnea syndrome [facility]; C-PAP Surgical History Surgical History ankle repair (~1980) Total replacement of hip (~2004) Transurethral prostatectomy (~2006) Rotator Cuff Repair (~2005) Extraction of cataract (~2010) Arthroscopy, Shoulder (~2009) Tobacco Smoking/Tobacco Use Status: Former Tobacco Use Passive smoking exposure: Yes Alcohol Alcohol Intake: current Alcohol intake frequency: a few times a month Alcohol type: hard liquor Substance Use Substance use: Never Substance use type: does not use Vital Signs and Lab Results Vital Signs Most Recent Vital Signs in EMR: Most Recent Vital Signs Temp Pulse Resp BP Pulse Ox 36.4 C L 69 18 115/68 96 07/17/24 03:04 07/17/24 05:01 07/17/24 03:04 07/17/24 05:01 07/17/24 05:15 Lab Results 07/17/24 00:19 07/17/24 00:19 Blood Type / Crossmatch: 2 No Data to Display Complete Blood Count: 2 White Blood Count 11.29 10^3/uL (4.4-10.8) H 07/17/24 00:19 Red Blood Count 4.06 10^6/uL (4.36-5.78) L 07/17/24 00:19 Hemoglobin 12.8 g/dL (13.5-17.5) L 07/17/24 00:19 Hematocrit 39.9 % (40.0-50.0) L 07/17/24 00:19 Platelet Count 200 10^3/uL (130-400) 07/17/24 00:19 Complete Metabolic Panel: 2 Sodium 139 mmol/L (136-145) 07/17/24 00:19 Potassium 4.5 mmol/L (3.5-5.1) 07/17/24 00:19 Chloride 105 mmol/L (98-107) 07/17/24 00:19 Carbon Dioxide 31.9 mmol/L (21.0-32.0) 07/17/24 00:19 BUN 18 mg/dL (7-18) 07/17/24 00:19 Creatinine 1.4 mg/dL (0.70-1.30) H 07/17/24 00:19 Est GFR (CKD-EPI 2020) 49.56 (mL/min/1.73m2) 07/17/24 00:19 Magnesium 2.0 mg/dL (1.8-2.4) 07/17/24 00:19 Calcium 10.4 mg/dL (8.5-10.1) H 07/17/24 00:19 Albumin 2.9 g/dL (3.4-5.0) L 07/17/24 00:19 Glucose 89 mg/dL (74-106) 07/17/24 00:19 Liver Function Panel: 2 Alanine Aminotransferase (ALT/SGPT) 10 U/L (16-63) L 07/17/24 0 0:19 Aspartate Amino Transf (AST/SGOT) 13 U/L (15-37) L 07/17/24 00: 19 Coagulation Panel: 2 No Data to Display Cardiac Panel: 2 No Data to Display Arterial Blood Gas: 2 No Data to Display Venous Blood Gas: 2 No Data to Display Pancreas Panel: 2 No Data to Display Thyroid Panel: 2 No Data to Display Infectious Disease: 2 No Data to Display Blood Cultures: 2 No Data to Display Toxicology Panel: 2 No Data to Display Anesthesia Assessment and Plan Anesthesia History Personal History: No History of Anesthesia Complications Family History: No Family History of Anesthesia Complications Exercise Tolerance Exercise Tolerance: Metabolic Equivalents>4 Cardiac & Pulmonary Exam Cardiac Exam: Normal S1/S2 Heart Sounds Pulmonary Exam: Clear Bilateral Breath Sounds Implantable Cardiac Device Does patient have a Pacemaker or an ICD?: No Airway Exam Known Difficult Airway: No Mallampati Class: 4 Mouth Opening: Narrow (< 3cm) Thyromental Distance: Less than 3 cm Neck Range of Motion: Limited ROM Neck Circumference: Normal Teeth Condition: Generalized Poor Dentition ASA Classification ASA Score: ASA 3 Emergency Case?: Yes NPO Status NPO Status: NPO Clears >2 hours, Solids >8 hours Anesthesia Plan Resuscitation Status: Full Code Anesthesia Technique: MAC Anesthesia Airway Planned: Natural Airway Monitors Used: Standard Monitors Preoperative Comments:: 83 yo male for scrotal washout. Sig PMHx: HTN, LONNIE, GERD, s/p pop aneurysm/SFA repair Alzheimer's, scoliosis, former smoker, occ EtOH. EKG: Sinus sukumar. Stress: 4.6 METS, no ECG evidence of ischemia, normal prefusion. Previous Anes: - [facility] [place], house 2 grade 2 Phone consent performed with the . Discussed risks (inculding vasulcar)
--- NOTE | 2024-07-17 11:09 | W.UROLOGYCON ---
Date of service: 07/17/24 Time of Service: 11:09 Assessment and Plan Assessment and plan (1) Scrotal wall abscess: Status: Acute Assessment and plan: His scrotal ultrasound is reassuring and that his abscess appears to be quite superficial and does not extend further into the firm palpable scrotal mass. I am recommending an incision and drainage of the fluctuant area so that we can obtain tissue cultures and use localized wound care with wound packing. Since he had been on oral antibiotics as an outpatient, I think it is reasonable to keep him in the hospital for a day or 2 with IV antibiotics until his cultures are finalized. He could then be switched back to oral antibiotics and local wound care at the [facility]. History of Present Illness History of Present Illness Chief Complaint: Scrotal abcess Narrative: This is an 83-year-old gentleman who has a history of urinary retention. He is not a candidate for transurethral resection of the prostate here at our facility. He has chosen not to have a procedure at a tertiary care center. He is managed with an indwelling urethral catheter. He is currently a resident at the [facility]. He was started on oral antibiotics for recent scrotal cellulitis. He progressed to the point where he began draining purulent material from the scrotum and presented to the emergency department this morning. He was evaluated with a CT scan which shows a masslike structure behind the left testis. He has bilateral hip replacements, so there was streak artifact obscuring some of the pertinent findings. He was then evaluated with a scrotal ultrasound which confirms an extra testicular mass with calcifications present. If the patient has dementia, he is not able to provide much of a history for us. He was started on broad-spectrum antibiotics in the emergency department. Review of Systems Unobtainable due to mental status [facility] All Active Problems (Updated 07/17/24 @ 11:16 by Malik Dumont MD) Scrotal wall abscess (Acute) Chronic indwelling Holland catheter (Acute) UTI (urinary tract infection) (Acute) Scrotal bleeding (Acute) Urinary tract infection (Acute) Retention of urine (Acute) Macular degeneration (Acute) Penile rash (Acute) Amnesia memory loss (Acute) Hypercalcemia (Acute) Domestic problems (Acute) Falls (Acute) Skin lesion of right lower extremity (Acute) Encounter for annual physical exam (Acute) Anemia (Acute 10/09/08) History of cataract removal with insertion of prosthetic lens (Acute) Idiopathic scoliosis (Acute) Impaired fasting glucose (Acute) Angioedema (Acute) 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 CRISTI XIONG; EGD Hyperlipidemia (12/06/12) Obstructive sleep apnea syndrome [facility]; C-PAP Surgical History ankle repair (~1980) Total replacement of hip (~2004) Transurethral prostatectomy (~2006) Rotator Cuff Repair (~2005) Extraction of cataract (~2010) Arthroscopy, Shoulder (~2009) Family History Mother Essential hypertension Hyperlipidemia Father Alzheimer disease Brother Hyperlipidemia Grandfather Heart disease Grandfather Heart disease Grandmother No problems noted. Grandmother Essential hypertension Brother Essential hypertension Son No problems noted. Son No problems noted. Son No problems noted. Daughter No problems noted. Social History Smoking/Tobacco Use Status: Former Tobacco Use Smoking risk assessment performed?: Yes Alcohol Intake: current Alcohol Intake frequency: a few times a month Alcohol type: hard liquor Drug use: Never Substance use type: does not use Household members: spouse Housing: apartment Number of Children: 4 number of grandchildren: 7 Pets and animals: Yes Pets and animals: cat(s) What is your relationship status?: Panel score (0-1 are the most socially isolated patients): 1 What type of physical activity do you participate in: walking Seatbelt use: always Do you feel safe at home: Yes Do you feel safe in your relationship?: Yes Exam Narrative Exam Narrative: He does not appear septic or toxic His vital signs are documented elsewhere in the chart His lungs are clear Cardiac exam shows a regular rate and rhythm His abdomen is soft with no guarding or rebound tenderness There is a Holland catheter in place draining clear urine. The right testis is normal on palpation. The left testis is palpable in the upper aspect of the scrotum. In the lower aspect of the scrotum, there is a firm mass with some fluctuance anteriorly and purulent material expressed from 2 small pinpoint openings. The scrotal skin around this area is erythematous. He is awake and alert Results Last Vital Signs Temp 36.5 C 07/17/24 11:06 Pulse 81 07/17/24 11:06 Resp 18 07/17/24 11:06 BP 151/97 H 07/17/24 11:06 Pulse Ox 97 07/17/24 11:06 Labs 07/17/24 00:19 07/17/24 00:19 Labs: Laboratory Results - last 24 hr 07/17/24 07/17/24 00:19 01:35 WBC 11.29 H RBC 4.06 L Hgb 12.8 L Hct 39.9 L MCV 98 H MCH 31.5 MCHC 32.1 RDW 13.5 Plt Count 200 MPV 8.6 Immature Gran % 0.4 Neutrophils % 80.1 Lymphocytes % 9.9 Monocytes % 7.1 Eosinophils % 2.1 Basophils % 0.4 Nucleated RBC % 0.0 Absolute Neutrophils 9.04 H Absolute Lymphocytes 1.12 L Absolute Monocytes 0.80 Absolute Eosinophils 0.24 Absolute Basophils 0.05 Sodium 139 Potassium 4.5 Chloride 105 Carbon Dioxide 31.9 Anion Gap 2.1 L BUN 18 Creatinine 1.4 H Est GFR (CKD-EPI 2020) 49.56 Glucose 89 Calcium 10.4 H Magnesium 2.0 Total Bilirubin 0.39 AST 13 L ALT 10 L Alkaline Phosphatase 107 Total Protein 7.0 Albumin 2.9 L Urine Color Yellow Urine Clarity Sl Cloudy Urine pH 5.5 Ur Specific [place] >= 1.030 H Urine Protein 30 H Urine Ketones Negative Urine Blood Moderate H Urine Nitrite Positive H Urine Bilirubin Negative Urine Urobilinogen 0.2 Ur Leukocyte Esterase Small H Urine RBC 3-5 H Urine WBC >50 H Ur Epithelial Cells Few Urine Crystals Negative Urine Bacteria Many Urine Casts Negative Urine Mucus Trace Ur Culture Indicated? Yes Urine Glucose Negative
[2024-07-17] MEDS: Lactated Ringers 1,000 ML 30 ML IV (11:42)
--- NOTE | 2024-07-17 11:58 | W.ANESVAS ---
Midline Placement Date Performed: 07/17/24 Procedure Time: 11:35 Requesting Provider: Malik Dumont Procedure Location: PACU Sedation Given (Indicate Dose Given): No Sedation given Patient Mental Status: Awake (to patients baseline) Sterility: Hand Hygiene, Surgical Cap, Surgical Mask, Sterile Gloves, Sterile Drape/Sheet and Chlorhexidine Laterality: Left Insertion Site: Basilic Midline Device: PowerGlide Pro 18G Catheter Length: 10 cm Midline Procedure Procedure: Vessel accessed with catheter over needle, Guidewire placed with ease, Catheter placed without resistance and Guidewire removed Dressing: Tegaderm Applied, Statlock Applied and Mastisol Used Blood Return: Present Flushes: Easily Ultrasound: Sterile probe cover and gel used Ultrasound Image Saved?: Yes Number of Attempts (See previous attempts in note section): 1 Procedure Tolerated: No Complications and Patient tolerated well Procedure Outcome: Successful Performed By: Cuauhtemoc Huerta
--- NOTE | 2024-07-17 12:03 | SKI_PTH ---
PATIENT: Quentin Shay LOC: U#:[id number] AGE/SX: 83/M ROOM: 228 RE07/17/[address]: Arnie Chavez MD : [id number] BED: A DIS: 07/20/2024 SPEC #: [id number] RECD: 07/17/24 12:52 STATUS: MAYELIN REMorris #: [id number] NIRU: 07/17/24 12:[address]: Arnie Chavez DEPT: Surgical Specimen RECD BY: Monique Balbuena ENTERED: 07/17/24 12:53 SP TYPE: RACHEL MARQUES DR: Jessika Shah, SARA Tissues: 1 - SKIN BIOPSY(SHAVE/PUNCH) Procedures: GROSS AND MICRO LEVEL 3 Comments: [id number]
--- NOTE | 2024-07-17 12:16 | W.PM.OP ---
Operative Note Operative Note PRE-OP DIAGNOSIS: Scrotal abscess POST-OP DIAGNOSIS: same PROCEDURE: Incision and drainage of scrotal abscess SURGEON: Malik Dumont ANESTHESIA TYPE: Local By Surgeon and MAC Refer to Anesthesia Record ESTIMATED BLOOD LOSS: 5 PATHOLOGY: other (1. Wound cultures 2. Scrotal biopsy) COMPLICATIONS: None Patient was transported to: PACU Patient's condition: stable Indications: This is an 83-year-old gentleman who has chronic urinary retention. He has a history of previous scrotal abscess. He is a resident of a local custodial. He was diagnosed with scrotal cellulitis and was started on outpatient Cipro. He then began draining from a scrotal wound and was sent to the emergency department. On imaging studies, there appeared to be an extra testicular mass with some characteristics of abscess formation. He presents urgently for an incision and drainage of his scrotal abscess Findings: Necrotic tissue within the scrotal compartment Firm mass underlying the abscess cavity Procedure Description: The patient was brought to the operating room on 07/17/2024. Preoperatively, consent was obtained from the patient's as the patient has dementia. IV sedation was given and his scrotum was prepped and draped. A scrotal field block was performed with quarter percent Marcaine. An incision was made in the region of the scrotal abscess. No miguel angel pus was drained, but there was necrotic tissue and fluid evacuated. Swabs were taken of the cavity and sent to the lab for culture and sensitivity. I then probed the area and there was a tract running up toward but not including the testis on the left side. There was firm white tissue beneath the necrotic tissue. I took an excisional biopsy of this white tissue and sent some of it for tissue culture and sensitivity and some of it for pathology. I then packed the wound with a 4 x 4, applied a fluff dressing and a scrotal support. The patient tolerated the procedure well with no complications. He was taken to the recovery room in stable condition. Date of Procedure: 07/17/24
[2024-07-17] MEDS: Bupivacaine 0.5% Pres-Free 30 ML VIAL (12:26)
--- NOTE | 2024-07-17 12:31 | W.ANESPOSTOP ---
Postoperative Evaluation Date, Time and Location Date Performed: 07/17/24 Time Performed: 12:32 Patient Location: PACU Vital Signs Most Recent Imported Vital Signs: Most Recent Vital Signs Temp Pulse Resp BP Pulse Ox 36.6 C 81 18 151/97 H 97 07/17/24 12:12 07/17/24 11:06 07/17/24 11:06 07/17/24 11:06 07/17/24 11:06 Pain Score Most Recent Pain Score: Most Recent Pain Score Pain Level 0 07/17/24 12:12 Assessment Mental Status: Awake (Alert & Oriented to Patient Baseline) Airway and Respiratory Function: Patent airway with normal (patient baseline) respiratory exam Cardiovascular Function: Hemodynamically Stable Hydration Status: Adequately Hydrated Nausea & Vomiting: No Nausea or Vomiting Pain: Pain is Moderate or Severe Postoperative Pain Management: Pain being addressed with medication Peripheral Nerve Block: Patient did not receive a nerve block
[2024-07-17] MEDS: fentaNYL 100 MCG/2 ML VIAL IVP ×3 (12:36→12:56)
[2024-07-17] MEDS: ACETAMINOPHEN 1,000 MG/100 ML BAG 100 MG (12:36)
--- NOTE | 2024-07-17 13:11 | MCONE_ITS ---
Date of service: 07/17/24 Time of Service: 13:11 Assessment and Plan Assessment and plan (1) Scrotal wall abscess: Status: Acute Assessment and plan: - Has reportedly been going on for some time and was started on Keflex while at detention -Was started on Vanco and ceftriaxone, will continue -Will follow-up surgical cultures and adjust antibiotic regimen if needed -At manage postoperative wound as per urology recommendations (2) Chronic indwelling Holland catheter: Status: Acute Assessment and plan: - Manage as per urology recommendations (3) UTI (urinary tract infection): Status: Acute Assessment and plan: - Being covered by ceftriaxone as noted above (4) Alzheimer's dementia without behavioral disturbance: Assessment and plan: - Continue home regimen of memantine 10 mg twice daily, 12.5 mg Seroquel at 1600 hrs. daily History of Present Illness History of Present Illness Chief Complaint: Concern for scrotal abscess Narrative: 83-year-old gentleman with a past medical history of left scrotal abscess, chronic indwelling Holland catheter, secondary urinary retention, and Alzheimer's dementia who presents from care facility with concern for scrotal bleeding. While at detention it was noted that he was placed on ciprofloxacin at 3 days prior to arrival for presumed abscess. However, late evening 07/16/2024 the area appeared to spontaneously open and began to drain. Due to patient's advanced dementia was unable to provide any additional medical history or details. In the emergency department the patient was noted as being hemodynamically stable, otherwise normal vital signs, white blood cell count of 11.2, normal CMP, and positive UA. Patient had scrotal ultrasound that showed normal- appearing bilateral testicles with a 4.9 x 2.2 x 4.1 cm hydrocele on the left for which patient was taken to the operating room with Dr. Dumont who performed incision and drainage of scrotal abscess that was found to have necrotic tissue within the scrotal compartment and firm mass underlying the abscess cavity. Patient did well in surgery and request was made for a medicine consultation given patient's Alzheimer's, and hypertension. Review of Systems All systems reviewed & are unremarkable except as noted in HPI and below PFSH All Active Problems (Updated 07/17/24 @ 11:16 by Malik Dumont MD) Scrotal wall abscess (Acute) Chronic indwelling Holland catheter (Acute) UTI (urinary tract infection) (Acute) Scrotal bleeding (Acute) Urinary tract infection (Acute) Retention of urine (Acute) Macular degeneration (Acute) Penile rash (Acute) Amnesia memory loss (Acute) Hypercalcemia (Acute) Domestic problems (Acute) Falls (Acute) Skin lesion of right lower extremity (Acute) Encounter for annual physical exam (Acute) Anemia (Acute 10/09/08) History of cataract removal with insertion of prosthetic lens (Acute) Idiopathic scoliosis (Acute) Impaired fasting glucose (Acute) Angioedema (Acute) 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 CRISTI XIONG; EGD Hyperlipidemia (12/06/12) Obstructive sleep apnea syndrome [facility]; C-PAP Surgical History ankle repair (~1980) Total replacement of hip (~2004) Transurethral prostatectomy (~2006) Rotator Cuff Repair (~2005) Extraction of cataract (~2010) Arthroscopy, Shoulder (~2009) Family History Mother Essential hypertension Hyperlipidemia Father Alzheimer disease Brother Hyperlipidemia Grandfather Heart disease Grandfather Heart disease Grandmother No problems noted. Grandmother Essential hypertension Brother Essential hypertension Son No problems noted. Son No problems noted. Son No problems noted. Daughter No problems noted. Social History Smoking/Tobacco Use Status: Former Tobacco Use Smoking risk assessment performed?: Yes Alcohol Intake: current Alcohol Intake frequency: a few times a month Alcohol type: hard liquor Drug use: Never Substance use type: does not use Household members: spouse Housing: apartment Number of Children: 4 number of grandchildren: 7 Pets and animals: Yes Pets and animals: cat(s) What is your relationship status?: Panel score (0-1 are the most socially isolated patients): 1 What type of physical activity do you participate in: walking Seatbelt use: always Do you feel safe at home: Yes Do you feel safe in your relationship?: Yes Exam Narrative Exam Narrative: Well-appearing older gentleman laying in bed in no acute distress, awake, alert, oriented to person place only, heart regular rhythm, lungs clear to auscultation bilaterally, abdomen soft, nontender, nondistended Results Last Vital Signs Temp 97.5 F L 07/17/24 12:57 Pulse 65 07/17/24 13:01 Resp 15 07/17/24 13:05 BP 150/64 H 07/17/24 13:01 Pulse Ox 98 07/17/24 13:05 Labs 07/17/24 00:19 07/17/24 00:19 Labs: Laboratory Results - last 24 hr 07/17/24 07/17/24 00:19 01:35 WBC 11.29 H RBC 4.06 L Hgb 12.8 L Hct 39.9 L MCV 98 H MCH 31.5 MCHC 32.1 RDW 13.5 Plt Count 200 MPV 8.6 Immature Gran % 0.4 Neutrophils % 80.1 Lymphocytes % 9.9 Monocytes % 7.1 Eosinophils % 2.1 Basophils % 0.4 Nucleated RBC % 0.0 Absolute Neutrophils 9.04 H Absolute Lymphocytes 1.12 L Absolute Monocytes 0.80 Absolute Eosinophils 0.24 Absolute Basophils 0.05 Sodium 139 Potassium 4.5 Chloride 105 Carbon Dioxide 31.9 Anion Gap 2.1 L BUN 18 Creatinine 1.4 H Est GFR (CKD-EPI 2020) 49.56 Glucose 89 Calcium 10.4 H Magnesium 2.0 Total Bilirubin 0.39 AST 13 L ALT 10 L Alkaline Phosphatase 107 Total Protein 7.0 Albumin 2.9 L Urine Color Yellow Urine Clarity Sl Cloudy Urine pH 5.5 Ur Specific [place] >= 1.030 H Urine Protein 30 H Urine Ketones Negative Urine Blood Moderate H Urine Nitrite Positive H Urine Bilirubin Negative Urine Urobilinogen 0.2 Ur Leukocyte Esterase Small H Urine RBC 3-5 H Urine WBC >50 H Ur Epithelial Cells Few Urine Crystals Negative Urine Bacteria Many Urine Casts Negative Urine Mucus Trace Ur Culture Indicated? Yes Urine Glucose Negative
[2024-07-17] MEDS: oxyCODONE 5 MG TAB PO ×2 (14:57→20:10)
[2024-07-17] MEDS: QUEtiapine 25 MG TAB 12.5 MG PO (17:00)
[2024-07-17] MEDS: Melatonin 3 MG TAB 6 MG PO (20:10)
[2024-07-17] MEDS: Docusate Sodium 100 MG CAP PO (20:10)
[2024-07-17] MEDS: Acetaminophen 325 MG TAB 650 MG PO (20:11)
[2024-07-17] MEDS: Memantine 5 MG TAB 10 MG PO (20:13)
[2024-07-17] MEDS: Lidocaine Patch Removal 1 EACH TP (20:43)
--- NOTE | 2024-07-17 21:30 | ED.PROG_ITS ---
Date of service: 07/17/24 Time of Service: 21:30 Medical Decision Making The patient was signed out to me by my colleague Dr. Butcher. Please refer to his HPI, physical exam, assessment and plan. At time of signout we are awaiting ultrasound findings, ultrasound shows evidence of hydrocele, but also concern for potential abscess. The patient was seen and evaluated by Dr. Dumont, he would like to patient take the patient to the OR. Patient will be admitted under Dr. Dumont and then brought to the floor for observation. Discussed the case with hospitalist team Dr. Wisdom. All parties agree with plan. I have extensively reviewed the treatment plan with the patient. I have addressed all patient concerns at this time. I have also discussed the plan with the admitting physician and they agree with the current assessment and plan and have agreed to assume responsibility for the patient. All parties demonstrate verbal understanding and agreement with our assessment and plan at this time. The documentation in this chart was dictated using [employer] dictation software. Please excuse any dictation errors. Of note at time of admission patient had no fever, shock, white count was minimally elevated at 11, there is no subcutaneous crepitus to suggest Milagros's gangrene. FINDINGS: Right testicle: 3.8 x 2.0 x 2.5 cm Echogenicity: Normal. Contour: Smooth. Mass: There is a 0.7 x 0.4 x 0.6 cm simple cyst which appears to lie within the scrotal wall. It appears to be extratesticular. No intra testicular mass is seen. Microlithiasis: None. Hydrocele: None. Variocele: None. Hernia: No peristalsing bowel loop identified. Epididymis: Normal. Left testicle: 3.2 x 2.2 x 2.3 cm Echogenicity: Normal. Contour: Smooth. Mass: None seen. Microlithiasis: None. Hydrocele: There is a 4.9 x 2.2 x 4.1 cm hydrocele. Variocele: None. Hernia: No peristalsing bowel loop identified. Epididymis: Normal. DOPPLER: Color: Symmetric and uniform, no hyperemia. Other: There are calcifications seen posterior and superior in the left scrotal soft tissues. This corresponds to the finding seen on the CT scan from earlier in the day. No intra testicular extension is seen sonographically. IMPRESSION: 1. Normal appearing bilateral testicles. 2. 4.9 x 2.2 x 4.1 cm hydrocele on the left. 3. Calcifications seen in the soft tissues of the left scrotal sac which correspond to the finding seen on the CT scan. The heterogeneity seen on the CT scan raises a question of an abscess in the scrotal soft tissues. 4. Findings were discussed with Dr. Dumont on 07/17/2024. Quality:[facility] Health Related Social Needs: No Data to Display Discharge Plan Disposition Patient Disposition: Admit to [facility] Condition: Stable Discharge Details Chief Complaint: Cellulitis Clinical Impression: Scrotal bleeding, UTI (urinary tract infection), Chronic indwelling Holland catheter, Abscess, scrotum Admit Date/Time: 07/17/24 13:20 Admit Provider: Malik Dumont Attending Provider: Arnie Chavez Primary Care Provider: Debra Shah ED Provider: Mark Bell Discharge Data Discharge Date/Time-TO BE ENTERED AT DEPARTURE: 07/17/24 11:25
--- NOTE | 2024-07-18 07:44 | W.PM.PROGNOT ---
Date of Service Date of service: 07/18/24 Time of Service: 07:45 Assessment and Plan Assessment and plan (1) Scrotal wall abscess: Status: Acute Assessment and plan: He has responded quite well to local care of his wound. I have remove the packing and I do not believe that we need to replace any type of packing. We will simply place dry dressings over top the open wound and allow it to heal on its own. He had been on oral florquinolone prior to admission, so does not surprise me if we do not find bacterial growth from his fluid collection. I will keep him on IV ceftriaxone until his final culture returns. We can then send him back to the [facility] on an oral antibiotic and dry dressings applied to the scrotal wound. He will need to continue with his Holland catheter changes monthly. Subjective Subjective Interval history since last seen: He is fairly comfortable with no documented fevers. He was able to sleep through the night. Exam Narrative Exam Narrative: He does not appear septic or toxic His vital signs are documented elsewhere I removed his surgical packing and there is no purulent material draining. He is awake and alert His initial Gram stain shows white blood cells but no bacteria. All cultures are still pending. He does have a positive urine culture from 07/07 (he has a chronic indwelling catheter) Objective Last Vital Signs Temp 36.7 C 07/17/24 19:48 Pulse 107 H 07/17/24 19:48 Resp 20 07/17/24 19:48 BP 129/87 07/17/24 19:48 Pulse Ox 97 07/17/24 19:48 Time Spent with Patient Time Spent with Patient: <25 minutes Time was spent: preparing to see the patient(eg.review tests), obtaining and/or reviewing separately otained hiistory and indepentently interpreting results
[2024-07-18 07:46] VITALS: BP 139/86; PULSE 69; RESP 15; TEMP 36.9; O2SAT 97
[2024-07-18] MEDS: Atorvastatin 20 MG TAB PO (08:54)
[2024-07-18] MEDS: Omeprazole 20 MG CAPCR PO (08:54)
[2024-07-18] MEDS: Memantine 5 MG TAB 10 MG PO ×2 (08:54→20:39)
[2024-07-18] MEDS: Docusate Sodium 100 MG CAP PO ×2 (08:54→20:39)
[2024-07-18] MEDS: Acetaminophen 325 MG TAB 650 MG PO ×2 (08:55→16:21)
[2024-07-18] MEDS: cefTRIAXone 1 GM/50 ML BAG IVPB (08:56)
[2024-07-18] MEDS: Lidocaine 5% Patch 1 PATCH TD (08:56)
[2024-07-18] MEDS: Normal Saline Flush 10 ML SYR IVP ×2 (09:01→20:39)
--- NOTE | 2024-07-18 09:31 | W.PM.PROGNOT ---
Date of Service Date of service: 07/18/24 Time of Service: 09:31 Assessment and Plan Assessment and plan (1) Scrotal wall abscess: Status: Acute Assessment and plan: - Has reportedly been going on for some time and was started on Keflex while at half-way -Was started on Vanco and ceftriaxone, will continue -Urine culture preliminarily growing E. coli, however will wait for final surgical culture results prior to adjusting antibiotic regimen -At manage postoperative wound as per urology recommendations (2) Chronic indwelling Holland catheter: Status: Acute Assessment and plan: - Manage as per urology recommendations (3) UTI (urinary tract infection): Status: Acute Assessment and plan: - Being covered by ceftriaxone as noted above (4) Alzheimer's dementia without behavioral disturbance: Assessment and plan: - Continue home regimen of memantine 10 mg twice daily, 12.5 mg Seroquel at 1600 hrs. daily Subjective Subjective Interval history since last seen: Patient states that he is doing well today and has no complaints concerns at this time. Exam Narrative Exam Narrative: Well-appearing older gentleman laying in bed in no acute distress, awake, alert, oriented to person place only, heart regular rhythm, lungs clear to auscultation bilaterally, abdomen soft, nontender, nondistended Objective Last Vital Signs Temp 98.4 F 07/18/24 07:46 Pulse 69 07/18/24 07:46 Resp 15 07/18/24 07:46 BP 139/86 07/18/24 07:46 Pulse Ox 97 07/18/24 07:46 Time Spent with Patient Time Spent with Patient: >50 minutes Time was spent: preparing to see the patient(eg.review tests), obtaining and/or reviewing separately otained hiistory, ordering medications,tests, procedures, referring, communicating with other health landcare facilitator, indepentently interpreting results, counseling the patient and care coordination
--- NOTE | 2024-07-18 13:33 | PHA.REVIEW2 ---
Pharmacy Admission Review Admission Clinical Review Admission Pharmacy Review: Scrotal wall abscess (Acute) Chronic indwelling Holland catheter (Acute) UTI (urinary tract infection) (Acute) azithromycin Allergy (Severe, Verified 07/17/24 01:58) LIP SWELLING ibuprofen Allergy (Intermediate, Verified 07/17/24 01:58) angioedema Penicillins Allergy (Intermediate, Verified 07/17/24 01:58) LIP SWELLING Calcium Channel Blocking Agent Dilt Allergy (Unknown, Verified 07/17/24 01:58) HIVES diltiazem Allergy (Unknown, Verified 07/17/24 01:58) HIVES Sulfa (Sulfonamide Antibiotics) Allergy (Unknown, Verified 07/17/24 01:58) SKIN RASH SODIUM NITRITE Allergy (Severe, Uncoded 07/17/24 01:58) Anaphylaxsis Resuscitation Status DNR/DNI Height 5 ft 6 in Weight 79.787 kg Pharmacy Admission Review Renal Dosing Renal Dosing: BUN 18 mg/dL (7-18) 07/17/24 00:19 Creatinine 1.4 mg/dL (0.70-1.30) H 07/17/24 00:19 Medications needing adjustments: Reviewed (CrCl 39 mL/min) List of meds needing interventions: Current medications are okay Anticoagulation Anticoagulation: Hgb 12.8 g/dL (13.5-17.5) L 07/17/24 00:19 Hct 39.9 % (40.0-50.0) L 07/17/24 00:19 Plt Count 200 10^3/uL (130-400) 07/17/24 00:19 Creatinine 1.4 mg/dL (0.70-1.30) H 07/17/24 00:19 DVT Prophylaxis: Intervened (none ordered at this time - asked provider, they are looking into it. Will follow up if no orders put in) Relevant Labs Relevant Labs: Sodium 139 mmol/L (136-145) 07/17/24 00:19 Potassium 4.5 mmol/L (3.5-5.1) 07/17/24 00:19 Chloride 105 mmol/L (98-107) 07/17/24 00:19 Magnesium 2.0 mg/dL (1.8-2.4) 07/17/24 00:19 Electrolytes, C-Reactive P, ESR: Reviewed (No new labs for today) Cardiac Review BP, HR, EF%: Reviewed (HR and BP WNL) QTc Review QTc: Reviewed (389 from 05/14/21 - most recent EKG on file) IV to PO Switch IV Medications: Reviewed (ceftriaxone) Home Meds Home Med List reviewed: Reviewed Relevent Home Meds Not ordered & why?: refresh, vitamin D3, vitamin B12, Xarelto (on hold - POD#1), tamsulosin Current Meds Current Medication Order Review: Intervened Comments: Discontinued PACU orders (completed) Pharmacy Antibiotic Review Relevant Labs: WBC 11.29 10^3/uL (4.4-10.8) H 07/17/24 00:19 Temperature 36.9 C Microbiology 07/17/24 12:05 Surgical Culture - Preliminary Scrotum Gram negative ilda Gram Stain - Final 07/17/24 12:05 Abscess Culture - Preliminary Scrotum Gram negative ilda Gram Stain - Final 07/17/24 01:35 Urine Culture - Preliminary Urine - Reflex from Ua Escherichia coli Gram negative ilda Pharmacy Antibiotic Activity: C/S review and Reviewed, no change Comments: Patient is on ceftriaxone, day 2, for scrotal abscess and UTI. Sensitivities pending.
[2024-07-18 15:44] VITALS: BP 124/76; PULSE 62; RESP 15; TEMP 36.4; O2SAT 97
[2024-07-18] MEDS: QUEtiapine 25 MG TAB 12.5 MG PO (16:22)
--- NOTE | 2024-07-18 16:33 | INITIAL_ITS ---
Date of service: 07/18/24 Time of Service: 13:00 Care Management Initial Assmt Initial Assessment Reason for Hospitalization: scrotal wall abscess Functional Status/Living Situation Patient Presentation: Quentin was admitted through the ED, from the [facility], yesterday due to scrotal bleeding. Quentin had been on Keflex at the [facility] for presumed abscess. On 07/16 the area appeared to open and begin to drain. Quentin was taken to the OR for I&D of his abcess. Quentin was sitting up in the chair when CM met with him. He was very pleasant, denied any complaints, but was confused and unable to offer any real history. Per Dr. Dumont, the plan is to await the culture results from the abscess before sending Quentin back to the [facility]. Town of Residence: [place] Resides with: Other (lives at the [facility]) Significant Other/Family: Local ( and daughter live locally) Caregiver/Guardian: the [facility] Natural Supports: and daughter Employment Status: Retired Instrumental Activities of Daily Living (ADLs): Requires support Medications Medication Management: No Issues/Barriers identified Physical Functioning/Mobility Assistive Device: walker Advance Directives Advance Directives: Do you have an Advance Directive: Y 10/29/13 15:44 AD On File at [facility]: Y 10/29/13 15:41 Date Asked AD Date Reviewed 07/17/24 07/17/24 00:30 COLST On File at [facility] Yes 01/07/23 08:01 COLST Date Scanned 01/07/23 01/07/23 08:01 Code Status Resuscitation Status DNR/DNI Insurance Coverage/Financial Issues Insurance: Medicare and Medicaid Care Team Visit Care Team Role Provider Type Debra Shah NP Primary Care Provider NURSE PRACTITIONER Mark Bell DO Emergency Provider [facility] STAFF PHYSICIAN Arnie Chavez MD Attending Provider [facility] STAFF PHYSICIAN Malik Dumont MD Admit Provider [facility] STAFF PHYSICIAN Discharge Potential Discharge Needs: Other (Facility provider f/u and possibly urology f/u) Anticipated Barriers to Discharge: None Identified (waiting for abscess cultures to result ) Patient/Family Education Needs: Review discharge instructions, discuss Ask Me Three Transportation: [facility] Transportation: Private vechicle Plan: Anticipate that Quentin will return to the [facility] once his culture results are back, he is on the correct antibiotics and is medically cleared. He will need to f/u with the facility provider, and possibly urology. He will transport by [facility] private vehicle. CM will continue to follow Social Determinants of Health Screening Will the Patient Participate in the Screening?: Unable to obtain Social Determinants of Health Comments([facility] Details): pt resides at the [facility] All Active Problems (Updated 07/17/24 @ 21:32 by Mark Bell DO) Abscess, scrotum (Acute) Scrotal wall abscess (Acute) Chronic indwelling Holland catheter (Acute) UTI (urinary tract infection) (Acute) Scrotal bleeding (Acute) Urinary tract infection (Acute) Retention of urine (Acute) Macular degeneration (Acute) Penile rash (Acute) Amnesia memory loss (Acute) Hypercalcemia (Acute) Domestic problems (Acute) Falls (Acute) Skin lesion of right lower extremity (Acute) Encounter for annual physical exam (Acute) Anemia (Acute 10/09/08) History of cataract removal with insertion of prosthetic lens (Acute) Idiopathic scoliosis (Acute) Impaired fasting glucose (Acute) Angioedema (Acute) 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 CRISTI XIONG; EGD Hyperlipidemia (12/06/12) Obstructive sleep apnea syndrome [facility]; C-PAP Surgical History ankle repair (~1980) Total replacement of hip (~2004) Transurethral prostatectomy (~2006) Rotator Cuff Repair (~2005) Extraction of cataract (~2010) Arthroscopy, Shoulder (~2009) Family History Mother Essential hypertension Hyperlipidemia Father Alzheimer disease Brother Hyperlipidemia Grandfather Heart disease Grandfather Heart disease Grandmother No problems noted. Grandmother Essential hypertension Brother Essential hypertension Son No problems noted. Son No problems noted. Son No problems noted. Daughter No problems noted. Social History Smoking/Tobacco Use Status: Former Tobacco Use Smoking risk assessment performed?: Yes Alcohol Intake: current Alcohol Intake frequency: a few times a month Alcohol type: hard liquor Drug use: Never Substance use type: does not use Household members: spouse Housing: apartment Number of Children: 4 number of grandchildren: 7 Pets and animals: Yes Pets and animals: cat(s) What is your relationship status?: Panel score (0-1 are the most socially isolated patients): 1 What type of physical activity do you participate in: walking Seatbelt use: always Do you feel safe at home: Yes Do you feel safe in your relationship?: Yes Readmission Within the Past 30 Days Yes or No: No
[2024-07-18 20:20] VITALS: BP 130/78; PULSE 63; RESP 16; TEMP 36.3; O2SAT 96
[2024-07-18] MEDS: Melatonin 3 MG TAB 6 MG PO (20:39)
[2024-07-18] MEDS: Lidocaine Patch Removal 1 EACH TP (20:40)
[2024-07-19 08:04] VITALS: BP 137/94; PULSE 70; RESP 18; TEMP 35.9; O2SAT 95
[2024-07-19] MEDS: Acetaminophen 325 MG TAB 650 MG PO ×2 (08:11→15:56)
[2024-07-19] MEDS: Memantine 5 MG TAB 10 MG PO ×2 (08:11→19:55)
[2024-07-19] MEDS: Atorvastatin 20 MG TAB PO (08:11)
[2024-07-19] MEDS: Polyethylene Glycol 3350 17 GM PACKET PO (08:12)
[2024-07-19] MEDS: Normal Saline Flush 10 ML SYR IVP ×2 (08:12→19:56)
[2024-07-19] MEDS: Omeprazole 20 MG CAPCR PO (08:12)
[2024-07-19] MEDS: Docusate Sodium 100 MG CAP PO ×2 (08:12→19:56)
[2024-07-19] MEDS: cefTRIAXone 1 GM/50 ML BAG IVPB (08:13)
[2024-07-19] MEDS: Lidocaine 5% Patch 1 PATCH TD (08:13)
--- NOTE | 2024-07-19 13:43 | PGE_ITS ---
Date of Service Date of service: 07/19/24 Time of Service: 13:43 Assessment and Plan Assessment and plan (1) Scrotal wall abscess: Status: Acute Assessment and plan: - Has reportedly been going on for some time and was started on Keflex while at assisted -Was started on Vanco and ceftriaxone, will continue -Urine culture growing ESBL, though patient does have chronic indwelling Holland catheter and did have a white blood cell count and has been on ceftriaxone switch it is resistant, so this is likely a contaminant -Preliminary wound cultures growing 2 different species of gram-negative rods -Will wait for final culture results prior to changing antibiotic regimen -At manage postoperative wound as per urology recommendations (2) Chronic indwelling Holland catheter: Status: Acute Assessment and plan: - Manage as per urology recommendations (3) UTI (urinary tract infection): Status: Acute Assessment and plan: - Being covered by ceftriaxone as noted above (4) Alzheimer's dementia without behavioral disturbance: Assessment and plan: - Continue home regimen of memantine 10 mg twice daily, 12.5 mg Seroquel at 1600 hrs. daily Subjective Subjective Interval history since last seen: Patient states that he is doing well today and has no complaints concerns at this time. Exam Narrative Exam Narrative: Well-appearing older gentleman laying in bed in no acute distress, awake, alert, oriented to person place only, heart regular rhythm, lungs clear to auscultation bilaterally, abdomen soft, nontender, nondistended Objective Last Vital Signs Temp 96.6 F L 07/19/24 08:04 Pulse 70 07/19/24 08:04 Resp 18 07/19/24 08:04 BP 137/94 H 07/19/24 08:04 Pulse Ox 95 07/19/24 08:04 Time Spent with Patient Time Spent with Patient: >50 minutes Time was spent: preparing to see the patient(eg.review tests), obtaining and/or reviewing separately otained hiistory, ordering medications,tests, procedures, referring, communicating with other health palliative care specialist, indepentently interpreting results, counseling the patient and care coordination
--- NOTE | 2024-07-19 14:14 | CMPROGNOTE_ITS ---
Date of service: 07/19/24 Time of Service: 11:15 Care Management Progress Note Progress Note Text Progress Note Text: Quentin was sitting up in the bedside chair when CM met with him earlier today. He was extremely pleasant. 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 He could answer most questions, as long as they were simple. He did state that he is bored, and he also stated that he was feeling fine and wanted to go home. He was looking forward to lunch. Discharge Potential Discharge Needs: Surgical F/U Appt and Other (facility provider f/u) Anticipated Barriers to Discharge: None Identified Patient/Family Education Needs: Review discharge instructions, discuss Ask Me Three [facility]: [facility] Plan: Anticipate that Quentin will be transferred back to the [facility] in the next day or 2. We are still waiting for wound culture results to determine the correct antibiotic. Quentin may need surgery f/u and will need to f/u with the provider at the [facility]. Quentin will transfer in a private vehicle as arranged by CM. CM will continue to follow. Social Determinants of Health Screening Will the Patient Participate in the Screening?: Unable to obtain Social Determinants of Health Comments([facility] Details): pt resides at the [facility]
[2024-07-19 14:57] VITALS: BP 126/87; PULSE 70; RESP 18; TEMP 36.2; O2SAT 93
--- NOTE | 2024-07-19 15:53 | CHAPLAIN ---
Quentin was up in the chair watching tv when I visited. I explained my role and offered support. On the confucianist roster, Quentin is listed as being Jain, but he didn't mention this. He said he's from [place] [facility] [place] [facility] [place], although he said later he was from [place], [place]. Quentin currently lives at the [facility]. His and daughter are supports for him, according to Care Management notes. When I asked Quentin if he's in touch with family or friends, he said yes, but didn't offer who that is. I will continue to visit.
[2024-07-19] MEDS: QUEtiapine 25 MG TAB 12.5 MG PO (15:57)
[2024-07-19 19:42] VITALS: BP 116/85; PULSE 91; RESP 20; TEMP 36.2; O2SAT 97
[2024-07-19] MEDS: Melatonin 3 MG TAB 6 MG PO (19:55)
[2024-07-19] MEDS: Lidocaine Patch Removal 1 EACH TP (20:00)
[2024-07-20 07:31] VITALS: BP 132/86; PULSE 63; RESP 17; TEMP 36.1; O2SAT 97
[2024-07-20] MEDS: Atorvastatin 20 MG TAB PO (08:16)
[2024-07-20] MEDS: Omeprazole 20 MG CAPCR PO (08:16)
[2024-07-20] MEDS: Memantine 5 MG TAB 10 MG PO (08:16)
[2024-07-20] MEDS: Docusate Sodium 100 MG CAP PO (08:16)
[2024-07-20] MEDS: Polyethylene Glycol 3350 17 GM PACKET PO (08:17)
[2024-07-20] MEDS: Lidocaine 5% Patch 1 PATCH TD (08:18)
--- NOTE | 2024-07-20 08:59 | W.PM.PROGNOT ---
Date of Service Date of service: 07/20/24 Time of Service: 09:00 Assessment and Plan Assessment and plan (1) Scrotal wall abscess: Status: Acute Assessment and plan: - Has reportedly been going on for some time and was started on Keflex while at residential -Was started on Vanco and ceftriaxone, will continue -Urine culture growing ESBL, though patient does have chronic indwelling Holland catheter and did have a white blood cell count and has been on ceftriaxone switch it is resistant, so this is likely a contaminant -Preliminary wound cultures growing 2 different species of gram-negative rods -Will wait for final culture results prior to changing antibiotic regimen -At manage postoperative wound as per urology recommendations (2) Chronic indwelling Holland catheter: Status: Acute Assessment and plan: - Manage as per urology recommendations (3) UTI (urinary tract infection): Status: Acute Assessment and plan: - Being covered by ceftriaxone as noted above (4) Alzheimer's dementia without behavioral disturbance: Assessment and plan: - Continue home regimen of memantine 10 mg twice daily, 12.5 mg Seroquel at 1600 hrs. daily Subjective Subjective Interval history since last seen: Patient states that he is doing well today and has no complaints concerns at this time. Exam Narrative Exam Narrative: Well-appearing older gentleman laying in bed in no acute distress, awake, alert, oriented to person place only, heart regular rhythm, lungs clear to auscultation bilaterally, abdomen soft, nontender, nondistended Objective Last Vital Signs Temp 97.0 F L 07/20/24 07:31 Pulse 63 07/20/24 07:31 Resp 17 07/20/24 07:31 BP 132/86 07/20/24 07:31 Pulse Ox 97 07/20/24 07:31
[2024-07-20] MEDS: Milk of Magnesia 30 ML CUP PO (10:56)
[2024-07-20] MEDS: Enoxaparin 40 MG/0.4 ML SYR SC (11:51)
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
--- NOTE | 2024-07-20 16:44 | PDOC.CMDIS ---
Date of service: 07/20/24 Time of Service: 13:30 LACE Index Scoring Tool Questions: Length of Stay (in days): 3 Was the patient admitted via the E.D.?: Yes E.D. Visits: 2 Answers: Total Score: 8 Risk of Readmission: Low Risk Care Management Discharge Plan Reason for Hospitalization: scrotal abscess Discharge Plan: Quentin was discharged back to the [facility] where he resides. He was transported via [facility] private vehicle as coordinated by CM. Quentin will f/u with the facility provider and continue per his plan of care. Patient/Family Education Needs: review of discharge instructions, activity, limitations, f/u plan of care and discuss ask me 3. SDOH Health Related Social Needs: No Data to Display
== END 2024-07-20 13:25 | disposition skilled nursing facility (03) ==
LOC: ER 07-17 10:48 → DSU 07-17 11:26 → MS 07-17 16:48
PROVIDERS: Emergency Medicine; Admitting Provider Urology; Emergency Provider Student in an Organized Health Care Education/Training Program; PCP Nurse Practitioner Gerontology; Visit Provider Surgery
PROC: (CPT 55100; principal; 2024-07-17 11:15)
DX: N49.2 Inflammatory disorders of scrotum (principal); N50.89 Other specified disorders of the male genital organs; N39.0 Urinary tract infection, site not specified; G30.9 Alzheimer's disease, unspecified; F02.80 Dementia in other diseases classified elsewhere, unspecified severity, without behavioral disturbance, psychotic disturbance, mood disturbance, and anxiety; R33.9 Retention of urine, unspecified
CPT/HCPCS: 55100; 54512; 00123; 36410; 36415; 80053; 87077; 96365; 96366; 96367; 96372; 99223; 99285; J1650; 74177; 76870; 81003; 81015; 83735; 85025; 87070; 87075; 87086; 87186; 87205; 88304; 88305; 99222; 99233; 99239; G0378; J0131; J0665; J0696; J2704; J3010; J3490

== ENCOUNTER → 2024-10-03 13:48 | Outpatient (BNVA) | payer MEDICARE, MEDICAID, SELFPAY | PROVIDERS: PCP Nurse Practitioner Gerontology; Referring Provider Nurse Practitioner Gerontology; Visit Provider Nurse Practitioner Gerontology | DX: Z97.2 Presence of dental prosthetic device (complete) (partial) (principal); N49.2 Inflammatory disorders of scrotum; R33.9 Retention of urine, unspecified | CPT/HCPCS: 99213 ==

== ENCOUNTER 2024-11-03 09:09 | Emergency (ER) | payer MEDICARE, MEDICAID, SELFPAY ==
[2024-11-03 09:12] VITALS: BP 121/74; PULSE 72; RESP 18; TEMP 35.7; O2SAT 95
--- NOTE | 2024-11-03 09:26 | ED.GENADUL_ITS ---
Discharge Plan Disposition Patient Disposition: Half-Way Facility(SNF) Condition: Stable Discharge Details Clinical Impression: Acute lumbar myofascial strain, Falls Primary Care Provider: Debra Shah ED Provider: Renate Suh [place] Meds and New Rx's Prescriptions: Continued nitroglycerin [Nitrostat] 0.4 mg tablet, sublingual 0.4 mg Sublingual PRN Qty: 25 0RF Rx Instructions: 1 TAB PRN tamsulosin [Flomax] 0.4 mg capsule 0.4 mg PO DAILY atorvastatin 40 mg tablet 20 mg PO DAILY cholecalciferol (vitamin D3) 1,000 UNIT capsule 2,000 unit PO QAM cyanocobalamin (vitamin B-12) [Vitamin B-12] 1,000 MCG tablet 1,000 mcg PO DAILY acetaminophen [Arthritis Pain Reliever] 650 MG tablet extended release 650 mg PO Q8H PRN memantine 10 mg tablet 10 mg PO BID Qty: 180 3RF omeprazole 20 mg capsule,delayed release(DR/EC) 20 mg PO DAILY Qty: 90 3RF melatonin 5 mg capsule 5 mg PO QPM Qty: 90 3RF Patient Comments: not on MAR Xarelto 10 mg tablet 2.5 mg PO DAILY lidocaine [Aspercreme (lidocaine)] 4 % adhesive patch,medicated 1 patch topical QDAY quetiapine 25 mg tablet 12.5 mg PO BID Rx Instructions: 12.5 mg orally acetaminophen 500 mg tablet 1,000 mg PO TID polyethylene glycol 3350 [Miralax] 17 gram Powder In Packet 17 g PO DAILY docusate sodium [Colace] 100 mg Capsule 100 mg PO BID Refresh Optive 0.5-0.9 % Drops 1 drp OPHTHALMIC (EYE) BID Discharge Instructions Instructions: Low Back Pain ED, Preventing Falls ED Additional Instructions: No evidence of fracture on the lumbar spine x-rays today. Please continue giving the Tylenol and lidocaine patches as needed. Follow up with primary care provider in 3-5 days. Return to ED sooner if any worsening pain, loss of bowel or bladder control, numbness tingling weakness or concerns. Thank you for allowing us to care for you today. Referrals: Debra Shah, [employer] [Primary Care Provider] - 3 days Discharge Data Discharge Date/Time-TO BE ENTERED AT DEPARTURE: 11/03/24 11:29 HPI General Mode of arrival: EMS . Date/Time Provider Initiated Documentation: 11/03/24 09:18 . Limitations to Documentation: no limitations . Information obtained by: patient, EMS, RN notes reviewed and old records reviewed . HPI Narrative: 84-year-old male presents to the ER via EMS chief complaint of fall last night. Patient states that he tripped and fell landed by a brick. He is complaining of low back pain. Was given Tylenol lidocaine patch with some improvement in pain. Denies any chest pain shortness of breath denies hitting his head or neck pain. He is alert and oriented x 3 denies any numbness tingling or hip pain. Vital signs are stable. Does have a history of BPH hypertension Alzheimer's dementia GERD Johnson's esophagus hyperlipidemia obstructive sleep apnea. Related Data Home Medications ?Medication ?Instructions ?Recorded ?Confirmed cholecalciferol (vitamin D3) 25 2,000 unit PO QAM 12/01/12 11/03/24 mcg (1,000 unit) capsule cyanocobalamin (vitamin B-12) 1,000 mcg PO DAILY 07/14/16 10/03/24 1,000 mcg tablet (Vitamin B-12) acetaminophen 650 mg 650 mg PO Q8H PRN 06/08/17 11/03/24 tablet,extended release (Arthritis Pain Reliever) nitroglycerin 0.4 mg sublingual 0.4 mg sublingual PRN #25 tab-caps 05/14/21 11/03/24 tablet (Nitrostat) memantine 10 mg tablet 10 mg PO BID #180 tabs 09/24/21 11/03/24 omeprazole 20 mg capsule,delayed 20 mg PO DAILY #90 tab-caps 11/18/21 11/03/24 release melatonin 5 mg capsule 5 mg PO QPM #90 caps 03/30/22 10/03/24 tamsulosin 0.4 mg capsule (Flomax) 0.4 mg PO DAILY 09/10/22 11/03/24 rivaroxaban 10 mg tablet (Xarelto) 2.5 mg PO DAILY 01/07/23 11/03/24 carboxymethylcellulose 0.5 1 drp ophthalmic (eye) BID 04/02/23 11/03/24 %-glycerin 0.9 % eye drops (Refresh Optive) docusate sodium 100 mg capsule 100 mg PO BID 04/02/23 11/03/24 (Colace) polyethylene glycol 3350 17 gram 17 g PO DAILY 04/02/23 11/03/24 oral powder packet (Miralax) atorvastatin 40 mg tablet 20 mg PO DAILY 04/12/24 11/03/24 lidocaine 4 % topical patch 1 patch topical QDAY 07/07/24 11/03/24 (Aspercreme (lidocaine)) acetaminophen 500 mg tablet 1,000 mg PO TID 11/03/24 11/03/24 quetiapine 25 mg tablet 12.5 mg PO BID 11/03/24 11/03/24 Previous Rx's ?Medication ?Instructions ?Recorded nitroglycerin 0.4 mg sublingual 0.4 mg sublingual PRN #25 tab-caps 05/14/21 tablet (Nitrostat) memantine 10 mg tablet 10 mg PO BID #180 tabs 09/24/21 omeprazole 20 mg capsule,delayed 20 mg PO DAILY #90 tab-caps 11/18/21 release melatonin 5 mg capsule 5 mg PO QPM #90 caps 03/30/22 Allergies Allergy/AdvReac Type Severity Reaction Status Date / Time azithromycin Allergy Severe LIP Verified 11/03/24 09:21 SWELLING ibuprofen Allergy Intermediate angioedema Verified 11/03/24 09:21 Penicillins Allergy Intermediate LIP Verified 11/03/24 09:21 SWELLING Calcium Channel Blocking Allergy Unknown HIVES Verified 11/03/24 09:21 Agent Dilt diltiazem Allergy Unknown HIVES Verified 11/03/24 09:21 Sulfa (Sulfonamide Allergy Unknown SKIN RASH Verified 11/03/24 09:21 Antibiotics) SODIUM NITRITE Allergy Severe Anaphylaxsi Uncoded 07/17/24 01:58 s General Stated Complaint: Nk/Back Pain CAMERON: 3 Review of Systems All systems reviewed & are unremarkable except as noted in HPI and below Cardiovascular Cardiovascular: Reports system reviewed and no additional complaints, except as documented Respiratory Respiratory: Reports system reviewed and no additional complaints, except as documented Musculoskeletal Musculoskeletal: Reports back pain Exam Narrative Exam Narrative: General: Well Developed, Awake and Alert, conversant. Skin: Warm and Dry HEENT: Head: No palpable deformities, Normocephalic Eyes: Pupils PERRLA, EOM's intact. No periorbital eccymosis or step off Ears: Canal patent. Tympanic membranes are clear . No sher's sign, no hemptympanum. Nose/Face: Atraumatic. Facial bones nontender to palpation and stable with manipulation. Mouth/Throat: No intraoral trauma. Teeth and mandible are intact. Neck: No midline tenderness, no step off, no deformity to palpation of C-spine. Trachea midline. Chest: No surface trauma. Nontender without crepitus or deformity. Lungs clear to ausculatation bilaterally. Heart: RRR, no rubs, murmurs or gallop. Abdomen: No abrasions, ecchymosis, or surface trauma. Nondistended. Nontender to palpation no guarding, rebound, or rigidity. Pelvis: Nontender to palpation and stable to compression. Femoral pulses strong and equal Extremities: no surface trauma. Sensation intact. Peripheral pulses intact and equal. Neuro: ANO x4, GCS 15, cranial nerves II through XII intact. Motor and sensory exam nonfocal. Reflexes are symmetric. Course Vital Signs Vital signs: Vital Signs Temperature 35.7 C L 11/03/24 09:12 Pulse 72 11/03/24 09:12 Respiratory Rate 18 11/03/24 09:12 Blood Pressure 121/74 11/03/24 09:12 Pulse Oximetry 95 11/03/24 09:12 Temperature 35.7 C L 11/03/24 09:12 Temperature Source Tympanic 11/03/24 09:12 Pulse 72 11/03/24 09:12 Respiratory Rate 18 11/03/24 09:12 Blood Pressure 121/74 11/03/24 09:12 Pulse Oximetry 95 11/03/24 09:12 Oxygen Delivery Method Room Air 11/03/24 09:12 Oxygen Flow Rate 0 11/03/24 09:12 Pain Level 4 11/03/24 09:12 Medical Decision Making 84-year-old male presents to the ER via EMS chief complaint of fall last night. Patient states that he tripped and fell landed by a brick. He is complaining of low back pain. Was given Tylenol lidocaine patch with some improvement in pain. Denies any chest pain shortness of breath denies hitting his head or neck pain. He is alert and oriented x 3 denies any numbness tingling or hip pain. Vital signs are stable. Does have a history of BPH hypertension Alzheimer's dementia GERD Johnson's esophagus hyperlipidemia obstructive sleep apnea. X-ray of L-spine ordered. X-ray shows no acute fracture or subluxation he does have some disc narrowing in L2-3 which appears chronic. On patient reevaluation he is resting in bed awakens easily to verbal. He normally is ambulatory at home. He reports that his back pain feels better at this time. Will discharge back to the [facility]. Patient standing up here in the department without difficulty. Discharged back to the [facility]. This text was generated using [email or web address] system, please disregard any oddities of phrase or misspellings. Medical Records Medical records reviewed: Yes I reviewed the patient's medical records. Imaging Data Radiologic Study: Imaging: X-Ray Radiologist's impression: Exam(s) XR LUMBAR SPINE COMPLETE EXAM: XR LUMBAR SPINE COMPLETE CLINICAL HISTORY: Fall. TECHNIQUE: 2D digital imaging was performed. COMPARISON: CT CT ABDOMEN PELVIS W from 07/17/2024 FINDINGS: Six views No evidence of fracture or listhesis. There is disc space narrowing which is most prominent at L2-3 level. Osteopenia age-related. There joint arthropathy changes at the lower 3 levels. Sacroiliac joints appear unremarkable. There are bilateral hip prostheses. IMPRESSION: Advanced disc space narrowing at L2-3 level. Quality:SDOH Health Related Social Needs: No Data to Display PFSH All Active Problems (Updated 11/03/24 @ 10:51 by Renate Suh NP) Acute lumbar myofascial strain (Acute) Abscess, scrotum (Acute) Chronic indwelling Holland catheter (Acute) Scrotal bleeding (Acute) Urinary tract infection (Acute) Retention of urine (Acute) Macular degeneration (Acute) Penile rash (Acute) Amnesia memory loss (Acute) Hypercalcemia (Acute) Domestic problems (Acute) Falls (Acute) Skin lesion of right lower extremity (Acute) Encounter for annual physical exam (Acute) Anemia (Acute 10/09/08) History of cataract removal with insertion of prosthetic lens (Acute) Idiopathic scoliosis (Acute) Impaired fasting glucose (Acute) Angioedema (Acute) 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 CRISTI XIONG; EGD Hyperlipidemia (12/06/12) Obstructive sleep apnea syndrome [facility]; C-PAP Surgical History ankle repair (~1980) Total replacement of hip (~2004) Transurethral prostatectomy (~2006) Rotator Cuff Repair (~2005) Extraction of cataract (~2010) Arthroscopy, Shoulder (~2009) Family History Mother Essential hypertension Hyperlipidemia Father Alzheimer disease Brother Hyperlipidemia Grandfather Heart disease Grandfather Heart disease Grandmother No problems noted. Grandmother Essential hypertension Brother Essential hypertension Son No problems noted. Son No problems noted. Son No problems noted. Daughter No problems noted. Social History Smoking/Tobacco Use Status: Former Tobacco Use Smoking risk assessment performed?: Yes Alcohol Intake: current Alcohol Intake frequency: a few times a month Alcohol type: hard liquor Drug use: Never Substance use type: does not use Household members: spouse Housing: correction Number of Children: 4 number of grandchildren: 7 Pets and animals: Yes Pets and animals: cat(s) What is your relationship status?: Panel score (0-1 are the most socially isolated patients): 1 What type of physical activity do you participate in: walking Seatbelt use: always Do you feel safe at home: Yes Do you feel safe in your relationship?: Yes
--- NOTE | 2024-11-03 09:57 | DI.RAD_ITS ---
Exam(s) XR LUMBAR SPINE COMPLETE EXAM: XR LUMBAR SPINE COMPLETE CLINICAL HISTORY: Fall. TECHNIQUE: 2D digital imaging was performed. COMPARISON: CT CT ABDOMEN PELVIS W from 07/17/2024 FINDINGS: Six views No evidence of fracture or listhesis. There is disc space narrowing which is most prominent at L2-3 level. Osteopenia age-related. There joint arthropathy changes at the lower 3 levels. Sacroiliac j oints appear unremarkable. There are bilateral hip prostheses. IMPRESSION: Advanced disc space narrowing at L2-3 level. DATA REPOSITORY: RADIATION DOSE DELIVERED:
== END 2024-11-03 11:29 | disposition skilled nursing facility (03) ==
PROVIDERS: Emergency Provider Registered Nurse Emergency; PCP Nurse Practitioner Gerontology
DX: S39.012A Strain of muscle, fascia and tendon of lower back, initial encounter (principal); W19.XXXA Unspecified fall, initial encounter
CPT/HCPCS: 99283 ×2; 72110

== ENCOUNTER 2024-11-20 19:34 | Outpatient (REF) | payer MEDICARE, MEDICAID, SELFPAY ==
[2024-11-20 18:16] LABS: Bilirubin Moderate (Negative); Blood Large (Negative); Clarity Sl Cloudy (Clear); Glucose Negative (Negative); Ketones Trace mg/dL (Negative); Leukocyte Esterase Small (Negative); Nitrite Positive (Negative); Specific Gravity >= 1.030 (1.005-1.025); pH 5.5 (5-8)
[2024-11-20 18:30] LABS: Bacteria Packed HPF (Negative); C & S Indicated? C&S Done As Ordered; RBC >50 HPF (0-2); WBC >50 HPF (0-5)
== END 2024-11-20 19:35 | disposition home or self-care (01) ==
LOC: LBN 19:34
PROVIDERS: PCP Nurse Practitioner Gerontology; Visit Provider Nurse Practitioner Gerontology
DX: N39.0 Urinary tract infection, site not specified (principal)
CPT/HCPCS: 87077; 81003; 81015; 87086; 87186

== ENCOUNTER 2025-02-13 16:25 | Outpatient (REF) | payer MEDICARE, MEDICAID, SELFPAY ==
[2025-02-13 17:08] LABS: Glucose Negative (Negative)
[2025-02-13 17:16] LABS: WBC >50 HPF (0-5)
== END 2025-02-13 16:26 | disposition home or self-care (01) ==
LOC: LBN 16:25
PROVIDERS: PCP Nurse Practitioner Gerontology; Visit Provider Nurse Practitioner Gerontology
DX: N39.0 Urinary tract infection, site not specified (principal)
CPT/HCPCS: 81003; 81015; 87086

== ENCOUNTER 2025-02-19 17:17 | Outpatient (REF) | payer MEDICARE, MEDICAID, SELFPAY ==
[2025-02-19 17:03] LABS: Abs Immature Grans 0.02 10^3/uL (0.0-0.06); HCT 41.1 % (40.0-50.0); HGB 13.1 g/dL (13.5-17.5); Immature Grans % 0.4 %; MCH 31.3 pg (27.0-33.0); MCHC 31.9 % (32.0-36.0); MCV 98 fL (80-95); MPV 9.2 fL (8.0-11.0); Platelet Count 163 10^3/uL (130-400); RBC 4.19 10^6/uL (4.36-5.78); RDW 13.3 % (11.8-14.1); RDW-SD 47.8 fL; WBC 5.67 10^3/uL (4.4-10.8)
[2025-02-19 19:00] LABS: ALT 18 U/L (16-63); AST 15 U/L (15-37); Albumin 3.5 g/dL (3.4-5.0); Alkaline Phosphatase 77 U/L (46-116); Anion Gap 4.7 mmol/L (3-11); BUN 21 mg/dL (7-18); Bilirubin, Total 0.5 mg/dL (0.2-1.0); CO2 30.3 mmol/L (21.0-32.0); Calcium 9.7 mg/dL (8.5-10.1); Chloride 103 mmol/L (98-107); Estimated GFR 65.79 (mL/min/1.73m2); Glucose 115 mg/dL (74-106); Magnesium 2.5 mg/dL (1.8-2.4); Potassium 5.1 mmol/L (3.5-5.1); Sodium 138 mmol/L (136-145); Total Protein 6.5 g/dL (6.4-8.2)
== END 2025-02-19 17:18 | disposition home or self-care (01) ==
LOC: LBN 17:17
PROVIDERS: PCP Nurse Practitioner Gerontology; Visit Provider Nurse Practitioner Gerontology
DX: D63.1 Anemia in chronic kidney disease (principal)
CPT/HCPCS: 80053; 83735; 85025

== ENCOUNTER → 2025-05-10 04:00 | Outpatient (CLI) | payer MEDICARE, MEDICAID, SELFPAY ==
--- NOTE | 2025-05-10 13:35 | DI.RAD_ITS ---
Exam(s) XR SHOULDER LT COMPLETE 2+V EXAM: XR SHOULDER LT COMPLETE 2+V CLINICAL HISTORY: PAIN LT SHOULDER R52 LEFT SHOULDER INJURY S/P FALL LIMITED ROM. TECHNIQUE: 2D digital imaging was performed. COMPARISON: CR XR CHEST 2V PA LATERAL from 01/07/2023 CR XR CHEST 2V PA LATERAL from 07/07/2024 FINDINGS: Four views There is a left shoulder prosthesis. No evidence of fracture. However, the humeral head component appears to be positioned abnormally high in the osseous glenoid fossa and there is significant diminution of the subacromial space. This may not be a new findings as disposition appears to been present on prior chest x-ray of 01/07/2023. The ipsilateral AC joint appears unremarkable as does the clavicle and a chromium. There is also no fracture evident in the visualized proximal half of the humerus and no subjacent rib fractures evident. IMPRESSION: As above. DATA REPOSITORY: RADIATION DOSE DELIVERED:
== END ==
LOC: DI 04:00
PROVIDERS: PCP Legal Medicine; Visit Provider Nurse Practitioner Gerontology
DX: M25.512 Pain in left shoulder (principal)
CPT/HCPCS: 73030

== ENCOUNTER 2025-05-28 18:45 | Outpatient (REF) | payer MEDICARE, MEDICAID, SELFPAY ==
[2025-05-28 16:38] LABS: Magnesium 2.3 mg/dL (1.6-2.6)
[2025-05-28 16:40] LABS: ALT 16 U/L (10-49); AST 22 U/L (<34); Albumin 4.3 g/dL (3.4-5.0); Alkaline Phosphatase 73 U/L (46-116); Anion Gap 5.9 mmol/L (3-11); BUN 19 mg/dL (9-23); Bilirubin, Total 0.50 mg/dL (0.2-1.2); CO2 30.1 mmol/L (20.0-31.0); Calcium 10.1 mg/dL (8.3-10.6); Chloride 104 mmol/L (98-107); Glucose 82 mg/dL (74-106); Potassium 4.9 mmol/L (3.5-5.1); Sodium 140 mmol/L (136-145); Total Protein 7.0 g/dL (5.7-8.2)
[2025-05-28 16:43] LABS: Glucose Negative (Negative); TSH (W/Ref FT4) 0.72 uIU/mL (0.55-4.78)
[2025-05-28 16:51] LABS: WBC >50 HPF (0-5)
== END 2025-05-28 18:46 | disposition home or self-care (01) ==
LOC: LBN 18:45
PROVIDERS: PCP Legal Medicine; Visit Provider Nurse Practitioner Gerontology
DX: E03.9 Hypothyroidism, unspecified (principal); N39.0 Urinary tract infection, site not specified; E87.8 Other disorders of electrolyte and fluid balance, not elsewhere classified; D63.1 Anemia in chronic kidney disease
CPT/HCPCS: 80053; 81003; 81015; 83735; 84443; 87086

== ENCOUNTER 2025-06-19 12:17 | Outpatient (REF) | payer MEDICARE, MEDICAID, SELFPAY ==
[2025-06-19 18:54] LABS: Glucose Negative (Negative)
[2025-06-19 19:02] LABS: C & S Indicated? No; RBC 20-50 HPF (0-2)
== END 2025-06-19 12:18 | disposition home or self-care (01) ==
LOC: LBN 12:17
PROVIDERS: PCP Legal Medicine; Visit Provider Nurse Practitioner Gerontology
DX: N39.0 Urinary tract infection, site not specified (principal)
CPT/HCPCS: 87077; 81003; 81015; 87086; 87186